=== PATIENT | female | born 1960 | race Caucasian/White ===

== ENCOUNTER 2021-08-19 19:35 | Emergency (ER) | payer SELFPAY ==
--- OUTSIDE RECORDS SUMMARY | 2021-08-19 19:38 | XMS REPORT | Continuity of Care Document ---
:1960 Author Organization [facility] t Address [address] [place] [address] Care Team Providers Name Role Phone Azalia Herrera MD Attending Clinician Azalia HERRERA Attending Clinician Unavailable Angelo Attending Clinician Unavailable Physician, Primary or Family Admitting Clinician Unavailabl e Payers Payer Name Policy Type Policy Number Effective Date Expiration Date S ying PHCS GENERIC [id number] 2015 00:00:00 Problems Condition Condition Condition Status Onset Resolution Last Treating Co mments Source Name Details Category Date Date Treatment Clinician Date Chest pain Chest pain Disease Active 2005-09 Overview : Univers 2-12 ICD10 ity of 00:00: Diagnosis [place] 00 Term Medical Clinical Documentation Clerk Branch Utility Seizure Seizure Disease Active 2005-09 Univers disorder disorder 2-12 ity of 00:00: [place] 00 Medical Branch Anxiety Anxiety Disease Active 2005-09 Overview: Univ ers disorder disorder 2-12 ICD10 ity of due to due to 00:00: Diagnosis [place] medical medical 00 Term Medical condition condition Clinical Documentation Clerk Br anch Utility Chronic Chronic Disease Active 2005-09 Univers depressive depressive 2-12 it y of personalit [place]it [place] disorder y disorder 00 Me dical Branch Chronic Chronic Disease Active 2005-09 Overview: Univ ers obstructiv obstructiv 2-12 ICD10 it y of e airway e airway 00:00: Diagnosis [place] as disease disease 00 Term Medical with with Clinical Documentation Clerk Branch asthma asthma Utility Allergies, Adverse Reactions, Alerts Allergy Allergy Status Severity Reaction(s) Onset Inactive Treating Comm ents Source Name Type Date Date Clinician anselmo DA Active SV 2013- [facility] 09[facility]28 [place] sodium 00:00: d [facility] micafung DA Active SV AMS [facility] in 09-28 [place] sodium 00:00: d 00 [facility] Primidon Propensi Active Rash 2005-09 Univer s e ty to 2-13 ity of adverse 00:00: [place] reaction Medical s Branch PRIMIDON DRUG Active Rash 2005-09 Univers E INGREDI 2-13 ity of 00:00: [place] 00 Medical [place] Social History Social Habit Start Date Stop Date Quantity Comments Source Exposure to Not sure [facility] SARS-CoV-2 (event) [facility] History of tobacco Cigarette Smoker University of use [facility] Sex Assigned At [facility] y of [facility] Cigarettes smoked 2020-08-03 2020-08-03 Univers ity of current (pack per 00:00:00 00:00:00 ) - Reported Branch Tobacco use and 2020-08-03 2020-08-03 Never used [facility] y of exposure 00:00:00 00:00:00 [facility] Alcohol intake 2020-08-03 2020-08-03 Current University of 00:00:00 00:00:00 non-drinker of [facility] alcohol [place] (finding) Smoking Status Start Date Stop Date Source Current every day smoker 2020-08-03 00:00:00 Uni versity [facility] Medications Ordered Filled Start Stop Current Ordering Indication Dosage Frequency Signature Comments Components Source Medication Medication Date Date Medication? Clinician (SIG) Name Name ondansetron 2019-09 Yes [id number] 4mg Take 1 Univers (ZOFRAN) 4 1-09 tablet by ity of mg tablet 00:00: mouth [place] 00 every 8 Medical (eight) Branch hours. acetaminoph 2019-09 Yes [id number] 1{tbl} Take 1 Un demetris en-codeine 1-09 tablet by ity of (TYLENOL-CO 00:00: mouth [place] DEINE #3) 00 every 4 Medical 300-30 mg (four) Branch tablet hours as needed for Pain (scale 7-10). Indication s: acute pain mirtazapine Yes 45mg Take 45 mg Univers (REMERON) 04 by mouth ity of 45 mg 20:59: at [place] tablet 18 bedtime. Medical Branch doxepin Yes 75mg Take 75 mg Univ ers (SINEQUAN) 1-04 by mouth ity o f 75 mg 20:59: at [place] capsule 18 bedtime. Medical Branch carBAMazepi Yes 400mg Take 1 Tab Univers ne 1-04 by mouth 2 ity of (TEGRETOL 00:00: (two) [place] XR) 400 mg 00 times Medical 12 hr daily. Branch tablet levETIRAcet Yes 500mg Take 1 Tab Univers am (KEPPRA) 1-04 by mouth 2 it y of 500 mg 00:00: (two) [place] tablet 00 times Medical daily. Branch carBAMazepi 2014-09 Yes 200mg Take 200 U nivers ne 1-17 mg by ity of (TEGRETOL) 00:00: mouth 2 [place] 200 mg 00 (two) Medical tablet times [place] daily. Vital Signs Vital Name Observation Time Observation Value Comments Source Systolic blood 2020-08-04 01:16:00 122 [facility]Hg[facility] Diastolic blood 2020-08-04 01:16:00 76 mm[Hg] [facility] Heart rate 2020-08-04 01:16:00 80 /min [facility] Body temperature 2020-08-04 01:16:00 36.44 Ruchi [facility] Respiratory rate 2020-08-04 01:16:00 20 /min [facility] Oxygen saturation in 2020-08-04 01:16:00 97 /min [facility] Arterial blood by [facility] Pulse oximetry Branch Body weight 2020-08-03 20:01:00 45.397 kg [facility] BMI 2020-08-03 20:01:00 18.31 kg/m2 [facility] Procedures Procedure Date / Time Performed Performing Clinician Sourc e URINALYSIS 2020-08-04 00:34:00 Kierra Powell [facility] US ABDOMEN LIMITED 2020-08-03 22:18:34 Kierra Powell [facility] XR ABDOMEN ACUTE 2020-08-03 21:19:00 Kierra Powell [facility] Branch LIPASE 2020-08-03 21:04:00 [facility] TROPONIN I 2020-08-03 21:04:00 [facility] HEPATIC FUNCTION PANEL 2020-08-03 21:04:00 [facility] ([id number]) [facility] (ALB,T.PRO,BILI T,BU/BC,ALT,AST,ALK PHOS) BASIC METABOLIC PANEL 2020-08-03 21:04:00 [facility] (NA, K, CL, CO2, Medical Branch GLUCOSE, BUN, CREATININE, CA) CBC WITH DIFF 2020-08-03 21:04:00 [facility] Encounters Start End Encounter Admission Attending Care Care Encounter Source Date/Time Date/Time Type Type Clinicians Facility Department ID 2020-08-03 2020-08-03 Emergency Yarima, TRAUMA [id number] Univers 14:01:00 19:26:00 Anila CENTER [id number] i ty of [id number] [facility] [id number] [address] 2020-08-03 2020-08-03 Emergency X YARIMA, [facility] ERT [id number] Univers 14:01:00 14:01:00 ANILA wolf [facility] 2019-10-28 2019-10-28 Emergency EM Stephens, [facility] [id number] [facility] 18:21:00 18:21:00 Hasmukh [id number] [facility] Results Test Description Test Time Test Comments Results Result Comments Source Urinalysis 2020-08-04 00:59:00 Test Item Value Reference Range Interpretation Comme nts APPEARANCE (test code = Clear Clear 6453370165) COLOR (test code = 6858963081) Straw Yellow A PH (test code = 2484062964) 4.8-8.0 SP GRAVITY (test code = 1.003-1.030 6064716119) GLU U QUAL (test code = Normal Normal 9283623992) BLOOD (test code = 6702673737) 1+ Negative A KETONES (test code = 1010204145) Negative Negative PROTEIN (test code = 2887-8) Negative Negative UROBILIN (test code = 8666088754) Normal Normal BILIRUBIN (test code = Negative Negative 1144880277) NITRITE (test code = 5707243877) Negative Negative LEUK VICTOR MANUEL (test code = Negative Negative 0628990522) RBC/HPF (test code = 2269437486) See_Comment [Automated message] The system which ge nerated this result transmit sherley reference range: 0 - 3 HP F. The reference range was not used to interpret th is result as normal/abnormal . WBC/HPF (test code = 3798250117) See_Comment [Automated message] The system which ge nerated this result transmit sherley reference range: 0 - 5 HP F. The reference range was not used to interpret th is result as normal/abnormal . BACTERIA (test code = 6991731352) Negative Negative SQ EPITH (test code = 9927697832) See_Comment [Automated message] The system which ge nerated this result transmit sherley reference range: <=2 HPF. The reference range was not u sed to interpret this result as normal/abnormal . Lab Interpretation (test code = Abnormal 29989-3) [facility] Abdomen [id number] 23:26:24 Cholelithiasis without sonographic evidence of acute cholecystitis orbiliary ductal dilatation. Preliminary Report Dictated by Resident: Germain Khalil I, Naif Lawrence MD., have reviewed this study andagree with the abovereport.EXAM: US ABDOMEN LIMITED HISTORY: 59 years-old Female with RUQ pain, r/o acute cholecystitis . TECHNIQUE: Limited abdominal ultrasound focused on the liver, right kidneyand spleen was performed. The main portal vein was evaluated with colorDoppler imaging. [employer] Repairer images were obtained for the record. COMPARISON: None FINDINGS: PANCREAS: The pancreatic head and bodydisplay normal echogenicity to the extentvisualized. AORTA:The proximal abdominal aorta is normal incaliber where visualized, andmeasures approximately 1.5 cm in diameter. LIVER:Length: The liver is at the upper limits of normal in size, and .0 cm in the craniocaudal dimension.Parenchyma: The liver parenchyma exhibits normal hepatic echogenicity andechotexture. No focal lesion is detected.Portal vein: Hepatopetal flow is present in the main portal vein.MPV diameter: The main portal vein measures 0.8 cm in the AP dimension. BILE DUCTS:No intra- or extrahepatic biliary dilatation is visualized.The common bile duct diameter measures 0.3 cm. GALLBLADDER:The gallbladder is physiologically di stended. Mobile, curvilinear,echogenic structures measuring up to 0.7 cm are seen within the gallbladderlumen with posterior acoustic shadowing.The gallbladder wall thickness is normal, and measures 0.2 cm.No pericholecystic fluid is visualized. Arreola's sign was unable to beaccurately assessed due to complaints of generalized abdominal pain. IVC:The IVC appears normal where visualized. [facility], Radiant Results Inft User - 08/03/2020 5:27 PM CSTEXAM: US ABDOMEN LIMITEDHISTORY: 59 years-old Female with RUQ pain, r/o acute cholecystitis .TECHNIQUE: Limited abdominal ultrasound focused on the liver, rig ht kidneyand spleen was performed. The main portal vein was evaluated with colorDoppler imaging. [employer] Repairer images were obtained for the record.COMPARISON: NoneFINDINGS: PANCREAS: The pancreatic head and body display normal echogenicity to the extentvisualized.AORTA:The proximal abdominal aorta is normal in caliber where visualized, andmeasures approximately 1.5 cm in diameter. LIVER:Length: Theliver is at the upper limits of normal in size, and rzerrzax20.0 cm in the craniocaudal dimension.Parenchyma: The liver parenchyma exhibits normal hepatic echogenicity andechotexture. No focal lesion is detected.Portal vein: Hepatopetal flow is present in the main portal vein.MPV diameter: The main portal vein measures 0.8 cm in the AP dimension.BILE DUCTS:No intra- or extrahepatic biliary dilatationis visualized.The common bile duct diameter measures 0.3 cm.GALLBLADDER:The gallbladder is physiologically distended. Mobile, curvilinear,echogenic structures measuring up to 0.7 cm are seen within thegallbladderlumen with posterior acoustic shadowing.The gallbladder wall thickness is normal, and measures 0.2 cm.No pericholecystic fluid is visualized. Arreola's sign was unable to beaccurately assessed due to complaints of generalized abdominal pain.IVC:The IVC appears normal where visualized. IMPRESSIONCholelithiasis without sonographic evidence of acute cholecystitis orbiliary ductal dilatation.Preliminary Report Dictated by Resident: Naif Smith MD., have reviewed this study andagree with the abovereport.[facility] 2020-08-03 22:02:17 Chronic emphysematous changes of the lungs with increased bilateralreticular opacities more prominent on the left likely traveling representative ofinterstitial lung disease. No acute intra-abdominal abnormality. The bowel gas pattern isnonobstructive. Age-indeterminate mid thoracic compression deformity with approximately 30%height loss. Preliminary Report Dictated by Resident: Jurgen Rowe MD., have reviewed this study and agree withthe above report.Exam: XR ABDOMEN ACUTE SERIES CLINICAL INDICATION: abdominal pain COMPARISON: None Technique: PA and lateral radiographs of the chest were obtained. Uprightand supine AP radiographs of the abdomen were obtained. FINDINGS: Thelungs are hyperinflated with flattening of the bilateral hemidiaphragmsand increased AP diameter of the thorax. Bilateral lower lobe predominantreticular opacities are noted more prominent in the left lung. Biapicalbullae are noted. No focal consolidation or pneumothorax is visualized.Mild blunting ofthe bilateral costophrenic angles likely representingpleural thickening. The cardiac silhouette appears decrease in size. The bowel gas pattern is nonobstructive. No subdiaphragmatic free air isvisuali zed on upright images. No radiopaque stones or abnormalcalcifications are identified. Age-indeterminate mid thoracic compression deformity with approximately 30%height loss. Otherwise, no acute osseousabnormality. [facility], Radiant Results Inft User - 08/03/2020 4:03 PM CSTExam: XR ABDOMEN ACUTE SERIESCLINICAL INDICATION: abdominal pain COMPARISON: NoneTechnique: PA and lateral radiographs of the chest were obtained. Uprightand supine AP radiographs of the abdomen were obtained.FINDINGS:The lungs arehyperinflated with flattening of the bilateral hemidiaphragmsand increased AP diameter of the thorax. Bilateral lower lobe predominantreticular opacities are noted more prominent in the left lung. Biapicalbullae are noted. No focal consolidation or pneumothorax is visualized.Mild blunting of the bilateral costophrenic angles likely representingpleural thickening.The cardiac silhouette appears decrease in size. The bowel gas pattern is nonobstructive. No subdiaphragmatic free air isvisualized on upright images. No radiopaque stones or abnormalcalcifications are identified.Age-indeterminate mid thoracic compression deformity with approximately 30%height loss. Otherwise, no acute osseous abnormality. IMPRESSIONChronic emphysematous changes of the lungs with increased bilateralreticular opacities more prominent on the left likely traveling representative ofinterstitial lung disease.No acute intra-abdominal abnormality. The bowel gas pattern isnonobstructive.Age-indeterminate mid thoracic compression deformity with approximately 30%height loss. Preliminary Report Dictated by Resident: Cory Greenfield, Jurgen Ford MD., have reviewed this study and agree withthe above report.[facility] 2020-08-03 21:35:00 Test Item Value Reference Range Interpretation Comments TROPONIN I (test 0.001 ng/mL See_Comment [Automated code = 2933628302) message] The system which generated this result transmitted reference range : <=0.034. The reference range was not used to interpret this result as normal/abnormal . OMAR (test code = Equal or Less than OMAR) 0.034 ng/ml---Normal ?Note: Cardiac troponin begins to rise 3-4 hours after the onset of ischemia. Repeat in 4-6 hours if the sample was drawn within 3-4 hours of the onset of the symptom and found normal. Between 0.035 and 0.120 ng/mL--- Borderline. Questionable myocardial injury or necrosis ? ?Note: Serial measurement may be necessary to confirm or exclude the diagnosis of myocardial injury or necrosis; Clinical correlation (symptoms, EKGs, imaging studies, and others) required; Repeat in 4-6 hours if clinically indicated. ? Equal or Higher than 0.121 ng/mL---Abnormal. Myocardial Injury or Necrosis Likely ? Biotin has been reported to cause a negative bias, interpret results relative to patient's use of biotin. ? Lab Interpretation Normal (test code = 16026-9) [facility] (NA, K, CL, CO2, GLUCOSE, BUN, CREATININE, CA)2020-08-03 21:25:00 Test Item Value Reference Range Interpretation Comments NA (test code = 138 mmol/L 135-145 9606516132) K (test code = 4.6 mmol/L 3.5-5 4280313217) CL (test code = 102 mmol/L 98-108 3680199373) CO2 TOTAL (test code = 29 mmol/L 23-31 5203777803) AGAP (test code = 2-16 3340472579) BUN (test code = 8 mg/dL 7-23 5736636172) GLUCOSE (test code = 84 mg/dL 70-110 0230808906) CREATININE (test code 0.56 mg/dL 0.5-1.04 = 7369026232) CALCIUM (test code = 9.6 mg/dL 8.6-10.6 4626667532) eGFR Calculation mL/min/1.73m2 (Non-) (test code = 2972698988) eGFR Calculation mL/min/1.73m2 () (test code = 5899545594) OMAR (test code = OMAR) Association of Glomerular Filtration Rate (GFR) and Staging of Kidney Disease* + -+ + ---+| GFR (mL/min/1.73 m2) ?| With Kidney Damage ?| ?Without Kidney Damage+ -------+ ------+ ---------+| ?>90 ?| ?Stage one ?| ? Normal ?+ --+ -+ ----+| ?60-89 ?| ?Stage two ?| ? Decreased GFR ? + -+ + ---+| ?30-59 ?| ?Stage three ?| ? Stage three ? + -+ + ---+| ?15-29 ?| ?Stage four ? | ? Stage four ?+ --+ -+ ----+| ?<15 (or dialysis) ? ?| ?Stage five ? | ? Stage five ?+ --+ -+ ----+ *Each stage assumes the associated GFR level has been in effect for at least three months. ?Stages 1 to 5, with or without kidney disease, indicate chronic kidney disease. Notes: Determination of stages one and two (with eGFR >59mL/min/1.73 m2) requires estimation of kidney damage for at least three months as defined by structural or functional abnormalities of the kidney, manifested by either:Pathological abnormalities or Markers of kidney damage (including abnormalities in the composition of the blood or urine or abnormalities in imaging tests). [facility] (ALB, T.PRO, BILI T, BU/BC, ALT, AST, ALK PHOS)2020-08-03 21:25:00 Test Item Value Reference Range Interpretation Comments TOTAL BILI (test code = 1062680811) 0.3 mg/dL 0.1-1.1 BILI UNCON (test code = 9732530608) 0.1 mg/dL 0.1-1.1 BILI CONJ (test code = 0117025806) 0.0 mg/dL 0-0.3 T PROTEIN (test code = 1571267717) 8.1 g/dL 6.3-8.2 ALBUMIN (test code = 2752569853) 4.1 g/dL 3.5-5 ALK PHOS (test code = 0543688680) 86 U/L 34-122 ALTv (test code = 1742-6) 10 U/L 5-35 AST(SGOT) (test code = 9184948900) 21 U/L 13-40 Lab Interpretation (test code = Normal 54209-2) [facility]ano[facility]ase [id number] 21:25:00 Test Item Value Reference Range Interpretation Comments LIPASE (test code = 8017372908) 83 U/L 0-220 Lab Interpretation (test code = Normal 51233-3) [facility] with [id number] 21:17:00 Test Item Value Reference Range Interpretation Comments WBC (test code = See_Comment [Automated 2631-2) message] The sy stem which generated this result transmitted reference range : 4.30 - 11.10 10*3/?L. The reference range was not used to interpret this result as normal/abnormal . RBC (test code = See_Comment [Automated 247-8) message] The sy stem which generated this result transmitted reference range : 3.93 - 5.25 10*6/?L. The reference range was not used to interpret this result as normal/abnormal . HGB (test code = 14.4 g/dL 11.6-15 718-7) HCT (test code = 43.9 % 35.7-45.2 4544-3) MCV (test code = 94.8 fL 80.6-95.5 787-2) MCH (test code = 31.1 pg 25.9-32.8 785-6) MCHC (test code = 32.8 g/dL 31.6-35.1 786-4) RDW-SD (test code = 46.5 fL 39-49.9 65835-1) RDW-CV (test code = 13.3 % 12-15.5 788-0) PLT (test code = See_Comment [Automated 777-3) message] The sy stem which generated this result transmitted reference range : 166 - 358 10*3/ ?L. The reference r giacomo was not used to interpret this result as normal/abnormal . MPV (test code = 9.4 fL 9.5-12.9 L 02483-4) NRBC/100 WBC (test See_Comment [Automat ed code = 3730214378) message] The system which generated this result transmitted reference range : 0.0 - 10.0 /100 WBCs. The refer ence range was not u sed to interpret th is result as normal/abnormal . NRBC x10^3 (test code <0.01 See_Comment [Auto mated = 9475108677) message] The s ystem which generated this result transmitted reference range : 10*3/?L. The reference range was not used to interpret this result as normal/abnormal . GRAN MAT (NEUT) % 68.2 % (test code = 770-8) IMM GRAN % (test code 0.40 % = 3061657186) LYMPH % (test code = 22.7 % 736-9) MONO % (test code = 5.3 % 5905-5) EOS % (test code = 2.5 % 713-8) BASO % (test code = 0.9 % 706-2) GRAN MAT x10^3(ANC) 5.29 10*3/uL 1.88-7.09 (test code = 8510606555) IMM GRAN x10^3 (test 0.03 10*3/uL 0-0.06 code = 9125125325) LYMPH x10^3 (test code 1.76 10*3/uL 1.32-3.29 = 731-0) MONO x10^3 (test code 0.41 10*3/uL 0.33-0.92 = 742-7) EOS x10^3 (test code = 0.19 10*3/uL 0.03-0.39 711-2) BASO x10^3 (test code 0.07 10*3/uL 0.01-0.07 = 704-7) Lab Interpretation Abnormal (test code = 27985-2) [facility]PRE[facility]ENSIVE METABOLIC [id number] 19:56:00 Test Item Value Reference Range Interpretation Comments SODIUM (test code = NA) 139 mmol/l 134.0-147.0 N POTASSIUM (test code = K) 3.3 mmol/L 3.6-5.2 L CHLORIDE (test code = CL) 99 mmol/l 98.0-107.0 N CARBON DIOXIDE (test code = CO2) 31.2 mmol/l 21.0-33.0 N ANION GAP (test code = GAP) 12.1 0-20 N GLUCOSE (test code = GLU) 78 mg/dl 70.0-110.0 N BLOOD UREA NITROGEN (test code = 8 mg/dl 7.0-18.0 N BUN) CREATININE (test code = CREAT) 0.78 mg/dL 0.60-1.30 N GFR NON BLACK (test code = 80 mL/min 80-90 N GFRNONBLACK) GFR BLACK (test code = GFRBLACK) 96 mL/min 97-109 L TOTAL PROTEIN (test code = PROT) 8.1 GM/DL 6.0-8.1 N ALBUMIN (test code = ALB) 3.4 gm/dL 3.2-4.7 N CALCIUM (test code = CA) 9.1 mg/dl 8.0-10.5 N BILIRUBIN TOTAL (test code = 0.2 mg/dl 0.0-1.0 N BILT) SGOT/AST (test code = AST) 15 Units/L 15.0-37.0 N SGPT/ALT (test code = ALT) 20 Units/L 12.0-78.0 N ALKALINE PHOSPHATASE TOTAL (test 103 Units/L 50.0-136.0 N code = ALKP) CARDIAC ENZYMES [id number] 19:56:00 Test Item Value Reference Range Interpretation Comments CREATINE KINASE (CK) 51 Units/L 26-192 N (test code = CK) TROPONIN-I (test code <0.02 NG/ML 0.00-0.06 N REFERE NCE RANGE = TROPI) TROPONIN I HEAL THY INDIVIDUALS: < 0.06 ng/mL R/O ISCHE TAVARES: 0.07 - 0.60 ng/ mL CUT-OFF RANGE F OR AMI: 0.60 - 1. 5 ng/mL COMPREHENSIVE METABOLIC [id number] 19:48:00 Test Item Value Reference Range Interpretation Comments SODIUM (test code = NA) 139 mmol/l 134.0-147.0 N POTASSIUM (test code = K) 3.3 mmol/L 3.6-5.2 L CHLORIDE (test code = CL) 99 mmol/l 98.0-107.0 N CARBON DIOXIDE (test code = CO2) 31.2 mmol/l 21.0-33.0 N ANION GAP (test code = GAP) 12.1 0-20 N GLUCOSE (test code = GLU) mg/dl 70.0-110.0 BLOOD UREA NITROGEN (test code = mg/dl 7.0-18.0 BUN) CREATININE (test code = CREAT) mg/dL 0.60-1.30 GFR NON BLACK (test code = mL/min 80-90 GFRNONBLACK) GFR BLACK (test code = GFRBLACK) mL/min 97-109 TOTAL PROTEIN (test code = PROT) gm/dL 6.4-8.2 ALBUMIN (test code = ALB) gm/dl 3.2-4.7 CALCIUM (test code = CA) mg/dl 8.0-10.5 BILIRUBIN TOTAL (test code = mg/dl 0.0-1.0 BILT) SGOT/AST (test code = AST) Units/L 15.0-37.0 SGPT/ALT (test code = ALT) Units/L 12.0-78.0 ALKALINE PHOSPHATASE TOTAL (test Units/L 50.0-136.0 code = ALKP) CARDIAC ENZYMES [id number] 19:48:00 Test Item Value Reference Range Interpretation Comments CREATINE KINASE (CK) (test code = Units/L 26-192 CK) TROPONIN-I (test code = TROPI) NG/ML 0.00-0.06 PROTHROMBIN [id number] 19:45:00 Test Item Value Reference Range Interpretation Comments PROTHROMBIN TIME 12.6 SECONDS 9.9-12.8 N PATIENT (test code = PTP) INTERNATIONAL NORMAL 1.1 0.89-1.14 N THE INR IS TO BE USED RATIO (test code = ONLY FOR MONITORING INR) ORAL ANTICOAGULANTTH ERAPY. THE FOLLOWING A RE SUGGESTED RANGE S FROM [facility]:CAN CATION INR VALUEPROPHYLAXI S OF VENOUS THROMBOS IS (ORTHOPEDIC LARRY KRISTIE) 2.0 - 3.0PROP HYLAXIS OF VENOUS THROM BOSIS (OTHER THAN HIG H-RISK SURGERY) 2.0 - 3.0TRE ATMENT OF DEEP VEIN THROMBOSIS OR PULMONARY EMBOL ISM 2.0 - 3.0PREV ENTION OF SYSTEMIC EMB OLISM TISSUE HEART VA LVES 2.0 - 3.0 AC ANGOON MYOCARDIAL INFA RCTION (TO PREVENT SYSTEMIC EMBOLI SM) 2.0 - 3.0 ACUTE MYOCARDIA L INFARCTION (TO PREVENT RECURRE NT INFARCT) 2.5 - 3.0 VALV ULAR HEART DISEASE 2.0 - 3.0 ATRIAL FIBRILATION 2.0 - 3.0BILEAFLET MECHANICAL VALV E IN AORTIC POSITION 2.0 - 3.0MECHAN ICAL PROSTHETIC VALV ES (HIGH RISK) 2.5 - 3.5PRESEN CE OF LUPUS ANTICOAGU LANT OR ANTIPHOSPHOLIP ID ANTIBODIES 2.5 - 3 .5 CBC W/AUTO [id number] 19:43:00 Test Item Value Reference Range Interpretation Comments WHITE BLOOD CELL (test code = 7.9 K/mm3 4.5-11.0 N WBC) RED BLOOD CELL (test code = 4.44 M/mm3 3.80-5.20 N RBC) HEMOGLOBIN (test code = HGB) 14.0 gm/dL 12.0-16.0 N HEMATOCRIT (test code = HCT) 42.5 % 36.0-48.0 N MEAN CELL VOLUME (test code = 95.7 UM3 82.0-99.0 N MCV) MEAN CELL HGB (test code = MCH) 31.5 UUG 25.5-32.5 N MEAN CELL HGB CONCETRATION 32.9 gm/dL 29.0-35.5 N (test code = MCHC) RED CELL DISTRIBUTION WIDTH 12.3 % 11.5-15.0 N (test code = RDW) RED CELL DISTRIBUTION WIDTH SD 43.2 fL 34.8-50.2 N (test code = RDW-SD) PLATELET COUNT (test code = 349 K/mm3 150-400 N PLT) MEAN PLATELET VOLUME (test code 9.7 fl 7.4-10.4 N = MPV) NEUTROPHIL % (test code = NT%) 63.6 % 49.0-76.0 N IMMATURE GRANULOCYTE % (test 0.1 % 0.0-0.4 N code = IG%) LYMPHOCYTE % (test code = LY%) 27.6 % 23.0-38.0 N MONOCYTE % (test code = MO%) 3.3 % 1.0-10.0 N EOSINOPHIL % (test code = EO%) 4.0 % 1.0-5.0 N BASOPHIL % (test code = BA%) 1.4 % 0.0-1.0 H NEUTROPHIL # (test code = NT#) 5.0 K/mm3 2.4-6.3 N IMMATURE GRANULOCYTE # (test 0.01 x10 3/uL 0.00-0.07 N code = IG#) LYMPHOCYTE # (test code = LY#) 2.2 K/mm3 1.2-4.0 N MONOCYTE # (test code = MO#) 0.3 K/mm3 0.0-0.6 N EOSINOPHIL # (test code = EO#) 0.3 K/MM3 0.0-0.7 N BASOPHIL # (test code = BA#) 0.1 K/mm3 0.0-0.2 N - XR SHOULDER 2 + V [id number] 19:08:00 FAX: Chino Lucio [phone] [place]: St: PRE Name: KEYSHAWN POTTER [facility] : 1960 Age/S: 59/F [address] [facility] Unit#: [id number] Loc: E.EXP [place], [place] Phys: Chino Lucio [address] Acct: [id number] Dis Date: Status: PRE ER PHONE #: [phone] Exam Date: 10/28/20191904 FAX #: [phone] Reason: LEFT SHOULDER AND BACK PAIN EXAMS: CPT CODE: [id number] XR SHOULDER 2 + V LT [id number] Exam: Left shoulder 3 views internal, external rotation and transscapular. Location: H 12 History: LEFT SHOULDER AND BACK PAIN Findings: No bone or joint abnormality is seen. The bony cortices are intact.The joint spaces are well preserved. The soft tissues are normal. Impression: Unremarkable exam. at 1908 Reported and signed by: José Miguel Matias M.D. CC: Chino KIMBALL Technologist: KACEY ANDERSON Trnscrd Date/Time/By:10/28/2019 (1907) : By: Milena PAGE 1 Signed Report FAX: Chino Lucio [phone] [place]: St: PRE Name: KEYSHAWN POTTER [facility] : 1960 Age/S: 59/F [address] [facility] Unit #: [id number] Loc: E.EXP [place], [place] Phys: Chino Lucio [address] Acct: [id number] Dis Date: Status: PRE ER PHONE #: [phone] Exam Date: 10/28/20191904 FAX #: [phone] Reason: LEFT SHOULDER AND BACK PAIN EXAMS: CPT CODE: [id number] XR SHOULDER 2 + V LT [id number] <Continued> Orig Print D/T: S: 10/28/2019 (1910) PAGE 2Signed Report- XR CHEST 1 [id number] 19:07:00 FAX: Chino Lucio [phone] [place]: St: PRE Name: KEYSHAWN POTTER [facility] : 1960 Age/S: 59/F [address] [facility] Unit#: [id number] [place] Phys: Chino Lucio [address] Acct: [id number] Dis Date: Status: PRE ER PHONE #: [phone] Exam Date: 10/28/20191904 FAX #: [phone] Reason: LEFT SHOULDER AND BACK PAIN EXAMS: CPT CODE: [id number] XR CHEST 1 V 75447 Exam: Chest portable erect Location: H 12 History: LEFT SHOULDER AND BACK PAIN Comparison: 04/26/2019. Findi ngs: The lungs are emphysematous but clear. No infiltrate or effusion is seen. The pulmonary vasculature is normal. The heart size is normal. Atherosclerosis involves the aorta. The mediastinal silhouette is unremarkable. The bony thorax is intact with degenerative changes noted. Impression: No acute disease. at 1907 Reported and signed by: José Miguel Matias M.D.CC: Chino KIMBALL Technologist: KACEY ANDERSON Trnscrd Date/Time/By: 10/28/2019 (1906) : By: Milena PAGE 1 Signed Report FAX: Chino Lucio [phone] [place]: St: PRE -- Name: KEYSHAWN POTTER [facility] : 1960 Age/S: 59/F [address] [facility] Unit #: [id number] Loc: CHAR[place], [place] Phys: Chino Lucio [address] Acct: [id number] Dis Date: Status: PRE ER PHONE #: [phone] Exam Date: 10/28/2019 190 FAX #: [phone] Reason: LEFT SHOULDER AND BACK PAIN EXAMS: CPT CODE: [id number] XR CHEST 1 V 84504 <Continued> Orig Print D/T: S: 10/28/2019 (1910) PAGE 2 Signed ReportCOMPREHENSIVE METABOLIC [id number] 14:06:00 Test Item Value Reference Range Interpretation Comments SODIUM (test code = NA) 136 mmol/l 134.0-147.0 N POTASSIUM (test code = K) 3.2 mmol/L 3.6-5.2 L CHLORIDE (test code = CL) 99 mmol/l 98.0-107.0 N CARBON DIOXIDE (test code = CO2) 27.4 mmol/l 21.0-33.0 N ANION GAP (test code = GAP) 12.8 0-20 N GLUCOSE (test code = GLU) 59 mg/dl 70.0-110.0 L BLOOD UREA NITROGEN (test code = 7 mg/dl 7.0-18.0 N BUN) CREATININE (test code = CREAT) 0.70 mg/dL 0.60-1.30 N GFR NON BLACK (test code = 90 mL/min 80-90 N GFRNONBLACK) GFR BLACK (test code = GFRBLACK) 109 mL/min 97-109 N TOTAL PROTEIN (test code = PROT) 8.4 GM/DL 6.0-8.1 H ALBUMIN (test code = ALB) 3.8 gm/dL 3.2-4.7 N CALCIUM (test code = CA) 8.6 mg/dl 8.0-10.5 N BILIRUBIN TOTAL (test code = 0.1 mg/dl 0.0-1.0 N BILT) SGOT/AST (test code = AST) 17 Units/L 15.0-37.0 N SGPT/ALT (test code = ALT) 15 Units/L 12.0-78.0 N ALKALINE PHOSPHATASE TOTAL (test 74 Units/L 50.0-136.0 N code = ALKP) [id number] 14:06:00 Test Item Value Reference Range Interpretation Comments LIPASE (test code = LIP) 143 Units/L 65.0-230.0 N [id number] 14:06:00 Test Item Value Reference Range Interpretation Comments TROPONIN-I (test <0.02 NG/ML 0.00-0.06 N REFERENCE R GIACOMO code = TROPI) TROPONIN I HEA LTHY INDIVIDUALS: < 0.06 ng/mL R/O ISCHE TAVARES: 0.07 - 0.60 ng/ mL CUT-OFF RANGE F OR AMI: 0.60 - 1.5 ng/m L - XR CHEST 2 [id number] 14:03:00 FAX: Juan Calderon MD [phone] [place]: St: PRE Name: KEYSHAWN POTTER [facility] : 1960 Age/S: 58/F [address] [facility] Unit#: [id number] Loc: [address] [place]: [place] [id number] Acct: [id number] Dis Date: Status: PRE ER PHONE #: [phone] Exam Date: 04/26/2019 1350 FAX #: [phone] Reason: chest pain EXAMS: CPT CODE: [id number] XR CHEST 2 V 54124 REASON FOR EXAM: Chest pain, difficulty breathing. COMPARISON: March 01, 2016. Chest, 2 views, frontal and lateral projection. The lungs are hyperinflated with interstitial fibrosis changes diffusely and progressive over 2016.. Heart size is normal. No effusion or pneumothorax can be seen. Osseous structures appear to be intact. . IMPRESSION: No acute cardiopulmonary disease. Interstitial fibrosis with COPD changes. Location: [facility] at 1403 Reported and signed by: Maxx Cuenca M.D. CC: Juan Calderon MD Technologist: ALEX ARVIZU Trnscrd Date/Time/By: 04/26/2019 (7028) : By: [facility] PAGE 1 Signed Report FAX: Juan Calderon MD [phone] [place]: St: PRE Name: KEYSHAWN POTTER [facility] : 1960 Age/S: 58/F [address] [facility] Unit #: [id number] Loc: [address] Phys: [place] [address] Acct: [id number] Dis Date: Status: PRE ER PHONE #: [phone] Exam Date: 04/26/2019 1350 FAX #: [phone] R omega: chest pain EXAMS: CPT CODE: [id number] XR CHEST 2 V [id number] <Continued> Orig Print D/T: S: 04/26/2019 (2539) PAGE 2 Signed ReportPROTHROMBIN [id number] 14:00:00 Test Item Value Reference Range Interpretation Comments PROTHROMBIN TIME 12.6 SECONDS 9.9-12.8 N PATIENT (test code = PTP) INTERNATIONAL NORMAL 1.1 0.89-1.14 N THE INR IS TO BE USED RATIO (test code = ONLY FOR MONITORING INR) ORAL ANTICOAGULANTTH ERAPY. THE FOLLOWING A RE SUGGESTED RANGE S FROM [facility]RA [facility] LEGE OF CHEST PHYSICIANS:CAN CATION INR VALUEPROPHYLAXI S OF VENOUS THROMBOS IS (ORTHOPEDIC LARRY KRISTIE) 2.0 - 3.0PROP HYLAXIS OF VENOUS THROM BOSIS (OTHER THAN HIG H-RISK SURGERY) 2.0 - 3.0TRE ATMENT OF DEEP VEIN THROMBOSIS OR PULMONARY EMBOL ISM 2.0 - 3.0PREV ENTION OF SYSTEMIC EMB OLISM TISSUE HEART VA LVES 2.0 - 3.0 AC ANGOON MYOCARDIAL INFA RCTION (TO PREVENT SYSTEMIC EMBOLI SM) 2.0 - 3.0 ACUTE MYOCARDIA L INFARCTION (TO PREVENT RECURRE NT INFARCT) 2.5 - 3.0 VALV ULAR HEART DISEASE 2.0 - 3.0 ATRIAL FIBRILATION 2.0 - 3.0BILEAFLET MECHANICAL VALV E IN AORTIC POSITION 2.0 - 3.0MECHAN ICAL PROSTHETIC VALV ES (HIGH RISK) 2.5 - 3.5PRESEN CE OF LUPUS ANTICOAGU LANT OR ANTIPHOSPHOLIP ID ANTIBODIES 2.5 - 3 .5 COMPREHENSIVE METABOLIC [id number] 13:56:00 Test Item Value Reference Range Interpretation Comments SODIUM (test code = NA) 136 mmol/l 134.0-147.0 N POTASSIUM (test code = K) 3.2 mmol/L 3.6-5.2 L CHLORIDE (test code = CL) 99 mmol/l 98.0-107.0 N CARBON DIOXIDE (test code = CO2) 27.4 mmol/l 21.0-33.0 N ANION GAP (test code = GAP) 12.8 0-20 N GLUCOSE (test code = GLU) mg/dl 70.0-110.0 BLOOD UREA NITROGEN (test code = mg/dl 7.0-18.0 BUN) CREATININE (test code = CREAT) mg/dL 0.60-1.30 GFR NON BLACK (test code = mL/min 80-90 GFRNONBLACK) GFR BLACK (test code = GFRBLACK) mL/min 97-109 TOTAL PROTEIN (test code = PROT) gm/dL 6.4-8.2 ALBUMIN (test code = ALB) gm/dl 3.2-4.7 CALCIUM (test code = CA) mg/dl 8.0-10.5 BILIRUBIN TOTAL (test code = mg/dl 0.0-1.0 BILT) SGOT/AST (test code = AST) Units/L 15.0-37.0 SGPT/ALT (test code = ALT) Units/L 12.0-78.0 ALKALINE PHOSPHATASE TOTAL (test Units/L 50.0-136.0 code = ALKP) [id number] 13:56:00 Test Item Value Reference Range Interpretation Comments LIPASE (test code = LIP) Units/L 65.0-230.0 [id number] 13:56:00 Test Item Value Reference Range Interpretation Comments TROPONIN-I (test code = TROPI) NG/ML 0.00-0.06 CBC W/AUTO [id number] 13:54:00 Test Item Value Reference Range Interpretation Comments WHITE BLOOD CELL (test code = 8.1 K/mm3 4.5-11.0 N WBC) RED BLOOD CELL (test code = 4.57 M/mm3 3.80-5.20 N RBC) HEMOGLOBIN (test code = HGB) 14.5 gm/dL 12.0-16.0 N HEMATOCRIT (test code = HCT) 44.2 % 36.0-48.0 N MEAN CELL VOLUME (test code = 96.7 UM3 82.0-99.0 N MCV) MEAN CELL HGB (test code = MCH) 31.7 UUG 25.5-32.5 N MEAN CELL HGB CONCETRATION 32.8 gm/dL 29.0-35.5 N (test code = MCHC) RED CELL DISTRIBUTION WIDTH 12.5 % 11.5-15.0 N (test code = RDW) RED CELL DISTRIBUTION WIDTH SD 45.0 fL 34.8-50.2 N (test code = RDW-SD) PLATELET COUNT (test code = 315 K/mm3 150-400 N PLT) MEAN PLATELET VOLUME (test code 10.1 fl 7.4-10.4 N = MPV) NEUTROPHIL % (test code = NT%) 58.6 % 49.0-76.0 N IMMATURE GRANULOCYTE % (test 0.2 % 0.0-0.4 N code = IG%) LYMPHOCYTE % (test code = LY%) 32.8 % 23.0-38.0 N MONOCYTE % (test code = MO%) 4.3 % 1.0-10.0 N EOSINOPHIL % (test code = EO%) 2.7 % 1.0-5.0 N BASOPHIL % (test code = BA%) 1.4 % 0.0-1.0 H NEUTROPHIL # (test code = NT#) 4.8 K/mm3 2.4-6.3 N IMMATURE GRANULOCYTE # (test 0.02 x10 3/uL 0.00-0.07 N code = IG#) LYMPHOCYTE # (test code = LY#) 2.7 K/mm3 1.2-4.0 N MONOCYTE # (test code = MO#) 0.4 K/mm3 0.0-0.6 N EOSINOPHIL # (test code = EO#) 0.2 K/MM3 0.0-0.7 N BASOPHIL # (test code = BA#) 0.1 K/mm3 0.0-0.2 N"
[2021-08-19] MEDS ORDERED: ONDANSETRON 4 MG/2 ML VIAL ONE (19:49)
[2021-08-19] MEDS ORDERED: MORPHINE 4 MG/ML SYR ONE (19:49)
[2021-08-19 19:52] LABS: Urine Blood Negative (Negative); Urine Glucose Negative (Negative); Urine Protein Negative (Negative); Urine pH 5.5 (5.0-7.0)
--- NOTE | 2021-08-19 20:56 | RAD REPORT ---
EXAM DESCRIPTION: Lex Single View08/19/2021 7:52 pm CLINICAL HISTORY: Chest pain COMPARISON: none FINDINGS: Lungs are moderately to markedly hyperaerated. The lungs appear clear of acute infiltrate. The heart is normal size IMPRESSION: COPD without visualization acute abnormality
--- NOTE | 2021-08-19 20:56 | RAD REPORT ---
EXAM DESCRIPTION: CT - Thorax Wo Con - 08/19/2021 8:30 pm CLINICAL HISTORY: Chest pain COMPARISON: none TECHNIQUE: Computed axial tomography of the chest was obtained. Contrast was not requested. All CT scans are performed using dose optimization technique as appropriate and may include automated exposure control or mA/KV adjustment according to patient size. FINDINGS: The evaluation of mediastinum, duyen and vessels is limited secondary to lack of IV contras t administration. Moderate to marked paraseptal and centrilobular emphysema. Mild honeycombing within the left lower lo be. No mediastinal or hilar lymphadenopathy is seen. A pleural effusion is not present. IMPRESSION: COPD without visualization acute abnormality
--- NOTE | 2021-08-19 21:23 | EDPHYS ---
Physician Documentation [facility] Name: Leonarda Zabala Age: 60 yrs Sex: Female : 1960 Arrival Date: 08/19/2021 Time: 19:37 Bed 17 Private MD: ED Physician Amrik Barnett HPI: 08/19 21:20 This 60 yrs old Unknown Female presents to ER via EMS with complaints of back pain. kb 21:20 The patient presents with pain that is acute. The symptoms are located in the left kb scapular area and left subscapular area. Onset: The symptoms/episode began/occurred last night. The pain does not radiate. Associated signs and symptoms: The patient has no apparent associated signs or symptoms. The problem was sustained coughed and felt a pop. Modifying factors: The patient symptoms are alleviated by nothing, the patient symptoms are aggravated by any movement, coughing, deep breath. Severity of symptoms: At their worst the symptoms were moderate, in the emergency department the symptoms are unchanged. The patient has experienced a previous episode. The patient has not recently seen a physician. Pt states she coughed last night and felt a pop in her back. States it feels similar to when she had a pneumothorax on the same side. . Historical: - Allergies: 19:42 Myeclin; cc4 - PMHx: 19:42 COPD; Emphysema; Left pneumothorax; cc4 - Immunization history:: Adult Immunizations up to date. - Family history:: not pertinent. - Social history:: Smoking status: Patient reports the use of cigarette tobacco products, smokes two packs cigarettes per day. ROS: 21:05 Constitutional: Negative for fever, chills, and weight loss. kb 21:05 Respiratory: Positive for pleurisy, of the left scapular area. 21:05 Back: Positive for pain at rest, pain with movement, of the left scapular area and left subscapular area. 21:05 All other systems are negative. Exam: 21:19 Constitutional: This is a well developed, well nourished patient who is awake, alert, kb and in no acute distress. Head/Face: Normocephalic, atraumatic. ENT: Moist Mucous membranes Cardiovascular: Regular rate and rhythm with a normal S1 and S2. No gallops, murmurs, or rubs. No pulse deficits. Respiratory: Respirations even and unlabored. No increased work of breathing, no retractions or nasal flaring. Skin: Warm, dry with normal turgor. Normal color. MS/ Extremity: Pulses equal, no cyanosis. Neurovascular intact. Full, normal range of motion. Neuro: Awake and alert, GCS 15, oriented to person, place, time, and situation. Moves all extremities. Normal gait. Psych: Awake, alert, with orientation to person, place and time. Behavior, mood, and affect are within normal limits. 21:19 Back: pain, that is moderate, of the left scapular area and left subscapular area, ROM is painful. Vital Signs: 19:26 BP 111 / 66; Pulse 90; Resp 21 S; Temp 97.9(O); Pulse Ox 99% on R/A; Weight 43.09 kg; cc4 Height 5 ft. 2 in. (157.48 cm); 20:00 BP 121 / 68; Pulse 93; Resp 20 S; Pulse Ox 97% on R/A; cc4 21:53 BP 98 / 59; Pulse 78; Resp 21 S; Temp 98.2(O); Pulse Ox 97% on R/A; cc4 19:26 Body Mass Index 17.38 (43.09 kg, 157.48 cm) cc4 MDM: 19:38 Patient medically screened. kb 21:04 Data reviewed: vital signs, nurses notes. Data interpreted: Pulse oximetry: on room air kb is 99 %. Interpretation: normal. Counseling: I had a detailed discussion with the patient and/or guardian regarding: the historical points, exam findings, and any diagnostic results supporting the discharge/admit diagnosis, radiology results, the need for outpatient follow up, a family practitioner, to return to the emergency department if symptoms worsen or persist or if there are any questions or concerns that arise at home. 08/19 19:52 Order name: Urine Dipstick-Ancillary; Complete Time: 19:54 EDMS 08/19 19:39 Order name: Chest Single View XRAY; Complete Time: 21:01 kb 08/19 19:39 Order name: CT Chest Wo Con; Complete Time: 20:56 kb 08/19 19:39 Order name: IV Start; Complete Time: 20:15 kb Administered Medications: 20:00 Drug: morphine 4 mg Route: IVP; Site: right antecubital; cc4 20:30 Follow up: Response: No adverse reaction; Pain is decreased cc4 20:00 Drug: Zofran (Ondansetron) 4 mg Route: IVP; Site: right antecubital; cc4 20:30 Follow up: Response: No adverse reaction cc4 Disposition: 08/20 02:24 Co-signature as Attending Physician, Amrik Barnett MD. [email or web address] Disposition Summary: 08/19/21 21:22 Discharge Ordered Location: Home kb Condition: Stable kb Diagnosis - Left upper back pain kb Followup: kb - With: Private Physician - When: 2 - 3 days - Reason: Recheck today's complaints, Continuance of care, Re-evaluation by your physician Followup: kb - With: Emergency Department - When: As needed - Reason: Worsening of condition Discharge Instructions: - Discharge Summary Sheet kb - Costochondritis, Qgza-sk-Adca kb - Pleurisy, Fleg-ik-Onub kb Forms: - Medication Reconciliation Form kb - Thank You Letter kb - Antibiotic Education kb - Prescription Opioid Use kb Prescriptions: - Cyclobenzaprine 10 mg Oral Tablet - take 1 tablet by ORAL route every 8 hours As needed; 21 tablet; Refills: 0, kb Product Selection Permitted - Diclofenac Sodium 75 mg Oral tablet,delayed release (DR/EC) - take 1 tablet by ORAL route 2 times per day As needed; 30 tablet; Refills: 0, kb Product Selection Permitted Signatures: Dispatcher [employer] Christel Souza, TERESE ANDRADE-Amrik Anthony MD MD 7 Stephanie Sultana, RN RN cc4
--- NOTE | 2021-08-19 21:23 | ER ---
Nurse's Notes [facility] Name: Leonarda Zabala Age: 60 yrs Sex: Female : 1960 Arrival Date: 08/19/2021 Time: 19:37 Bed 17 Private MD: Diagnosis: Left upper back pain Presentation: 08/19 19:26 Chief complaint: Patient states: c/o mid-thoracic \T\ left rib area pain 10/10 on pain cc4 scale since coughing last night \T\ feeling a sharp pain dring cough; voices no SOB; reports h/o pneumothorax on left 3 years ago; reports h/o emphysema \T\ COPD; O2 sat 99% RA; SR wit no ectopy;. 19:26 Method Of Arrival: EMS: [facility] cc4 19:26 Acuity: JARRETT 4 cc4 19:26 Risk Assessment: Do you want to hurt yourself or someone else? Patient reports no cc4 desire to harm self or others. 19:26 Onset of symptoms was August 18, 2021 at 22:00. cc4 19:26 Coronavirus screen: Vaccine status: Patient reports being unvaccinated. Client denies cc4 travel out of the [place] in the last 14 days. At this time, the client does not indicate any symptoms associated with coronavirus-19. Ebola Screen: Patient negative for fever greater than or equal to 101.5 degrees Fahrenheit, and additional compatible Ebola Virus Disease symptoms No symptoms or risks identified at this time. Initial Sepsis Screen: Does the patient have a suspected source of infection? No. Patient's initial sepsis screen is negative. Initial Sepsis Screen: Does the patient meet any 2 criteria? No. Patient's initial sepsis screen is negative. Triage Assessment: 19:26 General: Appears uncomfortable, Behavior is calm, cooperative, Ambulating slowly; c/o cc4 mid thoracic \T\ left rib area pain since sharp pain during cough last night; no SOB noted.. 19:26 Pain: Complains of pain in back \T\ left lateral/posterior rib area Pain does not cc4 radiate. Pain currently is 10 out of 10 on a pain scale. Quality of pain is described as aching, sharp, Pain began 1 day ago. Is continuous, Alleviated by nothing. Aggravated by repositioning. Historical: - Allergies: 19:42 Myeclin; cc4 - PMHx: 19:42 COPD; Emphysema; Left pneumothorax; cc4 - Immunization history:: Adult Immunizations up to date. - Family history:: not pertinent. - Social history:: Smoking status: Patient reports the use of cigarette tobacco products, smokes two packs cigarettes per day. Screenin:26 Abuse screen: Denies threats or abuse. Nutritional screening: No deficits noted. cc4 Tuberculosis screening: No symptoms or risk factors identified. Fall Risk None identified. Assessment: 19:26 Reassessment: See triage assessment; VSS. cc4 20:00 Reassessment: No changes from previously documented assessment. # 20 g angiocath cc4 inserted right AC x 1attempt with no difficulty, thuan. well; Morphine 4 mg \T\ Zofran 4 mg given slow IVP. 20:30 Reassessment: Patient appears in no apparent distress at this time. Reports decreasing cc4 back/rib pain to 3/10 on pain scale. Vital Signs: 19:26 BP 111 / 66; Pulse 90; Resp 21 S; Temp 97.9(O); Pulse Ox 99% on R/A; Weight 43.09 kg; cc4 Height 5 ft. 2 in. (157.48 cm); 20:00 BP 121 / 68; Pulse 93; Resp 20 S; Pulse Ox 97% on R/A; cc4 21:53 BP 98 / 59; Pulse 78; Resp 21 S; Temp 98.2(O); Pulse Ox 97% on R/A; cc4 19:26 Body Mass Index 17.38 (43.09 kg, 157.48 cm) cc4 ED Course: 19:26 hall monitor on. Pulse ox on. NIBP on. cc4 19:26 Placed in gown. Bed in low position. Call light in reach. Side rails up X2. cc4 19:35 Arm band placed on. cc4 19:37 Patient arrived in ED. cc4 19:37 Stephanie Sultana, PAUL is Primary Nurse. cc4 19:38 [facility] Sun [facility]C [facility] kb 19:38 Amrik Barnett MD is Attending Physician. kb 19:47 Triage completed. cc4 19:51 Chest Single View XRAY In Process Unspecified. EDMS 20:15 CT Chest Wo Con Sent. cc4 20:30 CT Chest Wo Con In Process Unspecified. EDMS 21:53 No provider procedures requiring assistance completed. cc4 21:53 IV discontinued, intact, bleeding controlled, No redness/swelling at site. Pressure cc4 dressing applied. Administered Medications: 20:00 Drug: morphine 4 mg Route: IVP; Site: right antecubital; cc4 20:30 Follow up: Response: No adverse reaction; Pain is decreased cc4 20:00 Drug: Zofran (Ondansetron) 4 mg Route: IVP; Site: right antecubital; cc4 20:30 Follow up: Response: No adverse reaction cc4 Outcome: 21:22 Discharge ordered by . kb 21:53 Discharged to home ambulatory. cc4 21:53 Condition: improved 21:53 Discharge instructions given to patient, Instructed on discharge instructions, follow up and referral plans. medication usage, Demonstrated understanding of instructions, follow-up care, medications. Signatures: Dispatcher [employer] EDTN Christel Sun, RAYMOND-C HOUSE SERVANT-Stephanie Eubanks RN RN cc4 Corrections: (The following items were deleted from the chart) 08/20 02:38 08/19 22:02 Patient left the ED. cc4 cc4 08/20 02:38 08/19 22:26 Patient left the ED. cc4 cc4
== END 2021-08-19 22:26 | disposition home or self-care (01) ==
LOC: ER 19:35
DX: M54.9 Dorsalgia, unspecified (principal); J44.9 Chronic obstructive pulmonary disease, unspecified; F17.210 Nicotine dependence, cigarettes, uncomplicated; Z88.8 Allergy status to other drugs, medicaments and biological substances
CPT/HCPCS: 71045; 71250; 81003; 96374; 96375; 99284; J2405

== ENCOUNTER 2021-08-23 17:27 | Emergency (ER) | payer SELFPAY ==
--- OUTSIDE RECORDS SUMMARY | 2021-08-23 17:30 | XMS REPORT | Continuity of Care Document ---
:[address] [facility] t Address [address] [place] [address] Care Team Providers Name Role Phone Azalia Herrera MD Attending Clinician Azalia HERRERA Attending Clinician Unavailable Angelo Attending Clinician Unavailable Physician, Primary or Family Admitting Clinician Unavailabl e Payers Payer Name Policy Type Policy Number Effective Date Expiration Date S ourletitia PHCS GENERIC [id number] 2015 00:00:00 Problems Condition Condition Condition Status Onset Resolution Last Treating Co mments Source Name Details Category Date Date Treatment Clinician Date Chest pain Chest pain Disease Active 2005-09 Overview : Univers 2-12 ICD10 ity of 00:00: Diagnosis [place] 00 Term Medical [employer] Branch Utility Seizure Seizure Disease Active 2005-09 Univers disorder disorder 2-12 ity of 00:00: [place] 00 Medical Branch Anxiety Anxiety Disease Active 2005-09 Overview: Univ ers disorder disorder 2-12 ICD10 ity of due to due to 00:00: Diagnosis [place] medical medical 00 Term Medical condition condition [employer] Br anch Utility Chronic Chronic Disease Active 2005-09 Univers depressive depressive 2-12 it y of personal[place] disorder 00 Me dical Branch Chronic Chronic Disease Active 2005-09 Overview: Univ ers obstructiv obstructiv 2-12 ICD10 it y of e airway e airway 00:00: Diagnosis [place] as disease disease 00 Term Medical with with [employer] Branch asthma asthma Utility Allergies, Adverse Reactions, Alerts Allergy Allergy Status Severity Reaction(s) Onset Inactive Treating Comm ents Source Name Type Date Date Clinician anselmo DA Active SV 2013- [facility] 09[facility]28 [place] sodium 00:00: d [facility] micafung DA Active SV AMS [facility] in 09-28 [place] sodium 00:00: d 00 [facility] Primidon Propensi Active Rash 2005-09 Univer s e ty to 11-07 ity of adverse 00:00: [place] reaction 00 Medical s Branch PRIMIDON DRUG Active Rash 2005-09 Univers E INGREDI 11-07 ity of 00:00: [place] 00 [facility] Social History Social Habit Start Date Stop Date Quantity Comments Source Exposure to Not sure [facility] SARS-CoV-2 (event) [facility] History of tobacco Cigarette Smoker University of use [facility] Sex Assigned At [facility] y of [facility] Cigarettes smoked 2020-08-03 2020-08-03 Univers ity of current (pack per 00:00:00 00:00:00 ) - Reported Branch Tobacco use and 2020-08-03 2020-08-03 [facility]00 00:00:00 [facility] Alcohol intake 2020-08-03 2020-08-03 Current University 00:00:00 00:00:00 non-drinker of [facility] alcohol [place] (finding) Smoking Status Start Date Stop Date Source Current every day smoker 2020-08-03 00:00:00 Uni versity of [facility] Medications Ordered Filled Start Stop Current Ordering Indication Dosage Frequency Signature Comments Components Source Medication Medication Date Date Medication? Clinician (SIG) Name Name ondansetron 2019-09 Yes [id number] 4mg Take 1 Univers (ZOFRAN) 4 1-09 [...] Yes 45mg Take 45 mg Univers (REMERON) 1-04 by mouth ity of 45 mg 20:59: at [place] tablet 18 bedtime. Medical Branch doxepin Yes 75mg Take 75 mg Univ ers (SINEQUAN) 1-04 by mouth ity o f 75 mg 20:59: at [place] capsule 18 bedtime. Medical Branch carBAMazepi Yes [...] 200 mg 00 (two) Medical tablet times [place] daily. Vital Signs Vital Name Observation Time Observation Value Comments Source Systolic blood 2020-08-04 01:16:00 122 mm[facility]Hg[facility] pressure [facility] Diastolic blood 2020-08-04 01:16:00 76 mm[Hg] [facility] rate 2020-08-04 01:16:00 80 /min [facility] Body temperature 2020-08-04 01:16:00 36.44 [facility] Respiratory rate 2020-08-04 01:16:00 20 /min [facility] Oxygen saturation in 2020-08-04 01:16:00 97 /min [facility] Arterial blood by [facility] Pulse oximetry Branch Body weight 2020-08-03 20:01:00 45.397 kg [facility] BMI 2020-08-03 20:01:00 18.31 kg/m2 [facility] Procedures Procedure Date / Time Performed Performing Clinician Sourc e URINALYSIS 2020-08-04 00:34:00 Kierra Powell [facility] US ABDOMEN LIMITED 2020-08-03 22:18:34 Kierra Powell [facility] XR ABDOMEN ACUTE 2020-08-03 21:19:00 Kierra Powell [facility] LIPASE 2020-08-03 21:04:00 [facility] 2020-08-03 21:04:00 [facility] HEPATIC FUNCTION PANEL 2020-08-03 21:04:00 [id number] (ALB,T.PRO,BILI T,BU/BC,ALT,AST,ALK PHOS) BASIC METABOLIC PANEL 2020-08-03 21:04:00 [facility] Kierra [facility] (NA, K, CL, CO2, Medical Branch GLUCOSE, BUN, CREATININE, CA) CBC WITH DIFF 2020-08-03 21:04:00 [facility] Encounters Start End Encounter Admission Attending Care Care Encounter Source Date/Time Date/Time Type Type Clinicians Facility Department ID 2020-08-03 2020-08-03 Emergency Yarima, TRAUMA [id number] Univers 14:01:00 19:26:00 Anila [facility] [id number] i ty of [id number] [facility] [id number] [place] [address] Branch 2020-08-03 2020-08-03 Emergency X YARIMA, [facility] ERT [id number] Univers 14:01:00 14:01:00 ANILA wolf [facility] 2019-10-28 2019-10-28 Emergency EM Stephens, [facility] MEXP [id number] [facility] 18:21:00 18:21:00 Hasmukh [id number] [facility] Results Test Description Test Time Test Comments Results Result Comments Source Urinalysis 2020-08-04 00:59:00 Test Item Value Reference Range Interpretation Comme nts APPEARANCE (test code = Clear Clear 1488132396) COLOR (test code = 8666639558) Straw Yellow A PH (test code = 7835008658) 4.8-8.0 SP GRAVITY (test code = 1.003-1.030 5113909387) GLU U QUAL (test code = Normal Normal 0119036139) BLOOD (test code = 4312985098) 1+ Negative A KETONES (test code = 9181997737) Negative Negative PROTEIN (test code = 2887-8) Negative Negative UROBILIN (test code = 4535890839) Normal Normal BILIRUBIN (test code = Negative Negative 8747625089) NITRITE (test code = 0006559612) Negative Negative LEUK VICTOR MANUEL (test code = Negative Negative 3305378404) RBC/HPF (test code = 9317745619) See_Comment [Automated message] The system which ge nerated this result transmit sherley reference range: 0 - 3 HP F. The reference range was not used to interpret th is result as normal/abnormal . WBC/HPF (test code = 5727390602) See_Comment [Automated message] The system which ge nerated this result transmit sherley reference range: 0 - 5 HP F. The reference range was not used to interpret th is result as normal/abnormal . BACTERIA (test code = 5187129527) Negative Negative SQ EPITH (test code = 0772835215) See_Comment [Automated message] The system which ge nerated this result transmit sherley reference range: <=2 HPF. The reference range was not u sed to interpret this result as normal/abnormal . Lab Interpretation (test code = Abnormal 69563-2) [facility] Abdomen [id number] 23:26:24 Cholelithiasis without sonographic evidence of acute [...] portal vein was evaluated with colorDoppler imaging. Candle Molder images were obtained for the record. COMPARISON: None FINDINGS: PANCREAS: The pancreatic head and bodydisplay normal echogenicity to the extentvisualized. AORTA:The proximal abdominal aorta is normal incaliber where visualized, andmeasures approximately 1.5 cm in diameter. LIVER:Length: The liver is at the upper limits of normal in size, and chwmegou68.0 cm in the craniocaudal dimension.Parenchyma: The liver [...] portal vein was evaluated with colorDoppler imaging. Candle Molder images were obtained for the record.COMPARISON: NoneFINDINGS: PANCREAS: The pancreatic head and body display normal echogenicity to the extentvisualized.AORTA:The proximal abdominal aorta is normal in caliber where visualized, andmeasures approximately 1.5 cm in diameter. LIVER:Length: Theliver is at the upper limits of normal in size, and wvxicqpo41.0 cm in the craniocaudal dimension.Parenchyma: The liver [...] have reviewed this study andagree with the abovereport.[facility] 2020-08-03 22:02:17 Chronic emphysematous changes of the lungs with increased bilateralreticular opacities more prominent on the left likely reimbursement representative ofinterstitial lung disease. No acute intra-abdominal abnormality. The bowel gas pattern isnonobstructive. Age-indeterminate mid thoracic compression deformity with approximately 30%height loss. Preliminary Report Dictated by Resident: Jurgen Rowe ?MD Liliana., have reviewed this study and agree withthe [...] opacities more prominent on the left likely reimbursement representative ofinterstitial lung disease.No acute intra-abdominal abnormality. The bowel gas pattern isnonobstructive.Age-indeterminate mid thoracic compression deformity with approximately 30%height loss. Preliminary Report Dictated by Resident: Cory Greenfield, Jurgen Ford MD., have reviewed this study and agree withthe above report.[facility] CenterT[facility] I 2020-08-03 21:35:00 Test Item Value Reference Range Interpretation Comments TROPONIN I (test 0.001 ng/mL See_Comment [Automated code = 0056917520) message] The system which generated this result [...] ? Lab Interpretation Normal (test code = 70267-8) [facility] CenterB[facility] Metabolic Panel (NA, K, CL, CO2, GLUCOSE, BUN, CREATININE, CA)2020-08-03 21:25:00 Test Item Value Reference Range Interpretation Comments NA (test code = 138 mmol/L 135-145 1420374755) K (test code = 4.6 mmol/L 3.5-5 6365760538) CL (test code = 102 mmol/L 98-108 3079323904) CO2 TOTAL (test code = 29 mmol/L 23-31 3907625624) AGAP (test code = 2-16 2475915450) BUN (test code = 8 mg/dL 7-23 0724905742) GLUCOSE (test code = 84 mg/dL 70-110 1179141386) CREATININE (test code 0.56 mg/dL 0.5-1.04 = 7862714249) CALCIUM (test code = 9.6 mg/dL 8.6-10.6 7527539364) eGFR Calculation mL/min/1.73m2 (Non-) (test code = 6759027238) eGFR Calculation mL/min/1.73m2 () (test code = 1316471380) OMAR (test code = OMAR) Association of [...] or urine or abnormalities in imaging tests). [facility] Center[facility] Function Panel (ALB, T.PRO, BILI T, BU/BC, ALT, AST, ALK PHOS)2020-08-03 21:25:00 Test Item Value Reference Range Interpretation Comments TOTAL BILI (test code = 2158948980) 0.3 mg/dL 0.1-1.1 BILI UNCON (test code = 8721791048) 0.1 mg/dL 0.1-1.1 BILI CONJ (test code = 0629442587) 0.0 mg/dL 0-0.3 T PROTEIN (test code = 4783897274) 8.1 g/dL 6.3-8.2 ALBUMIN (test code = 0866211276) 4.1 g/dL 3.5-5 ALK PHOS (test code = 8374202516) 86 U/L 34-122 ALTv (test code = 1742-6) 10 U/L 5-35 AST(SGOT) (test code = 5383378235) 21 U/L 13-40 Lab Interpretation (test code = Normal 54724-1) [facility] CenterLipase [id number] 21:25:00 Test Item Value Reference Range Interpretation Comments LIPASE (test code = 4112277208) 83 U/L 0-220 Lab Interpretation (test code = Normal 90722-9) [facility] CenterCB with [id number] 21:17:00 Test Item Value Reference Range Interpretation Comments WBC (test code = See_Comment [Automated 7713-2) message] The sy stem which generated this result transmitted reference range : 4.30 - 11.10 10*3/?L. The reference range was not used to interpret this result as normal/abnormal . RBC (test code = See_Comment [Automated 594-8) message] The sy stem which generated this [...] RDW-SD (test code = 46.5 fL 39-49.9 45382-7) RDW-CV (test code = 13.3 % 12-15.5 788-0) PLT (test code = See_Comment [Automated 777-3) message] The sy stem which generated this result transmitted reference range : 166 - 358 10*3/ ?L. The reference r giacomo was not used to interpret this result as normal/abnormal . MPV (test code = 9.4 fL 9.5-12.9 L 36047-2) NRBC/100 WBC (test See_Comment [Automat ed code = 8149391791) message] The system which generated this result transmitted reference range : 0.0 - 10.0 /100 WBCs. The refer ence range was not u sed to interpret th is result as normal/abnormal . NRBC x10^3 (test code <0.01 See_Comment [Auto mated = 8074964380) message] The s ystem which generated this result transmitted reference range : 10*3/?L. The reference range was not used to interpret this result as normal/abnormal . GRAN MAT (NEUT) % 68.2 % (test code = 770-8) IMM GRAN % (test code 0.40 % = 2835881281) LYMPH % (test code = 22.7 % 736-9) MONO % (test code = 5.3 % 5905-5) EOS % (test code = 2.5 % 713-8) BASO % (test code = 0.9 % 706-2) GRAN MAT x10^3(ANC) 5.29 10*3/uL 1.88-7.09 (test code = 7254656166) IMM GRAN x10^3 (test 0.03 10*3/uL 0-0.06 code = 1808318313) LYMPH x10^3 (test code 1.76 10*3/uL 1.32-3.29 = 731-0) MONO x10^3 (test code 0.41 10*3/uL 0.33-0.92 = 742-7) EOS x10^3 (test code = 0.19 10*3/uL 0.03-0.39 711-2) BASO x10^3 (test code 0.07 10*3/uL 0.01-0.07 = 704-7) Lab Interpretation Abnormal (test code = 10765-9) [facility] CenterCOMPREHENSIVE METABOLIC [id number] 19:56:00 Test Item Value Reference Range Interpretation [...] 50.0-136.0 N code = ALKP) CARDIAC ENZYMES [id number] 19:56:00 Test Item Value Reference Range Interpretation Comments CREATINE KINASE (CK) 51 Units/L 26-192 N (test code = CK) TROPONIN-I (test code <0.02 NG/ML 0.00-0.06 N REFERE NCE RANGE = TROPI) TROPONIN I HEAL THY INDIVIDUALS: < 0.06 ng/mL R/O ISCHE TAVARES: 0.07 - 0.60 ng/ mL CUT-OFF RANGE F OR AMI: 0.60 - 1. 5 ng/mL COMPREHENSIVE METABOLIC [id number] 19:48:00 Test Item Value Reference Range Interpretation [...] Units/L 50.0-136.0 code = ALKP) CARDIAC ENZYMES [id number] 19:48:00 Test Item Value Reference Range Interpretation Comments CREATINE KINASE (CK) (test code = Units/L 26-192 CK) TROPONIN-I (test code = TROPI) NG/ML 0.00-0.06 PROTHROMBIN [id number] 19:45:00 Test Item Value Reference Range Interpretation Comments PROTHROMBIN TIME 12.6 SECONDS 9.9-12.8 N PATIENT (test code = PTP) INTERNATIONAL NORMAL 1.1 0.89-1.14 N THE INR IS TO BE USED RATIO (test code = ONLY FOR MONITORING INR) ORAL ANTICOAGULANTTH ERAPY. THE FOLLOWING A RE SUGGESTED RANGE S FROM [facility] ANDRES LEGE OF CHEST PHYSICIANS:CAN CATION INR VALUEPROPHYLAXI S OF VENOUS THROMBOS IS (ORTHOPEDIC LARRY KRISTIE) 2.0 - 3.0PROP HYLAXIS OF VENOUS THROM BOSIS (OTHER THAN HIG H-RISK SURGERY) 2.0 - 3.0TRE ATMENT OF DEEP VEIN THROMBOSIS OR PULMONARY EMBOL ISM 2.0 - 3.0PREV ENTION OF SYSTEMIC EMB OLISM TISSUE HEART VA LVES 2.0 - 3.0 AC [place] MYOCARDIAL INFA RCTION (TO PREVENT SYSTEMIC EMBOLI [...] ANTIBODIES 2.5 - 3 .5 CBC W/AUTO [id number] 19:43:00 Test Item Value Reference Range Interpretation [...] N - XR SHOULDER 2 + V [id number] 19:08:00 FAX: Chino Lucio [phone] [place]: St: PRE Name: [facility]SHAWN POT[facility] : 1960 Age/S: 59/F [address] [facility] [id number] Loc: E.EXP [place], [place] Phys: Chino Lucio [address] Acct: [id number] Dis Date: Status: PRE ER PHONE #: [phone] Exam Date: 10/28/20191904 FAX #: [phone] Reason: LEFT SHOULDER AND BACK PAIN EXAMS: CPT CODE: [id number] XR SHOULDER 2 + [place] LT [address] Exam: Left shoulder 3 views internal, external rotation and transscapular. Location: H 12 History: LEFT SHOULDER AND BACK PAIN Findings: No bone or joint abnormality is seen. The bony cortices are intact.The joint spaces are well preserved. The soft tissues are normal. Impression: Unremarkable exam. at 1908 Reported and signed by: José Miguel Matias M.D. CC: Chino KIMBALL Technologist: KACEY ANDERSON Trnrodrigord Date/Time/By:10/28/2019 (1907) : By: Milena PAGE 1 Signed Report FAX: Chino Lucio [phone] [place]: St: PRE Name: KEYSHAWN POTTER [facility] : 1960 Age/S: 59/F [address] [facility] Unit #: [id number] Loc: E.EXP [place], [place] Phys: Chino Lucio [address] Acct: [id number] Dis Date: Status: PRE ER PHONE #: [phone] Exam Date: 10/28/20191904 FAX #: [phone] Reason: LEFT SHOULDER AND BACK PAIN EXAMS: CPT CODE: [id number] XR SHOULDER 2 + [place] [address] <Continued> Orig Print D/T: S: 10/28/2019 (1910) PAGE 2Signed Report- XR CHEST 1 [id number] 19:07:00 FAX: Chino Lucio [phone] [place]: St: PRE Name: KEYSHAWN POTTER [facility] : 1960 Age/S: 59/F [address] [facility] Unit[facility] [id number] Loc: [place], [place] Phys: Chino Lucio [address] Acct: [id number] Dis Date: Status: PRE ER PHONE #: [phone] Exam Date: 10/28/20191904 FAX #: [phone] Reason: LEFT SHOULDER AND BACK PAIN EXAMS: CPT CODE: [id number] XR CHEST 1 V 85514 Exam: Chest portable erect Location: H 12 [...] ANDERSON Trnscrd Date/Time/By: 10/28/2019 (1906) : By: MilenaFC PAGE 1 Signed Report FAX: Chino Lucio [phone] [place]: St: PRE -- Name: KEYSHAWN POTTER [facility] : 1960 Age/S: 59/F [address] [facility] Unit #: [id number] Loc: CHARLI [place], [place] Phys: Chino Lucio [address] Acct: [id number] Dis Date: Status: PRE ER PHONE #: [phone] Exam Date: 10/28/2019 190 FAX #: [phone] Reason: LEFT SHOULDER AND BACK PAIN EXAMS: CPT CODE: [id number] XR CHEST 1 V 98889 <Continued> Orig Print D/T: S: 10/28/2019 (1910) PAGE 2 Signed ReportCOMPREHENSIVE METABOLIC [id number] 14:06:00 Test Item Value Reference Range Interpretation [...] 74 Units/L 50.0-136.0 N code = ALKP) [id number] 14:06:00 Test Item Value Reference Range Interpretation Comments LIPASE (test code = LIP) 143 Units/L 65.0-230.0 N [id number] 14:06:00 Test Item Value Reference Range Interpretation Comments TROPONIN-I (test <0.02 NG/ML 0.00-0.06 N REFERENCE R GIACOMO code = TROPI) TROPONIN I HEA LTHY INDIVIDUALS: < 0.06 ng/mL R/O ISCHE TAVARES: 0.07 - 0.60 ng/ mL CUT-OFF RANGE F OR AMI: 0.60 - 1.5 ng/m L - XR CHEST 2 [id number] 14:03:00 FAX: Juan Calderon MD [phone] [place]: St: PRE Name: KEYSHAWN POTTER [facility] : 1960 Age/S: 58/F [address] [facility] Unit#: [id number] Loc: E.ERS2 [place], [place]: [place] [address] Acct: [id number] Dis Date: Status: PRE ER PHONE #: [phone] Exam Date: 04/26/2019 1350 FAX #: [phone] Reason: chest pain EXAMS: CPT CODE: [id number] XR CHEST 2 V 06573 REASON FOR EXAM: Chest pain, difficulty breathing. COMPARISON: March 01, 2016. Chest, 2 views, frontal and lateral projection. The lungs are hyperinflated with interstitial fibrosis changes diffusely and progressive over 2016.. Heart size is normal. No effusion or pneumothorax can be seen. Osseous structures appear to be intact. . IMPRESSION: No acute cardiopulmonary disease. Interstitial fibrosis with COPD changes. Location: U19 at 1403 Reported and signed by: Maxx Cuenca M.D. CC: Juan Calderon MD Technologist: ALEX ARVIZU Trnscrd Date/Time/By: 04/26/2019 (0683) : By: MilenaQUEEN OF [facility] PAGE 1 Signed Report FAX: Juan Calderon MD [phone] Ferdinand: St: PRE Name: KEYSHAWN POTTER [facility] : 1960 Age/S: 58/F [address] [facility] Unit #: [id number] Loc: [address] Phys: [place] [address] Acct: [id number] Dis Date: Status: PRE ER PHONE #: [phone] Exam Date: 04/26/2019 1350 FAX #: [phone] R omega: chest pain EXAMS: CPT CODE: [id number] XR CHEST 2 V 43060 <Continued> Orig Print D/T: S: 04/26/2019 (4140) PAGE 2 Signed ReportPROTHROMBIN [id number] 14:00:00 Test Item Value Reference Range Interpretation Comments PROTHROMBIN TIME 12.6 SECONDS 9.9-12.8 N PATIENT (test code = PTP) INTERNATIONAL NORMAL 1.1 0.89-1.14 N THE INR IS TO BE USED RATIO (test code = ONLY FOR MONITORING INR) ORAL ANTICOAGULANTTH ERAPY. THE FOLLOWING A RE SUGGESTED RANGE S FROM [facility] LEGE OF CHEST PHYSICIANS:CAN CATION INR VALUEPROPHYLAXI S OF VENOUS THROMBOS IS (ORTHOPEDIC LARRY KRISTIE) 2.0 - 3.0PROP HYLAXIS OF VENOUS THROM BOSIS (OTHER THAN HIG H-RISK SURGERY) 2.0 - 3.0TRE ATMENT OF DEEP VEIN THROMBOSIS OR PULMONARY EMBOL ISM 2.0 - 3.0PREV ENTION OF SYSTEMIC EMB OLISM TISSUE HEART VA LVES 2.0 - 3.0 AC [place] MYOCARDIAL INFA RCTION (TO PREVENT SYSTEMIC EMBOLI [...] ANTIBODIES 2.5 - 3 .5 COMPREHENSIVE METABOLIC [id number] 13:56:00 Test Item Value Reference Range Interpretation [...] TOTAL (test Units/L 50.0-136.0 code = ALKP) [id number] 13:56:00 Test Item Value Reference Range Interpretation Comments LIPASE (test code = LIP) Units/L 65.0-230.0 [id number] 13:56:00 Test Item Value Reference Range Interpretation Comments TROPONIN-I (test code = TROPI) NG/ML 0.00-0.06 CBC W/AUTO [id number] 13:54:00 Test Item Value Reference Range Interpretation [...]
[2021-08-23 20:18] LABS: Urine Blood Trace-lysed (Negative); Urine Glucose Negative (Negative); Urine Protein Negative (Negative); Urine pH 5.5 (5.0-7.0)
[2021-08-23 20:26] LABS: Absolute Lymphocytes (CBC) 1.5 K/uL (0.7-4.9); Basophils % 1.4 % (0-1.3); Hematocrit 41.2 % (36.0-45.0); Lymphocytes % 19.6 % (15.3-44.8); MPV 8.4 fL (7.6-11.3); RBC Red Blood Cell Count 4.38 M/uL (3.86-4.86)
[2021-08-23 20:37] LABS: Urine Bacteria <20 /HPF (<20); Urine Mucus 1+ /HPF (NONE SEEN); Urine RBC <5 /HPF (NONE SEEN)
--- NOTE | 2021-08-23 23:14 | EDPHYS ---
Physician Documentation [facility] Name: Leonarda Zabala Age: 60 yrs Sex: Female : 1960 Arrival Date: 08/23/2021 Time: 17:28 Bed 11 Private MD: ED Physician Giovani Ugalde HPI: 08/23 19:52 This 60 yrs old Female presents to ER via Ambulatory with complaints of Back rn Pain, Abdominal Swelling. 19:52 The patient presents with pain that is acute. rn 19:52 The symptoms are located in the low back, left mid back and right mid back. Onset: The rn symptoms/episode began/occurred 1 week(s) ago. 19:53 The pain does not radiate. Associated signs and symptoms: Pertinent positives: rn abdominal pain, Pertinent negatives: fever, hematuria, incontinence, nausea, numbness, tingling, urinary retention, vomiting, weakness. Modifying factors: The patient symptoms are alleviated by nothing, the patient symptoms are aggravated by any movement. Severity of symptoms: At their worst the symptoms were moderate, in the emergency department the symptoms are unchanged. The patient has not experienced similar symptoms in the past. The patient has been recently seen at the [facility] Emergency Department. Patient reports back pain for 1 week, no injury, reports bilateral mid and lower back pain. No urinary symptoms. No fever. No vomiting or diarrhea. Reports worse with movement and lifting things. No weakness of lower extremities, no bowel or bladder issues. Reports seen here a few days ago and had a CT chest that was negative, given anti-inflammatories and muscle relaxers and pain has not gone away so came back. Also reports left-sided abdominal swelling and pain for months and was not addressed last visit so would like it addressed today.. Historical: - Allergies: 17:50 Myeclin; ss - PMHx: 17:50 COPD; Emphysema; Left pneumothorax; ss - Immunization history:: Client reports receiving the 2nd dose of the Covid vaccine. - Social history:: Smoking status: Patient reports the use of cigarette tobacco products, smokes two packs cigarettes per day. - Family history:: not pertinent. - Hospitalizations: : No recent hospitalization is reported. ROS: 19:53 Constitutional: Negative for fever, chills, and weight loss, Eyes: Negative for injury, rn pain, redness, and discharge, Neck: Negative for injury, pain, and swelling, Cardiovascular: Negative for chest pain, palpitations, and edema, Respiratory: Negative for shortness of breath, cough, wheezing, and pleuritic chest pain, Abdomen/GI: Negative for nausea, vomiting, diarrhea, and constipation, Back: Negative for injury : Negative for injury, bleeding, discharge, and swelling, MS/Extremity: Negative for injury and deformity, Skin: Negative for injury, rash, and discoloration, Neuro: Negative for headache, weakness, numbness, tingling, and seizure. Exam: 19:53 Constitutional: This is a well developed, well nourished patient who is awake, alert, rn and in no acute distress. Ambulatory to room without assistance or any difficulty. Head/Face: Normocephalic, atraumatic. Eyes: Periorbital areas with no swelling, redness, or edema. Cardiovascular: Regular rate and rhythm. No pulse deficits. Respiratory: Speaking full sentences, unlabored. No increased work of breathing, no retractions or nasal flaring. Abdomen/GI: Soft, non-tender, anterior ribs and costal margin, no evidence of abdominal hernias or discoloration. Back: No spinal tenderness. No costovertebral tenderness. Skin: Warm, dry MS/ Extremity: Pulses equal, no cyanosis. Neuro: Awake and alert, GCS 15, oriented to person, place, time, and situation. Cranial nerves II-XII grossly intact. Motor strength 5/5 in all extremities. Sensory grossly intact. Cerebellar exam normal. Normal gait. Vital Signs: 17:47 BP 119 / 70; Pulse 95; Resp 16; Temp 98.0(TE); Pulse Ox 97% on R/A; Weight 43.09 kg; ss Height 5 ft. 2 in. (157.48 cm); Pain 0/10; 19:40 BP 100 / 60; Pulse 91; Resp 20 S; Temp 97.8(O); Pulse Ox 98% on R/A; cc4 23:30 BP 102 / 69; Pulse 90; Resp 20 S; Temp 97.8(O); Pulse Ox 98% on R/A; cc4 17:47 Body Mass Index 17.38 (43.09 kg, 157.48 cm) MDM: 19:18 Patient medically screened. rn 23:11 Differential diagnosis: arthritis, Hydronephrosis Neoplasm Osteoarthritis rn Pyelonephritis sprain, Ureterolithiasis. Data reviewed: vital signs, nurses notes, lab test result(s), radiologic studies, CT scan, and as a result, I will discharge patient. Counseling: I had a detailed discussion with the patient and/or guardian regarding: the historical points, exam findings, and any diagnostic results supporting the discharge/admit diagnosis, lab results, radiology results, the need for outpatient follow up, to return to the emergency department if symptoms worsen or persist or if there are any questions or concerns that arise at home. Special discussion: I discussed with the patient/guardian in detail that at this point there is no indication for admission to the hospital. It is understood, however, that if the symptoms persist or worsen the patient needs to return immediately for re-evaluation. ED course: NO acute findings on CT abdomen/pelvis. Just recently had CT chest that was negative. Symptoms and exam more consistent with muscular/fascial pain, already of muscle relaxers and anti-inflammatories, will dc home with continued symptomatic treatment and conservative care. . 08/23 19:29 Order name: Basic Metabolic Panel rn 08/23 19:29 Order name: CBC with Diff; Complete Time: 21:36 08/23 19:29 Order name: Hepatic Function 08/23 19:29 Order name: Lipase 08/23 19:53 Order name: Urine Microscopic Only rn 08/23 19:53 Order name: Urine Microscopic Only; Complete Time: 21:36 EDKY 08/23 19:29 Order name: IV Saline Lock; Complete Time: 20:10 08/23 19:29 Order name: Labs collected and sent; Complete Time: 20:10 08/23 19:29 Order name: CT Abd/Pelvis - IV Contrast Only rn 08/23 19:53 Order name: Urine Dipstick-Ancillary (obtain specimen); Complete Time: 20:22 rn 08/23 20:18 Order name: Urine Dipstick-Ancillary; Complete Time: 20:20 EDMS 08/23 20:39 Order name: Urine Culture EDMS Administered Medications: No medications were administered Disposition Summary: 08/23/21 23:14 Discharge Ordered Location: Home rn Problem: an ongoing problem rn Symptoms: have improved rn Condition: Stable rn Diagnosis - Low back pain rn - Muscle spasm of back rn Followup: rn - With: Private Physician - When: As needed - Reason: Recheck today's complaints, Re-evaluation by your physician Discharge Instructions: - Discharge Summary Sheet rn - Acute Back Pain, Adult rn - Muscle Cramps and Spasms rn - Musculoskeletal Pain rn - Heat Therapy rn - Back Exercises rn Forms: - Medication Reconciliation Form rn - Thank You Letter rn - Antibiotic rn bariatric - Prescription Opioid Use rn Signatures: Dispatcher [employer] Giovani Hernandez MD MD rn Smirch, Shelby, RN RN ss
--- NOTE | 2021-08-23 23:14 | ER ---
Nurse's Notes [facility] Name: Leonarda Zabala Age: 60 yrs Sex: Female : 1960 Arrival Date: 08/23/2021 Time: 17:28 Bed 11 Private MD: Diagnosis: Low back pain;Muscle spasm of back Presentation: 08/23 17:47 Chief complaint: Patient states: Pt was seen on 08/19 for back pain and abd swelling. ss Pt states it hasn't gone away yet. "I go to pick something up and it hurts my back.". Coronavirus screen: Client denies travel out of the [place] in the last 14 days. Ebola Screen: Patient denies exposure to infectious person. Patient denies travel to an Ebola-affected area in the 21 days before illness onset. Initial Sepsis Screen: Does the patient meet any 2 criteria? No. Patient's initial sepsis screen is negative. Does the patient have a suspected source of infection? No. Patient's initial sepsis screen is negative. Risk Assessment: Do you want to hurt yourself or someone else? Patient reports no desire to harm self or others. Onset of symptoms was August 19, 2021. 17:47 Method Of Arrival: Ambulatory ss 17:47 Acuity: JARRETT 4 ss Triage Assessment: 19:40 General: Appears in no apparent distress. Behavior is calm, cooperative. Pain: cc4 Complains of pain in right mid back and left mid back Pain radiates to left posterior rib area Pain currently is 8 out of 10 on a pain scale. Quality of pain is described as sharp, Pain began 5 dsys ago with "pop" during cough. Is intermittent, Alleviated by rest, Aggravated by increased activity, repositioning. EENT: No signs and/or symptoms were reported regarding the EENT system. Neuro: No deficits noted. Level of Consciousness is awake, alert, obeys commands. Cardiovascular: No deficits noted. Heart tones S1 S2. Respiratory: No deficits noted. Airway is patent Respiratory effort is even, unlabored, Respiratory pattern is regular, symmetrical. GI: No signs and/or symptoms were reported involving the gastrointestinal system. : No signs and/or symptoms were reported regarding the genitourinary system. Derm: No deficits noted. Skin is intact. Musculoskeletal: Capillary refill < 3 seconds, Range of motion: intact in all extremities, Tenderness present in right mid back and left mid back \\T\\ posterior left rib area. Injury Description: "Pop" in thoracic back 5 days ago with cough. Historical: - Allergies: 17:50 Myeclin; ss - PMHx: 17:50 COPD; Emphysema; Left pneumothorax; ss - Immunization history:: Client reports receiving the 2nd dose of the Covid vaccine. - Social history:: Smoking status: Patient reports the use of cigarette tobacco products, smokes two packs cigarettes per day. - Family history:: not pertinent. - Hospitalizations: : No recent hospitalization is reported. Screenin:40 Abuse screen: Denies threats or abuse. Nutritional screening: No deficits noted. cc4 Tuberculosis screening: No symptoms or risk factors identified. Fall Risk None identified. Assessment: 19:40 Neuro: Level of Consciousness is awake, alert, obeys commands, Oriented to person, cc4 place, time, situation. 19:40 Reassessment: See triage assessment. cc4 19:40 Reassessment: # 20 g angiocath inserted right AC x 1 attempt \\T\\ converted to saline lock cc4 with blood drawn \\T\\ sent to lab, thuan. well. 23:30 Reassessment: Patient appears in no apparent distress at this time. Dr Ugalde in to see cc4 \\T\\ instructed to add Aleve to medications every 12 hours for pain with v/u. Vital Signs: 17:47 BP 119 / 70; Pulse 95; Resp 16; Temp 98.0(TE); Pulse Ox 97% on R/A; Weight 43.09 kg; Height 5 ft. 2 in. (157.48 cm); Pain 0/10; 19:40 BP 100 / 60; Pulse 91; Resp 20 S; Temp 97.8(O); Pulse Ox 98% on R/A; cc4 23:30 BP 102 / 69; Pulse 90; Resp 20 S; Temp 97.8(O); Pulse Ox 98% on R/A; cc4 17:47 Body Mass Index 17.38 (43.09 kg, 157.48 cm) ED Course: 17:28 Patient arrived in ED. ds1 17:50 Triage completed. ss 17:50 Arm band placed on right wrist. 19:18 Giovani Ugalde MD is Attending Physician. rn 19:40 Rd, Stephanie, RN is Primary Nurse. cc4 19:40 Patient has correct armband on for positive identification. Bed in low position. Call cc4 light in reach. Side rails up X 1. Pulse ox on. NIBP on. # 20 g angiocath inserted right AC x 1 attempt \\T\\ cinverted to saline lock; blood drawn \\T\\ sent to lab, thuan. well. 20:10 Basic Metabolic Panel Sent. cc4 20:10 CBC with Diff Sent. cc4 20:10 Hepatic Function Sent. cc4 20:10 Lipase Sent. cc4 20:10 CT Abd/Pelvis - IV Contrast Only Sent. cc4 20:22 Urine Microscopic Only Sent. cc4 20:22 Urine Microscopic Only Sent. cc4 22:14 CT Abd/Pelvis - IV Contrast Only In Process Unspecified. EDMS 23:30 No provider procedures requiring assistance completed. cc4 23:30 IV discontinued, intact, bleeding controlled, No redness/swelling at site. Pressure cc4 dressing applied. 08/24 00:06 Urine Culture Sent. cc4 Administered Medications: No medications were administered Outcome: 08/23 23:14 Discharge ordered by . rn 23:30 Discharged to home ambulatory. cc4 23:30 Condition: stable 23:30 Discharge instructions given to patient, Instructed on discharge instructions, follow up and referral plans. Demonstrated understanding of instructions, follow-up care, medications. 23:38 Patient left the ED. cc4 Signatures: Dispatcher [employer] [facility] JermaineJosselyn ds1 Giovani Ugalde MD MD rn Smirch, Shelby, RN RN ss Cooper, Christie, RN RN cc4
[2021-08-23 23:44] LABS: Albumin 2.7 g/dL (3.4-5.0); Bilirubin Direct 0.2 mg/dL (0-0.2); Bilirubin Total 0.5 mg/dL (0.2-1.0); Potassium 3.6 mmol/L (3.5-5.1); Protein, Total 7.1 g/dL (6.4-8.2)
[2021-08-23 23:46] VITALS: BP 119/70; TEMP 98; O2SAT 97
--- NOTE | 2021-08-24 11:52 | RAD REPORT ---
EXAM DESCRIPTION: CT Angiography Chest, Abdomen and Pelvis With Intravenous Contrast CLINICAL HISTORY: The patient is 50 years old and is Female; CHEST PAIN TECHNIQUE: Axial computed tomographic angiography images of the chest, abdomen and pelvis with intra venous contrast. Sagittal and coronal reformatted images were created and reviewed. This CT exam was performed using one or more of the following dose reduction techniques: automated exposure cont rol, adjustment of the mA and/or kV according to patient size, and/or use of iterative reconstruction technique. MIP reconstructed images were created and reviewed. COMPARISON: No relevant prior studies available. FINDINGS: VASCULATURE: Aorta: No aortic aneurysm or dissection. Abdominal aortic atherosclerotic plaque. Pulmonary arteries: No PE identified. Great vessels of aortic arch: Severe focal lumen narrowing in the proximal left common carotid a rtery, just distal to the origin. Otherwise the visualized left common carotid artery is unremarkable . No dissection. Celiac trunk and mesenteric arteries: No acute findings. No occlusion or significant stenosis. Renal arteries: Moderate narrowing at the origin of the right renal artery. No significant narro wing in the left renal artery. 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 CHEST: Lungs: Mild centrilobular emphysema in the upper lobes. No pulmonary consolidation or groundglass opacities to suggest pneumonia. Pleural space: No pleural effusion or pneumothorax. Heart: No cardiomegaly. Coronary artery calcifications. No significant pericardial effusion. ABDOMEN: Liver: Fatty liver. Gallbladder and bile ducts: Unremarkable. No calcified stones. No ductal dilation. Pancreas: Unremarkable. No ductal dilation. No mass. Spleen: Unremarkable. No splenomegaly. Adrenals: Unremarkable. No mass. Kidneys and ureters: Unremarkable. No hydronephrosis. No solid mass. Stomach and bowel: Colonic diverticulosis. No gastric wall thickening visualized. No obstruction. PELVIS: Appendix: No findings to suggest acute appendicitis. Bladder: Unremarkable. No mass. Reproductive: Unremarkable as visualized. CHEST, ABDOMEN and PELVIS: Intraperitoneal space: Unremarkable. No significant fluid collection. No free air. Bones/joints: No acute fracture. Degenerative changes in the lower lumbar spine. Moderate central canal stenosis L3-4 and L4- 5. No dislocation. Soft tissues: Unremarkable. Lymph nodes: Unremarkable. No pathologically enlarged lymph nodes. IMPRESSION: 1. No aortic aneurysm or dissection. 2. Severe focal lumen narrowing in the proximal left common carotid artery, just distal to the orig in. Otherwise the visualized left common carotid artery is unremarkable. 3. 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 4. Colonic diverticulosis. 5. No PE identified. Electronically signed by: Rebeka Bird MD 08/24/2021 5:14 AM MEDICAL OFFICE SPECIALIST Due to temporary technical issues with the PACS/Fluency reporting system, reports are being signed by the in house radiologist without review as a courtesy to ensure prompt reporting. The interpreting r adiologist is fully responsible for the content of the report.
== END 2021-08-23 23:38 | disposition home or self-care (01) ==
LOC: ER 17:27
DX: M54.50 Low back pain, unspecified (principal); M62.830 Muscle spasm of back; F17.210 Nicotine dependence, cigarettes, uncomplicated
CPT/HCPCS: 36415; 74177; 80048; 80076; 81003; 81015; 82565; 83690; 85025; 87086; 87088; 99284; Q9967

== ENCOUNTER 2022-05-08 08:52 | Emergency (ER) | payer OTHER, SELFPAY ==
--- OUTSIDE RECORDS SUMMARY | 2022-05-08 08:58 | XMS REPORT | Continuity of Care Document ---
:1960 Author Organization [facility] t Address [address] [place] [address] [address]. [address] [place] [address] Care Team Providers Name Role Phone PCP, PATIENT DOES NOT HAVE A Primary Care Physician Unavaila ble Doctor Unassigned, Nectar Attending Clinician Unavailable Ofelia Andrews LVN Attending Clinician AUSTIN REEDER Attending Clinician Unavailable Delmis Millan Attending Clinician Austin Reeder MD Attending Clinician Mark Coleman DO Attending Clinician [phone] Raheel Lucas MD Attending Clinician Khushbu Aguilera Attending Clinician ANGELO SCHULZ Attending Clinician Unavailable Angelo Turner Attending Clinician KHUSHBU MCGHEE Attending Clinician Unavailable Anila Herrera MD Attending Clinician ANILA HERRERA Attending Clinician Unavailable Hasmukh Stephens Attending Clinician Unavailable AUSTIN REEDER Admitting Clinician Unavailable Austin Reeder MD Admitting Clinician ANGELO SCHULZ Admitting Clinician Unavailable KHUSHBU MCGHEE Admitting Clinician Unavailable Physician, No Primary or Family Admitting Clinician Unavaila ble Payers Payer Name Policy Type Policy Number Effective Date Expiration Date [place] he [employer] GENERIC [id number] 2015 00:00:00 Problems Condition Condition Condition Status Onset Resolution Last Treating Co mments Source Name Details Category Date Date Treatment Clinician Date Pneumonia Pneumonia Disease Active Uni vers due to due to 10-02 ity of COVID COVID 00:00: [place] virus virus 00 Medical Branch Acute Acute Disease Active Univers respirator respirator 10-02 it y of y failure y failure 00:[place] with with 00 Medical hypoxia hypoxia Branch Degenerati Degenerati Disease Active Overview : Univers ve joint ve joint 10-02 Formattin ity of disease disease 00:00: g of this [place] 00 note is Medical different Branch from the original. 09/03/21: THORACIC SPINE?Exa ggerated thoracic kyphosis. Moderate anterior wedging deformity of T7and mild anterior wedging deformity of T9 vertebral bodies noted, ageindete rminant. There is also age indetermi nant mild superior endplated epression of T12. The vertebral bodies are otherwise normal in height andalignm ent. Correlati on with point of shanekanes s is recommend ed.?There is diffuse demineral ization of the thoracic spine suggestiv e ofosteope yunior.?The paraspina l soft tissues are unremarka ble.?LUMB AR SPINE?The re are 5 nonrib-be aring lumbar type segments. Grade 1 anterolis thesis ofL5 over S1. The vertebral bodies are otherwise normal in height andalignm ent.?Disc spaces are preserved .?Intact cortical margins of the visualize d sacrum and pelvic bones.Deg enerative changes of the bilateral sacroilia c joints.?T he paraspina l soft tissues are unremarka ble. COVID-19 COVID-19 Disease Active Overview: Un [place] virus virus - Formattin ity of infection infection 00:00: g of this [place] 00 note is Medical different Branch from the original. SARS-CoV- 2 Rapid ID NOW (no units) Date Value 2 Not Detected 2 Positive (A) 1 Not Detected Chest pain Chest pain Disease Active 2005-09 Overview : Univers 2-12 Formattin ity of 00:00: g of this [place] 00 note Medical might be Branch different from the original. ICD10 Diagnosis Term Supervisor Chlorine Liquefaction Utility Seizure Seizure Disease Active 2005-09 Univers disorder disorder 2-12 ity of 00:00: [place] 00 Medical Branch Anxiety Anxiety Disease Active 2005-09 Overview: Univ ers disorder disorder -12 Formattin ity of due to due to 00:00: g of this [place] medical medical 00 note Medical condition condition might be Br anch different from the original. ICD10 Diagnosis Term Supervisor Chlorine Liquefaction Utility Chronic Chronic Disease Active 2005-09 Univers depressive depressive -12 it y of personalit personalit 00:00[place] disorder y disorder 00 Me dical Branch Chronic Chronic Disease Active 2005-09 Overview: Univ ers obstructiv obstructiv 2-12 Formattin ity of e airway e airway 00:00: g of this [place] disease disease 00 note Medical with with might be Branch asthma asthma different from the original. ICD10 Diagnosis Term Supervisor Chlorine Liquefaction Utility Chronic Chronic Disease Active 2005-09 Univers obstructiv obstructiv -12 it y of e e 00:00: [place] pulmonary pulmonary 00 Medi ed disease, disease, Branch unspecifie unspecifie d COPD d COPD type type Allergies, Adverse Reactions, Alerts Allergy Allergy Status Severity Reaction(s) Onset Inactive Treating Comm ents Source Name Type Date Date Clinician micafung DA Active [facility] 09[facility]28 [place] [facility] micafung DA Active [facility] in 09-28 [place] sodium 00:[facility]: d [facility] Primidon Propensi Active Rash 2005-09 Univer s e ty to 2- ity of adverse 00:00: [place] reaction 00 Medical s Branch PRIMIDON DRUG Active Rash 2005-09 Univers E INGREDI 11-07 ity of 00:00: [place] 00 Medical Branch Social History Social Habit Start Date Stop Date Quantity Comments Source Exposure to Not sure University of SARS-CoV-2 (event) [facility] History of tobacco Cigarette Smoker University of use [facility] Tobacco Comment 2021-09-29 2021-09-29 smokes a few Univers ity of 00:00:00 00:00:[address] [facility] dical [place] Alcohol intake 2021-09-29 2021-09-29 0 /d University of 00:00:00 00:00:00 [facility] Cigarettes smoked 2015-09-28 2015-09-28 Univers ity of current (pack per 00:00:00 00:00:00 [facility] ) - Reported Branch Tobacco use and 2015-09-28 2015-09-28 Never used Universit y of exposure 00:00:00 00:00:00 [facility] Sex Ass[birth year] At [birth year] Universit y of 00:00:00 00:00:00 [facility] Smoking Status Start Date Stop Date Source Current every day smoker 2015-09-28 00:00:00 Uni versity of [facility] Medications Ordered Filled Start Stop Current Ordering Indication Dosage Frequency Signature Comments Components Source Medication Medication Date Date Medication? Clinician (SIG) Name Name mirtazapine Yes 45mg Take 45 mg Univers (REMERON) 1-15 by mouth ity of 45 mg 18:12: at [place] tablet 48 bedtime. Medical Branch doxepin Yes 75mg Take 75 mg Univ ers (SINEQUAN) 1-15 by mouth ity o f 75 mg 18:12: at [place] capsule 48 bedtime. Medical Branch mirtazapine Yes 45mg Take 45 mg Univers (REMERON) 1-15 by mouth ity of 45 mg 18:12: at [place] tablet 48 bedtime. Medical Branch doxepin Yes 75mg Take 75 mg Univ ers (SINEQUAN) 1-15 by mouth ity o f 75 mg 18:12: at [place] capsule 48 bedtime. Medical Branch mirtazapine Yes 45mg Take 45 mg Univers (REMERON) 1-15 by mouth ity of 45 mg 18:12: at [place] tablet 48 bedtime. Medical Branch doxepin Yes 75mg Take 75 mg Univ ers (SINEQUAN) 1-15 by mouth ity o f 75 mg 18:12: at [place] capsule 48 bedtime. Medical Branch Dias's 2021- No 15mL 15 mL, Univers magic 15 -15 Oral, ity of mouthwash 01:59: 02:44 ONCE, 1 [place] (([facility] 00 :00 dose, On Medical COMPOUND)) Fri Branch suspension 10/08/21 at 15 mL 2000, JUWAN pantoprazol 2021- No [id number] 40mg Take 1 Univers e 40 mg EC 10-0815 tablet by ity of tablet 00:00: 04:59 mouth [place] 00 :00 daily for Medical 90 days. Branch pantoprazol 2021- No [id number] 40mg Take 1 Univers e 40 mg EC 10-08-15 tablet by ity of tablet 00:00: 04:59 mouth [place] 00 :00 daily for Medical 90 days. Branch pantoprazol 2021- No [id number] 40mg Take 1 Univers e 40 mg EC 10-0815 tablet by ity of tablet 00:00: 04:59 mouth [place] 00 :00 daily for Medical 90 days. Branch albuterol Yes [id number] 2{puff} Inhale 2 Univers 90 1-13 Puffs ity of mcg/actuati 00:00: every 6 [place] on inhaler 00 (six) Medical hours as Branch needed for Wheezing or Shortness of Breath. ipratropium Yes [id number] 2{puff} Inhale 2 Univers 17 1-13 Puffs ity of mcg/actuati 00:00: every 6 [place] on inhaler 00 (six) Medical hours as Branch needed for Shortness of Breath or Wheezing. fluticasone Yes [id number] 2{spray Use 2 Univers propionate 1-13 } Sprays in ity of 50 00:00: each [place] mcg/actuati 00 nostril 2 Med ical on nasal (two) Branch spray times daily. albuterol Yes [id number] 2{puff} Inhale 2 Univers 90 1-13 Puffs ity of mcg/actuati 00:00: every 6 [place] on inhaler 00 (six) Medical hours as Branch needed for Wheezing or Shortness of Breath. ipratropium Yes [id number] 2{puff} Inhale 2 Univers 17 1-13 Puffs ity of mcg/actuati 00:00: every 6 [place] on inhaler 00 (six) Medical hours as Branch needed for Shortness of Breath or Wheezing. fluticasone Yes [id number] 2{spray Use 2 Univers propionate 1-13 } Sprays in ity of 50 00:00: each [place] mcg/actuati 00 nostril 2 Med ical on nasal (two) Branch spray times daily. albuterol Yes [id number] 2{puff} Inhale 2 Univers 90 1-13 Puffs ity of mcg/actuati 00:00: every 6 [place] on inhaler 00 (six) Medical hours as Branch needed for Wheezing or Shortness of Breath. ipratropium Yes [id number] 2{puff} Inhale 2 Univers 17 1-13 Puffs ity of mcg/actuati 00:00: every 6 [place] on inhaler 00 (six) Medical hours as Branch needed for Shortness of Breath or Wheezing. fluticasone Yes [id number] 2{spray Use 2 Univers propionate 1-13 } Sprays in ity of 50 00:00: each [place] mcg/actuati 00 nostril 2 Med ical on nasal (two) Branch spray times daily. guaiFENesin 2021- No [id number] 400mg Take 1 Univers 400 mg 10-07 tablet by ity of tablet 00:00: 05:59 mouth [place] 00 :00 every 4 Medical (four) Branch hours as needed for Cough (congestio n in chest) for up to 30 days. guaiFENesin 2021- No [id number] 400mg Take 1 Univers 400 mg 10-07- tablet by ity of tablet 00:00: 05:59 mouth [place] 00 :00 every 4 Medical (four) Branch hours as needed for Cough (congestio n in chest) for up to 30 days. guaiFENesin 2021- No [id number] 400mg Take 1 Univers 400 mg 10-07 tablet by ity of tablet 00:00: 05:59 mouth [place] 00 :00 every 4 Medical (four) Branch hours as needed for Cough (congestio n in chest) for up to 30 days. benzonatate 2021-0 2021- No [id number] 100mg Take 1 Univers 100 mg 10-07 capsule by ity of capsule 00:00: 05:59 mouth [place] 00 :00 every 8 Medical (eight) Branch hours as needed for Cough for up to 20 days. benzonatate 2021-2021- No [id number] 100mg Take 1 Univers 100 mg 10-07 capsule by ity of capsule 00:00: 05:59 mouth [place] 00 :00 every 8 Medical (eight) Branch hours as needed for Cough for up to 20 days. benzonatate 2021- No [id number] 100mg Take 1 Univers 100 mg 10-07 capsule by ity of capsule 00:00: 05:59 mouth [place] 00 :00 every 8 Medical (eight) Branch hours as needed for Cough for up to 20 days. pantoprazol Yes 40mg 40 mg, Univ ers e 10-05 Oral, ity of (PROTONIX) 23:00: DAILY, [place] EC tablet 00 First dose Medi ed 40 mg on Mon Branch 10/05/21 at 1700, Until Discontinu ed, Routine magnesium No 400mg 400 mg, Uni vers oxide 10-05 Oral, ity of (MAG-OX 14:00: 15:39 ONCE, 1 [place] 400) tablet 00 :00 dose, On Medi ed 400 mg Branch 10/05/21 at 0800, Routine alum-mag Yes 30mL 30 mL, Univers hydroxide-s 10-05 Oral, ity of imeth 06:39: Q6HPRN, [place] (MAALOX 17 Starting Medical PLUS / on Mon Branch MAG-AL 10/05/21 at PLUS) 0039, 200-200-20 Until mg/5 mL Discontinu suspension ed, 30 mL Routine, Indigestio n magnesium 2021- No 400mg 400 mg, Uni vers oxide 10-03 Oral, ity of (MAG-OX 13:45: 14:26 ONCE, 1 [place] 400) tablet 00 :00 dose, On Medi ed 400 mg 10/03/21 Branch at 0745, Routine codeine-gua 2021-0 Yes 5mL 5 mL, Unive rs ifenesin 1-08 Oral, Q6H, ity o f (ROBITUSSIN 18:00: First dose [place] AC) 10-100 00 on [facility] Medical mg/5 mL 10/02/21 at Branch oral 1200, solution 5 Until mL Discontinu ed, Routine guaiFENesin 2021-0 2021- No 100mg 100 mg, U nivers 100 mg/5 mL 10-02 01-08 Oral, Q4H, i ty of solution 18:00: 17:26 First [place] 100 mg 00 :17 on [facility] Medical 10/02/21 at Branch 1200, Until Discontinu ed, Routine benzonatate 2021-0 Yes 100mg 100 mg, Un demetris (TESSALON 1-08 Oral, Q8H, ity of PERLES) 15:45: First dose [place] capsule 100 00 on [facility] Medica l mg 10/02/21 at Branch 0945, Until Discontinu ed, Routine cyclobenzap 2021-0 Yes 5mg 5 mg, Unive rs rine 1-08 Oral, ity of (FLEXERIL) 15:30: TIDPRN, [place] tablet 5 mg 33 Starting Medi ed on Sat Branch 10/02/21 at 0930, Until Discontinu ed, Routine, Muscle Spasms acetaminoph 2021-0 Yes 1{tbl} 1 tablet, Univers en-codeine 08 Oral, ity of (TYLENOL 10:02: Q6HPRN, [place] #3) 300-30 55 Starting Medic al mg tablet 1 on [facility] Branch tablet 10/02/21 at 0402, Until Discontinu ed, Routine, Pain (scale 4-6), Pain (scale 7-10) azithromyci 2021-0 2021- No 500mg 500 mg, U nivers n 10-01-09 Oral, Q24H ity of (ZITHROMAX) 20:30: 19:34 ABX, 3 [place] tablet 500 36 :00 doses, Medical mg First dose Branch (after last modificati on) on 10/01/21 at 1445, Last dose on 10/03/21 at 1445, JUWAN
Re ason for Anti-Infec tive: Empiric Therapy for Suspected Infection< br>Empiric Therapy Site: Respirator y
Durat ion of therapy: 72 hours doxepin 0 Yes 75mg 75 mg, Univers (SINEQUAN) 1-07 Oral, QHS, ity of capsule 75 03:00: First dose [place] mg 00 on [facility] Medical 09/30/21 at Branch 2100, Until Discontinu ed, Routine fluticasone 0 Yes 2{spray 2 [place], [facility] [place] [facility] propionate 10-01 } Nasal, ity of 50 02:00: BID, First [place] mcg/actuati 00 dose on Medic al on nasal [facility] 09/30/21 Branc h spray 2 at 2000, [place] Until Discontinu ed, Routine ondansetron 0 Yes 4mg 4 mg, Unive rs (ZOFRAN) 09-30 Oral, ity of tablet 4 mg 16:14: Q8HPRN, [place] 58 Starting Medical on [facility] 09/30/21 at 1014, Until Discontinu ed, Routine, Nausea and Vomiting (N/V) enoxaparin 0 Yes 40mg 40 mg, Unive rs (LOVENOX) 09-30 Subcutaneo ity of injection 15:00: [place], DAILY, [place] 40 mg 00 First dose Medical on [facility] Branch 09/30/21 at 0900, Until Discontinu ed, Routine predniSONE 0 2021- No 40mg 40 mg, Univ ers (DELTASONE) 09-30 01-10 Oral, ity of tablet 40 15:00: 14:16 DAILY, 5 [place] mg 00 :00 doses, Medical First dose Branch on [facility] 09/30/21 at 0900, Last dose on 10/04/21 at 0900, Routine albuterol-i 0 Yes 2{puff} 2 Puff, [facility] [place] [facility] pratropium 09-30 Inhalation ity of (COMBIVENT 06:00: , Q6H, [place] RESPIMAT) 00 First dose Medi ed 20-100 on [facility] mcg/actuati 09/30/21 at on inhaler 0000, 2 Puff Until Discontinu ed, Routine
Is this order for a patient with suspected or confirmed COVID-19 infection? Yes codeine-gua 2021- No 10mL 10 mL, Uni vers ifenesin 09-30 Oral, ity of (ROBITUSSIN 04:28: 14:23 Q6HPRN, Henrik santana AC) 10-100 19 :12 Starting Medic al mg/5 mL on Wed Branch oral 09/29/21 at solution 10 2228, mL Until 10/02/21 at 0823, Routine, Cough acetaminoph 2021- No 1{tbl} 1 tablet, Univers en-codeine 09-30 Oral, ity of (TYLENOL 04:26: 04:25 Q6HPRN, [place] #3) 300-30 53 :53 Starting Medic al mg tablet 1 on Mon Branch tablet 09/29/21 at 2226, Until 10/01/21 at 2225, Routine, Pain (scale 4-6) acetaminoph Yes 650mg 650 mg, Un demetris en 09-30 Oral, ity of (TYLENOL) 04:26: Q6HPRN, [place] tablet 650 50 Starting Medic al mg on Wed Branch 09/29/21 at 2226, Until Discontinu ed, Routine, Pain (scale 1-3) ketorolac 2021- No 15mg 15 mg, Unive rs (TORADOL) 09-30 Slow IV ity of injection 00:45: 00:11 [place], [place] 15 mg 00 :00 ONCE, 1 Medical dose, On Branch 09/29/21 at 1845, Routine
natural resources faculty member approving Restricted medication : Delmis BANUELOS acetaminoph 2021- No 650mg 650 mg, U nivers en 09-30 Oral, ity of (TYLENOL) 00:45: 00:11 ONCE, 1 [place] tablet 650 00 :00 dose, On Medic al mg 09/29/21 Branch at 1845, JUWAN methylpredn 2021- No 125mg 125 mg, U nivers isolone sod 09-29 Slow IV ity of succ 22:30: 21:36 [place], [place] (SOLU-MEDRO 00 :00 ONCE, 1 Medic al L) dose, On Branch injection 09/29/21 125 mg at 1630, STAT ipratropium 3mL 3 mL, Univ ers -albuteroL 09-29 Inhalation it y of (DUONEB) 22:30: 21:27 , ONCE, 1 [place] 0.5 mg-3 00 :00 dose, On Medical mg(2.5 mg Mon09/29/21 Bran ch base)/3 mL at 1630, nebulizer Routine solution 3 mL magnesium 2g 2 g, IV Univ ers sulfate in 09-29 Piggyback, it y of water 2 22:30: 22:10 ONCE, 1 [place] gram/50 mL 00 :00 dose, On Medic al (4 %) Mon09/29/21 Branch infusion 2 at 1630, g Routine HYDROcodone 2020-09 No 1{tbl} 1 tablet, Univers -acetaminop 11-11 Oral, ity of hen (NORCO 08:15: 07:20 ONCE, 1 [place] 5) 5-325 mg 00 :00 dose, On Medi ed tablet 1 Mon Branch tablet 09/10/21 at 0215, JUWAN iodixanol 2020-09 No [id number] 80mL 80 mL, Univers (VISIPAQUE 11-11 Intravenou it y of 320-150 mL) 07:45: 07:31 s, ONCE, 1 [place] injection 00 :00 dose, On Medica l 80 mL Mon Branch 09/10/21 at 0145, Routine lidocaine 2020-09- No 1{patch 1 Patch, Univers (LIDODERM) 11-05 } Topical, ity of 5 % (700 04:49: 16:59 Administer [place] mg/patch) 00 :00 over 12 Medical patch 1 Hours, Branch Patch ONCE, 1 dose, On Mon09/03/21 at 2300, Routine HYDROcodone 2020-09- No 1{tbl} 1 tablet, Univers -acetaminop 11-05 Oral, ity of hen (NORCO 03:00: 01:53 ONCE, 1 [place] 5) 5-325 mg 00 :00 dose, On Medi ed tablet 1 Mon Branch tablet 09/03/21 at 2100, JUWAN acetaminoph 2020-09 Yes [id number] 1{tbl} Take 1 Un demetris en-codeine 2-10 tablet by ity of 300-30 mg 00:00: mouth [place] tablet 00 every 4 Medical (four) Branch hours as needed for Pain (scale 7-10). Indication s: acute pain lidocaine 2020-09 Yes [id number] Apply Univers % (700 2-10 04 patch to ity of mg/patch) 00:00: the area [place] patch 00 you are Medical having Branch pain and remove after 12 hours. Use 1 patch per 24 hours. May cut patches to size. acetaminoph 2020-09 Yes [id number] 1{tbl} Take 1 Un [place] en-codeine 2-10 tablet by ity of 300-30 mg 00:00: mouth [place] tablet 00 every 4 Medical (four) Branch hours as needed for Pain (scale 7-10). Indication s: acute pain lidocaine 2020-09 Yes [id number] Apply Univers % (700 2-10 04 patch to ity of mg/patch) 00:00: the [place] patch 00 you are Medical having Branch pain and remove after 12 hours. Use 1 patch per 24 hours. May cut patches to size. acetaminoph 2020-09 Yes [id number] 1{tbl} Take 1 Un [place] en-codeine 2-10 tablet by ity of 300-30 mg 00:00: mouth [place] tablet 00 every 4 Medical (four) Branch hours as needed for Pain (scale 7-10). Indication s: acute pain lidocaine 2020-09 Yes [id number] Apply Univers % (700 2-10 04 patch to ity of mg/patch) 00:00: the [place] patch 00 you are Medical having Branch pain and remove after 12 hours. Use 1 patch per 24 hours. May cut patches to size. acetaminoph 2020-09 Yes [id number] 1{tbl} Take 1 Un demet[place] en-codeine 2-10 tablet by ity of 300-30 mg 00:00: mouth [place] tablet 00 every 4 Medical (four) Branch hours as needed for Pain (scale 7-10). Indication s: acute pain lidocaine 2020-09 Yes [id number] Apply Univers % (700 2-10 04 patch to ity of mg/patch) 00:00: the [place] patch 00 you are Medical having Branch pain and remove after 12 hours. Use 1 patch per 24 hours. May cut patches to size. acetaminoph 2020-09 Yes [id number] 1{tbl} Take 1 Un demetris en-codeine 2-10 tablet by ity of 300-30 mg 00:00: mouth [place] tablet 00 every 4 Medical (four) Branch hours as needed for Pain (scale 7-10). Indication s: acute pain lidocaine 5 2020-09 Yes [id number] Apply Univers % (700 2-10 04 patch to ity of mg/patch) 00:00: the [place] patch 00 you are Medical having Branch pain and remove after 12 hours. Use 1 patch per 24 hours. May cut patches to size. acetaminoph 2020-09 Yes [id number] 1{tbl} Take 1 Un demetris en-codeine 2-10 tablet by ity of 300-30 mg 00:00: mouth [place] tablet 00 every 4 Medical (four) Branch hours as needed for Pain (scale 7-10). Indication s: acute pain lidocaine 2020-09 Yes [id number] Apply Univers % (700 2-10 04 patch to ity of mg/patch) 00:00: the [place] patch 00 you are Medical having Branch pain and remove after 12 hours. Use 1 patch per 24 hours. May cut patches to size. ondansetron 2019-09 Yes [id number] 4mg Take 1 Univers (ZOFRAN) 4 1-09 tablet by ity of mg tablet 00:00: mouth [place] 00 every 8 Medical (eight) Branch hours. ondansetron 2019-09 Yes [id number] 4mg Take 1 Univers (ZOFRAN) 4 1-09 tablet by ity of mg tablet 00:00: mouth [place] 00 every 8 Medical (eight) Branch hours. ondansetron 2019-09 Yes [id number] 4mg Take 1 Univers (ZOFRAN) 4 1-09 [...] Pain (scale 7-10). Indication s: acute pain ondansetron 2019-09 Yes [id number] 4mg Take 1 Univers (ZOFRAN) 4 -09 tablet by ity of mg tablet 00:00: mouth [place] 00 every 8 Medical (eight) Branch hours. ondansetron 2019-09- No [id number] 4mg Take 1 Univers (ZOFRAN) 4 10-03-05 tablet by ity of mg tablet 00:00: 00:00 mouth [place] 00 :00 every 8 Medical (eight) Branch hours. acetaminoph 2019-09- No [id number] 1{tbl} Take 1 U nivers en-codeine 10-03 12-10 tablet by ity of (TYLENOL-CO 00:00: 00:00 mouth [place] #3) 00 :00 every 4 Medical 300-30 mg (four) Branch tablet hours as needed for Pain (scale 7-10). Indication s: acute pain mirtazapine Yes 45mg Take 45 mg Univers (REMERON) 1-04 by mouth ity of 45 mg 20:59: at [place] tablet 18 bedtime. Medical Branch doxepin Yes 75mg Take 75 mg Univ ers (SINEQUAN) 1-04 by mouth ity o f 75 mg 20:59: at [place] capsule 18 bedtime. Medical Branch mirtazapine 0 Yes 45mg Take 45 mg Univers (REMERON) 1-04 by mouth ity of 45 mg 14:59: at [place] tablet 18 bedtime. Medical Branch doxepin 0 Yes 75mg Take 75 mg Univ ers (SINEQUAN) 1-04 by mouth ity o f 75 mg 14:59: at [place] capsule 18 bedtime. Medical Branch mirtazapine 0 Yes 45mg Take 45 mg Univers (REMERON) 1-04 by mouth ity of 45 mg 14:59: at [place] tablet 18 bedtime. Medical Branch doxepin 0 Yes 75mg Take 75 mg Univ ers (SINEQUAN) 1-04 by mouth ity o f 75 mg 14:59: at [place] capsule 18 bedtime. Medical Branch mirtazapine 0 Yes 45mg Take 45 mg Univers (REMERON) 1-04 by mouth ity of 45 mg 14:59: at [place] tablet 18 bedtime. Medical Branch doxepin 2016-0 Yes 75mg Take 75 mg Univ ers (SINEQUAN) 1-04 by mouth ity o f 75 mg 14:59: at [place] capsule 18 bedtime. Medical Branch carBAMazepi 2016-0 Yes 400mg Take 1 Tab Univers ne 1-04 by mouth 2 ity of (TEGRETOL 00:00: (two) [place] XR) 400 mg 00 times Medical 12 hr daily. Branch tablet levETIRAcet 2016-0 Yes 500mg Take 1 Tab Univers am (KEPPRA) 1-04 by mouth 2 it y of 500 mg 00:00: (two) [place] tablet 00 times Medical daily. Branch carBAMazepi 2015-0 Yes 400mg Take 1 Tab Univers ne 1-04 by mouth 2 ity of (TEGRETOL 00:00: (two) [place] XR) 400 mg 00 times Medical 12 hr daily. Branch tablet levETIRAcet 2015-0 Yes 500mg Take 1 Tab Univers am (KEPPRA) 1-04 by mouth 2 it y of 500 mg 00:00: (two) [place] tablet 00 times Medical daily. Branch carBAMazepi 2015-0 Yes 400mg Take 1 Tab Univers ne 1-04 by mouth 2 ity of (TEGRETOL 00:00: (two) [place] XR) 400 mg 00 times Medical 12 hr daily. Branch tablet levETIRAcet 2015-0 Yes 500mg Take 1 Tab Univers am (KEPPRA) 1-04 by mouth 2 it y of 500 mg 00:00: (two) [place] tablet 00 times Medical daily. Branch carBAMazepi 2015-0 Yes 400mg Take 1 Tab Univers ne 1-04 by mouth 2 ity of (TEGRETOL 00:00: (two) [place] XR) 400 mg 00 times Medical 12 hr daily. Branch tablet levETIRAcet 2015-0 Yes 500mg Take 1 Tab Univers am (KEPPRA) 1-04 by mouth 2 it y of 500 mg 00:00: (two) [place] tablet 00 times Medical daily. Branch carBAMazepi 2015-0 2021- No 400mg Take 1 Tab Univers ne 1-04 01-15 by mouth 2 ity of (TEGRETOL 00:00: 00:00 (two) [place] XR) 400 mg 00 :00 times Medical 12 hr daily. Branch tablet levETIRAcet 2021- No 500mg Take 1 Tab Univers am (KEPPRA) 09-28 by mouth 2 i ty of 500 mg 00:00: 00:00 (two) [place] tablet 00 :00 times Medical daily. Branch carBAMazepi 2014-09 Yes 200mg Take 200 U nivers ne 1-17 mg by ity of (TEGRETOL) 00:00: mouth 2 [place] 200 mg 00 (two) Medical tablet times Branch daily. carBAMazepi 2014-09 Yes 200mg Take 200 U nivers ne 1-17 mg by ity of (TEGRETOL) 00:00: mouth 2 [place] 200 mg 00 (two) Medical tablet times Branch daily. carBAMazepi 2014-09 Yes 200mg Take 200 U nivers ne 1-17 mg by ity of (TEGRETOL) 00:00: mouth 2 [place] 200 mg 00 (two) Medical tablet times Branch daily. carBAMazepi 2014-09 Yes 200mg Take 200 U nivers ne 1-17 mg by ity of (TEGRETOL) 00:00: mouth 2 [place] 200 mg 00 (two) Medical tablet times Branch daily. carBAMazepi 2014-09- No 200mg Take 200 Univers ne 1-17 01-15 mg by ity of (TEGRETOL) 00:00: 00:00 mouth 2 [place] 200 mg 00 :00 (two) Medical tablet times Branch daily. Vital Signs Vital Name Observation Time Observation Value Comments Source Systolic blood 2021-10-09 21:22:00 107 [facility] Diastolic blood 2021-10-09 21:22:00 68 mm[Hg] [facility] Heart rate 2021-10-09 21:22:00 92 /min [facility] Body temperature 2021-10-09 21:22:00 36.72 Ruchi [facility] rate 2021-10-09 21:22:00 18 /min [facility] Oxygen saturation in 2021-10-09 21:22:00 100 /min [facility] Arterial blood by [facility] Pulse oximetry Branch Body height 2021-09-30 05:31:00 157.5 cm [facility] Body weight 2021-09-30 05:31:00 43 kg [facility] [place] [facility] BMI 2021-09-30 05:31:00 17.33 kg/m2 [facility] [place] [facility] Systolic blood 2021-09-21 04:48:00 130 mm[Hg] Univer sity of pressure [place] [facility] Diastolic blood 2021-09-21 04:48:00 78 mm[Hg] Unive rsity of [facility] [place] [facility] Heart rate 2021-09-21 04:48:00 92 /min [facility] [place] [facility] Body temperature 2021-09-21 04:48:00 36.44 Ruchi [facility] [place] [facility] Respiratory rate 2021-09-21 04:48:00 14 /min [facility] [place] [facility] Body weight 2021-09-21 04:48:00 43.092 kg [facility] [place] [facility] BMI 2021-09-21 04:48:00 17.38 kg/m2 [facility] [place] [facility] Oxygen saturation in 2021-09-21 04:48:00 96 /min University of Arterial blood by [facility] Pulse oximetry Branch Heart rate 2021-09-10 09:15:00 93 /min [facility] [place] [facility] Respiratory rate 2021-09-10 09:15:00 19 /min [facility] [place] [facility] Oxygen saturation in 2021-09-10 09:15:00 95 /min University of Arterial blood by [facility] Pulse oximetry Branch Systolic blood 2021-09-10 08:10:00 111 mm[Hg] Univer sity of [facility] [place] [facility] Diastolic blood 2021-09-10 08:10:00 51 mm[Hg] Unive rsity of [facility] [place] [facility] Body temperature 2021-09-10 06:19:00 36.39 Ruchi [facility] [place] [facility] Body height 2021-09-10 06:19:00 157.5 cm [facility] [place] [facility] Body weight 2021-09-10 06:19:00 43.092 kg [facility] [place] [facility] BMI 2021-09-10 06:19:00 17.38 kg/m2 [facility] [place] [facility] Systolic blood 2021-09-04 04:57:43 127 mm[Hg] Univer sity of [facility] [place] [facility] Diastolic blood 2021-09-04 04:57:43 68 mm[Hg] Unive rsity of [facility] [place] [facility] Heart rate 2021-09-04 04:57:43 75 /min [facility] [place] [facility] Respiratory rate 2021-09-04 04:57:43 17 /min [facility] [place] [facility] Oxygen saturation in 2021-09-04 04:57:43 97 /min University of Arterial blood by [facility] Pulse oximetry Branch Body temperature 2021-09-03 23:44:00 36.72 Ruchi [facility] [place] [facility] Body height 2021-09-03 23:44:00 157.5 cm [facility] [place] [facility] [place] Body weight 2021-09-03 23:44:00 43.092 kg Universi ty of [facility] BMI 2021-09-03 23:44:00 17.38 kg/m2 Universi ty of [facility] Systolic blood 2020-08-04 01:16:00 122 mm[Hg] Univer sity of pressure [facility] Diastolic blood 2020-08-04 01:16:00 76 mm[Hg] Unive rsity of pressure [facility] Heart rate 2020-08-04 01:16:00 80 /min Universi ty of [facility] Body temperature 2020-08-04 01:16:00 36.44 Ruchi Univ ersity of [facility] Respiratory rate 2020-08-04 01:16:00 20 /min Univ ersity of [facility] Oxygen saturation in 2020-08-04 01:16:00 97 /min University of Arterial blood by [facility] Pulse oximetry Branch Body weight 2020-08-03 20:01:00 45.397 kg [facility] [place] [facility] [place] BMI 2020-08-03 20:01:00 18.31 kg/m2 Universi ty [facility] Procedures Procedure Date / Time Performing Clinician Source Performed DNR 2021-10-26 06:01:00 Doctor Unassigned, [facility] COVID-19 (ID NOW RAPID 2021-10-06 00:27:00 Ruth Cano [facility] TESTING) Medical Branch LAB ONLY COVID 2021-10-06 00:27:00 Ruth Cano [place] INTERPRETATION Medical Branch MAGNESIUM 2021-10-05 10:22:00 [facility] 2021-10-05 10:22:00 [facility] ([facility], K, CL, CO2, GLUCOSE, Medica l Branch BUN, CREATININE, CA) XR CHEST 1 VW 2021-10-04 17:25:00 Ana Cristina [facility] MAGNESIUM 2021-10-04 10:42:00 Ana Cristina [facility] BASIC METABOLIC PANEL 2021-10-04 10:42:00 Ana Cristina [facility] (NA, K, CL, CO2, GLUCOSE, Medica l Branch BUN, CREATININE, CA) CBC WITH DIFF 2021-10-04 10:42:00 Ana Cristina [facility] MAGNESIUM 2021-10-03 09:43:00 Ana Cristina [facility] BASIC METABOLIC PANEL 2021-10-03 09:43:00 Ana Cristina [facility] (NA, K, CL, CO2, GLUCOSE, Medica l Branch BUN, CREATININE, CA) MAGNESIUM 2021-10-02 10:03:00 Ana Cristina [facility] BASIC METABOLIC PANEL 2021-10-02 10:03:00 [facility] ([facility], K, CL, CO2, GLUCOSE, Medica l Branch BUN, CREATININE, CA) CBC WITH DIFF 2021-10-02 10:03:00 Ana Cristina [facility] SPUTUM CULTURE 2021-09-30 10:59:00 Su [facility] LACTATE DEHYDROGENASE 2021-09-30 10:55:00 Su [facility] C-REACTIVE PROTEIN 2021-09-30 10:55:00 Chris [facility] BASIC METABOLIC PANEL 2021-09-30 10:54:00 Su [facility] (NA, K, CL, CO2, GLUCOSE, Medica l Branch BUN, CREATININE, CA) CBC WITH DIFF 2021-09-30 10:54:00 Su [facility] PNEUMOCOCCAL ANTIGEN 2021-09-30 05:39:00 Chris Blue [facility] ASSIGNMENT OF BENEFITS 2021-09-29 21:39:32 [facility] XR CHEST 1 VW 2021-09-29 21:15:29 Delmis Banuelos [facility] COVID-19 (ID NOW RAPID 2021-09-29 21:11:00 Delmis Banuelos [facility] TESTING) Medical Branch LAB ONLY COVID 2021-09-29 21:11:00 Delmis Banuelos [facility] INTERPRETATION [facility] Branch LIPASE 2021-09-29 21:07:00 Delmis Banuelos [facility] FERRITIN SERUM 2021-09-29 21:07:00 Chris Blue [facility] TROPONIN I 2021-09-29 21:07:00 Delmis Banuelos [facility] COMP. METABOLIC PANEL 2021-09-29 21:07:00 Delmis Banuelos [facility] ([id number]) [facility] CBC WITH DIFF 2021-09-29 21:07:00 Delmis Banuelos [facility] PROTHROMBIN TIME / INR 2021-09-29 21:07:00 Delmis Banuelos [facility] ACTIVATED PARTIAL 2021-09-29 21:07:00 Delmis Banuelos [facility] THRLAS [facility] HB ECG ROUTINE & RHYTHM 2021-09-29 20:41:22 Delmis Banuelos [facility] CONSENT/REFUSAL FOR 2021-09-29 20:20:30 Doctor Unasslew, [facility] DIAGNOSIS AND TREATMENT [facility] XR CHEST 1 VW 2021-09-10 06:41:20 Angelo Schulz [facility] TROPONIN I 2021-09-10 06:31:00 Angelo Schulz [facility] COMP. METABOLIC PANEL 2021-09-10 06:31:00 Angelo Schulz [facility] ([id number]) [facility] N-TERMINAL PRO-BNP 2021-09-10 06:31:00 Angelo Schulz [facility] CBC WITH DIFF 2021-09-10 06:30:00 Angelo Schulz [place] [facility] D-DIMER 2021-09-10 06:30:[address] [place] [facility] COVID-19 (ID NOW RAPID 2021-09-10 06:30:00 Angelo Schulz [facility] TESTING) Medical Branch XR LUMBAR SPINE 2 VW 2021-09-04 03:14:07 Khushbu Mcghee [facility] XR SPINE THORACIC 2 VW 2021-09-04 03:14:07 Khushbu Mcghee [facility] NOTICE OF PRIVACY 2021-09-03 23:23:15 Doctor Bandar, [facility] PRACTICES [facility] CONSENT/REFUSAL FOR 2021-09-03 23:22:33 Doctor Bandar, [facility] DIAGNOSIS AND TREATMENT [facility] URINALYSIS 2020-08-04 00:34:00 Kierra Powell [facility] US ABDOMEN LIMITED 2020-08-03 22:18:34 Kierra Powell [facility] XR ABDOMEN ACUTE SERIES 2020-08-03 21:19:00 Kierra Powell [facility] LIPASE 2020-08-03 21:04:00 Andre [facility] TROPONIN I 2020-08-03 21:04:00 [facility] HE[facility] FUNCTION PANEL 2020-08-03 21:04:00 Kierra Powell [facility] ([id number]) (ALB,T.PRO,BILI [facility] T,BU/BC,ALT,AST,ALK PHOS) BASIC METABOLIC PANEL 2020-08-03 21:04:00 Kierra Powell [facility] (NA, K, CL, CO2, GLUCOSE, Medica l Branch BUN, CREATININE, CA) CBC WITH DIFF 2020-08-03 21:04:00 [facility] Start End Encounter Admission Attending Care Care Encounter Source Date/Time Date/Time Type Type Clinicians Facility Department ID 2021-10-26 2021-10-26 Orders Doctor CATHLEEN [id number] Univers 00:00:00 00:00:00 Only Unassigned, ROLLY [id number] ity of [place] 4.2.7.2.686 [place] [id number] [facility] 009 Branch 2021-10-12 2021-10-12 Transition LEAH Andrews [id number] Univers 00:00:00 00:00:00 of Care Ofelia GONGORA 350.1.13.10 ity of [place] [id number] [facility] 403 Branch 2021-09-29 2021-10-09 Inpatient [facility] [id number] Univers 14:42:00 17:29:00 [place] ity [facility] 2021-09-29 2021-10-09 [facility] Delmis Banuelos [id number] Univers 14:42:00 17:29:00 Encounter Austin Reeder 350.1. 13.10 ity of [facility] 4.2.7 .2.686 [place] Raheel Lucas [id number] Medical 094 Branch 2021-09-20 2021-09-21 Emergency [facility] [id number] Univers 22:52:00 00:06:00 Khushbu ISLAS 350.1.13.10 i ty of [place] 4.2.7.2.686 [facility] [id number] [facility] 084 Branch 2021-09-10 2021-09-10 Emergency X [facility] ERT [id number] Univers 00:14:00 03:39:00 ANGELO ity [facility] 2021-09-10 2021-09-10 Emergency [facility] [id number] Univers 00:14:00 03:39:00 Angelo ISLAS 350.1.13.10 i ty of [place] 4.2.7.2.686 [facility] [id number] [place] [address] 2021-09-03 2021-09-03 Emergency X [facility] ERT [id number] Univers 17:45:00 23:04:00 [facility] 2021-09-03 2021-09-03 Emergency [facility] [id number] Univers 17:45:00 23:04:00 Khushbu CHRISTIANETON 350.1.13.10 i ty of [place] 4.2.7.2.686 [facility] [id number] [place] [address] Branch 2020-08-03 2020-08-03 Emergency Yarima, TRAUMA [id number] Univers 14:01:00 19:26:00 [facility] 350.1.13.10 i ty of 4.2.7.2.686 [facility] [id number] [facility] 014 Branch 2020-08-03 2020-08-03 Emergency [facility] [id number] Univers 14:01:00 14:01:00 [facility] 2019-10-28 2019-10-28 Emergency EM Stephens, HCAMN MEXP [id number] [facility] 18:21:00 18:21:[address] Results Test Description Test Time Test Comments Results Result Comments Source BASIC METABOLIC PANEL (NA, K, CL, CO2, GLUCOSE, BUN, 2021-09 11:25:14 CREATININE, CA) Test Item Value Reference Range Interpretation Comme nts NA (test code = 3120579619) 136 mmol/L 135-145 K (test code = 6904303615) 3.6 mmol/L 3.5-5.0 CL (test code = 4227933168) 97 mmol/L 98-108 L CO2 TOTAL (test code = 2647106550) 33 mmol/L 23-31 H AGAP (test code = 4219771276) 2-16 BUN (test code = 0020985500) 13 mg/dL 7-23 GLUCOSE (test code = 0862074883) 95 mg/dL 70-110 CREATININE (test code = 0.52 mg/dL 0.50-1.04 7888195357) CALCIUM (test code = 7709327307) 9.2 mg/dL 8.6-10.6 eGFR (test code = 1312658003) mL/min/1.73m2 OMAR (test code = OMAR) Association of Glomerular Filtration Rate (GFR) and Staging of Kidney Disease* + +-------- + ------+| GFR (mL/min/1.73 m2) ?| With Kidney Damage ?| ?Without Kidney Damage+ +-- + +| ?>90 ?| ?Stage one ?| ? Normal ?+ +------- + -------+| ?60-89 ?| ?Stage two ?| ? Decreased GFR ? + +-------- + ------+| ?30-59 ?| ?Stage three ?| ? Stage three ? + +-------- + ------+| ?15-29 ?| ?Stage four ? | ? Stage four ?+ +------- + -------+| ?<15 (or dialysis) ? ?| ?Stage five ? | ? Stage five ?+ +------- + -------+ *Each stage assumes the associated GFR level [...] or urine or abnormalities in imaging tests). Lab Interpretation (test code = Abnormal 03971-4) [facility] 11[facility]25:14 Test Item Value Reference Range Interpretation Comments MAGNESIUM (test code = 3599529970) 1.8 mg/dL 1.7-2.4 Lab Interpretation (test code = Normal 04343-0) [facility] (NA, K, CL, CO2, GLUCOSE, BUN, CREATININE, CA)2021-10-04 11:24:13 Test Item Value Reference Range Interpretation Comments NA (test code = 137 mmol/L 135-145 8230402158) K (test code = 3.7 mmol/L 3.5-5.0 3559504631) CL (test code = 100 mmol/L 98-108 6073044448) CO2 TOTAL (test code = 33 mmol/L 23-31 H 7748530568) AGAP (test code = 2-16 1859557529) BUN (test code = 14 mg/dL 7-23 1280392535) GLUCOSE (test code = 88 mg/dL 70-110 4421855851) CREATININE (test code = 0.52 mg/dL 0.50-1.04 0788333765) CALCIUM (test code = 8.7 mg/dL 8.6-10.6 8653772044) eGFR (test code = mL/min/1.73m2 9515910271) OMAR (test code = OMAR) Association of Glomerular Filtration Rate (GFR) and Staging of Kidney Disease* + --+ --+ ------+| GFR (mL/min/1.73 m2) ?| With Kidney Damage ?| ?Without Kidney Damage+ --------+ --------+ +| ?>90 ?| ?Stage one ?| ? Normal ?+ ---+ ---+ -------+| ?60-89 ?| ?Stage two ?| ? Decreased GFR ? + --+ --+ ------+| ?30-59 ?| ?Stage three ?| ? Stage three ? + --+ --+ ------+| ?15-29 ?| ?Stage four ? | ? Stage four ?+ ---+ ---+ -------+| ?<15 (or dialysis) ? ?| ?Stage five ? | ? Stage five ?+ ---+ ---+ -------+ *Each stage assumes the associated GFR level [...] or urine or abnormalities in imaging tests). Lab Interpretation Abnormal (test code = 05840-6) [facility] 11:[facility]13 Test Item Value Reference Range Interpretation Comments MAGNESIUM (test code = 2271509132) 1.9 mg/dL 1.7-2.4 Lab Interpretation (test code = Normal 90021-9) [facility] WITH [id number] 11:02:11 Test Item Value Reference Range Interpretation Comments WBC (test code = See_Comment [Automated 6690-2) message] The sy stem which generated this result transmitted reference range : 4.30 - 11.10 10*3/?L. The reference range was not used to interpret this result as normal/abnormal . RBC (test code = See_Comment [Automated 789-8) message] The sy stem which generated this result transmitted reference range : 3.93 - 5.25 10*6/?L. The reference range was not used to interpret this result as normal/abnormal . HGB (test code = 13.8 g/dL 11.6-15.0 718-7) HCT (test code = 41.9 % 35.7-45.2 4544-3) MCV (test code = 94.4 fL 80.6-95.5 787-2) MCH (test code = 31.1 pg 25.9-32.8 785-6) MCHC (test code = 32.9 g/dL 31.6-35.1 786-4) RDW-SD (test code = 41.9 fL 39.0-49.9 15338-9) RDW-CV (test code = 12.0 % 12.0-15.5 788-0) PLT (test code = See_Comment [Automated 777-3) message] The sy stem which generated this result transmitted reference range : 166 - 358 10*3/ ?L. The reference r shakira was not used to interpret this result as normal/abnormal . MPV (test code = 10.3 fL 9.5-12.9 39923-6) NRBC/100 WBC (test See_Comment [Automat ed code = 6105412421) message] The system which generated this result transmitted reference range : 0.0 - 10.0 /100 WBCs. The refer ence range was not u sed to interpret th is result as normal/abnormal . NRBC x10^3 (test code <0.01 See_Comment [Auto mated = 2645427258) message] The s ystem which generated this result transmitted reference range : 10*3/?L. The reference range was not used to interpret this result as normal/abnormal . GRAN MAT (NEUT) % 50.5 % (test code = 770-8) IMM GRAN % (test code 0.10 % = 7520284055) LYMPH % (test code = 38.2 % 736-9) MONO % (test code = 6.4 % 5905-5) EOS % (test code = 3.5 % 713-8) BASO % (test code = 1.3 % 706-2) GRAN MAT x10^3(ANC) 4.01 10*3/uL 1.88-7.09 (test code = 8407957611) IMM GRAN x10^3 (test <0.03 0.00-0.06 code = 3609082150) LYMPH x10^3 (test code 3.03 10*3/uL 1.32-3.29 = 731-0) MONO x10^3 (test code 0.51 10*3/uL 0.33-0.92 = 742-7) EOS x10^3 (test code = 0.28 10*3/uL 0.03-0.39 711-2) BASO x10^3 (test code 0.10 10*3/uL 0.01-0.07 H = 704-7) Lab Interpretation Abnormal (test code = 81089-3) [facility] METABOLIC PANEL (NA, K, CL, CO2, GLUCOSE, BUN, CREATININE, CA)2021-10-03 10:23:35 Test Item Value Reference Range Interpretation Comments NA (test code = 136 mmol/L 135-145 7051026638) K (test code = 3.6 mmol/L 3.5-5.0 7568570523) CL (test code = 101 mmol/L 98-108 2204269561) CO2 TOTAL (test code = 31 mmol/L 23-31 5377816946) AGAP (test code = 2-16 0396879065) BUN (test code = 12 mg/dL 7-23 4184516809) GLUCOSE (test code = 84 mg/dL 70-110 1560641809) CREATININE (test code = 0.47 mg/dL 0.50-1.04 L 7602619121) CALCIUM (test code = 8.3 mg/dL 8.6-10.6 L 6369250190) eGFR (test code = mL/min/1.73m2 2073790472) OMAR (test code = OMAR) Association of Glomerular Filtration Rate (GFR) and Staging of Kidney Disease* + --+ --+ ------+| GFR (mL/min/1.73 m2) ?| With Kidney Damage ?| ?Without Kidney Damage+ --------+ --------+ +| ?>90 ?| ?Stage one ?| ? Normal ?+ ---+ ---+ -------+| ?60-89 ?| ?Stage two ?| ? Decreased GFR ? + --+ --+ ------+| ?30-59 ?| ?Stage three ?| ? Stage three ? + --+ --+ ------+| ?15-29 ?| ?Stage four ? | ? Stage four ?+ ---+ ---+ -------+| ?<15 (or dialysis) ? ?| ?Stage five ? | ? Stage five ?+ ---+ ---+ -------+ *Each stage assumes the associated GFR level [...] or urine or abnormalities in imaging tests). Lab Interpretation Abnormal (test code = 25902-4) [facility] 10:23:35 Test Item Value Reference Range Interpretation Comments MAGNESIUM (test code = 5101846086) 1.7 mg/dL 1.7-2.4 Lab Interpretation (test code = Normal 89499-6) [facility] Regional[facility] [id number] 18:57:08 Test Item Value Reference Range Interpretation Comments SPUTUM CULTURE 3+ Respiratory rut: (test code = 622-1) Commensal upper respiratory microorganisms only. Gram stain (test Few Epithelial cells code = 664-3) present OMAR (test code = Bacterial pathogens OMAR) associated with lower respiratory infections were not identified, which include Pseudomonas aeruginosa and Staphylococcus aureus (MRSA or MSSA). [facility] METABOLIC PANEL (NA, K, CL, CO2, GLUCOSE, BUN, CREATININE, CA)2021-10-02 10:42:30 Test Item Value Reference Range Interpretation Comments NA (test code = 136 mmol/L 135-145 1572591427) K (test code = 3.6 mmol/L 3.5-5.0 7299525006) CL (test code = 98 mmol/L 98-108 5979921637) CO2 TOTAL (test code = 32 mmol/L 23-31 H 5392973528) AGAP (test code = 2-16 3141244655) BUN (test code = 14 mg/dL 7-23 3633226871) GLUCOSE (test code = 82 mg/dL 70-110 6379163698) CREATININE (test code = 0.56 mg/dL 0.50-1.04 4172919041) CALCIUM (test code = 8.7 mg/dL 8.6-10.6 7269988533) eGFR (test code = mL/min/1.73m2 3536384988) OMAR (test code = OMAR) Association of Glomerular Filtration Rate (GFR) and Staging of Kidney Disease* + --+ --+ ------+| GFR (mL/min/1.73 m2) ?| With Kidney Damage ?| ?Without Kidney Damage+ --------+ --------+ +| ?>90 ?| ?Stage one ?| ? Normal ?+ ---+ ---+ -------+| ?60-89 ?| ?Stage two ?| ? Decreased GFR ? + --+ --+ ------+| ?30-59 ?| ?Stage three ?| ? Stage three ? + --+ --+ ------+| ?15-29 ?| ?Stage four ? | ? Stage four ?+ ---+ ---+ -------+| ?<15 (or dialysis) ? ?| ?Stage five ? | ? Stage five ?+ ---+ ---+ -------+ *Each stage assumes the associated GFR level [...] or urine or abnormalities in imaging tests). Lab Interpretation Abnormal (test code = 82256-6) [facility] 10:42:30 Test Item Value Reference Range Interpretation Comments MAGNESIUM (test code = 6750816209) 1.8 mg/dL 1.7-2.4 Lab Interpretation (test code = Normal 47963-0) [facility] WITH [id number] 10:25:30 Test Item Value Reference Range Interpretation Comments WBC (test code = See_Comment [Automated 4990-2) message] The sy stem which generated this result transmitted reference range : 4.30 - 11.10 10*3/?L. The reference range was not used to interpret this result as normal/abnormal . RBC (test code = See_Comment [Automated 599-8) message] The sy stem which generated this result transmitted reference range : 3.93 - 5.25 10*6/?L. The reference range was not used to interpret this result as normal/abnormal . HGB (test code = 13.7 g/dL 11.6-15.0 718-7) HCT (test code = 41.1 % 35.7-45.2 4544-3) MCV (test code = 94.3 fL 80.6-95.5 787-2) MCH (test code = 31.4 pg 25.9-32.8 785-6) MCHC (test code = 33.3 g/dL 31.6-35.1 786-4) RDW-SD (test code = 41.2 fL 39.0-49.9 41438-0) RDW-CV (test code = 11.9 % 12.0-15.5 L 788-0) PLT (test code = See_Comment [Automated 777-3) message] The sy stem which generated this result transmitted reference range : 166 - 358 10*3/ ?L. The reference r shakira was not used to interpret this result as normal/abnormal . MPV (test code = 10.5 fL 9.5-12.9 47168-4) NRBC/100 WBC (test See_Comment [Automat ed code = 9918341655) message] The system which generated this result transmitted reference range : 0.0 - 10.0 /100 WBCs. The refer ence range was not u sed to interpret th is result as normal/abnormal . NRBC x10^3 (test code <0.01 See_Comment [Auto mated = 8991309577) message] The s ystem which generated this result transmitted reference range : 10*3/?L. The reference range was not used to interpret this result as normal/abnormal . GRAN MAT (NEUT) % 62.7 % (test code = 770-8) IMM GRAN % (test code 0.20 % = 2939784744) LYMPH % (test code = 27.7 % 736-9) MONO % (test code = 6.3 % 5905-5) EOS % (test code = 2.3 % 713-8) BASO % (test code = 0.8 % 706-2) GRAN MAT x10^3(ANC) 6.33 10*3/uL 1.88-7.09 (test code = 7554124459) IMM GRAN x10^3 (test <0.03 0.00-0.06 code = 2825032912) LYMPH x10^3 (test code 2.79 10*3/uL 1.32-3.29 = 731-0) MONO x10^3 (test code 0.63 10*3/uL 0.33-0.92 = 742-7) EOS x10^3 (test code = 0.23 10*3/uL 0.03-0.39 711-2) BASO x10^3 (test code 0.08 10*3/uL 0.01-0.07 H = 704-7) Lab Interpretation Abnormal (test code = 11433-5) [facility] [id number] 16:44:26 Test Item Value Reference Range Interpretation Comments CRP (test code = 4040962985) 0.7 mg/dL <0.8 Lab Interpretation (test code = Normal 71622-3) [facility] Metabolic Panel (NA, K, CL, CO2, GLUCOSE, BUN, CREATININE, CA)2021-09-30 11:48:38 Test Item Value Reference Range Interpretation Comments NA (test code = 140 mmol/L 135-145 8146323405) K (test code = 4.8 mmol/L 3.5-5.0 9235860723) CL (test code = 103 mmol/L 98-108 1557984613) CO2 TOTAL (test code = 27 mmol/L 23-31 3800072931) AGAP (test code = 2-16 7948985018) BUN (test code = 13 mg/dL 7-23 8151165501) GLUCOSE (test code = 134 mg/dL 70-110 H [id number]) CREATININE (test code = 0.57 mg/dL 0.50-1.04 8835756909) CALCIUM (test code = 9.1 mg/dL 8.6-10.6 0607677360) eGFR (test code = mL/min/1.73m2 3604864660) OMAR (test code = OMAR) Association of Glomerular Filtration Rate (GFR) and Staging of Kidney Disease* + --+ --+ ------+| GFR (mL/min/1.73 m2) ?| With Kidney Damage ?| ?Without Kidney Damage+ --------+ --------+ +| ?>90 ?| ?Stage one ?| ? Normal ?+ ---+ ---+ -------+| ?60-89 ?| ?Stage two ?| ? Decreased GFR ? + --+ --+ ------+| ?30-59 ?| ?Stage three ?| ? Stage three ? + --+ --+ ------+| ?15-29 ?| ?Stage four ? | ? Stage four ?+ ---+ ---+ -------+| ?<15 (or dialysis) ? ?| ?Stage five ? | ? Stage five ?+ ---+ ---+ -------+ *Each stage assumes the associated GFR level [...] or urine or abnormalities in imaging tests). Lab Interpretation Abnormal (test code = 39546-3) [facility]CT[facility] [id number] 11:47:37 Test Item Value Reference Range Interpretation Comments LDH (test code = 3016807687) 394 U/L 300-600 Lab Interpretation (test code = Normal 45531-6) [facility] with [id number] 11:25:16 Test Item Value Reference Range Interpretation Comments WBC (test code = See_Comment [Automated 6690-2) message] The sy stem which generated this result transmitted reference range : 4.30 - 11.10 10*3/?L. The reference range was not used to interpret this result as normal/abnormal . RBC (test code = See_Comment [Automated 789-8) message] The sy stem which generated this result transmitted reference range : 3.93 - 5.25 10*6/?L. The reference range was not used to interpret this result as normal/abnormal . HGB (test code = 14.2 g/dL 11.6-15.0 718-7) HCT (test code = 43.8 % 35.7-45.2 4544-3) MCV (test code = 96.1 fL 80.6-95.5 H 787-2) MCH (test code = 31.1 pg 25.9-32.8 785-6) MCHC (test code = 32.4 g/dL 31.6-35.1 786-4) RDW-SD (test code = 43.6 fL 39.0-49.9 60111-8) RDW-CV (test code = 12.2 % 12.0-15.5 788-0) PLT (test code = See_Comment [Automated 777-3) message] The sy stem which generated this result transmitted reference range : 166 - 358 10*3/ ?L. The reference r shakira was not used to interpret this result as normal/abnormal . MPV (test code = 10.4 fL 9.5-12.9 43430-6) NRBC/100 WBC (test See_Comment [Automat ed code = 2489574682) message] The system which generated this result transmitted reference range : 0.0 - 10.0 /100 WBCs. The refer ence range was not u sed to interpret th is result as normal/abnormal . NRBC x10^3 (test code <0.01 See_Comment [Auto mated = 8820254395) message] The s ystem which generated this result transmitted reference range : 10*3/?L. The reference range was not used to interpret this result as normal/abnormal . GRAN MAT (NEUT) % 75.9 % (test code = 770-8) IMM GRAN % (test code 0.30 % = 3158814714) LYMPH % (test code = 18.0 % 736-9) MONO % (test code = 5.0 % 5905-5) EOS % (test code = 0.1 % 713-8) BASO % (test code = 0.7 % 706-2) GRAN MAT x10^3(ANC) 5.27 10*3/uL 1.88-7.09 (test code = 5257332816) IMM GRAN x10^3 (test <0.03 0.00-0.06 code = 1519818288) LYMPH x10^3 (test code 1.25 10*3/uL 1.32-3.29 L = 731-0) MONO x10^3 (test code 0.35 10*3/uL 0.33-0.92 = 742-7) EOS x10^3 (test code = <0.03 0.03-0.39 L 711-2) BASO x10^3 (test code 0.05 10*3/uL 0.01-0.07 = 704-7) Lab Interpretation Abnormal (test code = 83867-4) [facility] RegionalFERRITIN [id number] 06:04:27 Test Item Value Reference Range Interpretation Comments FERRITIN (test code = 65.0 ng/mL 11.0-264.0 0249630364) OMAR (test code = OMAR) Biotin has been reported to cause a negative bias, interpret results relative to patient's use of biotin. Lab Interpretation (test Normal code = 93032-6) [facility] RegionalTROPONIN [id number] 21:47:24 Test Item Value Reference Interpretation Comments Range TROPONIN I (test 0.003 ng/mL See_Comment [Automated code = 4060738049) message] The system which generated this result transmitted reference range : <=0.034. The reference range was not used to interpret this result as normal/abnormal . OMAR (test code = Reference (Normal) OMAR) Range (defined by the 99th percentile reference limit): <= 0.034 ng/mL Note: Cardiac troponin begins to rise 3-4 hours after the onset of ischemia. Repeat in 4-6 hours if the sample was drawn within 3-4 hours of the onset of the symptom and found normal. Diagnosis of myocardial injury is made with acute changes in cTn concentrations with at least one serial sample above the 99th percentile upper reference limit (URL), taken together with the patient's clinical presentation. Biotin has been reported to cause a negative bias, interpret results relative to patient's use of biotin. Lab Interpretation Normal (test code = 96604-7) [facility]. METABOLIC PANEL ([id number])2021-09-29 21:35:44 Test Item Value Reference Range Interpretation Comments NA (test code = 137 mmol/L 135-145 1428791402) K (test code = 4.1 mmol/L 3.5-5.0 0749695348) CL (test code = 100 mmol/L 98-108 0266785859) CO2 TOTAL (test code = 28 mmol/L 23-31 8817270054) AGAP (test code = 2-16 9815752847) BUN (test code = 8 mg/dL 7-23 7833059373) GLUCOSE (test code = 128 mg/dL 70-110 H 5438559506) CREATININE (test code = 0.54 mg/dL 0.50-1.04 7044344801) TOTAL BILI (test code = 0.5 mg/dL 0.1-1.5 6638948894) CALCIUM (test code = 9.5 mg/dL 8.6-10.6 8902217078) T PROTEIN (test code = 8.1 g/dL 6.3-8.2 5497187306) ALBUMIN (test code = 4.4 g/dL 3.5-5.0 1321363735) ALK PHOS (test code = 104 U/L 34-122 3945686359) ALTv (test code = 18 U/L 5-35 1742-6) AST(SGOT) (test code = 26 U/L 13-40 0552334931) eGFR (test code = mL/min/1.73m2 6972367222) OMAR (test code = OMAR) Association of Glomerular Filtration Rate (GFR) and Staging of Kidney Disease* + --+ --+ ------+| GFR (mL/min/1.73 m2) ?| With Kidney Damage ?| ?Without Kidney Damage+ --------+ --------+ +| ?>90 ?| ?Stage one ?| ? Normal ?+ ---+ ---+ -------+| ?60-89 ?| ?Stage two ?| ? Decreased GFR ? + --+ --+ ------+| ?30-59 ?| ?Stage three ?| ? Stage three ? + --+ --+ ------+| ?15-29 ?| ?Stage four ? | ? Stage four ?+ ---+ ---+ -------+| ?<15 (or dialysis) ? ?| ?Stage five ? | ? Stage five ?+ ---+ ---+ -------+ *Each stage assumes the associated GFR level [...] or urine or abnormalities in imaging tests). Lab Interpretation Abnormal (test code = 34643-6) [facility] RegionalLIPASE, [id number] 21:35:19 Test Item Value Reference Range Interpretation Comments LIPASE (test code = 3271620644) 72 U/L 0-220 Lab Interpretation (test code = Normal 54678-6) [facility] RegionalaPTT2022-01-05 21:27:38 Test Item Value Reference Range Interpretation Comments APTT Patient (test See_Comment [Automat ed code = 3173-2) message] The system which generated this result transmitted reference range : 23 - 38 Seconds . The reference range was not used to interpr et this result as normal/abnormal . OMAR (test code = OMAR) The [facility] patient population mean normal value for aPTT is 30 seconds. Lab Interpretation Normal (test code = 79989-7) [facility] RegionalPROTHROMBIN TIME / [id number] 21:25:21 Test Item Value Reference Range Interpretation Comments PROTIME PATIENT (test See_Comment [Auto mated message] code = 5964-2) The system wh ich generated this result transmitted ref erence range: 12.0 - 1 4.7 Seconds. The re ference range was not u sed to interpret this result as normal/abnor mal. INR (test code = 6301-6) Nor mal INR <1.1; Warfarin Therap eutic range 2.0 to 3. 0 or 2.5 to 3.5, dep ending upon the indica tions. Lab Interpretation (test Normal code = 00275-0) [facility] RegionalCBC WITH [id number] 21:21:00 Test Item Value Reference Range Interpretation Comments WBC (test code = See_Comment [Automated 6690-2) message] The sy stem which generated this result transmitted reference range : 4.30 - 11.10 10*3/?L. The reference range was not used to interpret this result as normal/abnormal . RBC (test code = See_Comment [Automated 829-8) message] The sy stem which generated this result transmitted reference range : 3.93 - 5.25 10*6/?L. The reference range was not used to interpret this result as normal/abnormal . HGB (test code = 14.6 g/dL 11.6-15.0 718-7) HCT (test code = 44.9 % 35.7-45.2 4544-3) MCV (test code = 95.3 fL 80.6-95.5 787-2) MCH (test code = 31.0 pg 25.9-32.8 785-6) MCHC (test code = 32.5 g/dL 31.6-35.1 786-4) RDW-SD (test code = 43.1 fL 39.0-49.9 04171-8) RDW-CV (test code = 12.2 % 12.0-15.5 788-0) PLT (test code = See_Comment [Automated 777-3) message] The sy stem which generated this result transmitted reference range : 166 - 358 10*3/ ?L. The reference r shakira was not used to interpret this result as normal/abnormal . MPV (test code = 10.3 fL 9.5-12.9 91577-4) NRBC/100 WBC (test See_Comment [Automat ed code = 0477464861) message] The system which generated this result transmitted reference range : 0.0 - 10.0 /100 WBCs. The refer ence range was not u sed to interpret th is result as normal/abnormal . NRBC x10^3 (test code <0.01 See_Comment [Auto mated = 8792205216) message] The s ystem which generated this result transmitted reference range : 10*3/?L. The reference range was not used to interpret this result as normal/abnormal . GRAN MAT (NEUT) % 71.1 % (test code = 770-8) IMM GRAN % (test code 0.30 % = 2072057542) LYMPH % (test code = 14.8 % 736-9) MONO % (test code = 5.9 % 5905-5) EOS % (test code = 6.8 % 713-8) BASO % (test code = 1.1 % 706-2) GRAN MAT x10^3(ANC) 6.82 10*3/uL 1.88-7.09 (test code = 0616889350) IMM GRAN x10^3 (test 0.03 10*3/uL 0.00-0.06 code = 3117568220) LYMPH x10^3 (test code 1.42 10*3/uL 1.32-3.29 = 731-0) MONO x10^3 (test code 0.57 10*3/uL 0.33-0.92 = 742-7) EOS x10^3 (test code = 0.65 10*3/uL 0.03-0.39 H 711-2) BASO x10^3 (test code 0.11 10*3/uL 0.01-0.07 H = 704-7) Lab Interpretation Abnormal (test code = 04462-5) [facility] [id number] 07:10:55 Test Item Value Reference Interpretation Comments Range TROPONIN I (test 0.000 ng/mL See_Comment [Automated code = 9379108551) message] The system which generated this result transmitted reference range : <=0.034. The reference range was not used to interpret this result as normal/abnormal . OMAR (test code = Reference (Normal) OMAR) Range (defined by the 99th percentile reference limit): <= 0.034 ng/mL Note: Cardiac troponin begins to rise 3-4 hours after the onset of ischemia. Repeat in 4-6 hours if the sample was drawn within 3-4 hours of the onset of the symptom and found normal. Diagnosis of myocardial injury is made with acute changes in cTn concentrations with at least one serial sample above the 99th percentile upper reference limit (URL), taken together with the patient's clinical presentation. Biotin has been reported to cause a negative bias, interpret results relative to patient's use of biotin. Lab Interpretation Normal (test code = 10566-3) [facility] RegionalN-TERMINAL LVE-[id number] 07:10:55 Test Item Value Reference Range Interpretation Comments NT-proBNP (test code 150 pg/mL See_Comment H [Autom ated = 2676029015) message] The system which generated this result transmitted reference range : <=125. The reference range was not used to interpret this result as normal/abnormal . OMAR (test code = OMAR) Biotin has been reported to cause a negative bias, interpret results relative to patient's use of biotin. Lab Interpretation Abnormal (test code = 47493-5) [facility]. METABOLIC PANEL (77448)2021-09-10 07:07:38 Test Item Value Reference Range Interpretation Comments NA (test code = 135 mmol/L 135-145 1310030299) K (test code = 3.8 mmol/L 3.5-5.0 5652168920) CL (test code = 98 mmol/L 98-108 1095487837) CO2 TOTAL (test code = 27 mmol/L 23-31 1966985227) AGAP (test code = 2-16 7344399129) BUN (test code = 9 mg/dL 7-23 5962959300) GLUCOSE (test code = 115 mg/dL 70-110 H 0273577482) CREATININE (test code = 0.52 mg/dL 0.50-1.04 3303344602) TOTAL BILI (test code = 0.4 mg/dL 0.1-1.3 3508803546) CALCIUM (test code = 10.5 mg/dL 8.6-10.6 8427705911) T PROTEIN (test code = 8.1 g/dL 6.3-8.2 4614027035) ALBUMIN (test code = 4.4 g/dL 3.5-5.0 2555212440) ALK PHOS (test code = 80 U/L 34-122 2914049967) ALTv (test code = 13 U/L 5-35 2-6) AST(SGOT) (test code = 22 U/L 13-40 2251400929) eGFR (test code = mL/min/1.73m2 6622006521) OMAR (test code = OMAR) Association of Glomerular Filtration Rate (GFR) and Staging of Kidney Disease* + --+ --+ ------+| GFR (mL/min/1.73 m2) ?| With Kidney Damage ?| ?Without Kidney Damage+ --------+ --------+ +| ?>90 ?| ?Stage one ?| ? Normal ?+ ---+ ---+ -------+| ?60-89 ?| ?Stage two ?| ? Decreased GFR ? + --+ --+ ------+| ?30-59 ?| ?Stage three ?| ? Stage three ? + --+ --+ ------+| ?15-29 ?| ?Stage four ? | ? Stage four ?+ ---+ ---+ -------+| ?<15 (or dialysis) ? ?| ?Stage five ? | ? Stage five ?+ ---+ ---+ -------+ *Each stage assumes the associated GFR level [...] or urine or abnormalities in imaging tests). Lab Interpretation Abnormal (test code = 01099-8) [facility] RegionalD-[id number] 06:50:30 Test Item Value Reference Interpretation Comments Range D-DIMER (test code = See_Comment H [Autom ated 8965128688) message] The system which generated this result transmitted reference range : <0.41 ?g/mL (FEU). The reference range was not used to interpret this result as normal/abnormal . OMAR (test code = This test may be OMAR) used in conjunction with a clinical pretest probability (PTP) assessment model to exclude venous thromboembolism (VTE) in patients suspected of deep venous thrombosis (DVT) and pulmonary embolism (PE) A D-Dimer value less than 0.50 ?g/ml (FEU) has a negative predicative value of 96 to 100% (95% CI)and 97 to 100% (95% CI) as an aid in the diagnosis of deep vein thrombosis (DVT) and pulmonary embolism when there is low or moderate pretest probability of PE or DVT. D-Dimer values are expressed in initial fibrinogen equivalent units (FEU)" The assay results should be used with other information, including the clinical context, in forming a diagnosis. Lab Interpretation Abnormal (test code = 70307-0) [facility] WITH [id number] 06:40:28 Test Item Value Reference Range Interpretation Comments WBC (test code = See_Comment [Automated 0490-2) message] The sy stem which generated this result transmitted reference range : 4.30 - 11.10 10*3/?L. The reference range was not used to interpret this result as normal/abnormal . RBC (test code = See_Comment [Automated 117-8) message] The sy stem which generated this result transmitted reference range : 3.93 - 5.25 10*6/?L. The reference range was not used to interpret this result as normal/abnormal . HGB (test code = 14.6 g/dL 11.6-15.0 718-7) HCT (test code = 43.4 % 35.7-45.2 4544-3) MCV (test code = 94.1 fL 80.6-95.5 787-2) MCH (test code = 31.7 pg 25.9-32.8 785-6) MCHC (test code = 33.6 g/dL 31.6-35.1 786-4) RDW-SD (test code = 42.8 fL 39.0-49.9 46224-3) RDW-CV (test code = 12.3 % 12.0-15.5 788-0) PLT (test code = See_Comment [Automated 777-3) message] The sy stem which generated this result transmitted reference range : 166 - 358 10*3/ ?L. The reference r shakira was not used to interpret this result as normal/abnormal . MPV (test code = 10.0 fL 9.5-12.9 60734-3) NRBC/100 WBC (test See_Comment [Automat ed code = 3720879319) message] The system which generated this result transmitted reference range : 0.0 - 10.0 /100 WBCs. The refer ence range was not u sed to interpret th is result as normal/abnormal . NRBC x10^3 (test code <0.01 See_Comment [Auto mated = 7115380616) message] The s ystem which generated this result transmitted reference range : 10*3/?L. The reference range was not used to interpret this result as normal/abnormal . GRAN MAT (NEUT) % 68.6 % (test code = 770-8) IMM GRAN % (test code 0.30 % = 9987594021) LYMPH % (test code = 21.9 % 736-9) MONO % (test code = 5.7 % 5905-5) EOS % (test code = 2.3 % 713-8) BASO % (test code = 1.2 % 706-2) GRAN MAT x10^3(ANC) 6.50 10*3/uL 1.88-7.09 (test code = 7142714646) IMM GRAN x10^3 (test 0.03 10*3/uL 0.00-0.06 code = 8271834617) LYMPH x10^3 (test code 2.08 10*3/uL 1.32-3.29 = 731-0) MONO x10^3 (test code 0.54 10*3/uL 0.33-0.92 = 742-7) EOS x10^3 (test code = 0.22 10*3/uL 0.03-0.39 711-2) BASO x10^3 (test code 0.11 10*3/uL 0.01-0.07 H = 704-7) Lab Interpretation Abnormal (test code = 12625-7) [facility] RegionalUrinalysis2020-11-10 00:59:00 Test Item Value Reference Range Interpretation Comments APPEARANCE (test code = Clear Clear 1839628931) COLOR (test code = Straw Yellow A 6161794155) PH (test code = 4.8-8.0 2763997580) SP GRAVITY (test code = 1.003-1.030 3501720349) GLU U QUAL (test code = Normal Normal 2642214750) BLOOD (test code = 1+ Negative A 4465473240) KETONES (test code = Negative Negative 2506176502) PROTEIN (test code = Negative Negative 2887-8) UROBILIN (test code = Normal Normal 5195242142) BILIRUBIN (test code = Negative Negative 1949610443) NITRITE (test code = Negative Negative 0097786571) LEUK VICTOR MANUEL (test code = Negative Negative 7328984845) RBC/HPF (test code = See_Comment [Autom ated message] 7093798045) The system [employer] generated this result transmitted ref erence range: 0 - 3 HP F. The reference range was not used to int erpret this result as normal/abnormal . WBC/HPF (test code = See_Comment [Autom ated message] 7855925745) The system [employer] generated this result transmitted ref erence range: 0 - 5 HP F. The reference range was not used to int erpret this result as normal/abnormal . BACTERIA (test code = Negative Negative 9281548812) SQ EPITH (test code = See_Comment [Auto mated message] 6437928475) The system [employer] generated this result transmitted ref erence range: <=2 HPF. The reference range was not used to int erpret this result as normal/abnormal . Lab Interpretation (test Abnormal code = 49265-6) [facility] RegionalUS Abdomen [id number] 23:26:24 Cholelithiasis without sonographic evidence of acute cholecystitis orbiliary ductal dilatation. Preliminary Report Dictated by Resident: Naif Maher MD., have reviewed this study andagree with the abovereport.EXAM: US ABDOMEN LIMITED HISTORY: 59 years-old Female with RUQ pain, r/o acute cholecystitis . TECHNIQUE: Limited abdominal ultrasound focused on the liver, right kidneyand spleen was performed. The main portal vein was evaluated with colorDoppler imaging. [employer] Crusher Operator images were obtained for the record. COMPARISON: None FINDINGS: PANCREAS: The pancreatic head and body display normal echogenicity to the extentvisualized. AORTA:The proximal abdominal aorta is normal in caliber where visualized, andmeasures approximately 1.5 cm in diameter. LIVER:Length: The liver is at the upper limits of normal in size, and jatfqhfy30.0 cm in the craniocaudal dimension.Parenchyma: Theliver parenchyma exhibits normal hepatic echogenicity andechotexture. No focal lesion is detected.Portal vein: Hepatopetal flow is present in the main portal vein.MPV diameter: The main portal vein measures 0.8 cm in the AP dimension. BILE DUCTS:No intra- or extrahepatic biliary dilatation is visualized.The common bile duct diameter measures 0.3 cm. GALLBLADDER:The gallbladder is physiologically distended. Mobile, curvilinear,echogenic structures measuring up to 0.7 cm are seen within the gallbladderlumen with posterior acoustic shadowing.The gallbladder wall thickness is normal, and measures 0.2 cm.No pericholecystic fluid is visualized. Arreola's sign was unable to beaccurately assessed due to complaints of generalized abdominal pain. IVC:The IVC appears normal where visualized. [facility], Radiant Results Inft User - 08/03/2020 5:27 PM CSTEXAM: US ABDOMEN LIMITEDHISTORY: 59 years-old Female with RUQpain, r/o acute cholecystitis .TECHNIQUE: Limited abdominal ultrasound focused on the liver, right kidneyand spleen was performed. The main portal vein was evaluated with colorDoppler imaging. [employer] Crusher Operator images were obtained for the record.COMPARISON: NoneFINDINGS: PANCREAS: The pancreatic head and body display normal echogenicity to the extentvisualized.AORTA:The proximal abdominal aorta is normal in caliber where visualized, andmeasures approximately 1.5 cm in diameter. LIVER:Length: The liveris at the upper limits of normal in size, and atofdakc19.0 cm in the craniocaudal dimension.Parenchyma: The liver parenchyma exhibits normal hepatic echogenicity andechotexture. No focal lesion is detec sherley.Portal vein: Hepatopetal flow is present in the main portal vein.MPV diameter: The main portal vein measures 0.8 cm in the AP dimension.BILE DUCTS:No intra- or extrahepatic biliary dilatation is [...] Naif Smith MD., have reviewed this study and agree with the abovereport.[facility] RegionalAcute Abdomen Series 2020-08-03 22:02:17 Chronic emphysematous changes of the lungs with increased bilateralreticular opacities more prominent on the left likely solar sales representative ofinterstitial lung disease. No acute intra-abdominal [...] radiographs of the abdomen were obtained. FINDINGS: The lungs are hyperinflated with flattening of the bilateral hemidiaphragmsand increased AP diameter of the thorax. Bilateral lower lobe predominantreticular opacities are noted more prominent in the left lung. Biapicalbullae are noted. No focal consolidation or pneumothorax is visualized.Mild blunting of the bilateral costophrenic angles likely representingpleural thickening. The cardiac silhouette appears decrease in size. The bowel gas pattern is nonobstructive. No subdiaphragmatic free air isvisualized on upright images. No radiopaque stones or abnormalcalcifications are identified. Age-indeterminatemid thoracic compression deformity with approximately 30%height loss. Otherwise, no acute osseous abnormality. [facility], Radiant Results Inft User - 08/03/2020 4:03 PM CSTExam: XR ABDOMEN ACUTE SERIESCLINICAL INDICATION: abdominal pain COMPARISON: NoneTechnique: PA and lateral radiographs of the chest were obtained. Uprightand supine AP radiographs of the abdomen were obtained.FINDINGS:The lungs are hyperinflated with flattening of the bilateral [...] 30%height loss. Otherwise, no acute osseous abnormality. IMPRE SSIONChronic emphysematous changes of the lungs with increased bilateralreticular opacities more prominent on the left likely solar sales representative ofinterstitial lung disease.No acute intra-abdominal abnormality. The bowel gas pattern isnonobstructive.Age-indeterminate mid thoracic compression deformity with approximately 30%height loss. Preliminary Report Dictated by Resident: Cory Greenfield, Juregn Ford MD., have reviewed this study and agree withthe above report.[facility] RegionalTropoisabellan I 2020-08-03 21:35:00 Test Item Value Reference Range Interpretation Comments TROPONIN I (test 0.001 ng/mL See_Comment [Automated code = 7112868442) message] The system which generated this result [...] ? Lab Interpretation Normal (test code = 34523-2) [facility] (NA, K, CL, CO2, GLUCOSE, BUN, CREATININE, CA)2020-08-03 21:25:00 Test Item Value Reference Range Interpretation Comments NA (test code = 138 mmol/L 135-145 9871940181) K (test code = 4.6 mmol/L 3.5-5 9534493521) CL (test code = 102 mmol/L 98-108 4423014696) CO2 TOTAL (test code = 29 mmol/L 23-31 9057794975) AGAP (test code = 2-16 1285639446) BUN (test code = 8 mg/dL 7-23 8867003435) GLUCOSE (test code = 84 mg/dL 70-110 2948919025) CREATININE (test code 0.56 mg/dL 0.5-1.04 = 3662912710) CALCIUM (test code = 9.6 mg/dL 8.6-10.6 2544057471) eGFR Calculation mL/min/1.73m2 (Non-) (test code = 6677913887) eGFR Calculation mL/min/1.73m2 () (test code = 6965817190) OMAR (test code = OMAR) Association of [...] or urine or abnormalities in imaging tests). [facility] (ALB, T.PRO, BILI T, BU/BC, ALT, AST, ALK PHOS)2020-08-03 21:25:00 Test Item Value Reference Range Interpretation Comments TOTAL BILI (test code = 7199547844) 0.3 mg/dL 0.1-1.1 BILI UNCON (test code = 9226921704) 0.1 mg/dL 0.1-1.1 BILI CONJ (test code = 8054892143) 0.0 mg/dL 0-0.3 T PROTEIN (test code = 3041423892) 8.1 g/dL 6.3-8.2 ALBUMIN (test code = 6043814418) 4.1 g/dL 3.5-5 ALK PHOS (test code = 4692389218) 86 U/L 34-122 ALTv (test code = 1742-6) 10 U/L 5-35 AST(SGOT) (test code = 0182951243) 21 U/L 13-40 Lab Interpretation (test code = Normal 13038-4) [facility] RegionalLip[facility] [id number] 21:25:00 Test Item Value Reference Range Interpretation Comments LIPASE (test code = 9252284178) 83 U/L 0-220 Lab Interpretation (test code = Normal 70910-5) [facility] with [id number] 21:17:00 Test Item Value Reference Range Interpretation Comments WBC (test code = See_Comment [Automated 6690-2) message] The sy stem which generated this result transmitted reference range : 4.30 - 11.10 10*3/?L. The reference range was not used to interpret this result as normal/abnormal . RBC (test code = See_Comment [Automated 789-8) message] The sy stem which generated this [...] RDW-SD (test code = 46.5 fL 39-49.9 85368-2) RDW-CV (test code = 13.3 % 12-15.5 788-0) PLT (test code = See_Comment [Automated 777-3) message] The sy stem which generated this result transmitted reference range : 166 - 358 10*3/ ?L. The reference r shakira was not used to interpret this result as normal/abnormal . MPV (test code = 9.4 fL 9.5-12.9 L 31848-3) NRBC/100 WBC (test See_Comment [Automat ed code = 5190950458) message] The system which generated this result transmitted reference range : 0.0 - 10.0 /100 WBCs. The refer ence range was not u sed to interpret th is result as normal/abnormal . NRBC x10^3 (test code <0.01 See_Comment [Auto mated = 5508455932) message] The s ystem which generated this result transmitted reference range : 10*3/?L. The reference range was not used to interpret this result as normal/abnormal . GRAN MAT (NEUT) % 68.2 % (test code = 770-8) IMM GRAN % (test code 0.40 % = 6935826029) LYMPH % (test code = 22.7 % 736-9) MONO % (test code = 5.3 % 5905-5) EOS % (test code = 2.5 % 713-8) BASO % (test code = 0.9 % 706-2) GRAN MAT x10^3(ANC) 5.29 10*3/uL 1.88-7.09 (test code = 6924673553) IMM GRAN x10^3 (test 0.03 10*3/uL 0-0.06 code = 6718366345) LYMPH x10^3 (test code 1.76 10*3/uL 1.32-3.29 = 731-0) MONO x10^3 (test code 0.41 10*3/uL 0.33-0.92 = 742-7) EOS x10^3 (test code = 0.19 10*3/uL 0.03-0.39 711-2) BASO x10^3 (test code 0.07 10*3/uL 0.01-0.07 = 704-7) Lab Interpretation Abnormal (test code = 77645-2) [facility]PRE[facility] METABOLIC [id number] 19:56:00 Test Item Value Reference Range Interpretation [...] 50.0-136.0 N code = ALKP) CARDIAC ENZYMES [id number] 19:56:00 Test Item Value Reference Range Interpretation Comments CREATINE KINASE (CK) 51 Units/L 26-192 N (test code = CK) TROPONIN-I (test code <0.02 NG/ML 0.00-0.06 N REFERE NCE RANGE = TROPI) TROPONIN I HEAL THY INDIVIDUALS: <0 .06 ng/mL R/O ISCHE TAVARES: 0.07 - 0.60 ng/ mL CUT-OFF RANGE F OR AMI: 0.60 - 1.5 ng/mL COMPREHENSIVE METABOLIC [id number] 19:48:00 Test Item Value Reference Range Interpretation [...] Units/L 50.0-136.0 code = ALKP) CARDIAC ENZYMES [id number] 19:48:00 Test Item Value Reference Range Interpretation Comments CREATINE KINASE (CK) (test code = Units/L 26-192 CK) TROPONIN-I (test code = TROPI) NG/ML 0.00-0.06 PROTHROMBIN [id number] 19:45:00 Test Item Value Reference Range Interpretation Comments PROTHROMBIN TIME 12.6 SECONDS 9.9-12.8 N PATIENT (test code = PTP) INTERNATIONAL NORMAL 1.1 0.89-1.14 N THE INR IS TO BE USED RATIO (test code = ONLY FOR MONITORING INR) ORAL ANTICOAGULANTTH ERAPY. THE FOLLOWING A RE SUGGESTED RANGE S FROM [facility] LEGE OF CHEST PHYSICIANS:CAN CATION INR VALUEPROPHY LAXIS OF VENOUS THROM BOSIS (ORTHOPEDIC LARRY KRISTIE) 2.0 - 3.0PROPHY LAXIS OF VENOUS THROM BOSIS (OTHER THAN HIG H-RISK SURGERY) 2.0 - 3.0TREATMENT OF DEEP VEIN THROMBOSIS OR PULMONARY EMBOL ISM 2.0 - 3.0PREVENTION OF SYSTEMIC EMBOLI SM TISSUE HEART VA LVES 2.0 - 3.0 ACUTE MYOCARDIAL INFA RCTION (TO PREVENT SYS TEMIC EMBOLISM) 2.0 - 3.0 ACUTE MYOCARDIA L INFARCTION (TO PREVENT RECURRENT INFAR CT) 2.5 - 3.0 VALVULAR HEART DISEASE 2.0 - 3 .0 ATRIAL FIBRILAT ION 2.0 - 3.0BILEAFLET MECHANICAL VALV E IN AORTIC POSITION 2.0 - 3.0MECHANICAL PROSTHETIC VALV ES (HIGH RISK) 2.5 - 3.5PRESENCE OF LUPUS ANTICOAGULANT O R ANTIPHOSPHOLIPI D ANTIBODIES 2.5 - 3.5 CBC W/AUTO [id number] 19:43:00 Test Item Value Reference Range Interpretation [...] N - XR SHOULDER 2 + V [id number] 19:08:00 FAX: Cathleen Lucio [phone] [place]: St: PRE Name: KEYSHAWN POTTER [facility] : 1960 Age/S: 59/F [address] [facility] [employer] Unit #: [id number] Loc: E.EXP [place], [place] Phys: Cathleen Lucio [address] Acct: [id number] Dis Date: Status: PRE ER PHONE #: [phone] Exam Date: 10/28/20191904 FAX #: [phone] Reason: LEFT SHOULDER AND BACK PAIN EXAMS: CPT CODE: [id number] XR SHOULDER 2 + V LT [address] Exam: Left shoulder 3 views internal, external rotation and transscapular. Location: H 12 History: LEFT SHOULDER AND BACK PAIN Findings: No bone or joint abnormality is seen. The bony cortices are intact. The joint spaces are well preserved. The soft tissues are normal. Impression: Unremarkable exam. at 1908 Reported and signed by: José Miguel Matias M.D. CC: Catlheen KIMBALL Technologist: KACEY ANDERSON Trnscrd Date/Time/By: 10/28/2019 (1907) : By: Milena PAGE 1 Signed Report FAX: Cathleen Lucio [phone] [place]: St: PRE --Name: KEYSHAWN POTTER [facility] [place] [facility] : 1960 Age/S: 59/F [address] [employer] [employer] Unit #: [id number] Loc: E.EXP [place], [place] Phys: Cathleen Lucio [address] Acct: [id number] Dis Date: Status: PRE ER PHONE #: [phone] Exam Date: 10/28/20191904 FAX #: [phone] Reason: LEFT SHOULD ER AND BACK PAIN EXAMS: CPT CODE: [id number] XR SHOULDER 2 + [place] [address]777 <Continued> Orig Print D/T: S: 10/28/2019 (1910) PAGE 2 Signed Report- XR CHEST 1 [id number] 19:07:00 FAX: Cathleen Lucio [phone] [place]: St: PRE Name: KEYSHAWN POTTER [facility] [place] [facility] : 1960 Age/S: 59/F [address] [employer] Unit #: [id number] Loc: E.ERS [place], [place] Phys: Cathleen Lucio [address] Acct: [id number] Dis Date: Status: PRE ER PHONE #: [phone] Exam Date: 10/28/20191904 FAX#: [phone] Reason: LEFT SHOULDER AND BACK PAIN EXAMS: CPT CODE: [id number] XR CHEST 1 V 25505 Exam: Chest portable erect Location: H 12 History: LEFT SHOULDER AND BACK PAIN Comparison: 04/26/2019. Findings: The lungs are emphysematous but clear. No infiltrate or effusion is seen. The pulmonary va sculature is normal. The heart size is normal. Atherosclerosis involves the aorta. The mediastinal silhouette is unremarkable. The bony thorax is intact with degenerative changes noted. Impression: No acute disease. at 1907 Reported and signed by: José Miguel Matias M.D. CC: Cathleen KIMBALL Technologist: KACEY Rivasnslinus Date/Time/By: 10/28/2019 (1906) : By: Darvin PAGE 1 Signed Report FAX: Cathleen Lucio [phone] [place]: St: PRE -------- Name: KEYSHAWN POTTER [facility] [place] [facility] : 1960 Age/S: 59/F [address] [facility] [address] #: [id number] [place] Phys: Cathleen Lucio [address] Acct: [id number] DisDate: Status: PRE ER PHONE #: [phone] Exam Date: 10/28/20191904 FAX #: [phone] Reason: LEFT SHOULDER AND BACK PAIN EXAMS: CPT CODE: [id number] XR CHEST 1 V 25071 <Continued> Orig PrintD/T: S: 10/28/2019 (1910) PAGE 2 Signed Report COMPREHENSIVE METABOLIC [id number] 14:06:00 Test Item Value Reference Range Interpretation [...] 74 Units/L 50.0-136.0 N code = ALKP) [id number] 14:06:00 Test Item Value Reference Range Interpretation Comments LIPASE (test code = LIP) 143 Units/L 65.0-230.0 N [id number] 14:06:00 Test Item Value Reference Range Interpretation Comments TROPONIN-I (test <0.02 NG/ML 0.00-0.06 N REFERENCE R SHAKIRA code = TROPI) TROPONIN I HEA LTHY INDIVIDUALS: <0 .06 ng/mL R/O ISCHE TAVARES: 0.07 - 0.60 ng/ mL CUT-OFF RANGE F OR AMI: 0.60 - 1.5 ng/m L - XR CHEST 2 [id number] 14:03:00 FAX: Juan Calderon MD [phone] [place]: PATRICIA St: PRE Name: KEYSHAWN POTTER [facility] [place] [facility] : 1960 Age/S: 58/F [address] Unit #: [id number] Loc: E.ERS2 [place], [place]: [place] [address] Acct: [id number] Dis Date: Status: PRE ER PHONE #: [phone] Exam Date: 04/26/2019 1350 FAX #: Reason: chest pain EXAMS: CPT CODE: [id number] XR CHEST 2 V 75030 REASON FOR EXAM: Chest pain, difficulty breathing. COMPARISON: March 01, 2016. Chest, 2 views, frontal and lateral projection. The lungs are hyperinflated with interstitial fibrosis changes diffusely and progressive over 2016.. Heart size is normal. No effusion or pneumothorax can be seen. Osseous structures appear to be intact.. IMPRESSION: No acute cardiopulmonary disease. Interstitial fibrosis with COPD changes. Location: [facility] at 1403 Reported and signed by: Maxx Cuenca M.D. CC: Juan Calderon MD Technologist: ALEX ARVIZU Trnmord Date/Time/By: 04/26/2019 (1403) : By: [facility] PAGE 1 Signed Report FAX: Juan Calderon MD [phone] [place]: St: PRE -- Name: KEYSHAWN POTTER [facility] [place] [facility] : 1960 Age/S: 58/F [address] [employer] Unit #: [id number] Loc: E.ERS2 [place], [place]: [place] [address] Acct: [id number] Dis Date: Status: PRE ER PHONE #: [phone] Exam Date: 04/26/2019 1350 FAX #: [phone] Reason: chest pain EXAMS: CPT CODE: [id number] XR CHEST 2 V 96165 <Continued> Orig Print D/T: S: 04/26/2019 (2159) PAGE 2 Signed ReportPROTHROMBIN [id number] 14:00:00 Test Item Value Reference Range Interpretation Comments PROTHROMBIN TIME 12.6 SECONDS 9.9-12.8 N PATIENT (test code = PTP) INTERNATIONAL NORMAL 1.1 0.89-1.14 N THE INR IS TO BE USED RATIO (test code = ONLY FOR MONITORING INR) ORAL ANTICOAGULANTTH ERAPY. THE FOLLOWING A RE SUGGESTED RANGE S FROM [facility] LEGE OF CHEST PHYSICIANS:CAN CATION INR VALUEPROPHY LAXIS OF VENOUS THROM BOSIS (ORTHOPEDIC LARRY KRISTIE) 2.0 - 3.0PROPHY LAXIS OF VENOUS THROM BOSIS (OTHER THAN HIG H-RISK SURGERY) 2.0 - 3.0TREATMENT OF DEEP VEIN THROMBOSIS OR PULMONARY EMBOL ISM 2.0 - 3.0PREVENTION OF SYSTEMIC EMBOLI SM TISSUE HEART VA LVES 2.0 - 3.0 ACUTE MYOCARDIAL INFA RCTION (TO PREVENT SYS TEMIC EMBOLISM) 2.0 - 3.0 ACUTE MYOCARDIA L INFARCTION (TO PREVENT RECURRENT INFAR CT) 2.5 - 3.0 VALVULAR HEART DISEASE 2.0 - 3 .0 ATRIAL FIBRILAT ION 2.0 - 3.0BILEAFLET MECHANICAL VALV E IN AORTIC POSITION 2.0 - 3.0MECHANICAL PROSTHETIC VALV ES (HIGH RISK) 2.5 - 3.5PRESENCE OF LUPUS ANTICOAGULANT O R ANTIPHOSPHOLIPI D ANTIBODIES 2.5 - 3.5 COMPREHENSIVE METABOLIC [id number] 13:56:00 Test Item Value Reference Range Interpretation [...] TOTAL (test Units/L 50.0-136.0 code = ALKP) [id number] 13:56:00 Test Item Value Reference Range Interpretation Comments LIPASE (test code = LIP) Units/L 65.0-230.0 [id number] 13:56:00 Test Item Value Reference Range Interpretation Comments TROPONIN-I (test code = TROPI) NG/ML 0.00-0.06 CBC W/AUTO [id number] 13:54:00 Test Item Value Reference Range Interpretation [...]
[2022-05-08 09:42] LABS: Absolute Lymphocytes (CBC) 1.4 K/uL (0.7-4.9); Hematocrit 32.4 % (36.0-45.0); Lymphocytes % 18.4 % (15.3-44.8); MCV 91.8 fL (80-100); MPV 8.8 fL (7.6-11.3); RBC Red Blood Cell Count 3.53 M/uL (3.86-4.86)
[2022-05-08 10:01] LABS: Albumin 2.7 g/dL (3.4-5.0); Bilirubin Total 0.3 mg/dL (0.2-1.0); Potassium 3.2 mmol/L (3.5-5.1); Protein, Total 6.6 g/dL (6.4-8.2)
--- NOTE | 2022-05-08 10:38 | RAD REPORT ---
EXAM DESCRIPTION: CTAbdomen Pelvis W Contrast - 05/08/2022 10:28 am CLINICAL HISTORY: Abdominal pain. right sided abdominal pain COMPARISON: Abdomen Pelvis W Contrast dated 08/23/2021 TECHNIQUE: Biphasic CT imaging of the abdomen and pelvis was performed with 100 ml non-ionic IV cont rast. All CT scans are performed using dose optimization technique as appropriate and may include automated exposure control or mA/KV adjustment according to patient size. FINDINGS: Prominent diffuse COPD is present. Mild linear atelectasis is present both lung bases. The liver contains a 4 mm cyst in the peripheral right lobe. No intrahepatic biliary dilatation or so lid liver mass. Cholelithiasis. The spleen, pancreas, adrenal glands kidneys are within normal limits . No bowel obstruction, free air, free fluid or abscess. Prominent stool is present throughout the colo n. The appendix is not identified as a discrete structure, however, no secondary findings of appendic itis are identified. Prominent aortoiliac atherosclerosis. No evidence of significant lymphadenopath y. Moderate lumbar degenerative changes. IMPRESSION: Prominent stool retention throughout the colon. Cholelithiasis. Significant emphysema.
--- NOTE | 2022-05-08 11:36 | RAD REPORT ---
EXAM DESCRIPTION: US - Abdomen Exam Limited - 05/08/2022 11:21 am CLINICAL HISTORY: right sided abdominal pain Right upper quadrant pain COMPARISON: No comparisons FINDINGS: The gallbladder demonstrates small gallstone. No pericholecystic fluid or gallbladder wall thickening. The common bile duct is normal measuring 6 mm. The liver demonstrates no findings of intrahepatic biliary dilatation. IMPRESSION: Cholelithiasis.
[2022-05-08] MEDS ORDERED: FENTANYL CITR 100 MCG/2 ML ONE (11:40)
[2022-05-08 11:42] LABS: Urine Blood Trace-intact (Negative); Urine Glucose Negative (Negative); Urine Protein Negative (Negative)
--- NOTE | 2022-05-08 12:35 | EDPHYS ---
Physician Documentation [facility] Name: Leonarda Zabala Age: 61 yrs Sex: Female : 1960 Arrival Date: 05/08/2022 Time: 08:54 Bed 13 Private MD: OPAL Physician Jorge Clay HPI: 05/08 09:16 This 61 yrs old Female presents to ER via EMS with complaints of Abdominal Pain. [facility] 09:16 The patient presents with abdominal pain. Onset: The symptoms/episode began/occurred jmm gradually, 1 week(s) ago. The symptoms do not radiate. Associated signs and symptoms: Pertinent negatives: nausea and vomiting, diarrhea. The symptoms are described as achy. Modifying factors: The symptoms are alleviated by nothing, the symptoms are aggravated by nothing. The patient has not experienced similar symptoms in the past. Historical: - Allergies: 08:57 Myeclin; ss - PMHx: 08:57 COPD; Emphysema; Left pneumothorax; ss - Immunization history:: Adult Immunizations up to date, Client reports receiving the 2nd dose of the Covid vaccine. - Social history:: Smoking status: Patient reports the use of cigarette tobacco products, smokes two packs cigarettes per day. ROS: 09:16 Constitutional: Negative for fever, chills, and weight loss, Cardiovascular: Negative [facility] for chest pain, palpitations, and edema, Respiratory: Negative for shortness of breath, cough, wheezing, and pleuritic chest pain. 09:16 Abdomen/GI: Positive for abdominal pain. 09:16 All other systems are negative. Exam: 09:16 Head/Face: atraumatic. Eyes: EOMI, no conjunctival erythema appreciated ENT: Moist jmm Mucus Membranes Neck: Trachea midline, Supple Chest/axilla: Normal chest wall appearance and motion. Cardiovascular: Regular rate and rhythm. No edema appreciated Respiratory: Normal respirations, no respiratory distress appreciated 09:16 Skin: General appearance color normal MS/ Extremity: Moves all extremities, no obvious deformities appreciated, no edema noted to the lower extremities Neuro: Awake and alert Psych: Behavior is normal, Mood is normal, Patient is cooperative and pleasant 09:16 Constitutional: The patient appears alert, awake, cachectic 09:16 Abdomen/GI: Palpation: soft, mild abdominal tenderness, in the right upper quadrant and right lower quadrant. Vital Signs: 08:58 BP 100 / 72; Pulse 103; Resp 22; Temp 98.1(O); Pulse Ox 100% on 5 lpm NC; Pain 9/10; ss 11:36 BP 110 / 79; Pulse 105; Resp 18; Pulse Ox 100% on R/A; tm3 12:02 BP 100 / 68; Pulse 88; Pulse Ox 100% on R/A; hb MDM: 09:00 Patient medically screened. candace 12:33 Data reviewed: vital signs, nurses notes. Counseling: I had a detailed discussion with justin the patient and/or guardian regarding: the historical points, exam findings, and any diagnostic results supporting the discharge/admit diagnosis, lab results, radiology results, the need for outpatient follow up, to return to the emergency department if symptoms worsen or persist or if there are any questions or concerns that arise at home. ED course: Patient is alert and non toxic in appearance in the ED. Patient advised to follow up with GI for further evaluation. patient understood and agrees with the plan of care. . 05/08 09:07 Order name: CBC with Diff; Complete Time: 09:48 [facility] 05/08 09:07 Order name: CMP; Complete Time: 10:05 [facility] 05/08 09:07 Order name: Lipase; Complete Time: 10:05 [facility] 05/08 09:07 Order name: CT Abd/Pelvis - IV Contrast Only; Complete Time: 10:51 [facility] 05/08 09:19 Order name: US Abdomen Limited; Complete Time: 11:38 [facility] 05/08 11:43 Order name: Urine Dipstick-Ancillary; Complete Time: 11:44 [facility] 05/08 09:07 Order name: IV Saline Lock; Complete Time: 09:34 [facility] 05/08 09:07 Order name: Labs collected and sent; Complete Time: 09:34 [facility] 05/08 09:07 Order name: Urine Dipstick-Ancillary (obtain specimen); Complete Time: 11:43 [facility] Administered Medications: 11:43 Drug: fentaNYL (PF) 50 mcg Route: IVP; Site: left antecubital; ss Disposition Summary: 05/08/22 12:34 Discharge Ordered Location: Home [facility] Condition: Stable [facility] Diagnosis - Other cholelithiasis without obstruction [facility] Followup: [facility] - With: George Hayden MD - When: 2 - 3 days - Reason: Recheck today's complaints, Continuance of care, Re-evaluation by your physician Discharge Instructions: - Discharge Summary Sheet justin - Cholelithiasis justin Forms: - Medication Reconciliation Form justin - Thank You Letter justin - Antibiotic Education justin - Prescription Opioid Use justin Prescriptions: - dicyclomine 20 mg Oral Tablet - take 1 tablet by ORAL route 3 times per day; 30 tablet; Refills: 0, Product justin Selection Permitted Signatures: Dispatcher [employer] EDJorge Talbert MD MD cha Mickail, Joel, PA PA jmm Smirch, Shelby, RN RN ss
--- NOTE | 2022-05-08 12:35 | ER ---
Nurse's Notes [facility] Name: Leonarda Zabala Age: 61 yrs Sex: Female : 1960 Arrival Date: 05/08/2022 Time: 08:54 Bed 13 Private MD: Diagnosis: Other cholelithiasis without obstruction Presentation: 05/08 08:54 Chief complaint: Patient states: RUQ pain that has been on going for a "few days". ss Coronavirus screen: Client denies travel out of the [place] in the last 14 days. Ebola Screen: Patient denies exposure to infectious person. Patient denies travel to an Ebola-affected area in the 21 days before illness onset. Initial Sepsis Screen: Does the patient meet any 2 criteria? No. Patient's initial sepsis screen is negative. Does the patient have a suspected source of infection? No. Patient's initial sepsis screen is negative. Risk Assessment: Do you want to hurt yourself or someone else? Patient reports no desire to harm self or others. Onset of symptoms was April 2022. 08:54 Method Of Arrival: EMS: [facility] 08:54 Acuity: JARRETT 3 ss Historical: - Allergies: 08:57 Myeclin; ss - PMHx: 08:57 COPD; Emphysema; Left pneumothorax; ss - Immunization history:: Adult Immunizations up to date, Client reports receiving the 2nd dose of the Covid vaccine. - Social history:: Smoking status: Patient reports the use of cigarette tobacco products, smokes two packs cigarettes per day. Screenin:38 Abuse screen: Denies threats or abuse. Denies injuries from another. Nutritional ss screening: No deficits noted. Tuberculosis screening: Never had TB. 12:03 Fall Risk None identified. hb Assessment: 08:54 General: Appears in no apparent distress. Behavior is calm, cooperative. General: ss Denies fever. Neuro: Level of Consciousness is awake, alert. Respiratory: Airway is patent Respiratory effort is even. Derm: Skin is pink, warm \\T\\ dry. 11:38 Reassessment: PT is indecisive of whether or not she would like to receive pain ss medication at this time. Pt states, "I am more comfortable, but I still hurt. Let me call my caregiver." Spoke with Roma, niece and caregiver who is talking to patient over the phone at this time. 12:02 Reassessment: Patient appears in no apparent distress at this time. Patient and/or hb family updated on plan of care and expected duration. Pain level reassessed. Patient is alert, oriented x 3, equal unlabored respirations, skin warm/dry/pink. Vital Signs: 08:58 BP 100 / 72; Pulse 103; Resp 22; Temp 98.1(O); Pulse Ox 100% on 5 lpm NC; Pain 9/10; ss 11:36 BP 110 / 79; Pulse 105; Resp 18; Pulse Ox 100% on R/A; tm3 12:02 BP 100 / 68; Pulse 88; Pulse Ox 100% on R/A; hb ED Course: 08:54 Patient arrived in ED. ss 08:55 Tapan Frank PA is PHCP. m 08:55 Jorge Caly MD is Attending Physician. [facility] 08:57 Triage completed. ss 08:57 Arm band placed on right wrist. ss 09:23 Missed attempt(s): 22 gauge in right antecubital area. Bleeding controlled, band aid dh3 applied, catheter tip intact. 09:25 Initial lab(s) drawn, by nc, sent to lab. Inserted saline lock: 22 gauge in left dh3 antecubital area, using aseptic technique. Blood collected. 10:30 CT Abd/Pelvis - IV Contrast Only In Process Unspecified. EDMS 11:23 US Abdomen Limited In Process Unspecified. EDMS 11:29 Sophia Thomson, RN is Primary Nurse. ss 11:38 Patient has correct armband on for positive identification. Bed in low position. Call ss light in reach. 11:43 Urine collected: clean catch specimen, cloudy. tm3 12:34 George Hayden MD is Referral Physician. [facility] 13:43 No provider procedures requiring assistance completed. IV discontinued, intact, ss bleeding controlled, No redness/swelling at site. Pressure dressing applied. Administered Medications: 11:43 Drug: fentaNYL (PF) 50 mcg Route: IVP; Site: left antecubital; ss Medication: 11:38 VIS not applicable for this client. ss Outcome: 12:34 Discharge ordered by MD. [facility] 13:42 Discharged to home via ambulance. ss 13:42 Condition: good 13:42 Discharge instructions given to patient, Instructed on discharge instructions, follow up and referral plans. medication usage, Demonstrated understanding of instructions, follow-up care, medications. 13:43 Patient left the ED. ss Signatures: Dispatcher [employer] EDMS Americo Bates tm3 Tapan Frank PA PA jmm Smirch, Shelby, RN RN ss Baxter, Heather, RN RN Riri Gann [facility]
[2022-05-08 14:24] VITALS: TEMP 98.1; O2SAT 100
[2022-05-08 14:28] VITALS: BP 100/68
== END 2022-05-08 13:43 | disposition home or self-care (01) ==
LOC: ER 08:52
DX: K80.80 Other cholelithiasis without obstruction (principal); J44.9 Chronic obstructive pulmonary disease, unspecified; F17.210 Nicotine dependence, cigarettes, uncomplicated; Z88.8 Allergy status to other drugs, medicaments and biological substances
CPT/HCPCS: 85025; 36415; 81003; 83690; 80053; 74177; 76705; Q9967; J3010; 96374; 99284

== ENCOUNTER 2022-06-04 17:33 | Emergency (ER) | payer OTHER ==
--- OUTSIDE RECORDS SUMMARY | 2022-06-04 17:39 | XMS REPORT | Continuity of Care Document ---
:1960 Author Organization [facility] t Address Pending sale to [facility] [place] [address] Care Team Providers Name Role Phone PCP, PATIENT DOES NOT HAVE A Primary Care Physician Unavaila ble Doctor Unassigned, [place] Attending Clinician Unavailable Ofelia Andrews LVN Attending Clinician EZRA REEDER Attending Clinician Unavailable Delmis Millan Attending Clinician Ezra Reeder MD Attending Clinician Mark Coleman DO Attending Clinician Raheel Lucas MD Attending Clinician Khushbu Aguilera Attending Clinician ANGELO SCHULZ Attending Clinician Unavailable Angelo Turner Attending Clinician KHUSHBU MCGHEE Attending Clinician Unavailable Anila Herrera MD Attending Clinician ANILA HERRERA Attending Clinician Unavailable Hasmukh Stephens Attending Clinician Unavailable EZRA REEDER Admitting Clinician Unavailable Ezra Reeder MD Admitting Clinician ANGELO SCHULZ Admitting Clinician Unavailable KHUSHBU MCGHEE Admitting Clinician Unavailable Physician, No Primary or Family Admitting Clinician Unavaila ble Payers Payer Name Policy Type Policy Number Effective Date Expiration Date [place] he PHCS GENERIC [id number] 2015 00:00:00 Problems Condition Condition Condition Status [...] of disease disease 00:00: g of this [place] 00 note is Medical different Branch from [...] different from the original. ICD10 Diagnosis Term Membership Counselor Utility Seizure Seizure Disease Active 2005-09 Univers disorder disorder 2-12 ity of 00:00: [place] 00 Medical Branch Anxiety Anxiety Disease Active 2005-09 Overview: Univ ers disorder disorder -12 Formattin ity of due to due to 00:00: g of this [place] medical medical 00 note Medical condition condition might be Br anch different from the original. ICD10 Diagnosis Term Membership Counselor Utility Chronic Chronic Disease Active 2005-09 Univers [...] different from the original. ICD10 Diagnosis Term Membership Counselor Utility Chronic Chronic Disease Active 2005-09 Univers [...] to Not sure University of SARS-CoV-2 (event) [facility] History of tobacco Cigarette Smoker University of use [facility] Tobacco Comment 2021-09-29 2021-09-29 smokes a few Univers ity of 00:00:00 00:00:00 cigs per day now [facility] dical [place] Alcohol intake 2021-09-29 2021-09-29 0 /d University of 00:00:00 00:00:00 [facility] Cigarettes smoked 2015-09-28 2015-09-28 Univers ity of current (pack per 00:00:00 00:00:00 [facility] ) - Reported Branch Tobacco use and 2015-09-28 2015-09-28 Never used Universit y of exposure 00:00:00 00:00:00 [facility] Sex [birth year] At [birth year] Universit y of 00:00:00 00:00:00 [facility] Smoking Status Start Date Stop Date Source Current every day smoker 2015-09-28 00:00:00 Uni versity of [facility] Medications Ordered Filled Start Stop Current Ordering [...] mouthwash 01:59: 02:44 ONCE, 1 [place] (([facility] 00 :00 dose, On Medical COMPOUND)) Fri Branch suspension 10/08/21 at 15 mL 2000, JUWAN pantoprazol 2021- No [id number] 40mg Take 1 Univers e 40 mg EC 10-0815 tablet by ity of tablet 00:00: 04:59 mouth [place] 00 :00 daily for Medical 90 days. Branch pantoprazol 2021- No [id number] 40mg Take 1 Univers e 40 mg EC 10-08-15 tablet by ity of tablet 00:00: 04:59 mouth [place] 00 :00 daily for Medical 90 days. Branch pantoprazol 2021- No [id number] 40mg Take 1 Univers e 40 mg EC 10-0815 tablet by ity of tablet 00:00: 04:59 mouth [place] 00 :00 daily for Medical 90 days. Branch albuterol Yes [id number] 2{puff} Inhale 2 Univers 90 1-13 Puffs ity of mcg/actuati 00:00: every 6 [place] as on inhaler 00 (six) Medical hours as Branch needed for Wheezing or Shortness of Breath. ipratropium Yes [id number] 2{puff} Inhale 2 Univers 17 1-13 Puffs ity of mcg/actuati 00:00: every 6 [place] as on inhaler 00 (six) Medical hours as Branch needed for Shortness of Breath or Wheezing. fluticasone Yes [id number] 2{spray Use 2 Univers propionate 1-13 } Sprays in ity of 50 00:00: each [place] mcg/actuati 00 nostril 2 Med ical on nasal (two) Branch spray times daily. albuterol Yes [id number] 2{puff} Inhale 2 Univers 90 1-13 Puffs ity of mcg/actuati 00:00: every 6 [place] on inhaler 00 (six) Medical hours as Branch needed for Wheezing or Shortness of Breath. ipratropium Yes [id number] 2{puff} Inhale 2 Univers 17 1-13 Puffs ity of mcg/actuati 00:00: every 6 [place] on inhaler 00 (six) Medical hours as Branch needed for Shortness of Breath or Wheezing. fluticasone Yes [id number] 2{spray Use 2 Univers propionate 1-13 } Sprays in ity of 50 00:00: each [place] mcg/actuati 00 nostril 2 Med ical on nasal (two) Branch spray times daily. albuterol Yes [id number] 2{puff} Inhale 2 Univers 90 1-13 Puffs ity of mcg/actuati 00:00: every 6 [place] on inhaler 00 (six) Medical hours as Branch needed for Wheezing or Shortness of Breath. ipratropium Yes [id number] 2{puff} Inhale 2 Univers 17 1-13 Puffs ity of mcg/actuati 00:00: every 6 [place] on inhaler 00 (six) Medical hours as Branch needed for Shortness of Breath or Wheezing. fluticasone Yes [id number] 2{spray Use 2 Univers propionate 1-13 } Sprays in ity of 50 00:00: each [place] mcg/actuati 00 nostril 2 Med ical on nasal (two) Branch spray times daily. guaiFENesin 2021- No [id number] 400mg Take 1 Univers 400 mg 10-07 tablet by ity of tablet 00:00: 05:59 mouth [place] 00 :00 every 4 Medical (four) Branch hours as needed for Cough (congestio n in chest) for up to 30 days. guaiFENesin 2021- No [id number] 400mg Take 1 Univers 400 mg 10-07- tablet by ity of tablet 00:00: 05:59 mouth [place] 00 :00 every 4 Medical (four) Branch hours as needed for Cough (congestio n in chest) for up to 30 days. guaiFENesin 2021- No [id number] 400mg Take 1 Univers 400 mg 10-07 tablet by ity of tablet 00:00: 05:59 mouth [place] 00 :00 every 4 Medical (four) Branch hours as needed for Cough (congestio n in chest) for up to 30 days. benzonatate 2021-0 2021- No [id number] 100mg Take 1 Univers 100 mg 10-07 capsule by ity of capsule 00:00: 05:59 mouth [place] 00 :00 every 8 Medical (eight) Branch hours as needed for Cough for up to 20 days. benzonatate 2021-2021- No [id number] 100mg Take 1 Univers 100 mg 10-07 capsule by ity of capsule 00:00: 05:59 mouth [place] 00 :00 every 8 Medical (eight) Branch hours as needed for Cough for up to 20 days. benzonatate 2021- No [id number] 100mg Take 1 Univers 100 mg 10-07 [...] 10-05 Oral, ity of imeth 06:39: Q6HPRN, [place] (MAALOX 17 Starting Medical PLUS / on [...] First dose [place] AC) 10-[address] [facility] Medical mg/5 mL 10/02/21 at Branch oral 1200, solution 5 Until mL Discontinu ed, Routine guaiFENesin 2021-0 2021- No 100mg 100 mg, U nivers 100 mg/5 mL 10-02 01-08 Oral, Q4H, i ty of solution 18:00: 17:26 First dose [place] 100 mg 00 :[address] [facility] Medical 10/02/21 at Branch 1200, Until Discontinu ed, Routine benzonatate 2021-0 Yes 100mg 100 mg, Un demetris (TESSALON 1-08 Oral, Q8H, ity of PER[place]) 15:45: First [place] capsule [address] [facility] Medica l mg 10/02/21 at [...] 08 Oral, ity of (TYLENOL 10:02: Q6HPRN, [place] #3) 300-30 55 Starting Medic al mg tablet [address] [facility] Branch tablet 10/02/21 at 0402, [...] First dose [place] mg 00 on [facility] Medical 09/30/21 at Branch 2100, Until Discontinu ed, Routine fluticasone 0 Yes 2{spray 2 [place], [facility] propionate 10-01 } Nasal, ity of 50 02:00: BID, First [place] mcg/actuati 00 dose on Medic al on nasal [facility] 09/30/21 Branc h spray 2 at 2000, [place] Until Discontinu ed, Routine ondansetron 0 Yes 4mg 4 mg, Unive rs (ZOFRAN) 09-30 Oral, ity of tablet 4 mg 16:14: Q8HPRN, [place] as 58 Starting Medical on [facility] 09/30/21 at 1014, Until Discontinu ed, Routine, Nausea and Vomiting (N/V) enoxaparin 0 Yes 40mg 40 mg, Unive rs (LOVENOX) 09-30 Subcutaneo ity of injection 15:00: [place], DAILY, [place] 40 mg 00 First dose Medical on [facility] Branch 09/30/21 at 0900, Until Discontinu ed, Routine predniSONE 0 2021- No 40mg 40 mg, Univ ers (DELTASONE) 09-30 01-10 Oral, ity of tablet 40 15:00: 14:16 DAILY, 5 [place] mg 00 :00 doses, Medical First dose Branch on [facility] 09/30/21 at 0900, Last dose on 10/04/21 at 0900, Routine albuterol-i 0 Yes 2{puff} 2 Puff, [facility] pratropium 09-30 Inhalation ity of (COMBIVENT 06:00: , Q6H, [place] RESPIMAT) 00 First dose Medi ed 20-100 on [facility] mcg/actuati 09/30/21 at on inhaler 0000, 2 [...] Oral, ity of (TYLENOL 04:26: 04:25 Q6HPRN, [place] #3) 300-30 53 :53 Starting Medic al mg tablet 1 on Mon Branch tablet 09/29/21 at 2226, Until 10/01/21 at 2225, Routine, Pain (scale 4-6) acetaminoph Yes 650mg 650 mg, Un demetris en 09-30 Oral, ity of (TYLENOL) 04:26: Q6HPRN, [place] tablet 650 50 Starting Medic al mg on Wed Branch 09/29/21 at 2226, Until Discontinu ed, Routine, Pain (scale 1-3) ketorolac 2021- No 15mg 15 mg, Unive rs (TORADOL) 09-30 Slow IV ity of injection 00:45: 00:11 [place], [place] 15 mg 00 :00 ONCE, 1 Medical dose, On Branch 09/29/21 at 1845, Routine
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 medication : Delmis BANUELOS acetaminoph 2021- No 650mg 650 mg, U nivers en 09-30 Oral, ity of (TYLENOL) 00:45: 00:11 ONCE, 1 [place] tablet 650 00 :00 dose, On Medic al mg 09/29/21 Branch at 1845, JUWAN methylpredn 2021- No 125mg 125 mg, U nivers isolone sod 09-29 Slow IV ity of succ 22:30: 21:36 Push, [place] (SOLU-MEDRO 00 :00 ONCE, 1 Medic al [...] 09/10/21 at 0215, JUWAN iodixanol 2020-09 No [id number] 80mL 80 mL, Univers (VISIPAQUE 11-11 Intravenou [...] Indication s: acute pain lidocaine 2020-09 Yes [id number] Apply Univers % (700 2-10 04 patch [...] Indication s: acute pain lidocaine 2020-09 Yes [id number] Apply Univers % (700 2-10 04 patch [...] Indication s: acute pain lidocaine 2020-09 Yes [id number] Apply Univers % (700 2-10 04 patch [...] Indication s: acute pain lidocaine 2020-09 Yes [id number] Apply Univers % (700 2-10 04 patch [...] s: acute pain lidocaine 5 2020-09 Yes [id number] Apply Univers % (700 2-10 04 patch [...] Indication s: acute pain lidocaine 2020-09 Yes [id number] Apply Univers % (700 2-10 04 patch to ity of mg/patch) 00:00: the area [place] patch 00 you are Medical having Branch pain and remove after 12 hours. Use 1 patch per 24 hours. May cut patches to size. ondansetron 2019-09 Yes [id number] 4mg Take 1 Univers (ZOFRAN) 4 1-09 tablet by ity of mg tablet 00:00: mouth [place] 00 every 8 Medical (eight) Branch hours. ondansetron 2019-09 Yes [id number] 4mg Take 1 Univers (ZOFRAN) 4 1-09 tablet by ity of mg tablet 00:00: mouth [place] 00 every 8 Medical (eight) Branch hours. ondansetron 2019-09 Yes [id number] 4mg Take 1 Univers (ZOFRAN) 4 1-09 [...] Indication s: acute pain ondansetron 2019-09 Yes [id number] 4mg Take 1 Univers (ZOFRAN) 4 -09 tablet by ity of mg tablet 00:00: mouth [place] 00 every 8 Medical (eight) Branch hours. ondansetron 2019-09- No [id number] 4mg Take 1 Univers (ZOFRAN) 4 10-03-05 [...] Source Systolic blood 2021-10-09 21:22:00 107 mm[facility]Hg[facility] Diastolic blood 2021-10-09 21:22:00 68 mm[Hg] [facility] Heart rate 2021-10-09 21:22:00 92 /min [facility] Body temperature 2021-10-09 21:22:00 36.72 Ruchi [facility] rate 2021-10-09 21:22:00 18 /min [facility] Oxygen saturation in 2021-10-09 21:22:00 100 /min [facility] Arterial blood by [facility] Pulse oximetry Branch Body height 2021-09-30 05:31:00 157.5 cm [facility] Body weight 2021-09-30 05:31:00 43 kg Universi ty of [place] [facility] BMI 2021-09-30 05:31:00 17.33 kg/m2 Universi ty of [place] [facility] Systolic blood 2021-09-21 04:48:00 130 mm[Hg] Univer sity of pressure [place] [facility] Diastolic blood 2021-09-21 04:48:00 78 mm[Hg] Unive rsity of pressure [place] [facility] Heart rate 2021-09-21 04:48:00 92 /min Universi ty of [place] [facility] Body temperature 2021-09-21 04:48:00 36.44 Ruchi Univ ersity of [place] [facility] Respiratory rate 2021-09-21 04:48:00 14 /min Univ ersity of [place] [facility] Body weight 2021-09-21 04:48:00 43.092 kg Universi ty of [place] [facility] BMI 2021-09-21 04:48:00 17.38 kg/m2 Universi ty of [place] [facility] Oxygen saturation in 2021-09-21 04:48:00 96 /min University of Arterial blood by [facility] Pulse oximetry Branch Heart rate 2021-09-10 09:15:00 93 /min Universi ty of [place] [facility] Respiratory rate 2021-09-10 09:15:00 19 /min Univ ersity of [place] [facility] Oxygen saturation in 2021-09-10 09:15:00 95 /min University of Arterial blood by [facility] Pulse oximetry Branch Systolic blood 2021-09-10 08:10:00 111 mm[Hg] Univer sity of pressure [place] [facility] Diastolic blood 2021-09-10 08:10:00 51 mm[Hg] Unive rsity of pressure [place] [facility] Body temperature 2021-09-10 06:19:00 36.39 Ruchi Univ ersity of [place] [facility] Body height 2021-09-10 06:19:00 157.5 cm Universi ty [facility] [place] [facility] Body weight 2021-09-10 06:19:00 43.092 kg Universi ty of [place] [facility] BMI 2021-09-10 06:19:00 17.38 kg/m2 Universi ty of [place] [facility] Systolic blood 2021-09-04 04:57:43 127 mm[Hg] Univer sity of pressure [place] [facility] Diastolic blood 2021-09-04 04:57:43 68 mm[Hg] Unive rsity of pressure [place] [facility] Heart rate 2021-09-04 04:57:43 75 /min Universi ty of [place] [facility] Respiratory rate 2021-09-04 04:57:43 17 /min Univ ersity of [place] [facility] Oxygen saturation in 2021-09-04 04:57:43 97 /min University of Arterial blood by [facility] Pulse oximetry Branch Body temperature 2021-09-03 23:44:00 36.72 Ruchi Univ ersity of [place] [facility] Body height 2021-09-03 23:44:00 157.5 cm Universi ty of [place] Medical [place] Body weight 2021-09-03 23:44:00 43.092 kg Universi ty of [facility] BMI 2021-09-03 23:44:00 17.38 kg/m2 Universi ty of [facility] Systolic blood 2020-08-04 01:16:00 122 mm[Hg] Univer sity of pressure [facility] Diastolic blood 2020-08-04 01:16:00 76 mm[Hg] Unive rsity of pressure [facility] Heart rate 2020-08-04 01:16:00 80 /min Universi ty of [facility] Body temperature 2020-08-04 01:16:00 36.44 Ruchi Univ ersity of [facility] Branch Respiratory rate 2020-08-04 01:16:00 20 /min Univ ersity of [facility] Oxygen saturation in 2020-08-04 01:16:00 97 /min University of Arterial blood by [facility] Pulse oximetry Branch Body weight 2020-08-03 20:01:00 45.397 kg Universi ty of [place] Medical [place] BMI 2020-08-03 20:01:00 18.31 kg/m2 Universi ty [facility] Procedures Procedure Date / Time Performing Clinician Source Performed DNR 2021-10-26 06:01:00 Doctor Unassigned, [facility] [place] Medical Branch COVID-19 (ID NOW RAPID 2021-10-06 00:27:00 Ruth Cano [facility] TESTING) Medical Branch LAB ONLY COVID 2021-10-06 00:27:00 Ruth Cano o f [place] INTERPRETATION Medical Branch MAGNESIUM 2021-10-05 10:22:00 [facility]OL[facility] 2021-10-05 10:22:00 [facility] ([facility], K, CL, CO2, GLUCOSE, Medica l Branch BUN, CREATININE, CA) XR CHEST 1 VW 2021-10-04 17:25:00 Ana Cristina [facility] MAGNESIUM 2021-10-04 10:42:00 Ana Cristina [facility] BASIC METABOLIC PANEL 2021-10-04 10:42:00 Ana Cristina [facility] (NA, K, CL, CO2, GLUCOSE, Medica l Branch BUN, CREATININE, CA) CBC WITH DIFF 2021-10-04 10:42:00 Ana Cristina [facility] MAGNESIUM 2021-10-03 09:43:00 Ana Cristina [facility] BASIC METABOLIC PANEL 2021-10-03 09:43:00 Ana Cristina [facility] (NA, K, CL, CO2, GLUCOSE, Medica l Branch BUN, CREATININE, CA) MAGNESIUM 2021-10-02 10:03:00 Ana Cristina [facility] BASIC METABOLIC PANEL 2021-10-02 10:03:00 [facility] (NA, K, CL, CO2, GLUCOSE, Medica l Branch BUN, CREATININE, CA) CBC WITH DIFF 2021-10-02 10:03:00 Ana Cristina [facility] SPUTUM CULTURE 2021-09-30 10:59:00 Su [facility] LACTATE DEHYDROGENASE 2021-09-30 10:55:[address] [facility] C-REACTIVE PROTEIN 2021-09-30 10:55:00 Chris Blue [facility] BASIC METABOLIC PANEL 2021-09-30 10:54:[address] [facility] (NA, K, CL, CO2, GLUCOSE, Medica l Branch BUN, CREATININE, CA) CBC WITH DIFF 2021-09-30 10:54:00 Su [facility] PNEUMOCOCCAL ANTIGEN 2021-09-30 05:39:00 Chris Blue [facility] ASSIGNMENT OF BENEFITS 2021-09-29 21:39:32 Doctor Unassigned, [facility] [place] Medical Branch XR CHEST 1 VW 2021-09-29 21:15:29 Delmis Banuelos [facility] COVID-19 (ID NOW RAPID 2021-09-29 21:11:00 Delmis Banuelos [facility] TESTING) Medical Branch LAB ONLY COVID 2021-09-29 21:11:00 Delmis Banuelos [facility] INTERPRETATION [facility] Branch LIPASE 2021-09-29 21:07:00 Delmis Banuelos [facility] FERRITIN SERUM 2021-09-29 21:07:00 Chris Blue [facility] TROPONIN I 2021-09-29 21:07:00 Delmis Banuelos [facility] COMP. METABOLIC PANEL 2021-09-29 21:07:00 Delmis Banuelos [facility] ([id number]) [facility] CBC WITH DIFF 2021-09-29 21:07:00 Delmis Banuelos [facility] PROTHROMBIN TIME / INR 2021-09-29 21:07:00 Delmis Banuelos [facility] ACTIVATED PARTIAL 2021-09-29 21:07:00 Delmis Banuelos [facility] THRLAS [facility] HB ECG ROUTINE & RHYTHM 2021-09-29 20:41:22 Delmis Banuelos [facility] CONSENT/REFUSAL FOR 2021-09-29 20:20:30 Doctor Unasslew, [facility] DIAGNOSIS AND TREATMENT [place] Medical Branch XR CHEST 1 VW 2021-09-10 06:41:20 Angelo Schulz [facility] TROPONIN I 2021-09-10 06:31:00 Angelo Schulz [facility] COMP. METABOLIC PANEL 2021-09-10 06:31:00 Angelo Schulz [facility] ([id number]) [facility] N-TERMINAL PRO-BNP 2021-09-10 06:31:00 Angelo Schulz [facility] CBC WITH DIFF 2021-09-10 06:30:00 Angelo Schulz [place] [facility] D-DIMER 2021-09-10 06:30:00 Angelo Schulz [place] [facility] COVID-19 (ID NOW RAPID 2021-09-10 06:30:00 Angelo Schulz [facility] TESTING) Medical Branch XR LUMBAR SPINE 2 VW 2021-09-04 03:14:07 Khushbu Mcghee [facility] XR SPINE THORACIC 2 VW 2021-09-04 03:14:07 Khushbu Mcghee [facility] NOTICE OF PRIVACY 2021-09-03 23:23:15 Doctor Bandar, [facility] PRACTICES [place] [facility] CONSENT/REFUSAL FOR 2021-09-03 23:22:33 Doctor Bandar, [facility] DIAGNOSIS AND TREATMENT [place] [facility] URINALYSIS 2020-08-04 00:34:00 Kierra Powell [facility] US ABDOMEN LIMITED 2020-08-03 22:18:34 Kierra Powell [facility] XR ABDOMEN ACUTE SERIES 2020-08-03 21:19:00 Kierra Powell [facility] LIPASE 2020-08-03 21:04:00 Andre [facility] TROPONIN I 2020-08-03 21:04[facility]00 [facility] PANEL 2020-08-03 21:04:00 Kierra Powell [facility] ([id number]) (ALB,T.PRO,BILI [facility] T,BU/BC,ALT,AST,ALK PHOS) BASIC METABOLIC PANEL 2020-08-03 21:04:00 Kierra Powell [facility] (NA, K, CL, CO2, GLUCOSE, Medica l Branch BUN, CREATININE, CA) CBC WITH DIFF 2020-08-03 21:04:00 [facility] Start End Encounter Admission Attending Care Care Encounter Source Date/Time Date/Time Type Type Clinicians Facility Department ID 2021-10-26 2021-10-26 Orders Doctor CATHLEEN [id number] Univers 00:00:00 00:00:00 Only Unassigned, ROLLY [id number] ity of [place] [facility] [id number] [place] [id number] [facility] 009 Branch 2021-10-12 2021-10-12 Transition LEAH Andrews [id number] Univers 00:00:00 00:00:00 of Care Ofelia GONGORA [id number] ity of [place] [id number] [place] [id number] [facility] 403 Branch 2021-09-29 2021-10-09 Inpatient X [facility]LENY [facility] [id number] Univers 14:42:00 17:29:00 EZRA ity [facility] 2021-09-29 2021-10-09 [facility] Delmis Banuelos [id number] Univers 14:42:00 17:29:00 Encounter Ezra Reeder 350.1. 13.[address] [facility] 4.2.7 .2.686 [place] Raheel Lucas [id number] Medical 094 Branch 2021-09-20 2021-09-21 Emergency [facility] [id number] Univers 22:52:00 00:06:00 Khushbu ISLAS [id number] i ty of [place] [id number] [facility] [id number] [facility] 084 Branch 2021-09-10 2021-09-[address] [facility] ERT [id number] Univers 00:14:00 03:39:00 ANGELO ity [facility] 2021-09-10 2021-09-10 Emergency [facility] [id number] Univers 00:14:00 03:39:00 Angelo ISLAS [id number] i ty of [place] 4.2.7.2.686 [facility] [id number] [place] [id number] [place] 2021-09-03 2021-09-[address] [facility] ERT [id number] Univers 17:45:00 23:04:00 [facility]USHBUUT [facility] 2021-09-03 2021-09-03 Emergency [facility] [id number] Univers 17:45:00 23:04:00 Khushbu CHRISTIANETON [id number] i ty of [place] [id number] [facility] [id number] [place] [address] Branch 2020-08-03 2020-08-03 Emergency [place]arima, TRAUMA [id number] Univers 14:01:00 19:26:00 [facility] [id number] i ty of [id number] [facility] [id number] [facility] 014 Branch 2020-08-03 2020-08-03 Emergency X [facility] ERT [id number] Univers 14:01:00 14:01:00 [facility] 2019-10-28 2019-10-28 Emergency EM [place], HCAMN MEXP [id number] [facility] 18:21:00 18:21:[address] Results Test Description Test Time Test Comments Results Result Comments Source BASIC METABOLIC PANEL (NA, K, CL, CO2, GLUCOSE, BUN, 2021-09 11:25:14 CREATININE, CA) Test Item Value Reference Range Interpretation Comme nts NA (test code = 4220276472) 136 mmol/L 135-145 K (test code = 7389847089) 3.6 mmol/L 3.5-5.0 CL (test code = 2141928569) 97 mmol/L 98-108 L CO2 TOTAL (test code = 6152949334) 33 mmol/L 23-31 H AGAP (test code = 6518185979) 2-16 BUN (test code = 8833513480) 13 mg/dL 7-23 GLUCOSE (test code = 0392273841) 95 mg/dL 70-110 CREATININE (test code = 0.52 mg/dL 0.50-1.04 [id number]) CALCIUM (test code = 0761640428) 9.2 mg/dL 8.6-10.6 eGFR (test code = 9448838182) mL/min/1.73m2 OMAR (test code = OMAR) Association [...] tests). Lab Interpretation (test code = Abnormal 47383-9) [facility]14 Test Item Value Reference Range Interpretation Comments MAGNESIUM (test code = 6706096870) 1.8 mg/dL 1.7-2.4 Lab Interpretation (test code = Normal 06108-5) [facility] (NA, K, CL, CO2, GLUCOSE, BUN, CREATININE, CA)2021-10-04 11:24:13 Test Item Value Reference Range Interpretation Comments NA (test code = 137 mmol/L 135-145 3522047180) K (test code = 3.7 mmol/L 3.5-5.0 6486391795) CL (test code = 100 mmol/L 98-108 7790201703) CO2 TOTAL (test code = 33 mmol/L 23-31 H 8079899480) AGAP (test code = 2-16 0553013233) BUN (test code = 14 mg/dL 7-23 8255938574) GLUCOSE (test code = 88 mg/dL 70-110 2840935750) CREATININE (test code = 0.52 mg/dL 0.50-1.04 9389346946) CALCIUM (test code = 8.7 mg/dL 8.6-10.6 6009191985) eGFR (test code = mL/min/1.73m2 3726067043) OMAR (test code = OMAR) Association of [...] tests). Lab Interpretation Abnormal (test code = 01446-2) [facility] Test Item Value Reference Range Interpretation Comments MAGNESIUM (test code = 5029190382) 1.9 mg/dL 1.7-2.4 Lab Interpretation (test code = Normal 85029-2) [facility] WITH [id number] 11:02:11 Test Item Value Reference Range Interpretation [...] RDW-SD (test code = 41.9 fL 39.0-49.9 81964-9) RDW-CV (test code = 12.0 % 12.0-15.5 788-0) PLT (test code = See_Comment [Automated 777-3) message] The sy stem which generated this result transmitted reference range : 166 - 358 10*3/ ?L. The reference r giacomo was not used to interpret this result as normal/abnormal . MPV (test code = 10.3 fL 9.5-12.9 91606-1) NRBC/100 WBC (test See_Comment [Automat ed code = 3529711562) message] The system which generated this result transmitted reference range : 0.0 - 10.0 /100 WBCs. The refer ence range was not u sed to interpret th is result as normal/abnormal . NRBC x10^3 (test code <0.01 See_Comment [Auto mated = 1556742284) message] The s ystem which generated this result transmitted reference range : 10*3/?L. The reference range was not used to interpret this result as normal/abnormal . GRAN MAT (NEUT) % 50.5 % (test code = 770-8) IMM GRAN % (test code 0.10 % = 4591461091) LYMPH % (test code = 38.2 % 736-9) MONO % (test code = 6.4 % 5905-5) EOS % (test code = 3.5 % 713-8) BASO % (test code = 1.3 % 706-2) GRAN MAT x10^3(ANC) 4.01 10*3/uL 1.88-7.09 (test code = 3407603383) IMM GRAN x10^3 (test <0.03 0.00-0.06 code = 9186339694) LYMPH x10^3 (test code 3.03 10*3/uL 1.32-3.29 = 731-0) MONO x10^3 (test code 0.51 10*3/uL 0.33-0.92 = 742-7) EOS x10^3 (test code = 0.28 10*3/uL 0.03-0.39 711-2) BASO x10^3 (test code 0.10 10*3/uL 0.01-0.07 H = 704-7) Lab Interpretation Abnormal (test code = 42126-4) [facility] METABOLIC PANEL (NA, K, CL, CO2, GLUCOSE, BUN, CREATININE, CA)2021-10-03 10:23:35 Test Item Value Reference Range Interpretation Comments NA (test code = 136 mmol/L 135-145 0752569420) K (test code = 3.6 mmol/L 3.5-5.0 7038600907) CL (test code = 101 mmol/L 98-108 5328299132) CO2 TOTAL (test code = 31 mmol/L 23-31 3520567465) AGAP (test code = 2-16 1288297128) BUN (test code = 12 mg/dL 7-23 9580145086) GLUCOSE (test code = 84 mg/dL 70-110 2086702884) CREATININE (test code = 0.47 mg/dL 0.50-1.04 L 3875831139) CALCIUM (test code = 8.3 mg/dL 8.6-10.6 L 8544048510) eGFR (test code = mL/min/1.73m2 4820415279) OMAR (test code = OMAR) Association of [...] tests). Lab Interpretation Abnormal (test code = 32650-5) [facility] 10:23:35 Test Item Value Reference Range Interpretation Comments MAGNESIUM (test code = 4545207400) 1.7 mg/dL 1.7-2.4 Lab Interpretation (test code = Normal 75471-9) [facility] HospitalSputum [id number] 18:57:08 Test Item Value Reference Range Interpretation Comments SPUTUM CULTURE 3+ Respiratory rut: (test code = 622-1) Commensal upper respiratory microorganisms only. Gram stain (test Few Epithelial cells code = 664-3) present OMAR (test code = Bacterial pathogens OMAR) associated with lower respiratory infections were not identified, which include Pseudomonas aeruginosa and Staphylococcus aureus (MRSA or MSSA). [facility] METABOLIC PANEL (NA, K, CL, CO2, GLUCOSE, BUN, CREATININE, CA)2021-10-02 10:42:30 Test Item Value Reference Range Interpretation Comments NA (test code = 136 mmol/L 135-145 8299151970) K (test code = 3.6 mmol/L 3.5-5.0 3783325596) CL (test code = 98 mmol/L 98-108 1704051645) CO2 TOTAL (test code = 32 mmol/L 23-31 H 3021489558) AGAP (test code = 2-16 8481069898) BUN (test code = 14 mg/dL 7-23 8383262423) GLUCOSE (test code = 82 mg/dL 70-110 6311112742) CREATININE (test code = 0.56 mg/dL 0.50-1.04 9221437013) CALCIUM (test code = 8.7 mg/dL 8.6-10.6 2948821127) eGFR (test code = mL/min/1.73m2 3057007006) OMAR (test code = OMAR) Association of [...] tests). Lab Interpretation Abnormal (test code = 38778-9) [facility] 10:42:30 Test Item Value Reference Range Interpretation Comments MAGNESIUM (test code = 3220622420) 1.8 mg/dL 1.7-2.4 Lab Interpretation (test code = Normal 61868-2) [facility] WITH [id number] 10:25:30 Test Item Value Reference Range Interpretation Comments WBC (test code = See_Comment [Automated 7490-2) message] The sy stem which generated this result transmitted reference range : 4.30 - 11.10 10*3/?L. The reference range was not used to interpret this result as normal/abnormal . RBC (test code = See_Comment [Automated 009-8) message] The sy stem which generated this [...] RDW-SD (test code = 41.2 fL 39.0-49.9 09009-1) RDW-CV (test code = 11.9 % 12.0-15.5 L 788-0) PLT (test code = See_Comment [Automated 777-3) message] The sy stem which generated this result transmitted reference range : 166 - 358 10*3/ ?L. The reference r giacomo was not used to interpret this result as normal/abnormal . MPV (test code = 10.5 fL 9.5-12.9 77625-1) NRBC/100 WBC (test See_Comment [Automat ed code = 0124386926) message] The system which generated this result transmitted reference range : 0.0 - 10.0 /100 WBCs. The refer ence range was not u sed to interpret th is result as normal/abnormal . NRBC x10^3 (test code <0.01 See_Comment [Auto mated = 8065869223) message] The s ystem which generated this result transmitted reference range : 10*3/?L. The reference range was not used to interpret this result as normal/abnormal . GRAN MAT (NEUT) % 62.7 % (test code = 770-8) IMM GRAN % (test code 0.20 % = 8561099387) LYMPH % (test code = 27.7 % 736-9) MONO % (test code = 6.3 % 5905-5) EOS % (test code = 2.3 % 713-8) BASO % (test code = 0.8 % 706-2) GRAN MAT x10^3(ANC) 6.33 10*3/uL 1.88-7.09 (test code = 3741514588) IMM GRAN x10^3 (test <0.03 0.00-0.06 code = 5593568062) LYMPH x10^3 (test code 2.79 10*3/uL 1.32-3.29 = 731-0) MONO x10^3 (test code 0.63 10*3/uL 0.33-0.92 = 742-7) EOS x10^3 (test code = 0.23 10*3/uL 0.03-0.39 711-2) BASO x10^3 (test code 0.08 10*3/uL 0.01-0.07 H = 704-7) Lab Interpretation Abnormal (test code = 12706-6) [facility]C-REACTIVE [id number] 16:44:26 Test Item Value Reference Range Interpretation Comments CRP (test code = 9448450054) 0.7 mg/dL <0.8 Lab Interpretation (test code = Normal 95794-0) [facility] Metabolic Panel (NA, K, CL, CO2, GLUCOSE, BUN, CREATININE, CA)2021-09-30 11:48:38 Test Item Value Reference Range Interpretation Comments NA (test code = 140 mmol/L 135-145 0952689979) K (test code = 4.8 mmol/L 3.5-5.0 1283460627) CL (test code = 103 mmol/L 98-108 0135311967) CO2 TOTAL (test code = 27 mmol/L 23-31 7344023385) AGAP (test code = 2-16 5119666653) BUN (test code = 13 mg/dL 7-23 8102690882) GLUCOSE (test code = 134 mg/dL 70-110 H 7449268017) CREATININE (test code = 0.57 mg/dL 0.50-1.04 1178389800) CALCIUM (test code = 9.1 mg/dL 8.6-10.6 4519784488) eGFR (test code = mL/min/1.73m2 0873990384) OMAR (test code = OMAR) Association of [...] tests). Lab Interpretation Abnormal (test code = 40845-7) [facility] HospitalLACTATE [id number] 11:47:37 Test Item Value Reference Range Interpretation Comments LDH (test code = 5153910770) 394 U/L 300-600 Lab Interpretation (test code = Normal 94077-3) [facility] with Bntoxmyuysfx8518-06-28 11:25:16 Test Item Value Reference Range Interpretation [...] RDW-SD (test code = 43.6 fL 39.0-49.9 87079-2) RDW-CV (test code = 12.2 % 12.0-15.5 788-0) PLT (test code = See_Comment [Automated 777-3) message] The sy stem which generated this result transmitted reference range : 166 - 358 10*3/ ?L. The reference r giacomo was not used to interpret this result as normal/abnormal . MPV (test code = 10.4 fL 9.5-12.9 99039-4) NRBC/100 WBC (test See_Comment [Automat ed code = 6570461669) message] The system which generated this result transmitted reference range : 0.0 - 10.0 /100 WBCs. The refer ence range was not u sed to interpret th is result as normal/abnormal . NRBC x10^3 (test code <0.01 See_Comment [Auto mated = 2663839840) message] The s ystem which generated this result transmitted reference range : 10*3/?L. The reference range was not used to interpret this result as normal/abnormal . GRAN MAT (NEUT) % 75.9 % (test code = 770-8) IMM GRAN % (test code 0.30 % = 4346356740) LYMPH % (test code = 18.0 % 736-9) MONO % (test code = 5.0 % 5905-5) EOS % (test code = 0.1 % 713-8) BASO % (test code = 0.7 % 706-2) GRAN MAT x10^3(ANC) 5.27 10*3/uL 1.88-7.09 (test code = 8547723303) IMM GRAN x10^3 (test <0.03 0.00-0.06 code = 9834383421) LYMPH x10^3 (test code 1.25 10*3/uL 1.32-3.29 L = 731-0) MONO x10^3 (test code 0.35 10*3/uL 0.33-0.92 = 742-7) EOS x10^3 (test code = <0.03 0.03-0.39 L 711-2) BASO x10^3 (test code 0.05 10*3/uL 0.01-0.07 = 704-7) Lab Interpretation Abnormal (test code = 23778-3) [facility] HospitalFERRITIN [id number] 06:04:27 Test Item Value Reference Range Interpretation Comments FERRITIN (test code = 65.0 ng/mL 11.0-264.0 9345325508) OMAR (test code = OMAR) Biotin has been reported to cause a negative bias, interpret results relative to patient's use of biotin. Lab Interpretation (test Normal code = 47200-6) [facility] HospitalTROPONIN [id number] 21:47:24 Test Item Value Reference Interpretation Comments Range TROPONIN I (test 0.003 ng/mL See_Comment [Automated code = 5578584426) message] The system which generated this result [...] biotin. Lab Interpretation Normal (test code = 15486-6) [facility]. METABOLIC PANEL (01877)2021-09-29 21:35:44 Test Item Value Reference Range Interpretation Comments NA (test code = 137 mmol/L 135-145 6158706646) K (test code = 4.1 mmol/L 3.5-5.0 9226053280) CL (test code = 100 mmol/L 98-108 7150244408) CO2 TOTAL (test code = 28 mmol/L 23-31 9333221610) AGAP (test code = 2-16 3808638790) BUN (test code = 8 mg/dL 7-23 9768632496) GLUCOSE (test code = 128 mg/dL 70-110 H 1534022207) CREATININE (test code = 0.54 mg/dL 0.50-1.04 0374935270) TOTAL BILI (test code = 0.5 mg/dL 0.1-1.7 3735922036) CALCIUM (test code = 9.5 mg/dL 8.6-10.6 7099668148) T PROTEIN (test code = 8.1 g/dL 6.3-8.2 1971342976) ALBUMIN (test code = 4.4 g/dL 3.5-5.0 1258594930) ALK PHOS (test code = 104 U/L 34-122 5053562053) ALTv (test code = 18 U/L 5-35 1742-6) AST(SGOT) (test code = 26 U/L 13-40 2551075721) eGFR (test code = mL/min/1.73m2 0984364865) OMAR (test code = OMAR) Association of [...] tests). Lab Interpretation Abnormal (test code = 54211-2) [facility]LIP[facility], [id number] 21:35:19 Test Item Value Reference Range Interpretation Comments LIPASE (test code = 1854527458) 72 U/L 0-220 Lab Interpretation (test code = Normal 33353-0) [facility] HospitalaPTT2022-01-05 21:27:38 Test Item Value Reference Range Interpretation Comments APTT Patient (test See_Comment [Automat ed code = 3173-2) message] The system which generated this result transmitted reference range : 23 - 38 Seconds . The reference range was not used to interpr et this result as normal/abnormal . OMAR (test code = OMAR) The [facility] patient population mean normal value for aPTT is 30 seconds. Lab Interpretation Normal (test code = 03224-8) [facility] HospitalPROTHROMBIN TIME / [id number] 21:25:21 Test Item Value Reference Range Interpretation [...] tions. Lab Interpretation (test Normal code = 28813-8) [facility] HospitalCBC WITH [id number] 21:21:00 Test Item Value Reference Range Interpretation Comments WBC (test code = See_Comment [Automated 6690-2) message] The sy stem which generated this result transmitted reference range : 4.30 - 11.10 10*3/?L. The reference range was not used to interpret this result as normal/abnormal . RBC (test code = See_Comment [Automated 499-8) message] The sy stem which generated this [...] RDW-SD (test code = 43.1 fL 39.0-49.9 08956-6) RDW-CV (test code = 12.2 % 12.0-15.5 788-0) PLT (test code = See_Comment [Automated 777-3) message] The sy stem which generated this result transmitted reference range : 166 - 358 10*3/ ?L. The reference r giacomo was not used to interpret this result as normal/abnormal . MPV (test code = 10.3 fL 9.5-12.9 13646-3) NRBC/100 WBC (test See_Comment [Automat ed code = 0953075987) message] The system which generated this result transmitted reference range : 0.0 - 10.0 /100 WBCs. The refer ence range was not u sed to interpret th is result as normal/abnormal . NRBC x10^3 (test code <0.01 See_Comment [Auto mated = 3982708663) message] The s ystem which generated this result transmitted reference range : 10*3/?L. The reference range was not used to interpret this result as normal/abnormal . GRAN MAT (NEUT) % 71.1 % (test code = 770-8) IMM GRAN % (test code 0.30 % = 0731344519) LYMPH % (test code = 14.8 % 736-9) MONO % (test code = 5.9 % 5905-5) EOS % (test code = 6.8 % 713-8) BASO % (test code = 1.1 % 706-2) GRAN MAT x10^3(ANC) 6.82 10*3/uL 1.88-7.09 (test code = 1329689949) IMM GRAN x10^3 (test 0.03 10*3/uL 0.00-0.06 code = 1830554724) LYMPH x10^3 (test code 1.42 10*3/uL 1.32-3.29 = 731-0) MONO x10^3 (test code 0.57 10*3/uL 0.33-0.92 = 742-7) EOS x10^3 (test code = 0.65 10*3/uL 0.03-0.39 H 711-2) BASO x10^3 (test code 0.11 10*3/uL 0.01-0.07 H = 704-7) Lab Interpretation Abnormal (test code = 38965-5) [facility] [id number] 07:10:55 Test Item Value Reference Interpretation Comments Range TROPONIN I (test 0.000 ng/mL See_Comment [Automated code = 1145551347) message] The system which generated this result [...] biotin. Lab Interpretation Normal (test code = 60074-9) [facility] HospitalN-TERMINAL [id number] 07:10:55 Test Item Value Reference Range Interpretation Comments NT-proBNP (test code 150 pg/mL See_Comment H [Autom ated = 1871460455) message] The system which generated this result transmitted reference range : <=125. The reference range was not used to interpret this result as normal/abnormal . OMAR (test code = OMAR) Biotin has been reported to cause a negative bias, interpret results relative to patient's use of biotin. Lab Interpretation Abnormal (test code = 94846-6) [facility]. METABOLIC PANEL (34017)2021-09-10 07:07:38 Test Item Value Reference Range Interpretation Comments NA (test code = 135 mmol/L 135-145 4394105949) K (test code = 3.8 mmol/L 3.5-5.0 8522825629) CL (test code = 98 mmol/L 98-108 5611225793) CO2 TOTAL (test code = 27 mmol/L 23-31 1792899129) AGAP (test code = 2-16 1845088017) BUN (test code = 9 mg/dL 7-23 4289875877) GLUCOSE (test code = 115 mg/dL 70-110 H 5466369516) CREATININE (test code = 0.52 mg/dL 0.50-1.04 6089091453) TOTAL BILI (test code = 0.4 mg/dL 0.1-1.1 4105457710) CALCIUM (test code = 10.5 mg/dL 8.6-10.6 6950913511) T PROTEIN (test code = 8.1 g/dL 6.3-8.2 4939604354) ALBUMIN (test code = 4.4 g/dL 3.5-5.0 2360906587) ALK PHOS (test code = 80 U/L 34-122 2905810750) ALTv (test code = 13 U/L 5-35 2-6) AST(SGOT) (test code = 22 U/L 13-40 0213188099) eGFR (test code = mL/min/1.73m2 6710662514) OMAR (test code = OMAR) Association of [...] tests). Lab Interpretation Abnormal (test code = 40459-0) [facility] HospitalD-AAGCS7864-70-03 06:50:30 Test Item Value Reference Interpretation Comments Range D-DIMER (test code = See_Comment H [Autom ated 3103814721) message] The system which generated this result [...] diagnosis. Lab Interpretation Abnormal (test code = 39267-4) [facility] WITH [id number] 06:40:28 Test Item Value Reference Range Interpretation Comments WBC (test code = See_Comment [Automated 2090-2) message] The sy stem which generated this result transmitted reference range : 4.30 - 11.10 10*3/?L. The reference range was not used to interpret this result as normal/abnormal . RBC (test code = See_Comment [Automated 055-8) message] The sy stem which generated this [...] RDW-SD (test code = 42.8 fL 39.0-49.9 09638-6) RDW-CV (test code = 12.3 % 12.0-15.5 788-0) PLT (test code = See_Comment [Automated 777-3) message] The sy stem which generated this result transmitted reference range : 166 - 358 10*3/ ?L. The reference r giacomo was not used to interpret this result as normal/abnormal . MPV (test code = 10.0 fL 9.5-12.9 25504-5) NRBC/100 WBC (test See_Comment [Automat ed code = 6453873057) message] The system which generated this result transmitted reference range : 0.0 - 10.0 /100 WBCs. The refer ence range was not u sed to interpret th is result as normal/abnormal . NRBC x10^3 (test code <0.01 See_Comment [Auto mated = 6410183534) message] The s ystem which generated this result transmitted reference range : 10*3/?L. The reference range was not used to interpret this result as normal/abnormal . GRAN MAT (NEUT) % 68.6 % (test code = 770-8) IMM GRAN % (test code 0.30 % = 8662687692) LYMPH % (test code = 21.9 % 736-9) MONO % (test code = 5.7 % 5905-5) EOS % (test code = 2.3 % 713-8) BASO % (test code = 1.2 % 706-2) GRAN MAT x10^3(ANC) 6.50 10*3/uL 1.88-7.09 (test code = 4843318382) IMM GRAN x10^3 (test 0.03 10*3/uL 0.00-0.06 code = 7569087529) LYMPH x10^3 (test code 2.08 10*3/uL 1.32-3.29 = 731-0) MONO x10^3 (test code 0.54 10*3/uL 0.33-0.92 = 742-7) EOS x10^3 (test code = 0.22 10*3/uL 0.03-0.39 711-2) BASO x10^3 (test code 0.11 10*3/uL 0.01-0.07 H = 704-7) Lab Interpretation Abnormal (test code = 51868-3) [facility] HospitalUrinalysis2020-11-10 00:59:00 Test Item Value Reference Range Interpretation Comments APPEARANCE (test code = Clear Clear 6615332051) COLOR (test code = Straw Yellow A 4806113168) PH (test code = 4.8-8.0 0768269787) SP GRAVITY (test code = 1.003-1.030 2331879124) GLU U QUAL (test code = Normal Normal 8088536107) BLOOD (test code = 1+ Negative A 1435595197) KETONES (test code = Negative Negative 5133803125) PROTEIN (test code = Negative Negative 2887-8) UROBILIN (test code = Normal Normal 3185584666) BILIRUBIN (test code = Negative Negative 5973738597) NITRITE (test code = Negative Negative 1991681445) LEUK VICTOR MANUEL (test code = Negative Negative 7332085856) RBC/HPF (test code = See_Comment [Autom ated message] 1085622306) The system [employer] generated this result transmitted ref erence range: 0 - 3 HP F. The reference range was not used to int erpret this result as normal/abnormal . WBC/HPF (test code = See_Comment [Autom ated message] 3447602597) The system [employer] generated this result transmitted ref erence range: 0 - 5 HP F. The reference range was not used to int erpret this result as normal/abnormal . BACTERIA (test code = Negative Negative 1016314192) SQ EPITH (test code = See_Comment [Auto mated message] 9012650276) The system [employer] generated this result transmitted ref erence range: <=2 HPF. The reference range was not used to int erpret this result as normal/abnormal . Lab Interpretation (test Abnormal code = 25040-2) [facility] HospitalUS Abdomen Sdbnlbk7573-27-44 23:26:24 Cholelithiasis without sonographic evidence of acute cholecystitis orbiliary ductal dilatation. Preliminary Report Dictated by Resident: Naif Maher MD., have reviewed this study andagree with the abovereport.EXAM: US ABDOMEN LIMITED HISTORY: 59 years-old Female with RUQ pain, r/o acute cholecystitis . TECHNIQUE: Limited abdominal ultrasound focused on the liver, right kidneyand spleen was performed. The main portal vein was evaluated with colorDoppler imaging. Automatic Log Cut Off Sawyer images were obtained for the record. COMPARISON: None FINDINGS: PANCREAS: The pancreatic head and body display normal echogenicity to the extentvisualized. AORTA:The proximal abdominal aorta is normal in caliber where visualized, andmeasures approximately 1.5 cm in diameter. LIVER:Length: The liver is at the upper limits of normal in size, and cvtkphid87.0 cm in the craniocaudal dimension.Parenchyma: Theliver parenchyma [...] pain. IVC:The IVC appears normal where visualized. Demb, Radiant Results Inft User - 08/03/2020 5:27 PM CSTEXAM: US ABDOMEN LIMITEDHISTORY: 59 years-old Female with RUQpain, r/o acute cholecystitis .TECHNIQUE: Limited abdominal ultrasound focused on the liver, right kidneyand spleen was performed. The main portal vein was evaluated with colorDoppler imaging. Automatic Log Cut Off Sawyer images were obtained for the record.COMPARISON: NoneFINDINGS: [...] reviewed this study and agree with the abovereport.[facility] HospitalAcute Abdomen Series 2020-08-03 22:02:17 Chronic emphysematous changes of the lungs with increased bilateralreticular opacities more prominent on the left likely operations representative ofinterstitial lung disease. No acute intra-abdominal [...] opacities more prominent on the left likely operations representative ofinterstitial lung disease.No acute intra-abdominal abnormality. The bowel gas pattern isnonobstructive.Age-indeterminate mid thoracic compression deformity with approximately 30%height loss. Preliminary Report Dictated by Resident: Cory Greenfield, Jurgen Ford MD., have reviewed this study and agree withthe above report.[facility] HospitalTropoisabellan I 2020-08-03 21:35:00 Test Item Value Reference Range Interpretation Comments TROPONIN I (test 0.001 ng/mL See_Comment [Automated code = 2184577942) message] The system which generated this result [...] ? Lab Interpretation Normal (test code = 43745-6) [facility] (NA, K, CL, CO2, GLUCOSE, BUN, CREATININE, CA)2020-08-03 21:25:00 Test Item Value Reference Range Interpretation Comments NA (test code = 138 mmol/L 135-145 5917731568) K (test code = 4.6 mmol/L 3.5-5 1330655753) CL (test code = 102 mmol/L 98-108 9100916429) CO2 TOTAL (test code = 29 mmol/L 23-31 4924200522) AGAP (test code = 2-16 8577598531) BUN (test code = 8 mg/dL 7-23 1565476951) GLUCOSE (test code = 84 mg/dL 70-110 2056373416) CREATININE (test code 0.56 mg/dL 0.5-1.04 = 7770156326) CALCIUM (test code = 9.6 mg/dL 8.6-10.6 8864882478) eGFR Calculation mL/min/1.73m2 (Non-) (test code = 2026310263) eGFR Calculation mL/min/1.73m2 () (test code = 9376281318) OMAR (test code = OMAR) Association of [...] or urine or abnormalities in imaging tests). [facility] HospitalHepatic Function Panel (ALB, T.PRO, BILI T, BU/BC, ALT, AST, ALK PHOS)2020-08-03 21:25:00 Test Item Value Reference Range Interpretation Comments TOTAL BILI (test code = 6518097554) 0.3 mg/dL 0.1-1.1 BILI UNCON (test code = 3772198035) 0.1 mg/dL 0.1-1.1 BILI CONJ (test code = 4576768043) 0.0 mg/dL 0-0.3 T PROTEIN (test code = 1719836538) 8.1 g/dL 6.3-8.2 ALBUMIN (test code = 9423478288) 4.1 g/dL 3.5-5 ALK PHOS (test code = 6690609537) 86 U/L 34-122 ALTv (test code = 1742-6) 10 U/L 5-35 AST(SGOT) (test code = 7429135641) 21 U/L 13-40 Lab Interpretation (test code = Normal 32545-9) [facility] HospitalLipase [id number] 21:25:00 Test Item Value Reference Range Interpretation Comments LIPASE (test code = 9184324235) 83 U/L 0-220 Lab Interpretation (test code = Normal 75674-2) [facility] with Yhodzfyvpuad2267-51-82 21:17:00 Test Item Value Reference Range Interpretation [...] RDW-SD (test code = 46.5 fL 39-49.9 70014-8) RDW-CV (test code = 13.3 % 12-15.5 788-0) PLT (test code = See_Comment [Automated 777-3) message] The sy stem which generated this result transmitted reference range : 166 - 358 10*3/ ?L. The reference r giacomo was not used to interpret this result as normal/abnormal . MPV (test code = 9.4 fL 9.5-12.9 L 98013-2) NRBC/100 WBC (test See_Comment [Automat ed code = [id number]) message] The system which generated this result transmitted reference range : 0.0 - 10.0 /100 WBCs. The refer ence range was not u sed to interpret th is result as normal/abnormal . NRBC x10^3 (test code <0.01 See_Comment [Auto mated = [id number]) message] The s ystem which generated this result transmitted reference range : 10*3/?L. The reference range was not used to interpret this result as normal/abnormal . GRAN MAT (NEUT) % 68.2 % (test code = 770-8) IMM GRAN % (test code 0.40 % = 7525346831) LYMPH % (test code = 22.7 % 736-9) MONO % (test code = 5.3 % 5905-5) EOS % (test code = 2.5 % 713-8) BASO % (test code = 0.9 % 706-2) GRAN MAT x10^3(ANC) 5.29 10*3/uL 1.88-7.09 (test code = 0177445479) IMM GRAN x10^3 (test 0.03 10*3/uL 0-0.06 code = 2523090248) LYMPH x10^3 (test code 1.76 10*3/uL 1.32-3.29 = 731-0) MONO x10^3 (test code 0.41 10*3/uL 0.33-0.92 = 742-7) EOS x10^3 (test code = 0.19 10*3/uL 0.03-0.39 711-2) BASO x10^3 (test code 0.07 10*3/uL 0.01-0.07 = 704-7) Lab Interpretation Abnormal (test code = 88323-3) [facility] [id number] 19:56:00 Test Item Value Reference Range Interpretation [...] 50.0-136.0 N code = ALKP) CARDIAC ENZYMES [id number] 19:56:00 Test Item Value Reference Range Interpretation Comments CREATINE KINASE (CK) 51 Units/L 26-192 N (test code = CK) TROPONIN-I (test code <0.02 NG/ML 0.00-0.06 N REFERE NCE RANGE = TROPI) TROPONIN I HEAL THY INDIVIDUALS: <0 .06 ng/mL R/O ISCHE TAVARES: 0.07 - 0.60 ng/ mL CUT-OFF RANGE F OR AMI: 0.60 - 1.5 ng/mL COMPREHENSIVE METABOLIC [id number] 19:48:00 Test Item Value Reference Range Interpretation [...] Units/L 50.0-136.0 code = ALKP) CARDIAC ENZYMES [id number] 19:48:00 Test Item Value Reference Range Interpretation Comments CREATINE KINASE (CK) (test code = Units/L 26-192 CK) TROPONIN-I (test code = TROPI) NG/ML 0.00-0.06 PROTHROMBIN [id number] 19:45:00 Test Item Value Reference Range Interpretation Comments PROTHROMBIN TIME 12.6 SECONDS 9.9-12.8 N PATIENT (test code = PTP) INTERNATIONAL NORMAL 1.1 0.89-1.14 N THE INR IS TO BE USED RATIO (test code = ONLY FOR MONITORING INR) ORAL ANTICOAGULANTTH ERAPY. THE FOLLOWING A RE SUGGESTED RANGE S FROM [facility] CHEST PHYSICIANS:CAN CATION INR VALUEPROPHY [...] D ANTIBODIES 2.5 - 3.5 CBC W/AUTO [id number] 19:43:00 Test Item Value Reference Range Interpretation [...] N - XR SHOULDER 2 + V [id number] 19:08:00 FAX: Cathleen Lucio [phone] [place]: St: PRE Name: KEYSHAWN POTTER [facility] : 1960 Age/S: 59/F [address] [facility] Unit #: [id number] Loc: E.EXP [place], [place] Phys: Cathleen Lucio [address] Acct: [id number] Dis Date: Status: PRE ER PHONE #: [phone] Exam Date: 10/28/20191904 FAX #: [phone] Reason: LEFT SHOULDER AND BACK PAIN EXAMS: CPT CODE: [id number] XR SHOULDER 2 + V LT [address] Exam: Left shoulder 3 views internal, external rotation and transscapular. Location: H 12 History: LEFT SHOULDER AND BACK PAIN Findings: No bone or joint abnormality is seen. The bony cortices are intact. The joint spaces are well preserved. The soft tissues are normal. Impression: Unremarkable exam. at 1908 Reported and signed by: José Miguel Matias M.D. CC: Cathleen KIMBALL Technologist: KACEY ANDERSON Trnscrd Date/Time/By: 10/28/2019 (1907) : By: Milena PAGE 1 Signed Report FAX: Cathleen Lucio [phone] [place]: St: PRE --Name: KEYSHAWN POTTER [facility] : 1960 Age/S: 59/F [address] [facility] Unit #: [id number] Loc: E.EXP [place], [place] Phys: Cathleen Lucio [address] Acct: [id number] Dis Date: Status: PRE ER PHONE #: [phone] Exam Date: 10/28/20191904 FAX #: [phone] Reason: LEFT SHOUL MAG AND BACK PAIN EXAMS: CPT CODE: [id number] XR SHOULDER 2 + [place] [address] (Continued) Orig Print D/T: S: 10/28/2019 (1910) PAGE 2 Signed Report- XR CHEST 1 [id number] 19:07:00 FAX: Cathleen Lucio [phone] [place]: St: PRE Name: KEYSHAWN POTTER [facility] : 1960 Age[facility]S: 59[facility] [address] [facility] [id number] Loc: E.ERS [place], [place] Phys: Cathleen Lucio [address] Acct: [id number] Dis Date: Status: PRE ER PHONE #: [phone] Exam Date: 10/28/20191904 FAX #: [phone] Reason: LEFT SHOULDER AND BACK PAIN EXAMS: CPT CODE: [id number] XR CHEST 1 V 91248 Exam: Chest portable erect Location: H 12 History: LEFT SHOULDER AND BACK PAIN Comparison: 04/26/2019. Findings: The lungs are emphysematous but clear. No infiltrate or effusion is seen. The pulmonary vasculature is normal. The heart size is normal. Atherosclerosis involves the aorta. The mediastinal si lhouette is unremarkable. The bony thorax is intact with degenerative changes noted. Impression: Noacute disease. at 190 Reported and signed by: José Miguel Matias M.D. CC: Cathleen KIMBALL Technologist: KACEY ANDERSON [facility] Date/Time/By: 10/28/2019 (1906) : By: Milena PAGE 1 Signed Report FAX: Cathleen [phone] [place]: St: PRE --------- Name: KEYSHAWN POTTER [facility] : 1960 Age/S: 59/F [address] [facility] Unit #: [id number] [place] Phys: Cathleen Lucio [address] Acct: [id number] Dis Date: Status: PRE ER PHONE #: [phone] Exam Date: 10/28/20191904 FAX #: [phone] Reason: LEFT SHOULDER AND BACK PAIN EXAMS: CPT CODE: [id number] XR CHEST 1 V 12498 (Continued) Orig Print D/T:S: 10/28/2019 (1910) PAGE 2 Signed Report COMPREHENSIVE METABOLIC [id number] 14:06:00 Test Item Value Reference Range Interpretation [...] 74 Units/L 50.0-136.0 N code = ALKP) [id number] 14:06:00 Test Item Value Reference Range Interpretation Comments LIPASE (test code = LIP) 143 Units/L 65.0-230.0 N [id number] 14:06:00 Test Item Value Reference Range Interpretation Comments TROPONIN-I (test <0.02 NG/ML 0.00-0.06 N REFERENCE R GIACOMO code = TROPI) TROPONIN I HEA LTHY INDIVIDUALS: <0 .06 ng/mL R/O ISCHE TAVARES: 0.07 - 0.60 ng/ mL CUT-OFF RANGE F OR AMI: 0.60 - 1.5 ng/m L - XR CHEST 2 [id number] 14:03:00 FAX: Juan Calderon MD [phone] [place]: [address] St: PRE Name: KEYSHAWN POTTER [facility] : 1960 Age/S: 58/F [address] Unit #: [id number] Loc: E.ERS2 [place], [place]: [place] [address] Acct: [id number] Dis Date: Status: PRE ER PHONE #: [phone] Exam Date: 04/26/2019 135 FAX #: Reason: chest pain EXAMS: CPT CODE: [id number] XR CHEST 2 V 45237 REASON FOR EXAM: Chest pain, difficulty breathing. COMPARISON: March 01, 2016. Chest, 2 views, frontal and lateral projection. The lungs are hyperinflated with interstitial fibrosis changes diffusely and progressive over 2016.. Heart size is normal. No effusion or pneumothorax can be seen. Osseous structures appear to be intact.. IMPRESSION: No acute cardiopulmonary disease. Interstitial fibrosis with COPD changes. Location: [place] at 1403 Reported and signed by: Maxx Cuenca M.D. CC: Juan Calderon MD Technologist: ALEX ARVIZU Trnscrd Date/Time/By: 04/26/2019 (1403) : By: [facility] PAGE 1 Signed Report FAX: Juan Calderon MD [phone] [place]: St: PRE -- Name: KEYSHAWN POTTER [facility] : 1960 Age/S: 58/F [address] [facility] Unit #: [id number] Loc:E.ERS2 [place], [place]: [place] [address] Acct: [id number] Dis Date: Status: PRE ER PHONE#: [phone] Exam Date: 04/26/2019 1350 FAX #: [phone] Reason: chest pain EXAMS: CPT CODE: [id number] XR CHEST 2 V 97999 (Continued) Orig Print D/T: S: 04/26/2019 (0206) PAGE 2 Signed ReportPROTHROMBIN [id number] 14:00:00 Test Item Value Reference Range Interpretation Comments PROTHROMBIN TIME 12.6 SECONDS 9.9-12.8 N PATIENT (test code = PTP) INTERNATIONAL NORMAL 1.1 0.89-1.14 N THE INR IS TO BE USED RATIO (test code = ONLY FOR MONITORING INR) ORAL ANTICOAGULANTTH ERAPY. THE FOLLOWING A RE SUGGESTED RANGE S [facility]:CAN CATION INR VALUEPROPHY LAXIS [...] - 3.0 VALVULAR HEART DISEASE 2.0 - 3.0 ATRIAL FIBRILAT ION 2.0 - 3.0BILEAFLET MECHANICAL VALV E IN AORTIC POSITION 2.0 - 3.0MECHANICAL PROSTHETIC VALV ES (HIGH RISK) 2. 5 - 3.5PRESENCE OF LUPUS ANTICOAGULANT O R ANTIPHOSPHOLIPI D ANTIBODIES 2.5 - 3.5 COMPREHENSIVE METABOLIC [id number] 13:56:00 Test Item Value Reference Range Interpretation [...] TOTAL (test Units/L 50.0-136.0 code = ALKP) [id number] 13:56:00 Test Item Value Reference Range Interpretation Comments LIPASE (test code = LIP) Units/L 65.0-230.0 [id number] 13:56:00 Test Item Value Reference Range Interpretation Comments TROPONIN-I (test code = TROPI) NG/ML 0.00-0.06 CBC W/AUTO [id number] 13:54:00 Test Item Value Reference Range Interpretation [...]
--- NOTE | 2022-06-04 19:14 | RAD REPORT ---
EXAM DESCRIPTION: RAD - Chest Single View - 06/04/2022 6:54 pm CLINICAL HISTORY: COUGH COMPARISON: Chest Single View dated 08/19/2021; Abdomen Pelvis W Contrast dated 05/08/2022 FINDINGS: Lines: None. Lungs: Advanced emphysema. Coarsening of the interstitium bilaterally is similar to prior. No consoli dative airspace disease. Pleural: No significant pleural effusions or pneumothorax. Cardiac: The heart size is within normal limits. Mediastinum: Within normal limits. Bones: No acute fractures. Other: None IMPRESSION: Chronic changes without superimposed acute process identified.
--- NOTE | 2022-06-04 19:35 | RAD REPORT ---
EXAM DESCRIPTION: CT - CTHCSPWOC - 06/04/2022 7:18 pm CLINICAL HISTORY: Trauma, head and neck injury. fall COMPARISON: No comparisons TECHNIQUE: Axial 5 mm thick images of the head were obtained. Axial 2 mm thick images of the cervical spine were obtained with sagittal and coronal reconstruction images generated and reviewed. All CT scans are performed using dose optimization technique as appropriate and may include automated exposure control or mA/KV adjustment according to patient size. FINDINGS: CT HEAD WITHOUT CONTRAST: No acute hemorrhage, hydrocephalus or extra-axial collection is identified.No areas of brain edema or midline shift. Mild chronic small vessel ischemic changes. Right mastoid effusion.The calvarium is intact. CT CERVICAL SPINE WITHOUT CONTRAST: No fracture or subluxation.No prevertebral soft tissues swelling is identified. Emphysema in the lung apices. IMPRESSION: No acute intracranial or cervical spine findings.
[2022-06-04 19:53] LABS: Absolute Lymphocytes (CBC) 0.9 K/uL (0.7-4.9); Hematocrit 31.9 % (36.0-45.0); MCV 92.3 fL (80-100); MPV 8.7 fL (7.6-11.3); RBC Red Blood Cell Count 3.45 M/uL (3.86-4.86)
[2022-06-04 19:54] LABS: Protime INR 1.12
[2022-06-04 20:15] LABS: SARS-CoV-2 Antigen Rapid Res Negative (Negative)
[2022-06-04 20:25] LABS: Albumin 2.6 g/dL (3.4-5.0); Bilirubin Direct 0.1 mg/dL (0-0.2); Bilirubin Total 0.3 mg/dL (0.2-1.0); Protein, Total 6.5 g/dL (6.4-8.2)
[2022-06-04 20:26] LABS: Magnesium 1.6
[2022-06-04] MEDS ORDERED: NA CHLORIDE 0.9% 1,000 ML ONE (20:40)
[2022-06-04] MEDS ORDERED: FAMOTIDINE 20 MG/2 ML VIAL IV ONE (20:40)
[2022-06-04] MEDS ORDERED: CEFTRIAXONE 1000 MG/VIAL ONE (20:40)
[2022-06-04 20:50] LABS: Urine Blood 1+ (Negative); Urine Glucose Negative (Negative); Urine Protein 1+ (Negative); Urine Specific Gravity 1.015 (1.005-1.030); Urine pH >=9.0 (5.0-7.0)
[2022-06-04 20:57] LABS: Troponin High Sensitivity 6.8 (<58.9)
--- NOTE | 2022-06-04 21:01 | EDPHYS ---
Physician Documentation [facility] [place] [facility] Name: Leonarda Zabala Age: 61 yrs Sex: Female : 1960 Arrival Date: 06/04/2022 Time: 17:36 Bed 2 Private MD: ED Physician Jorge Clay HPI: 06/04 18:59 This 61 yrs old Female presents to ER via EMS with complaints of fall trying candace to stand, hit head. 18:59 Details of fall: The patient fell from an upright position, while standing. Onset: The candace symptoms/episode began/occurred just prior to arrival. Associated injuries: The patient sustained injury to the head. Severity of symptoms: At their worst the symptoms were mild. The patient has experienced similar episodes in the past, a few times. on pain meds, copd , weak , too weak to stand, fell , soon to be on hospice per family. Historical: - Allergies: 18:12 Myeclin; jl7 - Home Meds: 18:12 Lorazepam Oral [Active]; Methadone Oral [Active]; Morphine Oral [Active]; pantoprazole jl7 oral [Active]; Prednisone Oral [Active]; - PMHx: 18:12 COPD; Emphysema; Left pneumothorax; jl7 - Immunization history:: Client reports receiving the 2nd dose of the Covid vaccine. - Social history:: Smoking status: Patient reports the use of cigarette tobacco products, smokes one-half pack cigarettes per day. - Family history:: not pertinent. ROS: 18:59 Constitutional: Negative for fever, chills, and weight loss, Eyes: Negative for injury, candace pain, redness, and discharge, ENT: Negative for injury, pain, and discharge, Neck: Negative for injury, pain, and swelling, Cardiovascular: Negative for chest pain, palpitations, and edema, Respiratory: Negative for shortness of breath, cough, wheezing, and pleuritic chest pain, Abdomen/GI: Negative for abdominal pain, nausea, vomiting, diarrhea, and constipation, Back: Negative for injury and pain, : Negative for injury, bleeding, discharge, and swelling, MS/Extremity: Negative for injury and deformity, Skin: Negative for injury, rash, and discoloration, Psych: Negative for depression, anxiety, suicide ideation, homicidal ideation, and hallucinations, Allergy/Immunology: Negative for hives, rash, and allergies, Endocrine: Negative for neck swelling, polydipsia, polyuria, polyphagia, and marked weight changes. 18:59 Neuro: Positive for weakness. Exam: 18:59 Constitutional: This is a well developed, well nourished patient who is awake, alert, candace and in no acute distress. Eyes: Pupils equal round and reactive to light, extra-ocular motions intact. Lids and lashes normal. Conjunctiva and sclera are non-icteric and not injected. Cornea within normal limits. Periorbital areas with no swelling, redness, or edema. ENT: Nares patent. No nasal discharge, no septal abnormalities noted. Tympanic membranes are normal and external auditory canals are clear. Oropharynx with no redness, swelling, or masses, exudates, or evidence of obstruction, uvula midline. Mucous membranes moist. Neck: Trachea midline, no thyromegaly or masses palpated, and no cervical lymphadenopathy. Supple, full range of motion without nuchal rigidity, or vertebral point tenderness. No Meningismus. Chest/axilla: Normal chest wall appearance and motion. Nontender with no deformity. No lesions are appreciated. Cardiovascular: Regular rate and rhythm with a normal S1 and S2. No gallops, murmurs, or rubs. Normal PMI, no JVD. No pulse deficits. Respiratory: Lungs have equal breath sounds bilaterally, clear to auscultation and percussion. No rales, rhonchi or wheezes noted. No increased work of breathing, no retractions or nasal flaring. Abdomen/GI: Soft, non-tender, with normal bowel sounds. No distension or tympany. No guarding or rebound. No evidence of tenderness throughout. Back: No spinal tenderness. No costovertebral tenderness. Full range of motion. Skin: Warm, dry with normal turgor. Normal color with no rashes, no lesions, and no evidence of cellulitis. MS/ Extremity: Pulses equal, no cyanosis. Neurovascular intact. Full, normal range of motion. Neuro: Awake and alert, GCS 15, oriented to person, place, time, and situation. Cranial nerves II-XII grossly intact. Motor strength 5/5 in all extremities. Sensory grossly intact. Cerebellar exam normal. Normal gait. Psych: Awake, alert, with orientation to person, place and time. Behavior, mood, and affect are within normal limits. 18:59 Head/face: Noted is contusion, that is superficial, of the left eye, swelling. Vital Signs: 17:36 BP 107 / 88; Pulse 98; Resp 15; Temp 97.9; Pulse Ox 100% ; Weight 30 kg; Pain 0/10; jl7 18:50 BP 97 / 74; Pulse 106; Resp 15; Pulse Ox 100% ; jl7 21:07 BP 106 / 81; Pulse 96; Resp 18 S; Pulse Ox 96% on 3 lpm NC; aa9 22:12 BP 123 / 84; Resp 19 S; Pulse Ox 96% on 3 lpm NC; aa9 22:45 BP 123 / 82; Pulse 89; Resp 18 S; Pulse Ox 96% on 3 lpm NC; aa9 MDM: 17:40 Patient medically screened. candace 19:02 Differential diagnosis: closed head injury, contusion, multiple trauma, sprain, strain. candace Data reviewed: vital signs, nurses notes, lab test result(s), EKG, radiologic studies, CT scan. Data interpreted: electronic device monitor: rate is 106 beats/min, rhythm is regular, Pulse oximetry: on room air is 100 %. Test interpretation: by ED physician or midlevel provider: ECG, plain radiologic studies. Counseling: I had a detailed discussion with the patient and/or guardian regarding: the historical points, exam findings, and any diagnostic results supporting the discharge/admit diagnosis, lab results, radiology results, the need for outpatient follow up, for definitive care, a family practitioner. 06/04 17:42 Order name: Basic Metabolic Panel; Complete Time: 20:59 [facility] 06/04 17:42 Order name: CBC with Diff; Complete Time: 20:13 [facility] 06/04 17:42 Order name: LFT's; Complete Time: 20:59 [facility] 06/04 17:42 Order name: Magnesium; Complete Time: 20:59 [facility] 06/04 17:42 Order name: NT PRO-BNP; Complete Time: 20:59 [facility] 06/04 17:42 Order name: PT-INR; Complete Time: 20:13 [facility] 06/04 17:42 Order name: Troponin HS; Complete Time: 20:59 [facility] 06/04 17:42 Order name: Lipase; Complete Time: 20:59 [facility] 06/04 17:42 Order name: SARS RAPID; Complete Time: 20:17 [facility] 06/04 20:51 Order name: Urine Dipstick-Ancillary; Complete Time: 20:59 [facility] 06/04 17:42 Order name: XRAY Chest (1 view); Complete Time: 19:21 [facility] 06/04 17:42 Order name: EKG; Complete Time: 17:43 [facility] 06/04 17:42 Order name: Cardiac monitoring; Complete Time: 19:58 [facility] 06/04 17:42 Order name: EKG - Nurse/Tech; Complete Time: 19:58 [facility] 06/04 17:42 Order name: IV Saline Lock; Complete Time: 19:58 [facility] 06/04 17:42 Order name: Labs collected and sent; Complete Time: 19:58 [facility] 06/04 17:42 Order name: O2 Per Protocol; Complete Time: 19:58 [facility] 06/04 17:42 Order name: O2 Sat Monitoring; Complete Time: 19:58 [facility] 06/04 17:42 Order name: Urine Dipstick-Ancillary (obtain specimen); Complete Time: 20:54 [facility] 06/04 18:35 Order name: CT Head C Spine; Complete Time: 19:39 [facility] EC:00 Rate is 93 beats/min. Rhythm is regular. QRS [place] is Normal. MT interval is normal. QRS snw interval is normal. QT interval is normal. No Q waves. Clinical impression: Normal ECG. Administered Medications: 20:35 Drug: NS 0.9% 1000 ml Route: IV; Rate: 1 bolus; Site: left antecubital; aa9 22:44 Follow up: Response: No adverse reaction; IV Status: Completed infusion; IV Intake: aa9 1000ml 20:35 Drug: Pepcid (famotidine) 20 mg Route: IVP; Site: left antecubital; aa9 20:40 Follow up: Response: No adverse reaction aa9 20:54 Drug: Rocephin (cefTRIAXone) 1 grams Route: IV; Rate: per protocol; Site: left aa9 antecubital; 21:06 Follow up: Response: No adverse reaction; IV Status: Completed infusion; IV Intake: 51mhel0 21:06 Drug: Potassium Effervescent Tablet 50 mEq Route: PO; aa9 21:06 Follow up: Response: No adverse reaction aa9 21:06 Drug: Magnesium 400 mg Route: PO; aa9 21:06 Follow up: Response: No adverse reaction aa9 Disposition Summary: 06/04/22 21:00 Discharge Ordered Location: Home snw Problem: new snw Symptoms: have improved snw Condition: Stable snw Diagnosis - Weakness snw - COPD/ Chronic obstructive pulmonary disease, unspecified snw - Fall on same level, unspecified snw - Unspecified injury of head, initial encounter - left brow hematoma snw - Acute mastoiditis snw Followup: candace - With: Private Physician - When: 2 - 3 days - Reason: Recheck today's complaints, Continuance of care, Re-evaluation by your physician Discharge Instructions: - Discharge Summary Sheet candace - Chronic Obstructive Pulmonary Disease candace - Head Injury, Adult candace - Fall Prevention in the Home, Adult candace - Weakness candace - Fatigue candace - Fall Prevention in the Home, Adult, Loiw-fp-Wrmu candace - Weakness, Mffu-wj-Iyze candace - Head Injury, Adult, Mrnp-jv-Gqxo candace - Mastoiditis, Pediatric snw - Potassium Content of Foods snw - Hypokalemia snw Forms: - Medication Reconciliation Form snw - Thank You Letter snw - Antibiotic Education snw - Prescription Opioid Use snw Prescriptions: - cefdinir 250 mg/5 mL Oral suspension for reconstitution - take 5 milliliter by ORAL route 2 times per day for 21 days; 220 milliliter; snw Refills: 0, Product Selection Permitted Signatures: Dispatcher [employer] EDMS Jorge Clay MD MD cha Waters, Shelly, TRAVEL RN OR-C TRAVEL RN OR-Csnw Pascual Schmidt RN RN ping7 Aga Rogers PA PA sb3 Brooke Amanda, RN RN aa9 Corrections: (The following items were deleted from the chart) 20:02 17:43 BLOOD CULTURE*+BA.LAB.BRZ ordered. EDMS EDMS 20:02 17:43 LACTATE+C.LAB.BRZ ordered. EDMS EDMS
--- NOTE | 2022-06-04 21:01 | ER ---
Nurse's Notes [facility] Name: Leonarda Zabala Age: 61 yrs Sex: Female : 1960 Arrival Date: 06/04/2022 Time: 17:36 Bed 2 Private MD: Diagnosis: Weakness;COPD/ Chronic obstructive pulmonary disease, unspecified;Fall on same level, unspecified;Unspecified injury of head, initial encounter-left brow hematoma;Acute mastoiditis Presentation: 06/04 17:36 Chief complaint: EMS states: Toned out for fall, pt attempted to get out of chair jl7 without assistance and fell forward and hit left side of face, did not loose consciousness, does not take blood thinners. Small hematoma noted to left eyebrow. 17:36 Method Of Arrival: EMS: [facility] 17:36 Coronavirus screen: At this time, the client does not indicate any symptoms associated jl7 with coronavirus-19. Ebola Screen: No symptoms or risks identified at this time. Initial Sepsis Screen: Does the patient meet any 2 criteria? No. Patient's initial sepsis screen is negative. Does the patient have a suspected source of infection? No. Patient's initial sepsis screen is negative. Risk Assessment: Do you want to hurt yourself or someone else? Patient reports no desire to harm self or others. Onset of symptoms was June 04, 2022 at 17:15. Care prior to arrival: None. 17:36 Acuity: JARRETT 3 jl7 Triage Assessment: 18:12 General: Appears in no apparent distress. uncomfortable, unkempt, cachectic, Behavior jl7 is calm, cooperative, appropriate for age. Pain: Complains of pain in headache, chronic. Historical: - Allergies: 18:12 Myeclin; jl7 - Home Meds: 18:12 Lorazepam Oral [Active]; Methadone Oral [Active]; Morphine Oral [Active]; pantoprazole jl7 oral [Active]; Prednisone Oral [Active]; - PMHx: 18:12 COPD; Emphysema; Left pneumothorax; jl7 - Immunization history:: Client reports receiving the 2nd dose of the Covid vaccine. - Social history:: Smoking status: Patient reports the use of cigarette tobacco products, smokes one-half pack cigarettes per day. - Family history:: not pertinent. Screenin:08 Abuse screen: Denies threats or abuse. Denies injuries from another. Nutritional aa9 screening: No deficits noted. Tuberculosis screening: No symptoms or risk factors identified. Fall Risk Fall in past 12 months (25 points). Assessment: 22:13 General: Appears slender, Behavior is cooperative, appropriate for age. Pain: Denies aa9 pain. Respiratory: Airway is patent Trachea midline Respiratory effort is even, unlabored, Respiratory pattern is regular, symmetrical. 22:45 Reassessment: Patient and/or family updated on plan of care and expected duration. Pain aa9 level reassessed. Patient is alert, oriented x 3, equal unlabored respirations, skin warm/dry/pink. Vital Signs: 17:36 BP 107 / 88; Pulse 98; Resp 15; Temp 97.9; Pulse Ox 100% ; Weight 30 kg; Pain 0/10; jl7 18:50 BP 97 / 74; Pulse 106; Resp 15; Pulse Ox 100% ; jl7 21:07 BP 106 / 81; Pulse 96; Resp 18 S; Pulse Ox 96% on 3 lpm NC; aa9 22:12 BP 123 / 84; Resp 19 S; Pulse Ox 96% on 3 lpm NC; aa9 22:45 BP 123 / 82; Pulse 89; Resp 18 S; Pulse Ox 96% on 3 lpm NC; aa9 ED Course: 17:36 Patient arrived in ED. ss 17:40 Jorge Clay MD is Attending Physician. candace 18:10 Inserted saline lock: 22 gauge in left antecubital area, using aseptic technique. jl7 18:12 Triage completed. jl7 18:12 Arm band placed on right wrist. jl7 18:56 XRAY Chest (1 view) In Process Unspecified. EDMS 19:14 Brady Mojica, PAUL is Primary Nurse. as6 19:19 CT Head C Spine In Process Unspecified. EDMS 19:21 Romelia Cervantes FNP-C is PHCP. snw 19:58 SARS RAPID Sent. aa9 21:09 Allergy band placed. Side rails up X2. Adult w/ patient. aa9 21:09 No provider procedures requiring assistance completed. aa9 21:39 [facility] ETA over an hour. mw2 22:45 IV discontinued, intact, bleeding controlled, No redness/swelling at site. Pressure aa9 dressing applied. Administered Medications: 20:35 Drug: NS 0.9% 1000 ml Route: IV; Rate: 1 bolus; Site: left antecubital; aa9 22:44 Follow up: Response: No adverse reaction; IV Status: Completed infusion; IV Intake: aa9 1000ml 20:35 Drug: Pepcid (famotidine) 20 mg Route: IVP; Site: left antecubital; aa9 20:40 Follow up: Response: No adverse reaction aa9 20:54 Drug: Rocephin (cefTRIAXone) 1 grams Route: IV; Rate: per protocol; Site: left aa9 antecubital; 21:06 Follow up: Response: No adverse reaction; IV Status: Completed infusion; IV Intake: [id number] 21:06 Drug: Potassium Effervescent Tablet 50 mEq Route: PO; aa9 21:06 Follow up: Response: No adverse reaction aa9 21:06 Drug: Magnesium 400 mg Route: PO; aa9 21:06 Follow up: Response: No adverse reaction aa9 Medication: 21:09 VIS not applicable for this client. aa9 Intake: 21:06 IV: 10ml; Total: 10ml. aa9 22:44 IV: 1000ml; Total: 1010ml. aa9 Outcome: 21:00 Discharge ordered by . prashant 06/05 00:21 Discharged to home via wheelchair. kd3 Condition: stable Discharge instructions given to patient, family, Instructed on discharge instructions, follow up and referral plans. Demonstrated understanding of instructions, follow-up care. 00:21 Patient left the ED. kd3 Signatures: Dispatcher [employer] EDRI Jorge Clay MD MD cha Waters, Shelly, FLORAL ASSISTANT-C FLORAL ASSISTANT-Csnw Sophia Thomson RN RN Pascual Hassan RN RN jl7 Kaiden Baptiste mw2 Brady Mojica RN RN as6 Idalia Curran RN RN kd3 Brooke Amanda RN RN aa9
[2022-06-04] MEDS ORDERED: MAGNESIUM OXIDE 400 MG TAB ONE (21:08)
[2022-06-04] MEDS ORDERED: POTASSIUM 25 MEQ EFFERV TAB ONE (21:09)
[2022-06-05] MEDS ORDERED: metroNIDAZOLE 500 MG TABLET ONE (00:35)
--- NOTE | 2022-06-06 05:40 | EKG ---
Test Date: 2022-06-04 Test Time: 19:54:56 [employer] Operator: MEASUREMENT RESULTS: Intervals: Rate: 93 WY: 126 QRSD: 72 QT: 344 QTc: 427 [place]: P: 71 WY: 126 QRS: 76 T: 73 INTERPRETIVE STATEMENTS: Normal sinus rhythm Normal ECG No previous ECG available for comparison Electronically Signed On 06-06-22 05:38:09 CDT by Pankaj Franco
== END 2022-06-05 00:21 | disposition home or self-care (01) ==
LOC: ER 17:33
DX: S00.83XA Contusion of other part of head, initial encounter (principal); R53.1 Weakness; H70.009 Acute mastoiditis without complications, unspecified ear; J44.9 Chronic obstructive pulmonary disease, unspecified; W18.30XA Fall on same level, unspecified, initial encounter; F17.210 Nicotine dependence, cigarettes, uncomplicated; Z91.018 Allergy to other foods; Z20.822 Contact with and (suspected) exposure to COVID-19
CPT/HCPCS: 96361; 93005; 85025; 80048; 36415; 83735; 85610; 80076; 81003; 84484; 83690; 83880; 70450; 72125; 71045; 96375; 96374; 99284; 87811; J7030

== ENCOUNTER 2022-09-29 15:38 | Emergency (ER) | payer OTHER ==
--- OUTSIDE RECORDS SUMMARY | 2022-09-29 15:43 | XMS REPORT | Continuity of Care Document ---
:1960 Author Organization [facility] t Address Formerly [facility], [facility] [place] [address] Care Team Providers Name Role Phone PCP, PATIENT DOES NOT HAVE A Primary Care Physician Unavaila omar Savage Attending Clinician Unavailable Doctor Unassigned, [place] Attending Clinician Unavailable Ofelia Andrews LVN Attending Clinician AUSTIN REEDER Attending Clinician Unavailable Delmis Millan Attending Clinician Austin Reeder MD Attending Clinician Mark Coleman DO Attending Clinician Raheel Lucas MD Attending Clinician Khushbu Aguilera Attending Clinician ANGELO SCHULZ Attending Clinician Unavailable Angelo Turner Attending Clinician KHUSHBU MCGHEE Attending Clinician Unavailable Anila Herrera MD Attending Clinician ANILA HERRERA Attending Clinician Unavailable Leobardo Ventura Attending Clinician Unavailable Hasmukh Stephens Attending Clinician Unavailable Kirti_Andres Admitting Clinician Unavailable AUSTIN REEDER Admitting Clinician Unavailable Austin Reeder MD Admitting Clinician ANGELO SCHULZ Admitting Clinician Unavailable KHUSHBU MCGHEE Admitting Clinician Unavailable Physician, No Primary or Family Admitting Clinician Unavaila ble Payers Payer Name Policy Type Policy Number Effective Date Expiration Date S ying PHCS GENERIC [id number] 2015 00:00:00 Problems Condition Condition Condition Status Onset Resolution Last Treating Co mments Source Name Details Category Date Date Treatment Clinician Date Pneumonia Pneumonia Disease Active Uni vers due to due to 10-02 ity of COVID-19 COVID-19 00:00: [place] virus virus 00 Medical Branch [...] different from the original. ICD10 Diagnosis Term [employer] Seizure Seizure Disease Active 2005-09 Univers disorder disorder 2-12 ity of 00:00: [place] 00 Medical Branch Anxiety Anxiety Disease Active 2005-09 Overview: Univ ers disorder disorder 11-06 Formattin ity of due to due to 00:00: g of this [place] medical medical 00 note Medical condition condition might be Br anch different from the original. ICD10 Diagnosis Term [employer] Chronic Chronic Disease Active 2005-09 Univers depressive depressive 11-06 it y of personalit personalit [place] disorder y disorder 00 Me dical Branch Chronic Chronic Disease Active 2005-09 Overview: Univ ers obstructiv obstructiv -12 Formattin ity of e airway e airway 00:00: g of this [place] as disease disease 00 note Medical with with might be Branch asthma asthma different from the original. ICD10 Diagnosis Term [employer] Chronic Chronic Disease Active 2005-09 Univers obstructiv obstructiv 12 it y of e e 00:00: [place] [...] Rash 2005-09 Univer s e ty to 2 ity of adverse 00:00: [place] reaction 00 Medical s Branch PRIMIDON DRUG Active Rash 2006-1 Univers E INGREDI 2-13 ity of 00:00: [place] 00 [facility] Social History Social Habit Start Date Stop Date Quantity Comments Source Exposure to Not sure University of SARS-CoV-2 (event) [facility] History of tobacco Cigarette Smoker University of use [facility] [place] Tobacco Comment 2021-09-29 2021-09-29 smokes a few Univers ity of 00:00:00 00:00:00 cigs per day now [facility] Alcohol intake 2021-09-29 2021-09-29 0 /d University of 00:00:00 00:00:[address] [facility] Cigarettes smoked 2015-09-28 2015-09-28 Univers ity of current (pack per 00:00:00 00:00:00 [facility] ) - Reported Branch Tobacco use and 2015-09-28 2015-09-28 Never used Universit y of exposure 00:00:00 00:00:[address] [facility] [place] Sex [birth year] At [birth year] Universit y of 00:00:00 00:00:[address] [facility] [place] Smoking Status Start Date Stop Date Source Current every day smoker 2015-09-28 00:00:[address] Uni [address] of [facility] Medications Ordered Filled Start Stop Current Ordering [...] ity o f 75 mg 18:12: at [place] capsule 48 bedtime. Medical Branch Dias's 2021- No 15mL 15 mL, Univers magic 1-15 -15 Oral, ity of mouthwash 01:59: 02:44 ONCE, 1 [place] (([facility] 00 :00 dose, On Medical COMPOUND)) Fri Branch suspension 10/08/21 at 15 mL 2000, JUWAN pantoprazol 2021- No [id number] 40mg Take 1 Univers e 40 mg EC 10-0815 tablet by ity of tablet 00:00: 04:59 mouth [place] 00 :00 daily for Medical 90 days. Branch pantoprazol 2021- No [id number] 40mg Take 1 Univers e 40 mg EC 10-08-15 tablet by ity of tablet 00:00: 04:59 mouth [place] 00 :00 daily for Medical 90 days. Branch pantoprazol 2021- No [id number] 40mg Take 1 Univers e 40 mg EC 10-08-15 tablet by ity of tablet 00:00: 04:59 mouth [place] 00 :00 daily for Medical 90 days. Branch albuterol Yes [id number] 2{puff} Inhale 2 Univers 90 1-13 Puffs ity of mcg/actuati 00:00: every 6 [place] on inhaler 00 (six) Medical hours as Branch needed for Wheezing or Shortness of Breath. ipratropium Yes [id number] 2{puff} Inhale 2 Univers 17 1-13 Puffs ity of mcg/actuati 00:00: every 6 [place] on inhaler 00 (six) Medical hours as Branch needed for Shortness of Breath or Wheezing. fluticasone Yes [id number] 2{spray Use 2 Univers propionate 1-13 } Sprays in ity of 50 00:00: each [place] mcg/actuati 00 nostril 2 Med ical on nasal (two) Branch spray times daily. albuterol Yes [id number] 2{puff} Inhale 2 Univers 90 1-13 Puffs ity of mcg/actuati 00:00: every 6 [place] on inhaler 00 (six) Medical hours as Branch needed for Wheezing or Shortness of Breath. ipratropium Yes [id number] 2{puff} Inhale 2 Univers 17 1-13 Puffs ity of mcg/actuati 00:00: every 6 [place] on inhaler 00 (six) Medical hours as Branch needed for Shortness of Breath or Wheezing. fluticasone Yes [id number] 2{spray Use 2 Univers propionate 1-13 } Sprays in ity of 50 00:00: each [place] mcg/actuati 00 nostril 2 Med ical on nasal (two) Branch spray times daily. albuterol Yes [id number] 2{puff} Inhale 2 Univers 90 1-13 Puffs ity of mcg/actuati 00:00: every 6 [place] on inhaler 00 (six) Medical hours as Branch needed for Wheezing or Shortness of Breath. ipratropium Yes [id number] 2{puff} Inhale 2 Univers 17 1-13 Puffs ity of mcg/actuati 00:00: every 6 [place] on inhaler 00 (six) Medical hours as Branch needed for Shortness of Breath or Wheezing. fluticasone Yes [id number] 2{spray Use 2 Univers propionate 1-13 } Sprays in ity of 50 00:00: each [place] mcg/actuati 00 nostril 2 Med ical on nasal (two) Branch spray times daily. guaiFENesin 2021- No [id number] 400mg Take 1 Univers 400 mg 10-07 tablet by ity of tablet 00:00: 05:59 mouth [place] 00 :00 every 4 Medical (four) Branch hours as needed for Cough (congestio n in chest) for up to 30 days. guaiFENesin 2021- No [id number] 400mg Take 1 Univers 400 mg 10-07 tablet by ity of tablet 00:00: 05:59 mouth [place] 00 :00 every 4 Medical (four) Branch hours as needed for Cough (congestio n in chest) for up to 30 days. guaiFENesin 2021- No [id number] 400mg Take 1 Univers 400 mg 10-07 tablet by ity of tablet 00:00: 05:59 mouth [place] 00 :00 every 4 Medical (four) Branch hours as needed for Cough (congestio n in chest) for up to 30 days. benzonatate 2021-0 2021- No [id number] 100mg Take 1 Univers 100 mg 10-07 capsule by ity of capsule 00:00: 05:59 mouth [place] 00 :00 every 8 Medical (eight) Branch hours as needed for Cough for up to 20 days. benzonatate 2021-0 2021- No [id number] 100mg Take 1 Univers 100 mg 10-07 capsule by ity of capsule 00:00: 05:59 mouth [place] 00 :00 every 8 Medical (eight) Branch hours as needed for Cough for up to 20 days. benzonatate 2021-0 2021- No [id number] 100mg Take 1 Univers 100 mg 10-07 capsule by ity of capsule 00:00: 05:59 mouth [place] 00 :00 every 8 Medical (eight) Branch hours as needed for Cough for up to 20 days. pantoprazol Yes 40mg 40 mg, Univ ers e 10-05 Oral, ity of (PROTONIX) 23:00: DAILY, [place] EC tablet 00 First dose Medi ed 40 mg on [facility] 10/05/21 at 1700, Until Discontinu ed, Routine magnesium 2021- No 400mg 400 mg, Uni vers oxide 10-05 Oral, ity of (MAG-OX 14:00: 15:39 ONCE, 1 [place] 400) tablet 00 :00 dose, On Medi ed 400 mg [facility] 10/05/21 at 0800, Routine alum-mag Yes 30mL 30 mL, Univers hydroxide-s 10-05 Oral, ity of imeth 06:39: Q6HPRN, [place] (MAALOX 17 Starting Medical PLUS / on [facility] MAG-AL 10/05/21 at PLUS) 0039, 200-200-20 Until mg/5 mL Discontinu suspension ed, 30 mL Routine, Indigestio n magnesium 2021- No 400mg 400 mg, Uni vers oxide 10-03 Oral, ity of (MAG-OX 13:45: 14:26 ONCE, 1 [place] 400) tablet 00 :00 dose, On Medi ed 400 mg 10/03/21 Branch at 0745, Routine codeine-gua 2021-0 Yes 5mL 5 mL, Unive rs ifenesin 1-08 Oral, Q6H, ity o f (ROBITUSSIN 18:00: First dose [place] AC) 10-100 00 on Sat Medical mg/5 mL 10/02/21 at Branch oral 1200, solution 5 Until mL Discontinu ed, Routine guaiFENesin 2021- No 100mg 100 mg, U nivers 100 mg/5 mL 10-02-08 Oral, Q4H, i ty of solution 18:00: 17:26 [place] 100 mg 00 :17 on Sat Medical 10/02/21 at Branch 1200, Until Discontinu ed, Routine benzonatate 2021-0 Yes 100mg 100 mg, Un demetris (TESSALON 1-08 Oral, Q8H, ity of PERLES) 15:45: First dose [place] capsule 100 00 on Sat Medica l mg 10/02/21 at Branch 0945, [...] Starting Medic al mg tablet 1 on Sat Branch tablet 10/02/21 at 0402, Until Discontinu ed, Routine, Pain (scale 4-6), Pain (scale 7-10) azithromyci 2021- No 500mg 500 mg, U nivers n 10-01-09 Oral, Q24H ity of (ZITHROMAX) 20:30: 19:34 ABX, 3 [place] tablet 500 36 :00 doses, Medical mg First dose Branch (after last modificati on) on Mon10/01/21 at 1445, Last dose on 10/03/21 at 1445, JUWAN
Re ason for Anti-Infec tive: Empiric Therapy for Suspected Infection< br>Empiric Therapy Site: Respirator y
Durat ion of therapy: 72 hours doxepin 0 Yes 75mg 75 mg, Univers (SINEQUAN) 107 Oral, QHS, ity of capsule 75 03:00: First dose [place] mg 00 on [facility] Medical 09/30/21 at Branch 2100, Until Discontinu ed, Routine fluticasone 0 Yes 2{spray 2 [place], [facility] [place] [facility] propionate 10-01 } Nasal, ity of 50 02:00: BID, First [place] mcg/actuati 00 dose on Medic al on nasal [facility] 09/30/21 Branc h spray 2 at 2000, [place] Until Discontinu ed, Routine ondansetron 0 Yes 4mg 4 mg, Unive rs (ZOFRAN) 09-30 Oral, ity of tablet 4 mg 16:14: Q8HPRN, [place] 58 Starting Medical on [facility] 09/30/21 at 1014, Until Discontinu ed, Routine, Nausea and Vomiting (N/V) enoxaparin Yes 40mg 40 mg, Unive rs (LOVENOX) 09-30 Subcutaneo ity of injection 15:00: [place], DAILY, [place] 40 mg 00 First dose Medical on [facility] 09/30/21 at 0900, Until Discontinu ed, Routine predniSONE 2021- No 40mg 40 mg, Univ ers (DELTASONE) 09-30 01-10 Oral, ity of tablet 40 15:00: 14:16 DAILY, 5 [place] mg 00 :00 doses, Medical First dose Branch on [facility] 09/30/21 at 0900, Last dose on Mon10/04/21 at 0900, Routine albuterol-i 0 Yes 2{puff} 2 Puff, [facility] [place] [facility] pratropium 09-30 Inhalation ity of (COMBIVENT 06:00: , Q6H, [place] RESPIMAT) 00 First dose Medi ed 20-100 on [facility] mcg/actuati 09/30/21 at on inhaler 0000, 2 Puff Until Discontinu ed, Routine
Is this order for a patient with suspected or confirmed COVID-19 infection? Yes codeine-gua 2021- No 10mL 10 mL, Uni vers ifenesin 09-30 Oral, ity of (ROBITUSSIN 04:28: 14:23 Q6HPRN, [place] AC) 10-100 19 :12 Starting Medic al mg/5 mL on Mon Branch oral 09/29/21 at solution 10 2228, [...] Yes 650mg 650 mg, Un demetris en 06 Oral, ity of (TYLENOL) 04:26: Q6HPRN, [place] tablet 650 50 Starting Medic al mg on Mon Branch 09/29/21 at 2226, Until Discontinu ed, Routine, Pain (scale 1-3) ketorolac 2021- No 15mg 15 mg, Unive rs (TORADOL) 09-30 Slow IV ity of injection 00:45: 00:11 Push, [place] 15 mg 00 :00 ONCE, 1 Medical dose, On Branch 09/29/21 at 1845, Routine
membership correspondent approving Restricted medication : Delmis BANUELOS acetaminoph 2021- No 650mg 650 mg, U nivers en 09-30 Oral, ity of (TYLENOL) 00:45: 00:11 ONCE, 1 [place] tablet 650 00 :00 dose, On Medic al mg Mon09/29/21 Branch at 1845, JUWAN methylpredn 2021- No 125mg 125 mg, U nivers isolone sod 09-29 Slow IV ity of succ 22:30: 21:36 Push, [place] (SOLU-MEDRO 00 :00 ONCE, 1 Medic al L) dose, On Branch injection 09/29/21 125 mg at 1630, STAT ipratropium No 3mL 3 mL, Univ ers -albuteroL 09-29 Inhalation it y of (DUONEB) 22:30: 21:27 , ONCE, 1 [place] 0.5 mg-3 00 :00 dose, On Medical mg(2.5 mg 09/29/21 Bran ch base)/3 mL at 1630, nebulizer Routine solution 3 mL magnesium 2021- No 2g 2 g, IV Univ ers sulfate in 09-29 Piggyback, it y of water 2 22:30: 22:10 ONCE, 1 [place] gram/50 mL 00 :00 dose, On Medic al (4 %) 09/29/21 Branch infusion 2 at 1630, g Routine HYDROcodone 2020-09- No 1{tbl} 1 tablet, Univers -acetaminop 11-11 Oral, ity of hen (NORCO 08:15: 07:20 ONCE, 1 [place] 5) 5-325 mg 00 :00 dose, On Medi ed tablet 1 Mon Branch tablet 09/10/21 at 0215, JUWAN iodixanol 2020-09- No [id number] 80mL 80 mL, Univers (VISIPAQUE 11-11 Intravenou it y of 320-150 mL) 07:45: 07:31 s, ONCE, 1 [place] injection 00 :00 dose, On Medica l 80 mL Fri Branch 09/10/21 at 0145, Routine lidocaine 2020-09- [...] :00 dose, On Medi ed tablet 1 Fri Branch tablet 09/03/21 at 2100, JUWAN acetaminoph 2020-09 Yes [id number] 1{tbl} Take 1 Un demetris en-codeine 2-10 tablet by ity of 300-30 mg 00:00: mouth [place] tablet 00 every 4 Medical (four) Branch hours as needed for Pain (scale 7-10). Indication s: acute pain lidocaine 2020-09 Yes [id number] Apply Univers % (700 2-10 04 patch [...] Indication s: acute pain lidocaine 2020-09 Yes [id number] Apply Univers % (700 2-10 04 patch [...] Indication s: acute pain lidocaine 2020-09 Yes [id number] Apply Univers % (700 2-10 04 patch [...] Indication s: acute pain lidocaine 2020-09 Yes [id number] Apply Univers % (700 2-10 04 patch [...] s: acute pain lidocaine 5 2020-09 Yes [id number] Apply Univers % (700 2-10 04 patch [...] Indication s: acute pain lidocaine 2020-09 Yes [id number] Apply Univers % (700 2-10 04 patch to ity of mg/patch) 00:00: the area [place] patch 00 you are Medical having Branch pain and remove after 12 hours. Use 1 patch per 24 hours. May cut patches to size. ondansetron 2019-09 Yes [id number] 4mg Take 1 Univers (ZOFRAN) 4 1-09 tablet by ity of mg tablet 00:00: mouth [place] 00 every 8 Medical (eight) Branch hours. ondansetron 2019-09 Yes [id number] 4mg Take 1 Univers (ZOFRAN) 4 1-09 tablet by ity of mg tablet 00:00: mouth [place] 00 every 8 Medical (eight) Branch hours. ondansetron 2020 Yes [id number] 4mg Take 1 Univers (ZOFRAN) 4 1-09 [...] Indication s: acute pain ondansetron 2019-09 Yes [id number] 4mg Take 1 Univers (ZOFRAN) 4 09 tablet by ity of mg tablet 00:00: mouth [place] 00 every 8 Medical (eight) Branch hours. ondansetron 2019-09- No [id number] 4mg Take 1 Univers (ZOFRAN) 4 10-03 01-05 tablet by ity of mg tablet 00:00: [...] [place] capsule 18 bedtime. Medical Branch mirtazapine Yes 45mg Take [...] [place] capsule 18 bedtime. Medical Branch mirtazapine 2016-0 Yes 45mg Take 45 mg Univers (REMERON) [...] tablet 00 times Medical daily. Branch carBAMazepi 2016-0 Yes 400mg Take 1 Tab Univers ne 1-04 by mouth 2 ity of (TEGRETOL 00:00: (two) [place] XR) 400 mg 00 times Medical 12 hr daily. Branch tablet levETIRAcet 2016-0 Yes 500mg Take 1 Tab Univers am (KEPPRA) 1-04 by mouth 2 it y of 500 mg 00:00: (two) [place] tablet 00 times Medical daily. Branch carBAMazepi 2016-0 2021- No 400mg Take 1 Tab Univers ne 1-04 -15 by mouth 2 ity of (TEGRETOL 00:00: [...] Source Systolic blood 2021-10-09 21:22:00 107 mm[facility]Hg[facility] Diastolic blood 2021-10-09 21:22:00 68 mm[Hg] [facility] Heart rate 2021-10-09 21:22:00 92 /min Universi ty [facility] Body temperature 2021-10-09 21:22:00 36.72 Ruchi [facility] 2021-10-09 21:22:00 18 /min [facility] Oxygen saturation in 2021-10-09 21:22:00 100 /[facility] Arterial blood by [facility] [place] [facility] Pulse oximetry Branch Body height 2021-09-30 05:31:00 157.5 cm [facility] ty [facility] [place] [facility] Body weight 2021-09-30 05:31:00 43 kg [facility]i ty [facility] [place] [facility] BMI 2021-09-30 05:31:00 17.33 kg/m2 [facility] ty [facility] [place] [facility] Systolic blood 2021-09-21 04:48:00 130 [...] 96 /min University of Arterial blood by [place] [facility] ed Pulse oximetry Branch Heart rate 2021-09-10 09:15:00 93 /min Universi ty [facility] [place] [facility] Respiratory rate 2021-09-10 09:15:00 19 /min Univ ersity of [place] [facility] Oxygen saturation in 2021-09-10 09:15:00 95 /min University of Arterial blood by [place] Medi ed Pulse oximetry Branch Systolic blood 2021-09-10 08:10:00 111 mm[Hg] Univer sity of pressure [place] [facility] Diastolic blood 2021-09-10 08:10:00 51 mm[Hg] Unive rsity of pressure [place] [facility] Body temperature 2021-09-10 06:19:00 36.39 Ruchi Univ ersity of [place] [facility] Body height 2021-09-10 06:19:00 157.5 cm Universi ty [facility] [place] [facility] Body weight 2021-09-10 06:19:00 43.092 [...] 97 /min University of Arterial blood by [facility] ed Pulse oximetry Branch Body temperature 2021-09-03 23:44:00 36.72 Ruchi Univ ersity of [place] [facility] Body height 2021-09-03 23:44:00 157.5 cm Universi ty [facility] [place] [facility] Body weight 2021-09-03 23:44:00 43.092 kg Universi ty [facility] [place] [facility] BMI 2021-09-03 23:44:00 17.38 kg/m2 Universi ty [facility] [place] [facility] Systolic blood 2020-08-04 01:16:00 122 mm[Hg] Univer sity of pressure [place] [facility] Diastolic blood 2020-08-04 01:16:00 76 mm[Hg] Unive rsity of pressure [place] [facility] Heart rate 2020-08-04 01:16:00 80 /min Universi ty of [place] [facility] [place] Body temperature 2020-08-04 01:16:00 36.44 Ruchi Univ ersity of [place] [facility] Respiratory rate 2020-08-04 01:16:00 20 /min Univ ersity of [place] [facility] Oxygen saturation in 2020-08-04 01:16:00 97 /min University of Arterial blood by [facility] [place] [facility] Pulse oximetry Branch Body weight 2020-08-03 20:01:00 45.397 kg Universi ty [facility] [place] [facility] BMI 2020-08-03 20:01:00 18.31 kg/m2 [facility] [place] [facility] Procedures Procedure Date / Time Performing Clinician Source Performed DNR 2021-10-26 06:01:00 Doctor Unassigned, [facility] [place] [facility] COVID-19 (ID NOW RAPID 2021-10-06 00:27:00 Ruth Cano [facility] TESTING) Medical Branch LAB ONLY COVID 2021-10-06 00:27:00 Ruth Cano [facility] MAGNESIUM 2021-10-05 10:22:00 De La Paz, [facility] BASIC METABOLIC PANEL 2021-10-05 10:22:00 Ana Cristina [facility] (NA, K, CL, CO2, GLUCOSE, Medica l Branch BUN, CREATININE, CA) XR CHEST 1 VW 2021-10-04 17:25:00 Ana Cristina [facility] MAGNESIUM 2021-10-04 10:42:00 Ana Cristina [facility] BASIC METABOLIC PANEL 2021-10-04 10:42:00 De La Paz [facility] (NA, K, CL, CO2, GLUCOSE, Medica l Branch BUN, CREATININE, CA) CBC WITH DIFF 2021-10-04 10:42:00 Ana Cristina [facility] MAGNESIUM 2021-10-03 09:43:00 De La Paz [facility] BASIC METABOLIC PANEL 2021-10-03 09:43:00 De La Paz [facility] (NA, K, CL, CO2, GLUCOSE, Medica l Branch BUN, CREATININE, CA) MAGNESIUM 2021-10-02 10:03:00 De La Paz [facility] BASIC METABOLIC PANEL 2021-10-02 10:03:00 Ana Cristina [facility] (NA, K, CL, CO2, GLUCOSE, Medica l Branch BUN, CREATININE, CA) CBC WITH DIFF 2021-10-02 10:03:00 Ana Cristina [facility] SPUTUM CULTURE 2021-09-30 10:59:00 Su [facility] LACTATE DEHYDROGENASE 2021-09-30 10:55:00 Su [facility] C-REACTIVE PROTEIN 2021-09-30 10:55:00 Chris Blue [facility] BASIC METABOLIC PANEL 2021-09-30 10:54:00 Su [facility] (NA, K, CL, CO2, GLUCOSE, Medica l Branch BUN, CREATININE, CA) CBC WITH DIFF 2021-09-30 10:54:00 Chris Blue [facility] PNEUMOCOCCAL ANTIGEN 2021-09-30 05:39:00 Chris Blue [facility] ASSIGNMENT OF BENEFITS 2021-09-29 21:39:32 Doctor Unassigned, [facility] [place] [facility] XR CHEST 1 VW 2021-09-29 21:15:29 Delmis Banuelos [facility] COVID-19 (ID NOW RAPID 2021-09-29 21:11:00 Delmis Banuelos [facility] TESTING) Medical Branch LAB ONLY COVID 2021-09-29 21:11:00 Delmis Banuelos [facility] INTERPRETATION [facility] Branch LIPASE 2021-09-29 21:07:00 Delmis Banuelos [facility] FERRITIN SERUM 2021-09-29 21:07:00 Chris Blue [facility] TROPONIN I 2021-09-29 21:07:00 Delmis Banuelos [facility] COMP. METABOLIC PANEL 2021-09-29 21:07:00 Delmis Banuelos [facility] ([id number]) [facility] CBC WITH DIFF 2021-09-29 21:07:00 Delmis Banuelos [facility] PROTHROMBIN TIME / INR 2021-09-29 21:07:00 Delmis Banuelos [facility] ACTIVATED PARTIAL 2021-09-29 21:07:00 Delmis [facility]uelos [facility] RHYTHM 2021-09-29 20:41:22 Delmis Banuelos [facility] CONSENT/REFUSAL FOR 2021-09-29 20:20:30 Doctor Unassigned, [facility] DIAGNOSIS AND TREATMENT [place] [facility] XR CHEST 1 VW 2021-09-10 06:41:20 Angelo Schulz [facility] TROPONIN I 2021-09-10 06:31:00 Angelo Schulz [facility] COMP. METABOLIC PANEL 2021-09-10 06:31:00 Angelo Schulz [facility] ([id number]) Medical Branch N-TERMINAL PRO-BNP 2021-09-10 06:31:00 Angelo Schulz [facility] CBC WITH DIFF 2021-09-10 06:30:00 Angelo Schulz [facility] D-DIMER 2021-09-10 06:30:00 Angelo Schulz [facility] COVID-19 (ID NOW RAPID 2021-09-10 06:30:00 Angelo Schulz [facility] TESTING) Medical Branch XR LUMBAR SPINE 2 VW 2021-09-04 03:14:07 Khushbu Mcghee [facility] XR SPINE THORACIC 2 VW 2021-09-04 03:14:07 Khushbu Mcghee [facility] NOTICE OF PRIVACY 2021-09-03 23:23:15 Doctor Unassigned, [facility] PRACTICES [place] [facility] [place] CONSENT/REFUSAL FOR 2021-09-03 23:22:33 Doctor Unasslew, [facility] DIAGNOSIS AND TREATMENT [facility] URINALYSIS 2020-08-04 00:34:00 Kierra Powell [facility] US ABDOMEN LIMITED 2020-08-03 22:18:34 Kierra Powell [facility] XR ABDOMEN ACUTE SERIES 2020-08-03 21:19:00 Kierra Powell [facility] LIPASE 2020-08-03 21:04:00 [facility] 2020-08-03 21:04:00 Kierra Powell [facility] HEPATIC FUNCTION PANEL 2020-08-03 21:04:00 Kierra Powell [facility] ([id number]) (ALB,T.PRO,BILI [facility] T,BU/BC,ALT,AST,ALK PHOS) BASIC METABOLIC PANEL 2020-08-03 21:04:00 Kierra Powell [facility] (NA, K, CL, CO2, GLUCOSE, Medica l Branch BUN, CREATININE, CA) CBC WITH DIFF 2020-08-03 21:04:00 [facility] Start End Encounter Admission Attending Care Care Encounter Source Date/Time Date/Time Type Type Clinicians Facility Department ID 2022-06-28 2022-06-28 Outpatient Arceneaux_C VFP VFP [id number] [facility] 00:00:00 00:00:00 [id number] Family Practic e 2021-10-26 2021-10-26 Orders Doctor CATHLEEN [id number] Univers 00:00:00 00:00:00 Only Unassigned, ROLLY [id number] ity of [place] AMERICAN [facility] 4.2.7.2.686 [place] [id number] [facility] 009 Branch 2021-10-12 2021-10-12 Transition AndrewsJOSE ELIAS murphyIsabel 1.2.840.114 [id number] Univers 00:00:00 00:00:00 of Care Ofeliaorlin GONGORA 350.1.13.10 ity of [place] [id number] [facility] 403 Branch 2021-09-29 2021-10-09 Inpatient X [facility] [id number] Univers 14:42:00 17:29:00 AUSTNI ity of [facility] [place] 2021-09-29 2021-10-09 [facility] Delmis Banuelos ANGELIQUE 1.2.840.1 [id number] Univers 14:42:00 17:29:00 Encounter ColtenarpanAustin hummel ROLLY 350.1. 13.10 [facility]y [facility] 4.2.7 .2.686 [place] Raheel Lucas [phone] Medical 094 Branch 2021-09-20 2021-09-21 Emergency [facility] [id number] Univers 22:52:00 00:06:00 Khushbu ISLAS 350.1.13.10 i ty of [place] [id number] [facility] 084 Branch 2021-09-10 2021-09-10 Emergency X [facility] ERT [id number] Univers 00:14:00 03:39:00 ANGELO ity of [facility] [place] [place] 2021-09-102021-09-10 Emergency [facility] 1.2.003.172 [id number] Univers 00:14:00 03:39:00 Angelo ISLAS 350.1.13.10 i ty of [facility] 4.2.7.2.686 [facility] [phone] [place] 396254 Branch 2021-09-03 2021-09-03 Emergency X [facility] ERT [id number] Univers 17:45:00 23:04:00 [facility] 2021-09-03 2021-09-03 Emergency [facility] [id number] [id number] Univers 17:45:00 23:04:00 Khushbu ISLAS 350.1.13.10 i ty of [place] 4.2.7.2.686 [facility] [id number] [facility] 084 Branch 2020-08-03 2020-08-03 Emergency Yarima, TRAUMA 1.2.125.481 [id number] Univers 14:01:00 19:26:00 [facility] 350.1.13.10 i ty of 4.2.7.2.686 [facility] [id number] [facility] 014 Branch 2020-08-03 2020-08-03 Emergency X [facility] [id number] Univers 14:01:00 14:01:00 [facility] 2019-11-07 2019-11-07 Outpatient MARCIA Vent[place] Chip [id number] [facility] 09:46:00 09:46:00 [facility] 2019-10-28 2019-10-28 Emergency EM Stephens, [facility] [id number] [facility] 18:21:00 18:21:00 [place] [address] [place] [address] Results Test Description Test Time Test Comments Results Result Comments Source BASIC METABOLIC PANEL (NA, K, CL, CO2, GLUCOSE, BUN, 2021-09 11:25:14 CREATININE, [place]) Test Item Value Reference Range Interpretation Comme nts NA (test code = 4847139989) 136 mmol/L 135-145 K (test code = 9906945101) 3.6 mmol/L 3.5-5.0 CL (test code = 2540582789) 97 mmol/L 98-108 L CO2 TOTAL (test code = 9386045901) 33 mmol/L 23-31 H AGAP (test code = 6804230654) 2-16 BUN (test code = 6484282322) 13 mg/dL 7-23 GLUCOSE (test code = 7489789837) 95 mg/dL 70-110 CREATININE (test code = 0.52 mg/dL 0.50-1.04 2284851071) CALCIUM (test code = 5794346848) 9.2 mg/dL 8.6-10.6 eGFR (test code = 9735285343) mL/min/1.73m2 OMAR (test code = OMAR) Association [...] tests). Lab Interpretation (test code = Abnormal 96541-1) [facility]14 Test Item Value Reference Range Interpretation Comments MAGNESIUM (test code = 1484934520) 1.8 mg/dL 1.7-2.4 Lab Interpretation (test code = Normal 22898-9) [facility] METABOLIC PANEL (NA, K, CL, CO2, GLUCOSE, BUN, CREATININE, CA)2021-10-04 11:24:13 Test Item Value Reference Range Interpretation Comments NA (test code = 137 mmol/L 135-145 5195023633) K (test code = 3.7 mmol/L 3.5-5.0 7242286718) CL (test code = 100 mmol/L 98-108 7738958906) CO2 TOTAL (test code = 33 mmol/L 23-31 H 2403306971) AGAP (test code = 2-16 6174459145) BUN (test code = 14 mg/dL 7-23 9942347015) GLUCOSE (test code = 88 mg/dL 70-110 2563804970) CREATININE (test code = 0.52 mg/dL 0.50-1.04 5622890450) CALCIUM (test code = 8.7 mg/dL 8.6-10.6 5358308936) eGFR (test code = mL/min/1.73m2 9109403388) OMAR (test code = OMAR) Association of [...] tests). Lab Interpretation Abnormal (test code = 90098-4) [facility] 11:24:13 Test Item Value Reference Range Interpretation Comments MAGNESIUM (test code = 0831580175) 1.9 mg/dL 1.7-2.4 Lab Interpretation (test code = Normal 60779-4) [facility] WITH [id number] 11:02:11 Test Item Value Reference Range Interpretation Comments WBC (test code = See_Comment [Automated 1090-2) message] The sy stem which generated this result transmitted reference range : 4.30 - 11.10 10*3/?L. The reference range was not used to interpret this result as normal/abnormal . RBC (test code = See_Comment [Automated 005-8) message] The sy stem which generated this [...] RDW-SD (test code = 41.9 fL 39.0-49.9 87089-0) RDW-CV (test code = 12.0 % 12.0-15.5 788-0) PLT (test code = See_Comment [Automated 687-3) message] The sy stem which generated this result transmitted reference range : 166 - 358 10*3/ ?L. The reference r shakira was not used to interpret this result as normal/abnormal . MPV (test code = 10.3 fL 9.5-12.9 63700-7) NRBC/100 WBC (test See_Comment [Automat ed code = 5795527650) message] The system which generated this result transmitted reference range : 0.0 - 10.0 /100 WBCs. The refer ence range was not u sed to interpret th is result as normal/abnormal . NRBC x10^3 (test code <0.01 See_Comment [Auto mated = 7783338954) message] The s ystem which generated this result transmitted reference range : 10*3/?L. The reference range was not used to interpret this result as normal/abnormal . GRAN MAT (NEUT) % 50.5 % (test code = 770-8) IMM GRAN % (test code 0.10 % = 4455440119) LYMPH % (test code = 38.2 % 736-9) MONO % (test code = 6.4 % 5905-5) EOS % (test code = 3.5 % 713-8) BASO % (test code = 1.3 % 706-2) GRAN MAT x10^3(ANC) 4.01 10*3/uL 1.88-7.09 (test code = 2376443087) IMM GRAN x10^3 (test <0.03 0.00-0.06 code = 0831348933) LYMPH x10^3 (test code 3.03 10*3/uL 1.32-3.29 = 731-0) MONO x10^3 (test code 0.51 10*3/uL 0.33-0.92 = 742-7) EOS x10^3 (test code = 0.28 10*3/uL 0.03-0.39 711-2) BASO x10^3 (test code 0.10 10*3/uL 0.01-0.07 H = 704-7) Lab Interpretation Abnormal (test code = 76832-8) [facility] METABOLIC PANEL (NA, K, CL, CO2, GLUCOSE, BUN, CREATININE, CA)2021-10-03 10:23:35 Test Item Value Reference Range Interpretation Comments NA (test code = 136 mmol/L 135-145 4845880148) K (test code = 3.6 mmol/L 3.5-5.0 4495524200) CL (test code = 101 mmol/L 98-108 4178258258) CO2 TOTAL (test code = 31 mmol/L 23-31 4331890459) AGAP (test code = 2-16 4516995310) BUN (test code = 12 mg/dL 7-23 9373256203) GLUCOSE (test code = 84 mg/dL 70-110 5477624679) CREATININE (test code = 0.47 mg/dL 0.50-1.04 L 1489865899) CALCIUM (test code = 8.3 mg/dL 8.6-10.6 L 7492879591) eGFR (test code = mL/min/1.73m2 3983490588) OMAR (test code = OMAR) Association of [...] tests). Lab Interpretation Abnormal (test code = 93947-7) [facility] 10:23:35 Test Item Value Reference Range Interpretation Comments MAGNESIUM (test code = 9224829685) 1.7 mg/dL 1.7-2.4 Lab Interpretation (test code = Normal 39661-2) [facility] [id number] 18:57:08 Test Item Value Reference Range Interpretation Comments SPUTUM CULTURE 3+ Respiratory rut: (test code = 622-1) Commensal upper respiratory microorganisms only. Gram stain (test Few Epithelial cells code = 664-3) present OMAR (test code = Bacterial pathogens OMAR) associated with lower respiratory infections were not identified, which include Pseudomonas aeruginosa and Staphylococcus aureus (MRSA or MSSA). [facility] (NA, K, CL, CO2, GLUCOSE, BUN, CREATININE, CA)2021-10-02 10:42:30 Test Item Value Reference Range Interpretation Comments NA (test code = 136 mmol/L 135-145 1012393599) K (test code = 3.6 mmol/L 3.5-5.0 4987599044) CL (test code = 98 mmol/L 98-108 4506150874) CO2 TOTAL (test code = 32 mmol/L 23-31 H 6317823212) AGAP (test code = 2-16 4331846548) BUN (test code = 14 mg/dL 7-23 8519605909) GLUCOSE (test code = 82 mg/dL 70-110 6641968270) CREATININE (test code = 0.56 mg/dL 0.50-1.04 4527437716) CALCIUM (test code = 8.7 mg/dL 8.6-10.6 2509581137) eGFR (test code = mL/min/1.73m2 8266114616) OMAR (test code = OMAR) Association of [...] tests). Lab Interpretation Abnormal (test code = 95602-1) [facility]2022-[facility]-08 10:42:30 Test Item Value Reference Range Interpretation Comments MAGNESIUM (test code = 0510779925) 1.8 mg/dL 1.7-2.4 Lab Interpretation (test code = Normal 24411-5) [facility] WITH [id number] 10:25:30 Test Item Value Reference Range Interpretation Comments WBC (test code = See_Comment [Automated 6031-2) message] The sy stem which generated this result transmitted reference range : 4.30 - 11.10 10*3/?L. The reference range was not used to interpret this result as normal/abnormal . RBC (test code = See_Comment [Automated 445-8) message] The sy stem which generated this [...] RDW-SD (test code = 41.2 fL 39.0-49.9 45635-3) RDW-CV (test code = 11.9 % 12.0-15.5 L 788-0) PLT (test code = See_Comment [Automated 777-3) message] The sy stem which generated this result transmitted reference range : 166 - 358 10*3/ ?L. The reference r shakira was not used to interpret this result as normal/abnormal . MPV (test code = 10.5 fL 9.5-12.9 05941-6) NRBC/100 WBC (test See_Comment [Automat ed code = 5822850792) message] The system which generated this result transmitted reference range : 0.0 - 10.0 /100 WBCs. The refer ence range was not u sed to interpret th is result as normal/abnormal . NRBC x10^3 (test code <0.01 See_Comment [Auto mated = 5701384697) message] The s ystem which generated this result transmitted reference range : 10*3/?L. The reference range was not used to interpret this result as normal/abnormal . GRAN MAT (NEUT) % 62.7 % (test code = 770-8) IMM GRAN % (test code 0.20 % = 9408523721) LYMPH % (test code = 27.7 % 736-9) MONO % (test code = 6.3 % 5905-5) EOS % (test code = 2.3 % 713-8) BASO % (test code = 0.8 % 706-2) GRAN MAT x10^3(ANC) 6.33 10*3/uL 1.88-7.09 (test code = 9385331144) IMM GRAN x10^3 (test <0.03 0.00-0.06 code = 8502170312) LYMPH x10^3 (test code 2.79 10*3/uL 1.32-3.29 = 731-0) MONO x10^3 (test code 0.63 10*3/uL 0.33-0.92 = 742-7) EOS x10^3 (test code = 0.23 10*3/uL 0.03-0.39 711-2) BASO x10^3 (test code 0.08 10*3/uL 0.01-0.07 H = 704-7) Lab Interpretation Abnormal (test code = 92593-9) [facility]-REACTIVE [id number] 16:44:26 Test Item Value Reference Range Interpretation Comments CRP (test code = 1711300247) 0.7 mg/dL <0.8 Lab Interpretation (test code = Normal 38101-2) [facility] Metabolic Panel (NA, K, CL, CO2, GLUCOSE, BUN, CREATININE, CA)2021-09-30 11:48:38 Test Item Value Reference Range Interpretation Comments NA (test code = 140 mmol/L 135-145 6541970515) K (test code = 4.8 mmol/L 3.5-5.0 1840407796) CL (test code = 103 mmol/L 98-108 8366611915) CO2 TOTAL (test code = 27 mmol/L 23-31 2589216242) AGAP (test code = 2-16 2856093936) BUN (test code = 13 mg/dL 7-23 1689898675) GLUCOSE (test code = 134 mg/dL 70-110 H 3752928255) CREATININE (test code = 0.57 mg/dL 0.50-1.04 4228430490) CALCIUM (test code = 9.1 mg/dL 8.6-10.6 0782549438) eGFR (test code = mL/min/1.73m2 1468277170) OMAR (test code = OMAR) Association of [...] tests). Lab Interpretation Abnormal (test code = 37027-1) [facility]anoLACT[facility] [id number] 11:47:37 Test Item Value Reference Range Interpretation Comments LDH (test code = 8859040419) 394 U/L 300-600 Lab Interpretation (test code = Normal 54932-6) [facility] with [id number] 11:25:16 Test Item Value Reference Range Interpretation Comments WBC (test code = See_Comment [Automated 1590-2) message] The sy stem which generated this result transmitted reference range : 4.30 - 11.10 10*3/?L. The reference range was not used to interpret this result as normal/abnormal . RBC (test code = See_Comment [Automated 961-8) message] The sy stem which generated this [...] RDW-SD (test code = 43.6 fL 39.0-49.9 02527-4) RDW-CV (test code = 12.2 % 12.0-15.5 788-0) PLT (test code = See_Comment [Automated 777-3) message] The sy stem which generated this result transmitted reference range : 166 - 358 10*3/ ?L. The reference r shakira was not used to interpret this result as normal/abnormal . MPV (test code = 10.4 fL 9.5-12.9 59677-0) NRBC/100 WBC (test See_Comment [Automat ed code = 7137354701) message] The system which generated this result transmitted reference range : 0.0 - 10.0 /100 WBCs. The refer ence range was not u sed to interpret th is result as normal/abnormal . NRBC x10^3 (test code <0.01 See_Comment [Auto mated = 7910087699) message] The s ystem which generated this result transmitted reference range : 10*3/?L. The reference range was not used to interpret this result as normal/abnormal . GRAN MAT (NEUT) % 75.9 % (test code = 770-8) IMM GRAN % (test code 0.30 % = 9365561589) LYMPH % (test code = 18.0 % 736-9) MONO % (test code = 5.0 % 5905-5) EOS % (test code = 0.1 % 713-8) BASO % (test code = 0.7 % 706-2) GRAN MAT x10^3(ANC) 5.27 10*3/uL 1.88-7.09 (test code = 8224834297) IMM GRAN x10^3 (test <0.03 0.00-0.06 code = 5055305361) LYMPH x10^3 (test code 1.25 10*3/uL 1.32-3.29 L = 731-0) MONO x10^3 (test code 0.35 10*3/uL 0.33-0.92 = 742-7) EOS x10^3 (test code = <0.03 0.03-0.39 L 711-2) BASO x10^3 (test code 0.05 10*3/uL 0.01-0.07 = 704-7) Lab Interpretation Abnormal (test code = 78881-1) [facility] [id number] 06:04:27 Test Item Value Reference Range Interpretation Comments FERRITIN (test code = 65.0 ng/mL 11.0-264.0 8322826207) OMAR (test code = OMAR) Biotin has been reported to cause a negative bias, interpret results relative to patient's use of biotin. Lab Interpretation (test Normal code = 71577-8) [facility]anoTROP[facility]IN [id number] 21:47:24 Test Item Value Reference Interpretation Comments Range TROPONIN I (test 0.003 ng/mL See_Comment [Automated code = 0144279585) message] The system which generated this result [...] biotin. Lab Interpretation Normal (test code = 83697-1) [facility] MET[facility]OL[facility] PAN[facility] (21791)2021-09-29 21:35:44 Test Item Value Reference Range Interpretation Comments NA (test code = 137 mmol/L 135-145 9671839095) K (test code = 4.1 mmol/L 3.5-5.0 0918679193) CL (test code = 100 mmol/L 98-108 1444316035) CO2 TOTAL (test code = 28 mmol/L 23-31 9406909106) AGAP (test code = 2-16 8748215981) BUN (test code = 8 mg/dL 7-23 0202390342) GLUCOSE (test code = 128 mg/dL 70-110 H 2178577887) CREATININE (test code = 0.54 mg/dL 0.50-1.04 7692267807) TOTAL BILI (test code = 0.5 mg/dL 0.1-1.7 7526497093) CALCIUM (test code = 9.5 mg/dL 8.6-10.6 8359479451) T PROTEIN (test code = 8.1 g/dL 6.3-8.2 3432872975) ALBUMIN (test code = 4.4 g/dL 3.5-5.0 5992685419) ALK PHOS (test code = 104 U/L 34-122 1327561151) ALTv (test code = 18 U/L 5-35 1742-6) AST(SGOT) (test code = 26 U/L 13-40 7193722019) eGFR (test code = mL/min/1.73m2 3529217078) OMAR (test code = OMAR) Association of [...] tests). Lab Interpretation Abnormal (test code = 76202-4) [facility]anoLIP[facility], [id number] 21:35:19 Test Item Value Reference Range Interpretation Comments LIPASE (test code = 2490835551) 72 U/L 0-220 Lab Interpretation (test code = Normal 68192-3) [facility]anoaPTT2022-01-05 21:27:38 Test Item Value Reference Range Interpretation Comments APTT Patient (test See_Comment [Automat ed code = 3173-2) message] The system which generated this result transmitted reference range : 23 - 38 Seconds . The reference range was not used to interpr et this result as normal/abnormal . OMAR (test code = OMAR) The [facility] patient population mean normal value for aPTT is 30 seconds. Lab Interpretation Normal (test code = 19348-0) [facility]anoPROTHROMBIN TIME / [id number] 21:25:21 Test Item Value Reference Range Interpretation [...] tions. Lab Interpretation (test Normal code = 19801-9) [facility]anoCB WITH [id number] 21:21:00 Test Item Value Reference Range Interpretation Comments WBC (test code = See_Comment [Automated 9190-2) message] The sy stem which generated this result transmitted reference range : 4.30 - 11.10 10*3/?L. The reference range was not used to interpret this result as normal/abnormal . RBC (test code = See_Comment [Automated 939-8) message] The sy stem which generated this [...] RDW-SD (test code = 43.1 fL 39.0-49.9 69926-3) RDW-CV (test code = 12.2 % 12.0-15.5 788-0) PLT (test code = See_Comment [Automated 777-3) message] The sy stem which generated this result transmitted reference range : 166 - 358 10*3/ ?L. The reference r shakira was not used to interpret this result as normal/abnormal . MPV (test code = 10.3 fL 9.5-12.9 57108-1) NRBC/100 WBC (test See_Comment [Automat ed code = 0792003512) message] The system which generated this result transmitted reference range : 0.0 - 10.0 /100 WBCs. The refer ence range was not u sed to interpret th is result as normal/abnormal . NRBC x10^3 (test code <0.01 See_Comment [Auto mated = 8614263675) message] The s ystem which generated this result transmitted reference range : 10*3/?L. The reference range was not used to interpret this result as normal/abnormal . GRAN MAT (NEUT) % 71.1 % (test code = 770-8) IMM GRAN % (test code 0.30 % = 2929991049) LYMPH % (test code = 14.8 % 736-9) MONO % (test code = 5.9 % 5905-5) EOS % (test code = 6.8 % 713-8) BASO % (test code = 1.1 % 706-2) GRAN MAT x10^3(ANC) 6.82 10*3/uL 1.88-7.09 (test code = 8753007968) IMM GRAN x10^3 (test 0.03 10*3/uL 0.00-0.06 code = 5594998651) LYMPH x10^3 (test code 1.42 10*3/uL 1.32-3.29 = 731-0) MONO x10^3 (test code 0.57 10*3/uL 0.33-0.92 = 742-7) EOS x10^3 (test code = 0.65 10*3/uL 0.03-0.39 H 711-2) BASO x10^3 (test code 0.11 10*3/uL 0.01-0.07 H = 704-7) Lab Interpretation Abnormal (test code = 51055-5) [facility]anoTR[facility] [id number] 07:10:55 Test Item Value Reference Interpretation Comments Range TROPONIN I (test 0.000 ng/mL See_Comment [Automated code = 8312143020) message] The system which generated this result [...] biotin. Lab Interpretation Normal (test code = 35094-9) [facility]anoN-TERMINAL [id number] 07:10:55 Test Item Value Reference Range Interpretation Comments NT-proBNP (test code 150 pg/mL See_Comment H [Autom ated = 2979827531) message] The system which generated this result transmitted reference range : <=125. The reference range was not used to interpret this result as normal/abnormal . OMAR (test code = OMAR) Biotin has been reported to cause a negative bias, interpret results relative to patient's use of biotin. Lab Interpretation Abnormal (test code = 30888-7) [facility]OL[facility] (39090)2021-09-10 07:07:38 Test Item Value Reference Range Interpretation Comments NA (test code = 135 mmol/L 135-145 0896455377) K (test code = 3.8 mmol/L 3.5-5.0 7940455624) CL (test code = 98 mmol/L 98-108 9548017669) CO2 TOTAL (test code = 27 mmol/L 23-31 5340677101) AGAP (test code = 2-16 0654545771) BUN (test code = 9 mg/dL 7-23 0334792488) GLUCOSE (test code = 115 mg/dL 70-110 H 3327253234) CREATININE (test code = 0.52 mg/dL 0.50-1.04 5746676891) TOTAL BILI (test code = 0.4 mg/dL 0.1-1.4 3533847605) CALCIUM (test code = 10.5 mg/dL 8.6-10.6 0803869203) T PROTEIN (test code = 8.1 g/dL 6.3-8.2 6782071992) ALBUMIN (test code = 4.4 g/dL 3.5-5.0 7217416924) ALK PHOS (test code = 80 U/L 34-122 8268040784) ALTv (test code = 13 U/L 5-35 1742-6) AST(SGOT) (test code = 22 U/L 13-40 3636502268) eGFR (test code = mL/min/1.73m2 0371378540) OMAR (test code = OMAR) Association of [...] tests). Lab Interpretation Abnormal (test code = 79322-0) [facility]anoD-[id number] 06:50:30 Test Item Value Reference Interpretation Comments Range D-DIMER (test code = See_Comment H [Autom ated 3802257774) message] The system which generated this result [...] diagnosis. Lab Interpretation Abnormal (test code = 01776-2) [facility] WITH [id number] 06:40:28 Test Item Value Reference Range Interpretation Comments WBC (test code = See_Comment [Automated 0490-2) message] The sy stem which generated this result transmitted reference range : 4.30 - 11.10 10*3/?L. The reference range was not used to interpret this result as normal/abnormal . RBC (test code = See_Comment [Automated 979-8) message] The sy stem which generated this [...] RDW-SD (test code = 42.8 fL 39.0-49.9 42437-5) RDW-CV (test code = 12.3 % 12.0-15.5 788-0) PLT (test code = See_Comment [Automated 777-3) message] The sy stem which generated this result transmitted reference range : 166 - 358 10*3/ ?L. The reference r shakira was not used to interpret this result as normal/abnormal . MPV (test code = 10.0 fL 9.5-12.9 40704-1) NRBC/100 WBC (test See_Comment [Automat ed code = 4464571356) message] The system which generated this result transmitted reference range : 0.0 - 10.0 /100 WBCs. The refer ence range was not u sed to interpret th is result as normal/abnormal . NRBC x10^3 (test code <0.01 See_Comment [Auto mated = 7889527168) message] The s ystem which generated this result transmitted reference range : 10*3/?L. The reference range was not used to interpret this result as normal/abnormal . GRAN MAT (NEUT) % 68.6 % (test code = 770-8) IMM GRAN % (test code 0.30 % = 9748980919) LYMPH % (test code = 21.9 % 736-9) MONO % (test code = 5.7 % 5905-5) EOS % (test code = 2.3 % 713-8) BASO % (test code = 1.2 % 706-2) GRAN MAT x10^3(ANC) 6.50 10*3/uL 1.88-7.09 (test code = 9192591057) IMM GRAN x10^3 (test 0.03 10*3/uL 0.00-0.06 code = 2301882777) LYMPH x10^3 (test code 2.08 10*3/uL 1.32-3.29 = 731-0) MONO x10^3 (test code 0.54 10*3/uL 0.33-0.92 = 742-7) EOS x10^3 (test code = 0.22 10*3/uL 0.03-0.39 711-2) BASO x10^3 (test code 0.11 10*3/uL 0.01-0.07 H = 704-7) Lab Interpretation Abnormal (test code = 61896-5) [facility]anoUrinalysis2020-11-10 00:59:00 Test Item Value Reference Range Interpretation Comments APPEARANCE (test code = Clear Clear 7237588841) COLOR (test code = Straw Yellow A 1857650226) PH (test code = 4.8-8.0 7182285543) SP GRAVITY (test code = 1.003-1.030 2749722777) GLU U QUAL (test code = Normal Normal 7327733020) BLOOD (test code = 1+ Negative A 5453755991) KETONES (test code = Negative Negative 1584728954) PROTEIN (test code = Negative Negative 2887-8) UROBILIN (test code = Normal Normal 7496781184) BILIRUBIN (test code = Negative Negative 6976412546) NITRITE (test code = Negative Negative 5878140959) LEUK VICTOR MANUEL (test code = Negative Negative 2154352957) RBC/HPF (test code = See_Comment [Autom ated message] [id number]) The system [employer] generated this result transmitted ref erence range: 0 - 3 HP F. The reference range was not used to int erpret this result as normal/abnormal . WBC/HPF (test code = See_Comment [Autom ated message] [id number]) The system [employer] generated this result transmitted ref erence range: 0 - 5 HP F. The reference range was not used to int erpret this result as normal/abnormal . BACTERIA (test code = Negative Negative [id number]) SQ EPITH (test code = See_Comment [Auto mated message] [id number]) The system [employer] generated this result transmitted ref erence range: <=2 HPF. The reference range was not used to int erpret this result as normal/abnormal . Lab Interpretation (test Abnormal code = 49306-7) [facility] [id number] 23:26:24 Cholelithiasis without sonographic evidence of acute cholecystitis orbiliary ductal dilatation. Preliminary Report Dictated by Resident: Naif Maher MD., have reviewed this study andagree with the abovereport.EXAM: US ABDOMEN LIMITED HISTORY: 59 years-old Female with RUQ pain, r/o acute cholecystitis . TECHNIQUE: Limited abdominal ultrasound focused on the liver, right kidneyand spleen was performed. The main portal vein was evaluated with colorDoppler imaging. Overhead Irrigator images were obtained for the record. COMPARISON: None FINDINGS: PANCREAS: The pancreatic head and body display normal echogenicity to the extentvisualized. AORTA:The proximal abdominal aorta is normal in caliber where visualized, andmeasures approximately 1.5 cm in diameter. LIVER:Length: The liver is at the upper limits of normal in size, and vkmosnvt70.0 cm in the craniocaudal dimension.Parenchyma: Theliver parenchyma [...] portal vein was evaluated with colorDoppler imaging. Overhead Irrigator images were obtained for the record.COMPARISON: NoneFINDINGS: PANCREAS: The pancreatic head and body display normal echogenicity to the extentvisualized.AORTA:The proximal abdominal aorta is normal in caliber where visualized, andmeasures approximately 1.5 cm in diameter. LIVER:Length: The liveris at the upper limits of normal in size, and mbccdykm35.0 cm in the craniocaudal dimension.Parenchyma: The liver [...] reviewed this study and agree with the abovereport.[facility] 2020-08-03 22:02:17 Chronic emphysematous changes of the lungs with increased bilateralreticular opacities more prominent on the left likely bank representative ofinterstitial lung disease. No acute intra-abdominal [...] opacities more prominent on the left likely bank representative ofinterstitial lung disease.No acute intra-abdominal abnormality. The bowel gas pattern isnonobstructive.Age-indeterminate mid thoracic compression deformity with approximately 30%height loss. Preliminary Report Dictated by Resident: Cory Greenfield, Jurgen Ford MD., have reviewed this study and agree withthe above report.[facility]ano[facility]rop[facility] I 2020-08-03 21:35:00 Test Item Value Reference Range Interpretation Comments TROPONIN I (test 0.001 ng/mL See_Comment [Automated code = 0720427813) message] The system which generated this result [...] ? Lab Interpretation Normal (test code = 01682-9) [facility] (NA, K, CL, CO2, GLUCOSE, BUN, CREATININE, CA)2020-08-03 21:25:00 Test Item Value Reference Range Interpretation Comments NA (test code = 138 mmol/L 135-145 1858021643) K (test code = 4.6 mmol/L 3.5-5 3944251501) CL (test code = 102 mmol/L 98-108 4471300327) CO2 TOTAL (test code = 29 mmol/L 23-31 5877587555) AGAP (test code = 2-16 8193408543) BUN (test code = 8 mg/dL 7-23 4557066971) GLUCOSE (test code = 84 mg/dL 70-110 4770882912) CREATININE (test code 0.56 mg/dL 0.5-1.04 = 3154396915) CALCIUM (test code = 9.6 mg/dL 8.6-10.6 1552789301) eGFR Calculation mL/min/1.73m2 (Non-) (test code = 9261604092) eGFR Calculation mL/min/1.73m2 () (test code = 3620102762) OMAR (test code = OMAR) Association of [...] or urine or abnormalities in imaging tests). [facility]ano[facility] Function [facility] (ALB, T.PRO, BILI T, BU/BC, ALT, AST, ALK PHOS)2020-08-03 21:25:00 Test Item Value Reference Range Interpretation Comments TOTAL BILI (test code = 6192153820) 0.3 mg/dL 0.1-1.1 BILI UNCON (test code = 6012716269) 0.1 mg/dL 0.1-1.1 BILI CONJ (test code = 6661712329) 0.0 mg/dL 0-0.3 T PROTEIN (test code = 9904388755) 8.1 g/dL 6.3-8.2 ALBUMIN (test code = 5977214076) 4.1 g/dL 3.5-5 ALK PHOS (test code = 0804860868) 86 U/L 34-122 ALTv (test code = 1742-6) 10 U/L 5-35 AST(SGOT) (test code = 8357974587) 21 U/L 13-40 Lab Interpretation (test code = Normal 03289-2) [facility]anoLipase [id number] 21:25:00 Test Item Value Reference Range Interpretation Comments LIPASE (test code = 2260203630) 83 U/L 0-220 Lab Interpretation (test code = Normal 87734-0) [facility]anoCBC with [id number] 21:17:00 Test Item Value Reference Range Interpretation Comments WBC (test code = See_Comment [Automated 8990-2) message] The sy stem which generated this result transmitted reference range : 4.30 - 11.10 10*3/?L. The reference range was not used to interpret this result as normal/abnormal . RBC (test code = See_Comment [Automated 759-8) message] The sy stem which generated this [...] RDW-SD (test code = 46.5 fL 39-49.9 38053-5) RDW-CV (test code = 13.3 % 12-15.5 788-0) PLT (test code = See_Comment [Automated 777-3) message] The sy stem which generated this result transmitted reference range : 166 - 358 10*3/ ?L. The reference r shakira was not used to interpret this result as normal/abnormal . MPV (test code = 9.4 fL 9.5-12.9 L 85094-5) NRBC/100 WBC (test See_Comment [Automat ed code = 3292307924) message] The system which generated this result transmitted reference range : 0.0 - 10.0 /100 WBCs. The refer ence range was not u sed to interpret th is result as normal/abnormal . NRBC x10^3 (test code <0.01 See_Comment [Auto mated = 4329504989) message] The s ystem which generated this result transmitted reference range : 10*3/?L. The reference range was not used to interpret this result as normal/abnormal . GRAN MAT (NEUT) % 68.2 % (test code = 770-8) IMM GRAN % (test code 0.40 % = 5857652554) LYMPH % (test code = 22.7 % 736-9) MONO % (test code = 5.3 % 5905-5) EOS % (test code = 2.5 % 713-8) BASO % (test code = 0.9 % 706-2) GRAN MAT x10^3(ANC) 5.29 10*3/uL 1.88-7.09 (test code = 0712844558) IMM GRAN x10^3 (test 0.03 10*3/uL 0-0.06 code = 1151048730) LYMPH x10^3 (test code 1.76 10*3/uL 1.32-3.29 = 731-0) MONO x10^3 (test code 0.41 10*3/uL 0.33-0.92 = 742-7) EOS x10^3 (test code = 0.19 10*3/uL 0.03-0.39 711-2) BASO x10^3 (test code 0.07 10*3/uL 0.01-0.07 = 704-7) Lab Interpretation Abnormal (test code = 93505-7) [facility]anoCOMPREHENSIVE METABOLIC [id number] 19:56:00 Test Item Value Reference Range Interpretation [...] 50.0-136.0 N code = ALKP) CARDIAC ENZYMES [id number] 19:56:00 Test Item Value Reference Range Interpretation Comments CREATINE KINASE (CK) 51 Units/L 26-192 N (test code = CK) TROPONIN-I (test code <0.02 NG/ML 0.00-0.06 N REFERE NCE RANGE = TROPI) TROPONIN I HEAL THY INDIVIDUALS: <0 .06 ng/mL R/O ISCHE TAVARES: 0.07 - 0.60 ng/ mL CUT-OFF RANGE F OR AMI: 0.60 - 1.5 ng/mL COMPREHENSIVE METABOLIC [id number] 19:48:00 Test Item Value Reference Range Interpretation [...] Units/L 50.0-136.0 code = ALKP) CARDIAC ENZYMES [id number] 19:48:00 Test Item Value Reference Range Interpretation Comments CREATINE KINASE (CK) (test code = Units/L 26-192 CK) TROPONIN-I (test code = TROPI) NG/ML 0.00-0.06 PROTHROMBIN [id number] 19:45:00 Test Item Value Reference Range Interpretation Comments PROTHROMBIN TIME 12.6 SECONDS 9.9-12.8 N PATIENT (test code = PTP) INTERNATIONAL NORMAL 1.1 0.89-1.14 N THE INR IS TO BE USED RATIO (test code = ONLY FOR MONITORING INR) ORAL ANTICOAGULANTTH ERAPY. THE FOLLOWING A RE SUGGESTED RANGE S FROM [facility] LEGE OF CHEST PHYSICIANS:CAN CATION INR VALUEPROPHY LAXIS OF VENOUS THROM BOSIS (ORTHOPEDIC LARRY KRISTIE) 2.0 - 3.0PROPHY LAXIS OF VENOUS THROM BOSIS (OTHER THAN HIG H-RISK SURGERY) 2.0 - 3.0TREATMENT OF DEEP VEIN THROMBOSIS OR PULMONARY EMBOL ISM 2.0 - 3.0PREVEN TION OF SYSTEMIC EMBOLI SM TISSUE HEART VA [...] D ANTIBODIES 2.5 - 3.5 CBC W/AUTO [id number] 19:43:00 Test Item Value Reference Range Interpretation [...] N - XR SHOULDER 2 + V [id number] 19:08:00 FAX: Cathleen Lucio [phone] [place]: St: PRE Name: KEYSHAWN POTTER [facility] : 1960 Age/S: 59/F [address] [facility] Unit #: [id number] Loc: E.[place], [place] Phys: Cathleen Lucio [address] Acct: [id number] Dis Date: Status: PRE ER PHONE #: [phone] Exam Date: 10/28/20191904 FAX #: [phone] Reason: LEFT SHOULDER AND BACK PAIN EXAMS: CPT CODE: [id number] XR SHOULDER 2 + V LT [address]482 Exam: Left shoulder 3 views internal, external rotation and transscapular. Location: H 12 History: LEFT SHOULDER AND BACK PAIN Findings: No bone or joint abnormality is seen. The bony cortices are intact. The joint spaces are well preserved. The soft tissues are normal. Impression: Unremarkable exam. at 1908 Reportedand signed by: José Miguel Matias M.D. CC: Cathleen KIMBALL Technologist: KACEY Aguilar Date/Time/By: 10/28/2019 (1907) : By: Darvin PAGE 1 Signed Report FAX: Cathleen Lucio [phone] [place]: St: PRE -- Name: TARIQKEYSHAWN [facility] : 1960 Age/S: 59/F [address] [employer] Unit#: [id number] Loc: E.[place], [place] Phys: Cathleen Lucio [address] Acct: [id number] Dis Date: Status: PRE ER PHONE #: [phone] Exam Date: 10/28/20191904 FAX #: [phone] Reason: LEFT SH OULDER AND BACK PAIN EXAMS: CPT CODE: [id number] XR SHOULDER 2 + V LT 57805 (Continued) Orig Print D/T: S: 10/28/2019 (1910) PAGE 2 Signed Report- XR CHEST 1 [id number] 19:07:00 FAX: Cathleen Lucio [phone] [place]: St: PRE Name: TARIQKEYSHAWN [facility] : 1960 Age/S: 59/F [address] [employer] Unit #: [id number] Loc: E.[place], [place] Phys: Cathleen Lucio [address] Acct: [id number] Dis Date: Status: PRE ER PHONE #: [phone] Exam Date: 10/28/20191904 FAX#: [phone] Reason: LEFT SHOULDER AND BACK PAIN EXAMS: CPT CODE: [id number] XR CHEST 1 V 97088 Exam: Chest portable erect Location: H 12 [...] PAGE 1 Signed Report FAX: Cathleen Lucio [phone] [place]: St: PRE ------- Name: KEYSHAWN POTTER [facility] : 1960 Age/S: 59/F [address] [facility] Unit #: [id number] Loc: E.[place], [place] Phys: Cathleen Lucio [address] Acct: [id number] DisDate: Status: PRE ER PHONE #: [phone] Exam Date: 10/28/20191904 FAX #: [phone] Reason: LEFT SHOULDER AND BACK PAIN EXAMS: CPT CODE: [id number] XR CHEST 1 V 92348 (Continued) Orig Print D/T: S: 10/28/2019 (1910) PAGE 2 Signed Report COMPREHENSIVE METABOLIC [id number] 14:06:00 Test Item Value Reference Range Interpretation [...] 74 Units/L 50.0-136.0 N code = ALKP) [id number] 14:06:00 Test Item Value Reference Range Interpretation Comments LIPASE (test code = LIP) 143 Units/L 65.0-230.0 N [id number] 14:06:00 Test Item Value Reference Range Interpretation Comments TROPONIN-I (test <0.02 NG/ML 0.00-0.06 N REFERENCE R SHAKIRA code = TROPI) TROPONIN I HEA LTHY INDIVIDUALS: <0 .06 ng/mL R/O ISCHE TAVARES: 0.07 - 0.60 ng/ mL CUT-OFF RANGE F OR AMI: 0.60 - 1.5 ng/m L - XR CHEST 2 [id number] 14:03:00 FAX: Juan Calderon MD [phone] [place]: EM St: PRE Name: KEYSHAWN POTTER [facility] : 1960 Age/S: 58/F [address] [facility] Unit #: [id number] Loc: [address] Phys: [place] [address] Acct: [id number] Dis Date: Status: PRE ER PHONE #: [phone] Exam Date: 04/26/2019 1350 FAX #: [phone] Reason: chest pain EXAMS: CPT CODE: [id number] XR CHEST 2 V 23052 REASON FOR EXAM: Chest pain, difficulty breathing. COMPARISON: March 01, 2016. Chest, 2 views, frontal and lateral projection. The lungs are hyperinflated with interstitial fibrosis changes diffusely and progressive over 2016.. Heart size is normal. No effusion or pneumothorax can be seen. Osseous structures appear to be intact.. IMPRESSION: No acute cardiopulmonary disease. Interstitial fibrosis with COPD changes. Location: [facility] at 1403 Reported and signed by: Maxx Cuenca M.D. CC: Juan Calderon MD Technologist: ALEX ARVIZU Trnscrd Date/Time/By: 04/26/2019 (8628) : By: Temo PAGE 1 Signed Report FAX: Juan Calderon MD [phone] [place]: EMSt: PRE -- Name: KEYSHAWN POTTER [facility] : 1960 Age/S: 58/F [address] [facility] Unit #: [id number] Loc: [place] [place], [place]: [place] [address] Acct: [id number] Dis Date: Status: PRE ER PHONE #: [phone] Exam Date: 04/26/2019 1350 FAX #: [phone] Reason: chest pain EXAMS: CPT CODE:[id number] XR CHEST 2 V 54376 (Continued) Orig Print D/T: S: 04/26/2019 (6051) PAGE 2 Signed ReportPROTHROMBIN [id number] 14:00:00 Test Item Value Reference Range Interpretation Comments PROTHROMBIN TIME 12.6 SECONDS 9.9-12.8 N PATIENT (test code = PTP) INTERNATIONAL NORMAL 1.1 0.89-1.14 N THE INR IS TO BE USED RATIO (test code = ONLY FOR MONITORING INR) ORAL ANTICOAGULANTTH ERAPY. THE FOLLOWING A RE SUGGESTED RANGE S FROM [facility] LEGE OF CHEST PHYSICIANS:CAN CATION INR VALUEPROPHY [...] 3 .0 ATRIAL FIBRILAT ION 2.0 - 3.0BILEAF LET MECHANICAL VALV E IN AORTIC POSITION 2.0 - 3.0MECHANICAL PROSTHETIC VALV ES (HIGH RISK) 2.5 - 3.5PRESENCE OF LUPUS ANTICOAGULANT O R ANTIPHOSPHOLIPI D ANTIBODIES 2.5 - 3.5 COMPREHENSIVE METABOLIC [id number] 13:56:00 Test Item Value Reference Range Interpretation [...] TOTAL (test Units/L 50.0-136.0 code = ALKP) [id number] 13:56:00 Test Item Value Reference Range Interpretation Comments LIPASE (test code = LIP) Units/L 65.0-230.0 [id number] 13:56:00 Test Item Value Reference Range Interpretation Comments TROPONIN-I (test code = TROPI) NG/ML 0.00-0.06 CBC W/AUTO [id number] 13:54:00 Test Item Value Reference Range Interpretation [...]
[2022-09-29] MEDS ORDERED: ASPIRIN 81 MG CHEWABLE TABLET ONE (16:16)
--- NOTE | 2022-09-29 17:08 | RAD REPORT ---
EXAM DESCRIPTION: RAD - Chest Single View - 09/29/2022 4:59 pm CLINICAL HISTORY: COPD Chest pain. COMPARISON: Chest Single View dated 06/04/2022; Chest Single View dated 08/19/2021 FINDINGS: Portable technique limits examination quality. The lungs are emphysematous but grossly clear. The heart is normal in size. No displaced fractures. IMPRESSION: Advanced COPD.
[2022-09-29 17:09] LABS: Absolute Lymphocytes (CBC) 0.9 K/uL (0.7-4.9); Hematocrit 30.9 % (36.0-45.0); Lymphocytes % 10.6 % (15.3-44.8); MCV 93.7 fL (80-100); MPV 8.8 fL (7.6-11.3)
[2022-09-29 19:37] LABS: Troponin High Sensitivity 6.5 pg/mL (<58.9)
[2022-09-29 19:45] LABS: Magnesium 1.9 mg/dL (1.6-2.4); Potassium 3.6 mmol/L (3.5-5.1)
--- NOTE | 2022-09-29 19:53 | ER ---
Nurse's Notes [facility] Name: Leonarda Zabala Age: 61 yrs Sex: Female : 1960 Arrival Date: 09/29/2022 Time: 15:42 Bed 18 Private MD: Diagnosis: COPD/ Chronic obstructive pulmonary disease with (acute) exacerbation Presentation: 09/29 15:55 Chief complaint: EMS states: family called 911 for fever and SOB started today. db Coronavirus screen: Vaccine status: Patient reports receiving the 2nd dose of the covid vaccine. Client denies travel out of the [place] in the last 14 days. At this time, the client does not indicate any symptoms associated with coronavirus-19. Ebola Screen: Patient negative for fever greater than or equal to 101.5 degrees Fahrenheit, and additional compatible Ebola Virus Disease symptoms Patient denies exposure to infectious person. Patient denies travel to an Ebola-affected area in the 21 days before illness onset. No symptoms or risks identified at this time. Initial Sepsis Screen: Does the patient meet any 2 criteria? Altered Mental Status. Yes Does the patient have a suspected source of infection? No. Patient's initial sepsis screen is negative. Risk Assessment: Do you want to hurt yourself or someone else? Patient reports no desire to harm self or others. Onset of symptoms was September 29, 2022. 15:55 Method Of Arrival: EMS: [facility] db 15:55 Acuity: JARRETT 2 db Triage Assessment: 16:10 General: Appears in no apparent distress. comfortable, Behavior is calm, cooperative. db Pain: Denies pain. Historical: - Allergies: 16:10 Myeclin; db - PMHx: 16:10 COPD; Emphysema; Left pneumothorax; db - Immunization history:: Adult Immunizations unknown, Client reports receiving the 2nd dose of the Covid vaccine. - Social history:: Smoking status: Patient/guardian denies using tobacco, Stopped _ months ago 1. - History obtained from: EMS. Screenin:30 [facility] ED Fall Risk Assessment (Adult) History of falling in the last 3 months, db including since admission No falls in past 3 months (0 pts) Confusion or Disorientation Yes (5 pts) Intoxicated or Sedated No (0 pts) Impaired Gait Yes (1 pt) Mobility Assist Device Used Yes (1 pt) Altered Elimination No (0 pt) Score/Fall Risk Level 3 or more points = High Risk Oriented to surroundings, Maintained a safe environment, Educated pt \T\ family on fall prevention, incl call for assistance when getting out of bed, Assessed \T\ reinforced patient's understanding of fall precautions. Abuse screen: Denies threats or abuse. Denies injuries from another. Nutritional screening: No deficits noted. Tuberculosis screening: No symptoms or risk factors identified. Assessment: 16:30 Reassessment: Patient appears in no apparent distress at this time. Patient and/or db family updated on plan of care and expected duration. Pain level reassessed. Patient is alert, oriented x 3, equal unlabored respirations, skin warm/dry/pink. patient is complaining of fever and SOB. Here patient states has CHF and this SOB is normal. Family is not with patient at this time. General: Appears in no apparent distress. comfortable. Pain: Complains of pain in chest Pain began suddenly. Neuro: No deficits noted. Level of Consciousness is awake, alert, obeys commands, Oriented to person, place, time, situation, Speech is normal. Cardiovascular: Reports chest pain, Capillary refill < 3 seconds. 17:21 Respiratory: Reports CHF Airway is patent Respiratory effort is even, unlabored, db Respiratory pattern is regular, symmetrical. 18:15 Reassessment: PURIWICK PLACED. db 18:38 Reassessment: Patient appears in no apparent distress at this time. No changes from db previously documented assessment. Patient and/or family updated on plan of care and expected duration. Pain level reassessed. Patient is alert, oriented x 3, equal unlabored respirations, skin warm/dry/pink. DENIES PAIN AT THIS TIME. PATIENT GIVEN WATER AND JUICE Patient states feeling better. 19:24 Reassessment: ASSUMED CARE OF PT. PT LYING IN BED. NO DISTRESS OR PAIN NOTED. WANTS HER jj7 SOCKS REMOVED. NON SLIP SOCKS PLACED ON PT. PT READJUSTED IN BED FOR COMFORT. VS STABLE. 19:55 Reassessment: MADDIE PT'S NIECE CALLED TO CHECK ON PT. STATES IF SHE GETS DISCHARGE jj7 THEY WOULD NEED HER TRANSPORTED HOME BY EMS. NIECE INFORMED IF CRITERIA ISN'T MET FAMILY WILL HAVE TO PICK PT UP. JOANA CHARGE NURSE INFORMED. Vital Signs: 15:55 BP 113 / 78; Pulse 88; Resp 18; Temp 98.8(O); Pulse Ox 98% on 4 lpm NC; Weight 40.82 db kg; Height 5 ft. 2 in. (157.48 cm); Pain 0/10; 16:30 BP 109 / 60; Pulse 83; Resp 18; Pulse Ox 100% on 4 lpm NC; db 17:30 BP 120 / 74; Pulse 82; Resp 18; Pulse Ox 100% on R/A; db 18:30 BP 122 / 69; Pulse 84; Resp 18; Pulse Ox 100% on R/A; db 19:24 BP 116 / 65; Pulse 91; Resp 18; Pulse Ox 99% 2 lpm ; jj7 15:55 Body Mass Index 16.46 (40.82 kg, 157.48 cm) db Vitals: 16:30 Cardiac Rhythm Assessment Regular Sinus rhythm. db ED Course: 15:42 Patient arrived in ED. snw 15:49 Jorge García PA is PHCP. cp 15:49 Kunal Lee DO is Attending Physician. cp 16:02 PHCP role handed off by Jorge García PA snw 16:02 Romelia Cervantes FNP-C is PHCP. snw 16:05 Heena Granger, RN is Primary Nurse. db 16:08 Triage completed. db 16:11 Arm band placed on right wrist. db 17:00 XRAY Chest (1 view) In Process Unspecified. EDMS 18:30 Lab(s) recollected, by ED staff. db 18:38 PHCP role handed off by Romelia Cervantes FNP-C cp 18:38 Jorge García PA is PHCP. cp 19:08 Maintain EMS IV. Dressing intact. Good blood return noted. Site clean \T\ dry. Gauge \T\ db site: 22 G LEFT AC. 19:24 Bed in low position. Call light in reach. Side rails up X2. jj7 20:53 No provider procedures requiring assistance completed. IV discontinued, intact, jj7 bleeding controlled, No redness/swelling at site. Pressure dressing applied. Administered Medications: 16:40 Drug: Aspirin Chewable Tablet 324 mg Route: PO; db Medication: 16:30 VIS not applicable for this client. db Outcome: 19:53 Discharge ordered by . cp 20:53 Discharged to home via wheelchair, with family. jj7 20:53 Condition: stable 20:53 Discharge instructions given to patient, family, Instructed on discharge instructions, follow up and referral plans. medication usage, Demonstrated understanding of instructions, follow-up care, medications. 21:14 Patient left the ED. oleg Signatures: Dispatcher [employer] EDMS Romelia Cervantes, RAYMOND-C ARC WELDER-Csnw Joana Prieto RN RN bb Jorge García PA PA cp Johnson, Juwairiyah, RN RN jj7 Heena Granger RN RN db
--- NOTE | 2022-09-29 19:53 | EDPHYS ---
Physician Documentation [facility] Name: Leonarda Zabala Age: 61 yrs Sex: Female : 1960 Arrival Date: 09/29/2022 Time: 15:42 Bed 18 Private MD: ED Physician Kunal Lee HPI: 09/29 16:57 This 61 yrs old Female presents to ER via EMS with complaints of COPD exacerbation, on snw O2 at home. 16:57 The patient or guardian reports difficulty breathing. Onset: The symptoms/episode snw began/occurred acutely. Modifying factors: The symptoms are alleviated by nothing. the symptoms are aggravated by nothing. Severity of symptoms: At their worst the symptoms were moderate in the emergency department the symptoms are unchanged. The patient has experienced similar episodes in the past, chronically. The patient has been recently seen by a physician:. Historical: - Allergies: 16:10 Myeclin; db - PMHx: 16:10 COPD; Emphysema; Left pneumothorax; db - Immunization history:: Adult Immunizations unknown, Client reports receiving the 2nd dose of the Covid vaccine. - Social history:: Smoking status: Patient/guardian denies using tobacco, Stopped _ months ago 1. - History obtained from: EMS. ROS: 16:56 Eyes: Negative for injury, pain, redness, and discharge, ENT: Negative for injury, snw pain, and discharge, Neck: Negative for injury, pain, and swelling, Cardiovascular: Negative for chest pain, palpitations, and edema. 16:56 Abdomen/GI: Negative for abdominal pain, nausea, vomiting, diarrhea, and constipation, Back: Negative for injury and pain, : Negative for injury, bleeding, discharge, and swelling, MS/Extremity: Negative for injury and deformity, Skin: Negative for injury, rash, and discoloration, Neuro: Negative for headache, weakness, numbness, tingling, and seizure, Psych: Negative for depression, anxiety, suicide ideation, homicidal ideation, and hallucinations. 16:56 Constitutional: Positive for body aches, malaise. 16:56 Respiratory: Positive for cough, orthopnea. Exam: 16:54 Head/Face: Normocephalic, atraumatic. Eyes: Pupils equal round and reactive to light, snw extra-ocular motions intact. Lids and lashes normal. Conjunctiva and sclera are non-icteric and not injected. Cornea within normal limits. Periorbital areas with no swelling, redness, or edema. ENT: Nares patent. No nasal discharge, no septal abnormalities noted. Tympanic membranes are normal and external auditory canals are clear. Oropharynx with no redness, swelling, or masses, exudates, or evidence of obstruction, uvula midline. Mucous membranes moist. Neck: Trachea midline, no thyromegaly or masses palpated, and no cervical lymphadenopathy. Supple, full range of motion without nuchal rigidity, or vertebral point tenderness. No Meningismus. Chest/axilla: Normal chest wall appearance and motion. Nontender with no deformity. No lesions are appreciated. 16:54 Abdomen/GI: Soft, non-tender, with normal bowel sounds. No distension or tympany. No guarding or rebound. No evidence of tenderness throughout. Back: No spinal tenderness. No costovertebral tenderness. Full range of motion. Skin: Warm, dry with normal turgor. Normal color with no rashes, no lesions, and no evidence of cellulitis. MS/ Extremity: Pulses equal, no cyanosis. Neurovascular intact. Full, normal range of motion. 16:54 Constitutional: The patient appears awake, frail, restless. 16:54 Cardiovascular: Rate: normal, Rhythm: regular. 16:54 Respiratory: mild respiratory distress is noted, Respirations: prolonged exhalation, that is moderate, shallow respirations, tachypnea, Breath sounds: are clear throughout. 16:54 Neuro: Orientation: to person, place, Mentation: no acute changes, per EMS. Vital Signs: 15:55 BP 113 / 78; Pulse 88; Resp 18; Temp 98.8(O); Pulse Ox 98% on 4 lpm NC; Weight 40.82 db kg; Height 5 ft. 2 in. (157.48 cm); Pain 0/10; 16:30 BP 109 / 60; Pulse 83; Resp 18; Pulse Ox 100% on 4 lpm NC; db 17:30 BP 120 / 74; Pulse 82; Resp 18; Pulse Ox 100% on R/A; db 18:30 BP 122 / 69; Pulse 84; Resp 18; Pulse Ox 100% on R/A; db 19:24 BP 116 / 65; Pulse 91; Resp 18; Pulse Ox 99% 2 lpm ; jj7 15:55 Body Mass Index 16.46 (40.82 kg, 157.48 cm) db MDM: 15:43 Patient medically screened. snw 16:57 Differential diagnosis: bronchitis, flu, URI, COPD exacerbation. Data reviewed: vital snw signs, nurses notes. Data interpreted: Pulse oximetry: on 2L(s) per nasal canula, is 100 %. Interpretation: normal. Counseling: I had a detailed discussion with the patient and/or guardian regarding: the historical points, exam findings, and any diagnostic results supporting the discharge/admit diagnosis, lab results, radiology results, the need for outpatient follow up. 09/29 16:05 Order name: Basic Metabolic Panel; Complete Time: 19:50 snw 09/29 19:51 Interpretation: Normal except: NA 133; CL 95; CO2 34; GLUC 155; CRE 0.38; CA 8.4. cp 09/29 16:05 Order name: CBC with Diff; Complete Time: 17:21 snw 09/29 16:05 Order name: Magnesium; Complete Time: 19:50 snw 09/29 16:05 Order name: Troponin HS; Complete Time: 19:50 snw 09/29 16:05 Order name: XRAY Chest (1 view); Complete Time: 17:09 snw 09/29 16:05 Order name: EKG; Complete Time: 16:05 snw 09/29 16:05 Order name: Cardiac monitoring; Complete Time: 16:58 snw 09/29 16:05 Order name: EKG - Nurse/Tech; Complete Time: 16:58 snw 09/29 16:05 Order name: IV Saline Lock; Complete Time: 16:58 snw 09/29 16:05 Order name: Labs collected and sent; Complete Time: 16:58 snw 09/29 16:05 Order name: O2 Per Protocol; Complete Time: 16:58 snw 09/29 16:05 Order name: O2 Sat Monitoring; Complete Time: 16:58 snw 09/29 17:24 Order name: Labs - recollect needed: recollect light green top; Complete Time: 19:08 bd EC:05 Rate is 78 beats/min. Rhythm is regular. QRS [place] is Normal. ND interval is normal. snw Clinical impression: Normal ECG. Administered Medications: 16:40 Drug: Aspirin Chewable Tablet 324 mg Route: PO; db Disposition: 17:00 Co-signature as Attending Physician, Kunal Lee DO I was immediately available on-site ms3 in the Emergency Department for consultation in the care of the patient. Disposition Summary: 09/29/22 19:53 Discharge Ordered Location: Home cp Condition: Serious cp Diagnosis - COPD/ Chronic obstructive pulmonary disease with (acute) exacerbation cp Followup: snw - With: Emergency Department - When: As needed - Reason: Worsening of condition Followup: snw - With: Private Physician - When: 2 - 3 days - Reason: Recheck today's complaints, Continuance of care, Re-evaluation by your physician Discharge Instructions: - Discharge Summary Sheet snw - Chronic Obstructive Pulmonary Disease Exacerbation snw Forms: - Medication Reconciliation Form cp - Thank You Letter cp - Antibiotic Education cp - Prescription Opioid Use cp Prescriptions: - Zithromax 500 mg Oral Tablet - take 1 tablet by ORAL route once daily for 5 days; 5 tablet; Refills: 0, snw Product Selection Permitted Signatures: Dispatcher [employer] EDAlda Madison Shelly, [employer]GER-[employer] Jorge García PA PA cp Kunal Lee DO DO ms3 Heena Granger, RN RN db
[2022-09-29 21:51] VITALS: TEMP 98.8
[2022-09-29 21:56] VITALS: BP 116/65; O2SAT 99
--- NOTE | 2022-10-01 17:43 | EKG ---
Test Date: 2022-09-29 Test Time: 17:01:36 Bleach Boiler Packer: FILIBERTO MEASUREMENT RESULTS: Intervals: Rate: 78 NE: 124 QRSD: 78 QT: 368 QTc: 419 Newton: P: 78 NE: 124 QRS: 75 T: 75 INTERPRETIVE STATEMENTS: Normal sinus rhythm Normal ECG Compared to ECG 06/04/2022 19:54:56 No significant changes Electronically Signed On 10-01-22 17:40:20 VASC TECH by Dale Baeza
== END 2022-09-29 21:14 | disposition home or self-care (01) ==
LOC: ER 15:38
DX: J44.1 Chronic obstructive pulmonary disease with (acute) exacerbation (principal)
CPT/HCPCS: 36415; 71045; 80048; 83735; 84484; 85025; 93005; 99284

== ENCOUNTER 2022-09-30 10:06 | Inpatient (IN) | payer OTHER, SELFPAY ==
--- OUTSIDE RECORDS SUMMARY | 2022-09-30 10:12 | XMS REPORT | Continuity of Care Document ---
:1960 Author Organization [facility] t Address [facility] [place] [address] Care Team Providers Name Role Phone PCP, PATIENT DOES NOT HAVE A Primary Care Physician Unavaildavid Savage Attending Clinician Unavailable Doctor Unassigned, [place] Attending Clinician Unavailable Ofelia Andrews LVN Attending Clinician AUSTIN REEDER Attending Clinician Unavailable Delmis Millan Attending Clinician Austin Reeder MD Attending Clinician Mark Coleman DO Attending Clinician [phone] Raheel Lucas MD Attending Clinician Khushbu Aguilera [...] Type Policy Number Effective Date Expiration Date Katherine he PHCS GENERIC [id number] 2015 00:00:00 Problems Condition Condition Condition Status [...] y failure [place] with with Medical hypoxia hypoxia Branch 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 09/03/21: THORACIC SPINE?Exa ggerated thoracic kyphosis. Moderate anterior wedging deformity of T7and mild anterior wedging deformity of T9 vertebral bodies noted, ageindete rminant. There is also age indetermi nant mild superior endplated epression of T12. The vertebral bodies are otherwise normal in height andalignm ent. Correlati on with point of tendernes s is recommend ed.?There is diffuse demineral [...] l soft tissues are unremarka ble. COVID-19 COVID19 Disease Active Overview: Un demetris virus virus -05 Formattin ity of infection infection 00:00: g [...] different from the original. 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 Chronic Chronic Disease Active 2005-09 Univers obstructiv obstructiv 2-12 it y of e e 00:00: [place] [...] 2-13 ity of adverse 00:00: [place] reaction 00 Medical s Branch PRIMIDON DRUG Active Rash 2005-09 Univers E INGREDI 2-13 ity of 00:00: [place] 00 Medical Branch Social History Social Habit Start Date Stop Date Quantity Comments Source Exposure to Not sure University of SARS-CoV-2 (event) [facility] History of tobacco Cigarette Smoker University of use [facility] Tobacco Comment 2021-09-29 2021-09-29 smokes a few Univers ity of 00:00:00 00:00:00 cigs per day now [facility] dical [place] Alcohol intake 2021-09-29 2021-09-29 0 /d University of 00:00:00 00:00:00 [facility] Cigarettes smoked 2015-09-28 2015-09-28 Univers ity of current (pack per 00:00:00 00:00:00 [facility] ) - Reported Branch Tobacco use and 2015-09-28 2015-09-28 Never used Universit y of exposure 00:00:00 00:00:00 [facility] Sex [birth year] At [birth year] Universit y of 00:00:00 00:00:00 [facility] Smoking Status Start Date Stop Date Source Current every day smoker 2015-09-28 00:00:00 Uni versity of [facility] Medications Ordered Filled Start Stop Current Ordering Indication Dosage Frequency Signature Comments Components Source Medication Medication Date Date Medication? Clinician (SIG) Name Name doxepin Yes 75mg Take 75 mg Univ [...] at [place] tablet 48 bedtime. Medical Branch Dias's 2021- No 15mL 15 mL, Univers magic 1-15 -15 Oral, ity of mouthwash 01:59: 02:44 ONCE, 1 [place] (([facility] 00 :00 dose, On Medical COMPOUND)) Fri Branch suspension 10/08/21 at 15 mL 2000, JUWAN pantoprazol 2021- No [id number] 40mg Take 1 Univers e 40 mg EC 14 -15 tablet by ity of tablet 00:00: 04:59 mouth [place] 00 :00 daily for Medical 90 days. Branch pantoprazol 2021- No [id number] 40mg Take 1 Univers e 40 mg EC 10-08-15 tablet by ity of tablet 00:00: 04:59 mouth [place] 00 :00 daily for Medical 90 days. Branch pantoprazol 2021- No [id number] 40mg Take 1 Univers e 40 mg EC 10-08-15 tablet by ity of tablet 00:00: 04:59 mouth [place] 00 :00 daily for Medical 90 days. Branch albuterol Yes [id number] 2{puff} Inhale 2 Univers 90 1-13 Puffs ity of mcg/actuati 00:00: every 6 [place] on inhaler 00 (six) Medical hours as Branch needed for Wheezing or Shortness of Breath. ipratropium Yes [id number] 2{puff} Inhale 2 Univers 17 1-13 Puffs ity of mcg/actuati 00:00: every 6 [place] on inhaler 00 (six) Medical hours as Branch needed for Shortness of Breath or Wheezing. fluticasone Yes [id number] 2{spray Use 2 Univers propionate 1-13 } Sprays in ity of 50 00:00: each [place] mcg/actuati 00 nostril 2 Med ical on nasal (two) Branch spray times daily. albuterol Yes [id number] 2{puff} Inhale 2 Univers 90 1-13 Puffs ity of mcg/actuati 00:00: every 6 [place] on inhaler 00 (six) Medical hours as Branch needed for Wheezing or Shortness of Breath. ipratropium Yes [id number] 2{puff} Inhale 2 Univers 17 1-13 Puffs ity of mcg/actuati 00:00: every 6 [place] on inhaler 00 (six) Medical hours as Branch needed for Shortness of Breath or Wheezing. fluticasone Yes [id number] 2{spray Use 2 Univers propionate 1-13 } Sprays in ity of 50 00:00: each [place] mcg/actuati 00 nostril 2 Med ical on nasal (two) Branch spray times daily. albuterol Yes [id number] 2{puff} Inhale 2 Univers 90 1-13 Puffs ity of mcg/actuati 00:00: every 6 [place] on inhaler 00 (six) Medical hours as Branch needed for Wheezing or Shortness of Breath. ipratropium Yes [id number] 2{puff} Inhale 2 Univers 17 1-13 Puffs ity of mcg/actuati 00:00: every 6 [place] on inhaler 00 (six) Medical hours as Branch needed for Shortness of Breath or Wheezing. fluticasone Yes [id number] 2{spray Use 2 Univers propionate 1-13 } Sprays in ity of 50 00:00: each [place] mcg/actuati 00 nostril 2 Med ical on nasal (two) Branch spray times daily. guaiFENesin 2021- No [id number] 400mg Take 1 Univers 400 mg 10-07 tablet by ity of tablet 00:00: 05:59 mouth [place] 00 :00 every 4 Medical (four) Branch hours as needed for Cough (congestio n in chest) for up to 30 days. guaiFENesin 2021- No [id number] 400mg Take 1 Univers 400 mg 10-07 tablet by ity of tablet 00:00: 05:59 mouth [place] 00 :00 every 4 Medical (four) Branch hours as needed for Cough (congestio n in chest) for up to 30 days. guaiFENesin 2021- No [id number] 400mg Take 1 Univers 400 mg 10-07 tablet by ity of tablet 00:00: 05:59 mouth [place] 00 :00 every 4 Medical (four) Branch hours as needed for Cough (congestio n in chest) for up to 30 days. benzonatate 2021-0 2021- No [id number] 100mg Take 1 Univers 100 mg 10-07 capsule by ity of capsule 00:00: 05:59 mouth [place] 00 :00 every 8 Medical (eight) Branch hours as needed for Cough for up to 20 days. benzonatate 2021-0 2021- No [id number] 100mg Take 1 Univers 100 mg 10-07 capsule by ity of capsule 00:00: 05:59 mouth [place] 00 :00 every 8 Medical (eight) Branch hours as needed for Cough for up to 20 days. benzonatate 2021-2021- No [id number] 100mg Take 1 Univers 100 mg 10-07 capsule by ity of capsule 00:00: 05:59 mouth [place] 00 :00 every 8 Medical (eight) Branch hours as needed for Cough for up to 20 days. pantoprazol Yes 40mg 40 mg, Univ ers e 10-05 Oral, ity of (PROTONIX) 23:00: DAILY, [place] EC tablet 00 First dose Medi ed 40 mg on 10/05/21 at 1700, Until Discontinu ed, Routine magnesium No 400mg 400 mg, Uni vers oxide 10-05 Oral, ity of (MAG-OX 14:00: 15:39 ONCE, 1 [place] 400) tablet 00 :00 dose, On Medi ed 400 mg [facility] 10/05/21 at 0800, Routine alum-mag Yes 30mL 30 mL, Univers hydroxide-s 10-05 Oral, ity of imeth 06:39: Q6HPRN, [place] (MAALOX 17 Starting Medical PLUS / on Mon Branch MAG-AL 10/05/21 at PLUS) 0039, 200-200-20 Until mg/5 mL Discontinu suspension ed, 30 mL Routine, Indigestio n magnesium 2021- No 400mg 400 mg, Uni vers oxide 10-03 Oral, ity of (MAG-OX 13:45: 14:26 ONCE, 1 [place] 400) tablet 00 :00 dose, On Medi ed 400 mg 10/03/21 Branch at 0745, Routine codeine-gua 202-0 Yes 5mL 5 mL, Unive rs ifenesin 1-08 Oral, Q6H, ity o f (ROBITUSSIN 18:00: First dose [place] AC) 10-100 00 on [facility] Medical mg/5 mL 10/02/21 at Branch oral 1200, solution 5 Until mL Discontinu ed, Routine guaiFENesin 2021-0 2021- No 100mg 100 mg, U nivers 100 mg/5 mL 10-02-08 Oral, Q4H, i ty of solution 18:00: 17:26 First dose [place] 100 mg 00 :17 on [facility] Medical 10/02/21 at Branch 1200, Until Discontinu ed, Routine benzonatate 2021-0 Yes 100mg 100 mg, Un demetris (TESSALON 1-08 Oral, Q8H, ity of PERLES) 15:45: First dose [place] capsule 100 00 on [facility] Medica l mg 10/02/21 at Branch [...] 08 Oral, ity of (TYLENOL 10:02: Q6HPRN, [place] #3) 300-30 55 Starting Medic al mg tablet 1 on [facility] Branch tablet 10/02/21 at 0402, Until Discontinu ed, Routine, Pain (scale 4-6), Pain (scale 7-10) azithromyci 2021-0 202- No 500mg 500 mg, U nivers n [...] First dose [place] mg 00 on [facility] Medical 09/30/21 at Branch 2100, Until Discontinu ed, Routine fluticasone 0 Yes 2{spray 2 [place], [facility] propionate 10-01 } Nasal, ity of 50 02:00: BID, First [place] mcg/actuati 00 dose on Medic al on nasal [facility] 09/30/21 Branc h spray 2 at 2000, [place] Until Discontinu ed, Routine ondansetron Yes 4mg 4 mg, Unive rs (ZOFRAN) 09-30 Oral, ity of tablet 4 mg 16:14: Q8HPRN, [place] 58 Starting Medical on [facility] 09/30/21 at 1014, Until Discontinu ed, Routine, Nausea and Vomiting (N/V) enoxaparin 0 Yes 40mg 40 mg, Unive rs (LOVENOX) 09-30 Subcutaneo ity of injection 15:00: [place], DAILY, [place] 40 mg 00 First dose Medical on [facility] 09/30/21 at 0900, Until Discontinu ed, Routine predniSONE 2021-0 202- No 40mg 40 mg, Univ ers (DELTASONE) 09-30 01-10 Oral, ity of tablet 40 15:00: 14:16 DAILY, 5 [place] mg 00 :00 doses, Medical First dose Branch on [facility] 09/30/21 at 0900, Last dose on 10/04/21 at 0900, Routine albuterol-i 0 Yes 2{puff} 2 Puff, [facility] pratropium 09-30 Inhalation ity of (COMBIVENT 06:00: , Q6H, [place] RESPIMAT) 00 First dose Medi ed 20-100 on [facility] mcg/actuati 09/30/21 at on inhaler 0000, 2 Puff Until Discontinu ed, Routine
Is this order for a patient with suspected or confirmed COVID-19 infection? Yes codeine-gua 2021- No 10mL 10 mL, Uni vers ifenesin 09-30 Oral, ity of (ROBITUSSIN 04:28: 14:23 Q6HPRN, [place] AC) 10-100 19 :12 Starting Medic al mg/5 mL on Wed Branch oral 09/29/21 at solution 10 2228, mL Until 10/02/21 at 0823, Routine, Cough acetaminoph 2021- No 1{tbl} 1 tablet, Univers en-codeine 09-30 Oral, ity of (TYLENOL 04:26: 04:25 Q6HPRN, [place] #3) 300-30 53 :53 Starting Medic al mg tablet 1 on Mon Branch tablet 09/29/21 at 2226, Until 10/01/21 at 2225, Routine, Pain (scale 4-6) acetaminoph Yes 650mg 650 mg, Un demetris en 09-30 Oral, ity of (TYLENOL) 04:26: Q6HPRN, [place] tablet 650 50 Starting Medic al mg on Wed Branch 09/29/21 at 2226, Until Discontinu ed, Routine, Pain (scale 1-3) ketorolac 2021- No 15mg 15 mg, Unive rs (TORADOL) 09-30 Slow IV ity of injection 00:45: 00:11 Push, [place] 15 mg 00 :00 ONCE, 1 Medical dose, On Branch 09/29/21 at 1845, Routine
tribunal member approving Restricted medication : Delmis BANUELOS acetaminoph 2021- No 650mg 650 mg, U nivers en 09-30 Oral, ity of (TYLENOL) 00:45: 00:11 ONCE, 1 [place] tablet 650 00 :00 dose, On Medic al mg 09/29/21 Branch at 1845, JUWAN methylpredn 2021- No 125mg 125 mg, U nivers isolone sod 09-29 Slow IV ity of succ 22:30: 21:36 Push, [place] (SOLU-MEDRO 00 :00 ONCE, 1 Medic al L) dose, On Branch injection 09/29/21 125 mg at 1630, STAT ipratropium No 3mL 3 mL, Univ ers -albuteroL 09-29 Inhalation it y of (DUONEB) 22:30: 21:27 , ONCE, 1 [place] 0.5 mg-3 00 :00 dose, On Medical mg(2.5 mg Mon09/29/21 Bran ch base)/3 mL at 1630, nebulizer Routine solution 3 mL magnesium No 2g 2 g, IV Univ ers [...] 09/10/21 at 0215, JUWAN iodixanol 2020-09- No [id number] 80mL 80 mL, Univers (VISIPAQUE 11-11 Intravenou [...] Medi ed tablet 1 Mon Branch tablet 12/10/21 at 2100, JUWAN acetaminoph 2020-09 Yes [id number] 1{tbl} Take 1 Un demetris en-codeine 2-10 tablet by ity of 300-30 mg 00:00: mouth [place] tablet 00 every 4 Medical (four) Branch hours as needed for Pain (scale 7-10). Indication s: acute pain lidocaine 2020-09 Yes [id number] Apply Univers % (700 2-10 04 patch [...] Indication s: acute pain lidocaine 2020-09 Yes [id number] Apply Univers % (700 2-10 04 patch [...] Indication s: acute pain lidocaine 2020-09 Yes [id number] Apply Univers % (700 2-10 04 patch [...] Indication s: acute pain lidocaine 2020-09 Yes [id number] Apply Univers % (700 2-10 04 patch [...] s: acute pain lidocaine 5 2020-09 Yes [id number] Apply Univers % (700 2-10 04 patch [...] Indication s: acute pain lidocaine 2020-09 Yes [id number] Apply Univers % (700 2-10 04 patch to ity of mg/patch) 00:00: the area [place] patch 00 you are Medical having Branch pain and remove after 12 hours. Use 1 patch per 24 hours. May cut patches to size. ondansetron 2019-09 Yes [id number] 4mg Take 1 Univers (ZOFRAN) 4 1-09 tablet by ity of mg tablet 00:00: mouth [place] 00 every 8 Medical (eight) Branch hours. ondansetron 2019-09 Yes [id number] 4mg Take 1 Univers (ZOFRAN) 4 1-09 tablet by ity of mg tablet 00:00: mouth [place] 00 every 8 Medical (eight) Branch hours. ondansetron 2019-09 Yes [id number] 4mg Take 1 Univers (ZOFRAN) 4 1-09 [...] Indication s: acute pain ondansetron 2019-09 Yes [id number] 4mg Take 1 Univers (ZOFRAN) 4 -09 tablet by ity of mg tablet 00:00: mouth [place] 00 every 8 Medical (eight) Branch hours. ondansetron 2019-09- No [id number] 4mg Take 1 Univers (ZOFRAN) 4 10-03 [...] Source Systolic blood 2021-10-09 21:22:00 107 mm[Hg] [facility] Diastolic blood 2021-10-09 21:22:00 68 mm[Hg] [facility] Heart rate 2021-10-09 21:22:00 92 /min [facility] Body temperature 2021-10-09 21:22:00 36.72 Ruchi [facility] Respiratory rate 2021-10-09 21:22:00 18 /min [facility] Oxygen saturation in 2021-10-09 21:22:00 100 /min [facility] Arterial blood by [facility] Pulse oximetry Branch Body height 2021-09-30 05:31:00 157.5 cm [facility] Body weight 2021-09-30 05:31:00 43 kg Universi ty of [place] [facility] BMI 2021-09-30 05:31:00 17.33 kg/m2 Universi ty of [place] [facility] Systolic blood 2021-09-21 04:48:00 130 mm[Hg] Univer sity of pressure [place] [facility] Diastolic blood 2021-09-21 04:48:00 78 mm[Hg] Unive rsity of pressure [place] [facility] Heart rate 2021-09-21 04:48:00 92 /min Universi ty of [place] [facility] Body temperature 2021-09-21 04:48:00 36.44 Ruchi Univ ersity of [place] [facility] Respiratory rate 2021-09-21 04:48:00 14 /min Univ ersity of [place] [facility] Body weight 2021-09-21 04:48:00 43.092 kg Universi ty of [place] [facility] BMI 2021-09-21 04:48:00 17.38 kg/m2 Universi ty of [place] [facility] Oxygen saturation in 2021-09-21 04:48:00 96 /min University of Arterial blood by [facility] ed Pulse oximetry Branch Heart rate 2021-09-10 09:15:00 93 /min Universi ty of [place] [facility] Respiratory rate 2021-09-10 09:15:00 19 /min Univ ersity of [place] [facility] Oxygen saturation in 2021-09-10 09:15:00 95 /min University of Arterial blood by [facility] Pulse oximetry Branch Systolic blood 2021-09-10 08:10:00 111 mm[Hg] Univer sity of pressure [place] [facility] Diastolic blood 2021-09-10 08:10:00 51 mm[Hg] Unive rsity of pressure [place] [facility] Body temperature 2021-09-10 06:19:00 36.39 Ruchi Univ ersity of [place] [facility] Body height 2021-09-10 06:19:00 157.5 cm Universi ty of [place] [facility] Body weight 2021-09-10 06:19:00 43.092 kg Universi ty of [place] [facility] BMI 2021-09-10 06:19:00 17.38 kg/m2 Universi ty of [place] [facility] Systolic blood 2021-09-04 04:57:43 127 mm[Hg] Univer sity of pressure [place] [facility] Diastolic blood 2021-09-04 04:57:43 68 mm[Hg] Unive rsity of pressure [facility] Heart rate 2021-09-04 04:57:43 75 /min Universi ty of [place] [facility] Respiratory rate 2021-09-04 04:57:43 17 /min Univ ersity of [facility] Branch Oxygen saturation in 2021-09-04 04:57:43 97 /min University of Arterial blood by [facility] Pulse oximetry Branch Body temperature 2021-09-03 23:44:00 36.72 Ruchi Univ ersity of [place] [facility] Body height 2021-09-03 23:44:00 157.5 cm Universi ty of [place] [facility] Body weight 2021-09-03 23:44:00 43.092 kg Universi ty of [facility] Branch BMI 2021-09-03 23:44:00 17.38 kg/m2 Universi ty of [facility] Systolic blood 2020-08-04 01:16:00 122 mm[Hg] Univer sity of pressure [facility] Branch Diastolic blood 2020-08-04 01:16:00 76 mm[Hg] Unive rsity of pressure [facility] Heart rate 2020-08-04 01:16:00 80 /min Universi ty of [facility] Body temperature 2020-08-04 01:16:00 36.44 Ruchi [facility] ersity of [facility] Branch Respiratory rate 2020-08-04 01:16:00 20 /min Univ ersity of [facility] Branch Oxygen saturation in 2020-08-04 01:16:00 97 /min University of Arterial blood by [facility] Pulse oximetry Branch Body weight 2020-08-03 20:01:00 45.397 kg Universi ty of [place] [facility] BMI 2020-08-03 20:01:00 18.31 kg/m2 Universi ty of [place] [facility] Procedures Procedure Date / Time Performing Clinician Source Performed DNR 2021-10-26 06:01:00 Doctor Unassigned, [facility] [place] [facility] COVID-19 (ID NOW RAPID 2021-10-06 00:27:00 Ruth Cano [facility] [place] TESTING) Medical Branch LAB ONLY COVID 2021-10-06 00:27:00 Ruth Cano o f [place] INTERPRETATION Medical Branch MAGNESIUM 2021-10-05 10:22:00 Ana Cristina [facility] BASIC METABOLIC PANEL 2021-10-05 10:22:00 [facility], K, CL, CO2, GLUCOSE, Medica l Branch BUN, CREATININE, CA) XR CHEST 1 VW 2021-10-04 17:25:00 Ana Cristina [facility] MAGNESIUM 2021-10-04 10:42:00 Ana Cristina [facility] BASIC METABOLIC PANEL 2021-10-04 10:42:00 Ana Cristina [facility] (NA, K, CL, CO2, GLUCOSE, Medica l Branch BUN, CREATININE, CA) CBC WITH DIFF 2021-10-04 10:42:00 Ana Cristina [facility] MAGNESIUM 2021-10-03 09:43:00 Ana Cristina [facility] BASIC METABOLIC PANEL 2021-10-03 09:43:00 Ana Cristina [facility] (NA, K, CL, CO2, GLUCOSE, Medica l Branch BUN, CREATININE, CA) MAGNESIUM 2021-10-02 10:03:00 Ana Cristina [facility] BASIC METABOLIC PANEL 2021-10-02 10:03:00 Ana Cristina [facility] (NA, K, CL, CO2, GLUCOSE, Medica l Branch BUN, CREATININE, CA) CBC WITH DIFF 2021-10-02 10:03:00 Ana Cristina [facility] SPUTUM CULTURE 2021-09-30 10:59:00 Su [facility] LACTATE DEHYDROGENASE 2021-09-30 10:55:00 Su [facility] C-REACTIVE PROTEIN 2021-09-30 10:55:00 Chris Blue [facility] BASIC METABOLIC PANEL 2021-09-30 10:54:00 Su [facility] (NA, K, CL, CO2, GLUCOSE, Medica l Branch BUN, CREATININE, CA) CBC WITH DIFF 2021-09-30 10:54:00 Su [facility] PNEUMOCOCCAL ANTIGEN 2021-09-30 05:39:00 Chris Blue [facility] ASSIGNMENT OF BENEFITS 2021-09-29 21:39:32 Doctor Unassigned, [facility] [place] [facility] XR CHEST 1 VW 2021-09-29 21:15:29 Delmis Banuelos [facility] COVID-19 (ID NOW RAPID 2021-09-29 21:11:00 Delmis Banuelos [facility] TESTING) Medical Branch LAB ONLY COVID 2021-09-29 21:11:00 Delmis Banuelos [facility] INTERPRETATION [facility] Branch LIPASE 2021-09-29 21:07:00 Delmsi Banuelos [facility] FERRITIN SERUM 2021-09-29 21:07:00 Chris Blue [facility] TROPONIN I 2021-09-29 21:07:00 Delmis Banuelos [facility] COMP. METABOLIC PANEL 2021-09-29 21:07:00 Delmis Banuelos [facility] ([id number]) [facility] CBC WITH DIFF 2021-09-29 21:07:00 Delmis Banuelos [facility] PROTHROMBIN TIME / INR 2021-09-29 21:07:00 Delmis Banuelos [facility] ACTIVATED PARTIAL 2021-09-29 21:07:00 Delmis Banuelos [facility] THRMPLAS [facility] HB ECG ROUTINE & RHYTHM 2021-09-29 20:41:22 Delmis Banuelos [facility] CONSENT/REFUSAL FOR 2021-09-29 20:20:30 [facility] [place] DIAGNOSIS AND TREATMENT [place] [facility] XR CHEST 1 VW 2021-09-10 06:41:20 Angelo Schulz [facility] TROPONIN I 2021-09-10 06:31:00 Angelo Schulz [facility] COMP. METABOLIC PANEL 2021-09-10 06:31:00 Angelo Schulz [facility] ([id number]) [facility] N-TERMINAL PRO-BNP 2021-09-10 06:31:00 Angelo Schulz [facility] CBC WITH DIFF 2021-09-10 06:30:00 Angelo Schulz [facility] D-DIMER 2021-09-10 06:30:00 Angelo Schulz [facility] COVID-19 (ID NOW RAPID 2021-09-10 06:30:00 Angelo Schulz [facility] TESTING) Medical Branch XR LUMBAR SPINE 2 VW 2021-09-04 03:14:07 Khushbu Mcghee [facility] XR SPINE THORACIC 2 VW 2021-09-04 03:14:07 Khushbu Mcghee [facility] NOTICE OF PRIVACY 2021-09-03 23:23:15 Doctor Unassigned, [facility] PRACTICES [place] [facility] CONSENT/REFUSAL FOR 2021-09-03 23:22:33 Doctor Unassigned, [facility] DIAGNOSIS AND TREATMENT [place] [facility] URINALYSIS 2020-08-04 00:34:00 Kierra Powell [facility] US ABDOMEN LIMITED 2020-08-03 22:18:34 Kierra Powell [facility] XR ABDOMEN ACUTE SERIES 2020-08-03 21:19:00 Kierra Powell [facility] LIPASE 2020-08-03 21:04[facility] 2020-08-03 21:04:00 [facility] 2020-08-03 21:04:00 Kierra Powell [facility] ([id number]) (ALB,T.PRO,BILI [facility] T,BU/BC,ALT,AST,ALK PHOS) BASIC METABOLIC PANEL 2020-08-03 21:04:00 Kierra Powell [facility] (NA, K, CL, CO2, GLUCOSE, Medica l Branch BUN, CREATININE, CA) CBC WITH DIFF 2020-08-03 21:04:00 Kierra Powell [facility] Encounters Start End Encounter Admission Attending Care Care Encounter Source Date/Time Date/Time Type Type Clinicians Facility Department ID 2022-06-28 2022-06-28 Outpatient Arceneaux_C VFP VFP [id number] [facility] 00:00:00 00:00:00 [id number] Family Practic e 2021-10-26 2021-10-26 Orders Doctor CATHLEEN [id number] Univers 00:00:00 00:00:00 Only Unassigned, ROLLY [id number] ity of [place] [facility] [id number] [place] [id number] [facility] 009 Branch 2021-10-12 2021-10-12 Transition LEAH Andrews [id number] Univers 00:00:00 00:00:00 of Care Ofelia GONGORA [id number] ity of [place] [id number] [place] [id number] [facility] 403 Branch 2021-09-29 2021-10-09 Inpatient X MAGGIE HURON [facility] [id number] Univers 14:42:00 17:29:00 [place] ity [facility] 2021-09-29 2021-10-09 [facility] Doc Delmis MERINO 1.2.840.1 [id number] Univers 14:42:00 17:29:00 Encounter Austin Reeder 350.1. 13.10 ity of [facility] 4.2.7 .2.686 [facility] Raheel [id number] Medical 094 Branch 2021-09-20 2021-09-[address] [facility] [id number] Univers 22:52:00 00:06:00 Khushbu S JANEL 350.1.13.10 i ty of [place] 4.2.7.2.686 [place] [facility] [id number] [facility] 084 Branch 2021-09-10 2021-09-10 Emergency X [facility] ERT [id number] Univers 00:14:00 03:39:00 ANGELO ity [facility] 2021-09-10 2021-09-10 Emergency [place] 1.2.184.411 [id number] Univers 00:14:00 03:39:00 Angelo ISLAS 350.1.13.10 i ty of FELIPE 4.2.7.2.686 [facility] [id number] [place] 7[address]114 Branch 2021-09-03 2021-09-03 Emergency X [facility] ERT [id number] Univers 17:45:00 23:04:00 [facility] 2021-09-03 2021-09-[address] [facility] [id number] Univers 17:45:00 23:04:00 Khushbu JANEL 350.1.13.10 i ty of [place] 4.2.7.2.686 [facility] [id number] [place] [address] Branch 2020-08-03 2020-08-03 Emergency Yarima, TRAUMA 1.2.158.621 [id number] Univers 14:01:00 19:26:00 [facility] 350.1.13.10 i ty of 4.2.7.2.6 [facility] [id number] [facility] 014 Branch 2020-08-03 2020-08-03 [facility] [id number] Univers 14:01:00 14:01:00 [facility] 2019-11-07 2019-11-07 Outpatient MARCIA Ventura W [id number] [facility] 09:46:00 09:46:00 [facility] 2019-10-28 2019-10-28 Emergency EM Stephens, [facility] [id number] [facility] 18:21:00 18:21:[address] Results Test Description Test Time Test Comments Results Result Comments Source BASIC METABOLIC PANEL (NA, K, CL, CO2, GLUCOSE, BUN, 2021-09 11:25:14 CREATININE, [place]) Test Item Value Reference Range Interpretation Comme nts NA (test code = 9477873446) 136 mmol/L 135-145 K (test code = 2257875685) 3.6 mmol/L 3.5-5.0 CL (test code = 1919465998) 97 mmol/L 98-108 L CO2 TOTAL (test code = 1263225043) 33 mmol/L 23-31 H AGAP (test code = 5923962112) 2-16 BUN (test code = 4614797396) 13 mg/dL 7-23 GLUCOSE (test code = 8726207380) 95 mg/dL 70-110 CREATININE (test code = 0.52 mg/dL 0.50-1.04 7946678571) CALCIUM (test code = 1788644681) 9.2 mg/dL 8.6-10.6 eGFR (test code = 0507061146) mL/min/1.73m2 OMAR (test code = OMAR) Association [...] tests). Lab Interpretation (test code = Abnormal 64621-4) [facility]14 Test Item Value Reference Range Interpretation Comments MAGNESIUM (test code = 7222711019) 1.8 mg/dL 1.7-2.4 Lab Interpretation (test code = Normal 09227-6) [facility] METABOLIC PANEL (NA, K, CL, CO2, GLUCOSE, BUN, CREATININE, CA)2021-10-04 11:24:13 Test Item Value Reference Range Interpretation Comments NA (test code = 137 mmol/L 135-145 8080282175) K (test code = 3.7 mmol/L 3.5-5.0 7579929532) CL (test code = 100 mmol/L 98-108 4948875615) CO2 TOTAL (test code = 33 mmol/L 23-31 H 3651132111) AGAP (test code = 2-16 0438752787) BUN (test code = 14 mg/dL 7-23 4091868676) GLUCOSE (test code = 88 mg/dL 70-110 1439719387) CREATININE (test code = 0.52 mg/dL 0.50-1.04 8105037388) CALCIUM (test code = 8.7 mg/dL 8.6-10.6 5786726063) eGFR (test code = mL/min/1.73m2 7567822360) OMAR (test code = OMAR) Association of [...] tests). Lab Interpretation Abnormal (test code = 22648-1) [facility] 11:24:13 Test Item Value Reference Range Interpretation Comments MAGNESIUM (test code = 0588760314) 1.9 mg/dL 1.7-2.4 Lab Interpretation (test code = Normal 11276-0) [facility] WITH [id number] 11:02:11 Test Item Value Reference Range Interpretation Comments WBC (test code = See_Comment [Automated 0390-2) message] The sy stem which generated this result transmitted reference range : 4.30 - 11.10 10*3/?L. The reference range was not used to interpret this result as normal/abnormal . RBC (test code = See_Comment [Automated 109-8) message] The sy stem which generated this [...] RDW-SD (test code = 41.9 fL 39.0-49.9 20557-8) RDW-CV (test code = 12.0 % 12.0-15.5 788-0) PLT (test code = See_Comment [Automated 777-3) message] The sy stem which generated this result transmitted reference range : 166 - 358 10*3/ ?L. The reference r shakira was not used to interpret this result as normal/abnormal . MPV (test code = 10.3 fL 9.5-12.9 79585-7) NRBC/100 WBC (test See_Comment [Automat ed code = 2697418648) message] The system which generated this result transmitted reference range : 0.0 - 10.0 /100 WBCs. The refer ence range was not u sed to interpret th is result as normal/abnormal . NRBC x10^3 (test code <0.01 See_Comment [Auto mated = 3480986936) message] The s ystem which generated this result transmitted reference range : 10*3/?L. The reference range was not used to interpret this result as normal/abnormal . GRAN MAT (NEUT) % 50.5 % (test code = 770-8) IMM GRAN % (test code 0.10 % = 4940896316) LYMPH % (test code = 38.2 % 736-9) MONO % (test code = 6.4 % 5905-5) EOS % (test code = 3.5 % 713-8) BASO % (test code = 1.3 % 706-2) GRAN MAT x10^3(ANC) 4.01 10*3/uL 1.88-7.09 (test code = 0244220253) IMM GRAN x10^3 (test <0.03 0.00-0.06 code = 1647210786) LYMPH x10^3 (test code 3.03 10*3/uL 1.32-3.29 = 731-0) MONO x10^3 (test code 0.51 10*3/uL 0.33-0.92 = 742-7) EOS x10^3 (test code = 0.28 10*3/uL 0.03-0.39 711-2) BASO x10^3 (test code 0.10 10*3/uL 0.01-0.07 H = 704-7) Lab Interpretation Abnormal (test code = 84421-5) [facility] METABOLIC PANEL (NA, K, CL, CO2, GLUCOSE, BUN, CREATININE, CA)2021-10-03 10:23:35 Test Item Value Reference Range Interpretation Comments NA (test code = 136 mmol/L 135-145 8558632321) K (test code = 3.6 mmol/L 3.5-5.0 6399571556) CL (test code = 101 mmol/L 98-108 4285192028) CO2 TOTAL (test code = 31 mmol/L 23-31 3562014286) AGAP (test code = 2-16 6950037509) BUN (test code = 12 mg/dL 7-23 9609098760) GLUCOSE (test code = 84 mg/dL 70-110 4439326458) CREATININE (test code = 0.47 mg/dL 0.50-1.04 L 4627514525) CALCIUM (test code = 8.3 mg/dL 8.6-10.6 L 2306709207) eGFR (test code = mL/min/1.73m2 9791644140) OMAR (test code = OMAR) Association of [...] tests). Lab Interpretation Abnormal (test code = 99541-7) [facility]35 Test Item Value Reference Range Interpretation Comments MAGNESIUM (test code = 5941105588) 1.7 mg/dL 1.7-2.4 Lab Interpretation (test code = Normal 64643-5) [facility] [id number] 18:57:08 Test Item Value Reference Range Interpretation Comments SPUTUM CULTURE 3+ Respiratory rut: (test code = 622-1) Commensal upper respiratory microorganisms only. Gram stain (test Few Epithelial cells code = 664-3) present OMAR (test code = Bacterial pathogens OMAR) associated with lower respiratory infections were not identified, which include Pseudomonas aeruginosa and Staphylococcus aureus (MRSA or MSSA). [facility] METABOLIC PANEL (NA, K, CL, CO2, GLUCOSE, BUN, CREATININE, CA)2021-10-02 10:42:30 Test Item Value Reference Range Interpretation Comments NA (test code = 136 mmol/L 135-145 4256569910) K (test code = 3.6 mmol/L 3.5-5.0 9440599289) CL (test code = 98 mmol/L 98-108 3453132612) CO2 TOTAL (test code = 32 mmol/L 23-31 H 1678612304) AGAP (test code = 2-16 2916248631) BUN (test code = 14 mg/dL 7-23 3902110893) GLUCOSE (test code = 82 mg/dL 70-110 0243813841) CREATININE (test code = 0.56 mg/dL 0.50-1.04 1287530286) CALCIUM (test code = 8.7 mg/dL 8.6-10.6 8730123848) eGFR (test code = mL/min/1.73m2 8797923177) OMAR (test code = OMAR) Association of [...] tests). Lab Interpretation Abnormal (test code = 71080-6) [facility] 10:42:30 Test Item Value Reference Range Interpretation Comments MAGNESIUM (test code = 0776930604) 1.8 mg/dL 1.7-2.4 Lab Interpretation (test code = Normal 40293-7) [facility] WITH [id number] 10:25:30 Test Item Value Reference Range Interpretation Comments WBC (test code = See_Comment [Automated 8430-2) message] The sy stem which generated this result transmitted reference range : 4.30 - 11.10 10*3/?L. The reference range was not used to interpret this result as normal/abnormal . RBC (test code = See_Comment [Automated 772-8) message] The sy stem which generated this [...] RDW-SD (test code = 41.2 fL 39.0-49.9 70854-4) RDW-CV (test code = 11.9 % 12.0-15.5 L 788-0) PLT (test code = See_Comment [Automated 777-3) message] The sy stem which generated this result transmitted reference range : 166 - 358 10*3/ ?L. The reference r shakira was not used to interpret this result as normal/abnormal . MPV (test code = 10.5 fL 9.5-12.9 30410-4) NRBC/100 WBC (test See_Comment [Automat ed code = 5040584908) message] The system which generated this result transmitted reference range : 0.0 - 10.0 /100 WBCs. The refer ence range was not u sed to interpret th is result as normal/abnormal . NRBC x10^3 (test code <0.01 See_Comment [Auto mated = 0009595680) message] The s ystem which generated this result transmitted reference range : 10*3/?L. The reference range was not used to interpret this result as normal/abnormal . GRAN MAT (NEUT) % 62.7 % (test code = 770-8) IMM GRAN % (test code 0.20 % = 6229903119) LYMPH % (test code = 27.7 % 736-9) MONO % (test code = 6.3 % 5905-5) EOS % (test code = 2.3 % 713-8) BASO % (test code = 0.8 % 706-2) GRAN MAT x10^3(ANC) 6.33 10*3/uL 1.88-7.09 (test code = 8118757257) IMM GRAN x10^3 (test <0.03 0.00-0.06 code = 0485434570) LYMPH x10^3 (test code 2.79 10*3/uL 1.32-3.29 = 731-0) MONO x10^3 (test code 0.63 10*3/uL 0.33-0.92 = 742-7) EOS x10^3 (test code = 0.23 10*3/uL 0.03-0.39 711-2) BASO x10^3 (test code 0.08 10*3/uL 0.01-0.07 H = 704-7) Lab Interpretation Abnormal (test code = 41327-6) [facility] acute hospital-REACTIVE [id number] 16:44:26 Test Item Value Reference Range Interpretation Comments CRP (test code = 8460081062) 0.7 mg/dL <0.8 Lab Interpretation (test code = Normal 43532-5) [facility] Metabolic Panel (NA, K, CL, CO2, GLUCOSE, BUN, CREATININE, CA)2021-09-30 11:48:38 Test Item Value Reference Range Interpretation Comments NA (test code = 140 mmol/L 135-145 9762314968) K (test code = 4.8 mmol/L 3.5-5.0 7024976012) CL (test code = 103 mmol/L 98-108 0298313020) CO2 TOTAL (test code = 27 mmol/L 23-31 4316721964) AGAP (test code = 2-16 3898861743) BUN (test code = 13 mg/dL 7-23 6398370056) GLUCOSE (test code = 134 mg/dL 70-110 H 8606577440) CREATININE (test code = 0.57 mg/dL 0.50-1.04 7505593969) CALCIUM (test code = 9.1 mg/dL 8.6-10.6 2011659728) eGFR (test code = mL/min/1.73m2 9070651273) OMAR (test code = OMAR) Association of [...] tests). Lab Interpretation Abnormal (test code = 12544-5) [facility] CenterLACTATE [id number] 11:47:37 Test Item Value Reference Range Interpretation Comments LDH (test code = 2074994826) 394 U/L 300-600 Lab Interpretation (test code = Normal 73623-8) [facility] with [id number] 11:25:16 Test Item Value Reference Range Interpretation Comments WBC (test code = See_Comment [Automated 1990-2) message] The sy stem which generated this result transmitted reference range : 4.30 - 11.10 10*3/?L. The reference range was not used to interpret this result as normal/abnormal . RBC (test code = See_Comment [Automated 703-8) message] The sy stem which generated this [...] RDW-SD (test code = 43.6 fL 39.0-49.9 74931-3) RDW-CV (test code = 12.2 % 12.0-15.5 788-0) PLT (test code = See_Comment [Automated 777-3) message] The sy stem which generated this result transmitted reference range : 166 - 358 10*3/ ?L. The reference r shakira was not used to interpret this result as normal/abnormal . MPV (test code = 10.4 fL 9.5-12.9 50029-1) NRBC/100 WBC (test See_Comment [Automat ed code = 4646696042) message] The system which generated this result transmitted reference range : 0.0 - 10.0 /100 WBCs. The refer ence range was not u sed to interpret th is result as normal/abnormal . NRBC x10^3 (test code <0.01 See_Comment [Auto mated = 1343181504) message] The s ystem which generated this result transmitted reference range : 10*3/?L. The reference range was not used to interpret this result as normal/abnormal . GRAN MAT (NEUT) % 75.9 % (test code = 770-8) IMM GRAN % (test code 0.30 % = 1111226678) LYMPH % (test code = 18.0 % 736-9) MONO % (test code = 5.0 % 5905-5) EOS % (test code = 0.1 % 713-8) BASO % (test code = 0.7 % 706-2) GRAN MAT x10^3(ANC) 5.27 10*3/uL 1.88-7.09 (test code = 2207165035) IMM GRAN x10^3 (test <0.03 0.00-0.06 code = 1003293629) LYMPH x10^3 (test code 1.25 10*3/uL 1.32-3.29 L = 731-0) MONO x10^3 (test code 0.35 10*3/uL 0.33-0.92 = 742-7) EOS x10^3 (test code = <0.03 0.03-0.39 L 711-2) BASO x10^3 (test code 0.05 10*3/uL 0.01-0.07 = 704-7) Lab Interpretation Abnormal (test code = 10410-3) [facility] CenterFERR[facility]IN [id number] 06:04:27 Test Item Value Reference Range Interpretation Comments FERRITIN (test code = 65.0 ng/mL 11.0-264.0 1713327156) OMAR (test code = OMAR) Biotin has been reported to cause a negative bias, interpret results relative to patient's use of biotin. Lab Interpretation (test Normal code = 09203-0) [facility] CenterTROPONIN [id number] 21:47:24 Test Item Value Reference Interpretation Comments Range TROPONIN I (test 0.003 ng/mL See_Comment [Automated code = 1971904148) message] The system which generated this result [...] biotin. Lab Interpretation Normal (test code = 45429-2) [facility]OL[facility] PANEL (80212)2021-09-29 21:35:44 Test Item Value Reference Range Interpretation Comments NA (test code = 137 mmol/L 135-145 2774865683) K (test code = 4.1 mmol/L 3.5-5.0 3725144867) CL (test code = 100 mmol/L 98-108 4120210138) CO2 TOTAL (test code = 28 mmol/L 23-31 4925871319) AGAP (test code = 2-16 2693890234) BUN (test code = 8 mg/dL 7-23 4170813950) GLUCOSE (test code = 128 mg/dL 70-110 H 0807100230) CREATININE (test code = 0.54 mg/dL 0.50-1.04 5901280054) TOTAL BILI (test code = 0.5 mg/dL 0.1-1.4 9798422027) CALCIUM (test code = 9.5 mg/dL 8.6-10.6 6498381104) T PROTEIN (test code = 8.1 g/dL 6.3-8.2 3731195048) ALBUMIN (test code = 4.4 g/dL 3.5-5.0 1275176229) ALK PHOS (test code = 104 U/L 34-122 5764411167) ALTv (test code = 18 U/L 5-35 1742-6) AST(SGOT) (test code = 26 U/L 13-40 0169039200) eGFR (test code = mL/min/1.73m2 9587528089) OMAR (test code = OMAR) Association of [...] tests). Lab Interpretation Abnormal (test code = 63959-3) [facility] CenterLIPASE, [id number] 21:35:19 Test Item Value Reference Range Interpretation Comments LIPASE (test code = 4556671530) 72 U/L 0-220 Lab Interpretation (test code = Normal 84779-8) [facility] CenteraPTT2022-01-05 21:27:38 Test Item Value Reference Range Interpretation Comments APTT Patient (test See_Comment [Automat ed code = 3173-2) message] The system which generated this result transmitted reference range : 23 - 38 Seconds . The reference range was not used to interpr et this result as normal/abnormal . OMAR (test code = OMAR) The [facility] patient population mean normal value for aPTT is 30 seconds. Lab Interpretation Normal (test code = 23734-3) [facility] CenterPROTHROMBIN TIME / [id number] 21:25:21 Test Item Value Reference Range Interpretation [...] tions. Lab Interpretation (test Normal code = 77615-5) [facility]CB WITH [id number] 21:21:00 Test Item Value Reference Range Interpretation Comments WBC (test code = See_Comment [Automated 4490-2) message] The sy stem which generated this result transmitted reference range : 4.30 - 11.10 10*3/?L. The reference range was not used to interpret this result as normal/abnormal . RBC (test code = See_Comment [Automated 559-8) message] The sy stem which generated this [...] RDW-SD (test code = 43.1 fL 39.0-49.9 18203-8) RDW-CV (test code = 12.2 % 12.0-15.5 788-0) PLT (test code = See_Comment [Automated 777-3) message] The sy stem which generated this result transmitted reference range : 166 - 358 10*3/ ?L. The reference r shakira was not used to interpret this result as normal/abnormal . MPV (test code = 10.3 fL 9.5-12.9 71742-4) NRBC/100 WBC (test See_Comment [Automat ed code = 6161368133) message] The system which generated this result transmitted reference range : 0.0 - 10.0 /100 WBCs. The refer ence range was not u sed to interpret th is result as normal/abnormal . NRBC x10^3 (test code <0.01 See_Comment [Auto mated = 0886981433) message] The s ystem which generated this result transmitted reference range : 10*3/?L. The reference range was not used to interpret this result as normal/abnormal . GRAN MAT (NEUT) % 71.1 % (test code = 770-8) IMM GRAN % (test code 0.30 % = 8528047780) LYMPH % (test code = 14.8 % 736-9) MONO % (test code = 5.9 % 5905-5) EOS % (test code = 6.8 % 713-8) BASO % (test code = 1.1 % 706-2) GRAN MAT x10^3(ANC) 6.82 10*3/uL 1.88-7.09 (test code = 5945471244) IMM GRAN x10^3 (test 0.03 10*3/uL 0.00-0.06 code = 0768021216) LYMPH x10^3 (test code 1.42 10*3/uL 1.32-3.29 = 731-0) MONO x10^3 (test code 0.57 10*3/uL 0.33-0.92 = 742-7) EOS x10^3 (test code = 0.65 10*3/uL 0.03-0.39 H 711-2) BASO x10^3 (test code 0.11 10*3/uL 0.01-0.07 H = 704-7) Lab Interpretation Abnormal (test code = 85742-1) [facility] CenterTROPONIN [id number] 07:10:55 Test Item Value Reference Interpretation Comments Range TROPONIN I (test 0.000 ng/mL See_Comment [Automated code = 2914405586) message] The system which generated this result [...] biotin. Lab Interpretation Normal (test code = 65575-9) [facility] CenterN-TERMINAL [id number] 07:10:55 Test Item Value Reference Range Interpretation Comments NT-proBNP (test code 150 pg/mL See_Comment H [Autom ated = 0796274457) message] The system which generated this result transmitted reference range : <=125. The reference range was not used to interpret this result as normal/abnormal . OMAR (test code = OMAR) Biotin has been reported to cause a negative bias, interpret results relative to patient's use of biotin. Lab Interpretation Abnormal (test code = 36006-2) [facility] CenterCOMP[facility]OL[facility] PANEL (48283)2021-09-10 07:07:38 Test Item Value Reference Range Interpretation Comments NA (test code = 135 mmol/L 135-145 7432716566) K (test code = 3.8 mmol/L 3.5-5.0 1762661991) CL (test code = 98 mmol/L 98-108 5475375883) CO2 TOTAL (test code = 27 mmol/L 23-31 5112886626) AGAP (test code = 2-16 3135421263) BUN (test code = 9 mg/dL 7-23 9478284042) GLUCOSE (test code = 115 mg/dL 70-110 H 2593686623) CREATININE (test code = 0.52 mg/dL 0.50-1.04 3962179587) TOTAL BILI (test code = 0.4 mg/dL 0.1-1.6 1214695069) CALCIUM (test code = 10.5 mg/dL 8.6-10.6 0816341462) T PROTEIN (test code = 8.1 g/dL 6.3-8.2 8358973377) ALBUMIN (test code = 4.4 g/dL 3.5-5.0 1309847963) ALK PHOS (test code = 80 U/L 34-122 5438626805) ALTv (test code = 13 U/L 5-35 2-6) AST(SGOT) (test code = 22 U/L 13-40 6768233346) eGFR (test code = mL/min/1.73m2 4537768467) OMAR (test code = OMAR) Association of [...] tests). Lab Interpretation Abnormal (test code = 28686-0) [facility] CenterD-WWBKJ2265-09-15 06:50:30 Test Item Value Reference Interpretation Comments Range D-DIMER (test code = See_Comment H [Autom ated 8461905411) message] The system which generated this result [...] diagnosis. Lab Interpretation Abnormal (test code = 10292-7) [facility] WITH [id number] 06:40:28 Test Item Value Reference Range Interpretation Comments WBC (test code = See_Comment [Automated 1190-2) message] The sy stem which generated this [...] RDW-SD (test code = 42.8 fL 39.0-49.9 19002-3) RDW-CV (test code = 12.3 % 12.0-15.5 788-0) PLT (test code = See_Comment [Automated 777-3) message] The sy stem which generated this result transmitted reference range : 166 - 358 10*3/ ?L. The reference r shakira was not used to interpret this result as normal/abnormal . MPV (test code = 10.0 fL 9.5-12.9 09957-3) NRBC/100 WBC (test See_Comment [Automat ed code = 0404842493) message] The system which generated this result transmitted reference range : 0.0 - 10.0 /100 WBCs. The refer ence range was not u sed to interpret th is result as normal/abnormal . NRBC x10^3 (test code <0.01 See_Comment [Auto mated = 9267152589) message] The s ystem which generated this result transmitted reference range : 10*3/?L. The reference range was not used to interpret this result as normal/abnormal . GRAN MAT (NEUT) % 68.6 % (test code = 770-8) IMM GRAN % (test code 0.30 % = 8961697654) LYMPH % (test code = 21.9 % 736-9) MONO % (test code = 5.7 % 5905-5) EOS % (test code = 2.3 % 713-8) BASO % (test code = 1.2 % 706-2) GRAN MAT x10^3(ANC) 6.50 10*3/uL 1.88-7.09 (test code = 3685241699) IMM GRAN x10^3 (test 0.03 10*3/uL 0.00-0.06 code = 5913825553) LYMPH x10^3 (test code 2.08 10*3/uL 1.32-3.29 = 731-0) MONO x10^3 (test code 0.54 10*3/uL 0.33-0.92 = 742-7) EOS x10^3 (test code = 0.22 10*3/uL 0.03-0.39 711-2) BASO x10^3 (test code 0.11 10*3/uL 0.01-0.07 H = 704-7) Lab Interpretation Abnormal (test code = 24386-5) [facility] CenterUrinalysis2020-11-10 00:59:00 Test Item Value Reference Range Interpretation Comments APPEARANCE (test code = Clear Clear 3637282547) COLOR (test code = Straw Yellow A 3491122526) PH (test code = 4.8-8.0 7630323419) SP GRAVITY (test code = 1.003-1.030 3517755481) GLU U QUAL (test code = Normal Normal 3685145962) BLOOD (test code = 1+ Negative A 7921874719) KETONES (test code = Negative Negative 3718522943) PROTEIN (test code = Negative Negative 2887-8) UROBILIN (test code = Normal Normal 2371407811) BILIRUBIN (test code = Negative Negative 2014416644) NITRITE (test code = Negative Negative 3308405675) LEUK VICTOR MANUEL (test code = Negative Negative 1141101333) RBC/HPF (test code = See_Comment [Autom ated message] 5804281420) The system [employer] generated this result transmitted ref erence range: 0 - 3 HP F. The reference range was not used to int erpret this result as normal/abnormal . WBC/HPF (test code = See_Comment [Autom ated message] 8108986079) The system [employer] generated this result transmitted ref erence range: 0 - 5 HP F. The reference range was not used to int erpret this result as normal/abnormal . BACTERIA (test code = Negative Negative 2676878663) SQ EPITH (test code = See_Comment [Auto mated message] 9710999589) The system [employer] generated this result transmitted ref erence range: <=2 HPF. The reference range was not used to int erpret this result as normal/abnormal . Lab Interpretation (test Abnormal code = 10316-7) [facility] CenterUS Abdomen [id number] 23:26:24 Cholelithiasis without sonographic evidence of acute [...] portal vein was evaluated with colorDoppler imaging. Criminal Justice Teacher images were obtained for the record. COMPARISON: None FINDINGS: PANCREAS: The pancreatic head and body display normal echogenicity to the extentvisualized. AORTA:The proximal abdominal aorta is normal in caliber where visualized, andmeasures approximately 1.5 cm in diameter. LIVER:Length: The liver is at the upper limits of normal in size, and jvponayg65.0 cm in the craniocaudal dimension.Parenchyma: Theliver parenchyma [...] portal vein was evaluated with colorDoppler imaging. Criminal Justice Teacher images were obtained for the record.COMPARISON: NoneFINDINGS: PANCREAS: The pancreatic head and body display normal echogenicity to the extentvisualized.AORTA:The proximal abdominal aorta is normal in caliber where visualized, andmeasures approximately 1.5 cm in diameter. LIVER:Length: The liveris at the upper limits of normal in size, and lzfabkip93.0 cm in the craniocaudal dimension.Parenchyma: The liver [...] reviewed this study and agree with the abovereport.[facility] 2020-08-03 22:02:17 Chronic emphysematous changes of the lungs with increased bilateralreticular opacities more prominent on the left likely pharmacy services representative ofinterstitial lung disease. No acute intra-abdominal [...] opacities more prominent on the left likely pharmacy services representative ofinterstitial lung disease.No acute intra-abdominal abnormality. The bowel gas pattern isnonobstructive.Age-indeterminate mid thoracic compression deformity with approximately 30%height loss. Preliminary Report Dictated by Resident: Cory Greenfield, Jurgen Ford MD., have reviewed this study and agree withthe above report.[facility] CenterTrop[facility] I 2020-08-03 21:35:00 Test Item Value Reference Range Interpretation Comments TROPONIN I (test 0.001 ng/mL See_Comment [Automated code = 4783246500) message] The system which generated this result [...] ? Lab Interpretation Normal (test code = 62473-1) [facility] Panel (NA, K, CL, CO2, GLUCOSE, BUN, CREATININE, CA)2020-08-03 21:25:00 Test Item Value Reference Range Interpretation Comments NA (test code = 138 mmol/L 135-145 0310908543) K (test code = 4.6 mmol/L 3.5-5 4040359073) CL (test code = 102 mmol/L 98-108 5215284994) CO2 TOTAL (test code = 29 mmol/L 23-31 2001573975) AGAP (test code = 2-16 0904987302) BUN (test code = 8 mg/dL 7-23 0185874984) GLUCOSE (test code = 84 mg/dL 70-110 3807952890) CREATININE (test code 0.56 mg/dL 0.5-1.04 = 1108999754) CALCIUM (test code = 9.6 mg/dL 8.6-10.6 2728483159) eGFR Calculation mL/min/1.73m2 (Non-) (test code = 9235352825) eGFR Calculation mL/min/1.73m2 () (test code = 0802725005) OMAR (test code = OMAR) Association of [...] or urine or abnormalities in imaging tests). [facility] Function Panel (ALB, T.PRO, BILI T, BU/BC, ALT, AST, ALK PHOS)2020-08-03 21:25:00 Test Item Value Reference Range Interpretation Comments TOTAL BILI (test code = 2185087651) 0.3 mg/dL 0.1-1.1 BILI UNCON (test code = 6539488795) 0.1 mg/dL 0.1-1.1 BILI CONJ (test code = 7061728548) 0.0 mg/dL 0-0.3 T PROTEIN (test code = 7001194162) 8.1 g/dL 6.3-8.2 ALBUMIN (test code = 8981500760) 4.1 g/dL 3.5-5 ALK PHOS (test code = 2124419435) 86 U/L 34-122 ALTv (test code = 1742-6) 10 U/L 5-35 AST(SGOT) (test code = 8920728159) 21 U/L 13-40 Lab Interpretation (test code = Normal 70009-4) [facility] CenterLipase [id number] 21:25:00 Test Item Value Reference Range Interpretation Comments LIPASE (test code = 2691169550) 83 U/L 0-220 Lab Interpretation (test code = Normal 78252-0) [facility] CenterCBC with [id number] 21:17:00 Test Item Value Reference Range Interpretation Comments WBC (test code = See_Comment [Automated 6990-2) message] The sy stem which generated this [...] RDW-SD (test code = 46.5 fL 39-49.9 20604-0) RDW-CV (test code = 13.3 % 12-15.5 788-0) PLT (test code = See_Comment [Automated 777-3) message] The sy stem which generated this result transmitted reference range : 166 - 358 10*3/ ?L. The reference r shakira was not used to interpret this result as normal/abnormal . MPV (test code = 9.4 fL 9.5-12.9 L 96524-6) NRBC/100 WBC (test See_Comment [Automat ed code = 8172700892) message] The system which generated this result transmitted reference range : 0.0 - 10.0 /100 WBCs. The refer ence range was not u sed to interpret th is result as normal/abnormal . NRBC x10^3 (test code <0.01 See_Comment [Auto mated = 7563856063) message] The s ystem which generated this result transmitted reference range : 10*3/?L. The reference range was not used to interpret this result as normal/abnormal . GRAN MAT (NEUT) % 68.2 % (test code = 770-8) IMM GRAN % (test code 0.40 % = 2545766592) LYMPH % (test code = 22.7 % 736-9) MONO % (test code = 5.3 % 5905-5) EOS % (test code = 2.5 % 713-8) BASO % (test code = 0.9 % 706-2) GRAN MAT x10^3(ANC) 5.29 10*3/uL 1.88-7.09 (test code = 5222636519) IMM GRAN x10^3 (test 0.03 10*3/uL 0-0.06 code = 3985961984) LYMPH x10^3 (test code 1.76 10*3/uL 1.32-3.29 = 731-0) MONO x10^3 (test code 0.41 10*3/uL 0.33-0.92 = 742-7) EOS x10^3 (test code = 0.19 10*3/uL 0.03-0.39 711-2) BASO x10^3 (test code 0.07 10*3/uL 0.01-0.07 = 704-7) Lab Interpretation Abnormal (test code = 35258-5) [facility] CenterCOMPREHENSIVE METABOLIC [id number] 19:56:00 Test Item Value Reference Range Interpretation [...] 50.0-136.0 N code = ALKP) CARDIAC ENZYMES [id number] 19:56:00 Test Item Value Reference Range Interpretation Comments CREATINE KINASE (CK) 51 Units/L 26-192 N (test code = CK) TROPONIN-I (test code <0.02 NG/ML 0.00-0.06 N REFERE NCE RANGE = TROPI) TROPONIN I HEAL THY INDIVIDUALS: <0 .06 ng/mL R/O ISCHE TAVARES: 0.07 - 0.60 ng/ mL CUT-OFF RANGE F OR AMI: 0.60 - 1.5 ng/mL COMPREHENSIVE METABOLIC [id number] 19:48:00 Test Item Value Reference Range Interpretation [...] Units/L 50.0-136.0 code = ALKP) CARDIAC ENZYMES [id number] 19:48:00 Test Item Value Reference Range Interpretation Comments CREATINE KINASE (CK) (test code = Units/L 26-192 CK) TROPONIN-I (test code = TROPI) NG/ML 0.00-0.06 PROTHROMBIN [id number] 19:45:00 Test Item Value Reference Range Interpretation Comments PROTHROMBIN TIME 12.6 SECONDS 9.9-12.8 N PATIENT (test code = PTP) INTERNATIONAL NORMAL 1.1 0.89-1.14 N THE INR IS TO BE USED RATIO (test code = ONLY FOR MONITORING INR) ORAL ANTICOAGULANTTH ERAPY. THE FOLLOWING A RE SUGGESTED RANGE S [facility]:CAN CATION INR [...] D ANTIBODIES 2.5 - 3.5 CBC W/AUTO [id number] 19:43:00 Test Item Value Reference Range Interpretation [...] N - XR SHOULDER 2 + V [id number] 19:08:00 FAX: Cathleen Lucio [phone] [place]: St: PRE Name: KEYSHAWN POTTER [facility] : 1960 Age/S: 59/F [address] [facility] Unit #: [id number] Loc: E.EXP [place], [place] Phys: Cathleen Lucio [address] Acct: [id number] Dis Date: Status: PRE ER PHONE #: [phone] Exam Date: 10/28/20191904 FAX #: [phone] Reason: LEFT SHOULDER AND BACK PAIN EXAMS: CPT CODE: [id number] XR SHOULDER 2 + [place] [address] Exam: Left shoulder 3 views internal, external rotation and transscapular. Location: H 12 History: LEFT SHOULDER AND BACK PAIN Findings: No bone or joint abnormality is seen. The bony cortices are intact. The joint spaces are well preserved. The soft tissues are normal. Impression: Unremarkable exam. at 1908 Reported and signed by: José Miguel Matias M.D. CC: Cathleen KIMBALL Technologist: KACEY ANDERSON Trntnrd Date/Time/By: 10/28/2019 (1907) : By: MilenaFC PAGE 1 Signed Report FAX: Cathleen Lucio [phone] [place]: St: PRE -- Name: ELIS POTTERLMA [facility] : 1960 Age/S: 59/F [address] [employer] Unit #: [id number] Loc: EWooEXP [place], [place] Phys: Cathleen Lucio [address] Acct: [id number] Dis Date: Status: PRE ER PHONE #: [phone] Exam Date: 10/28/20191904 FAX #: [phone] Reason: LEFT SHOULDER AND BACK PAIN EXAMS: CPT CODE: [id number] XR SHOULDER 2 + [place] [address] (Continued) Orig Print D/T: S:10/28/2019 (1910) PAGE 2 Signed Report- XR CHEST 1 [id number] 19:07:00 FAX: Cathleen Lucio [phone] [place]: St: PRE Name: ELIS POTTERLMA [facility] : 1960 Age/S: 59/F [address] [employer] Unit #: [id number] Loc: AmandaWooERS [place], [place] Phys: Cathleen Lucio [address] Acct: [id number] Dis Date: Status: PRE ER PHONE #: [phone] Exam Date: 10/28/20191904 FAX #: [phone] Reason: LEFT SHOULDER AND BACK PAIN EXAMS: CPT CODE: [id number] XR CHEST 1 V 09569 Exam: Chest portable erect Location: H 12 [...] M.D. CC: Cathleen KIMBALL Technologist: KACEY ANDERSON [facility] Date/Time/By: 10/28/2019 (1906) : By: MilenaFC PAGE 1 Signed Report FAX: Cathleen Lucio [phone] [place]: St: PRE ----- Name: KEYSHAWN POTTER [facility] : 1960 Age/S: 59/F [address] [facility] Unit #: [id number] [place]: [place], [place] Phys: Cathleen Lucio [address] Acct: [id number] Dis Date: Status: PRE ER PHONE #: [phone] Exam Date: 10/28/20191904 FAX #: [phone] Reason: LEFTSHOULDER AND BACK PAIN EXAMS: CPT CODE: [id number] XR CHEST 1 V 32573 (Continued) Orig Print D/T: S:10/28/2019 (1910) PAGE 2 Signed ReportCOMPREHENSIVE METABOLIC [id number] 14:06:00 Test Item Value Reference Range Interpretation [...] 74 Units/L 50.0-136.0 N code = ALKP) [id number] 14:06:00 Test Item Value Reference Range Interpretation Comments LIPASE (test code = LIP) 143 Units/L 65.0-230.0 N [id number] 14:06:00 Test Item Value Reference Range Interpretation Comments TROPONIN-I (test <0.02 NG/ML 0.00-0.06 N REFERENCE R SHAKIRA code = TROPI) TROPONIN I HEA LTHY INDIVIDUALS: <0 .06 ng/mL R/O ISCHE TAVARES: 0.07 - 0.60 ng/ mL CUT-OFF RANGE F OR AMI: 0.60 - 1.5 ng/m L - XR CHEST 2 [id number] 14:03:00 FAX: Juan Calderon MD [phone] [place]: St: PRE Name: KEYSHAWN POTTER [facility] : 1960 Age/S: 58/F [address] [employer] Unit #: [id number] Loc: E.ERS2 [place], [place]: [place] [address] Acct: [id number] Dis Date: Status: PRE ER PHONE #: [phone] Exam Date: 04/26/2019 1350 FAX #: Reason: chest pain EXAMS: CPT CODE: [id number] XR CHEST 2 V 35921 REASON FOR EXAM: Chest pain, difficulty breathing. COMPARISON: March 01, 2016. Chest, 2 views, frontal and lateral projection. The lungs are hyperinflated with interstitial fibrosis changes diffusely and progressive over 2016.. Heart size is normal. No effusion or pneumothorax can be seen. Osseous structures appear to be intact. . IMPRESSION: No acute cardiopulmonary disease. Interstitial fibrosis with COPD changes. Location: [facility] at 1403 Reported and signed by: Maxx Cuenca M.D. CC: Juan Calderon MD Technologist: ALEX ARVIZU Trntnrd Date/Time/By:04/26/2019 (1403) : By: [facility] PAGE 1 Signed Report FAX: Juan Calderon MD [phone] [place]: St: PRE -- Name: KEYSHAWN POTTER [facility] : 1960 Age/S: 58/F [address] [facility] Unit #: [id number] Loc: E.ERS2 [place], [place]: [place] [address] Acct: [id number] Dis Date: Status: PRE ER PHONE #: [phone] Exam Date: 04/26/2019 1350 FAX #: [phone] Reason: chest pain EXAMS: CPT CODE: [id number] XR CHEST 2 V 07187 (Continued) Orig Print D/T: S: 04/26/2019 (1406) PAGE 2 Signed ReportPROTHROMBIN [id number] 14:00:00 Test Item Value Reference Range Interpretation Comments PROTHROMBIN TIME 12.6 SECONDS 9.9-12.8 N PATIENT (test code = PTP) INTERNATIONAL NORMAL 1.1 0.89-1.14 N THE INR IS TO BE USED RATIO (test code = ONLY FOR MONITORING INR) ORAL ANTICOAGULANTTH ERAPY. THE FOLLOWING A RE SUGGESTED RANGE S FROM [facility]:CAN CATION INR [...] D ANTIBODIES 2.5 - 3.5 COMPREHENSIVE METABOLIC [id number] 13:56:00 Test Item Value Reference Range Interpretation [...] TOTAL (test Units/L 50.0-136.0 code = ALKP) [id number] 13:56:00 Test Item Value Reference Range Interpretation Comments LIPASE (test code = LIP) Units/L 65.0-230.0 [id number] 13:56:00 Test Item Value Reference Range Interpretation Comments TROPONIN-I (test code = TROPI) NG/ML 0.00-0.06 CBC W/AUTO [id number] 13:54:00 Test Item Value Reference Range Interpretation [...]
[2022-09-30] MEDS ORDERED: LORazepam 2 MG/ML VIAL ONE (10:19)
--- NOTE | 2022-09-30 14:11 | EDPHYS ---
Physician Documentation [facility] Name: Leonarda Zabala Age: 61 yrs Sex: Female : 1960 Arrival Date: 09/30/2022 Time: 10:09 Bed 17 Private MD: ED Physician Kunal Lee HPI: 09/30 10:35 This 61 yrs old Female presents to ER via EMS with complaints of unresponsive. snw 10:35 The patient presents with seizure activity. Onset: The symptoms/episode began/occurred snw suddenly. Possible causes: hypoxia. Associated signs and symptoms: Pertinent positives: weakness. Current symptoms: In the emergency department the patient's symptoms are unchanged from the initial presentation. Patient's baseline: DNR for COPD. The patient has experienced similar episodes in the past, chronically. The patient has been recently seen by a physician: The patient has been recently seen at the [facility] Emergency Department, yesterday, by me. Historical: - Allergies: 10:32 Myeclin; db - PMHx: 10:32 COPD; Emphysema; Left pneumothorax; db - Immunization history:: Adult Immunizations unknown, Client reports receiving the 2nd dose of the Covid vaccine. - Social history:: Smoking status: Patient/guardian denies using tobacco, Stopped _ months ago 1. - History obtained from: EMS, caregiver, POA for healthcare. ROS: 10:34 Respiratory: Negative for cough, wheezing, and pleuritic chest pain, +SOB snw 10:34 All other systems are negative. Exam: 10:25 Head/Face: Normocephalic, atraumatic. Eyes: Pupils equal round and reactive to light, snw extra-ocular motions intact. Lids and lashes normal. Conjunctiva and sclera are non-icteric and not injected. Cornea within normal limits. Periorbital areas with no swelling, redness, or edema. ENT: Nares patent. No nasal discharge, no septal abnormalities noted. Tympanic membranes are normal and external auditory canals are clear. Oropharynx with no redness, swelling, or masses, exudates, or evidence of obstruction, uvula midline. Mucous membranes moist. Neck: Trachea midline, no thyromegaly or masses palpated, and no cervical lymphadenopathy. Supple, full range of motion without nuchal rigidity, or vertebral point tenderness. No Meningismus. Chest/axilla: Normal chest wall appearance and motion. Nontender with no deformity. No lesions are appreciated. 10:25 Abdomen/GI: Soft, non-tender, with normal bowel sounds. No distension or tympany. No guarding or rebound. No evidence of tenderness throughout. Back: No spinal tenderness. No costovertebral tenderness. Full range of motion. 10:25 Constitutional: The patient appears unresponsive 10:25 Cardiovascular: Rate: bradycardic. 10:25 Respiratory: the patient does not display signs of respiratory distress, Respirations: prolonged exhalation, Breath sounds: are clear throughout. 10:25 Skin: Appearance: Color: dusky, Temperature: normal temperature. 10:25 Neuro: Orientation: unable to test, seizure activity, pt had grand mal seizure while I was in the room. +Cyanosis. Family at bedside. Vital Signs: 10:04 BP 102 / 42; Pulse 68; Resp 38; Temp 98.3(A); Pulse Ox 96% ; Weight 43.09 kg; Height 5 db ft. 2 in. (157.48 cm); 10:15 BP 118 / 61; Pulse 67; Resp 18; Pulse Ox 96% on 4 lpm NC; db 11:01 BP 110 / 42; Pulse 73; Resp 28; Pulse Ox 95% on 4 lpm NC; db 11:30 BP 101 / 54; Pulse 64; Resp 28; Pulse Ox 100% on 4 lpm NC; db 12:00 BP 95 / 68; Pulse 70; Resp 28; Pulse Ox 100% on 4 lpm NC; db 15:00 BP 106 / 61; Pulse 69; Resp 32; Temp 100.6; Pulse Ox 100% on 4 lpm NC; db 16:00 BP 113 / 72; Pulse 107; Resp 28; Pulse Ox 100% on 4 lpm NC; db 10:04 Body Mass Index 17.38 (43.09 kg, 157.48 cm) db MDM: 10:13 Patient medically screened. snw 10:27 Differential Diagnosis: seizure, sepsis, hypercapnia. Data reviewed: vital signs, snw nurses notes, old medical records. Data interpreted: Pulse oximetry: on 4L(s) per nasal canula, is 94 %. Interpretation: hypoxia. Counseling: I had a detailed discussion with the patient and/or guardian regarding: the historical points, exam findings, and any diagnostic results supporting the discharge/admit diagnosis. Special discussion: Based on the history and exam findings, there is no indication for further emergent testing or inpatient evaluation. ED course: Pt seen in ED yesterday, A\T\O, responsive, work up negative except COPD exacerbation. Pt was discharged on Zithromax. Pt told family last pm that she thought she was having seizures. This am POA for healthcare went to her room and she was cyanotic, not breathing, and 2 chest compressions were performed and pt was more responsive and EMS was called. Pt family here today and DNR status re-confirmed with two nieces and MD present. Family wishes in-patient hospice so her Son may visit. Post seizure, pt is post ictal but breathing on her own, O2 at 4L via NC continues.. 14:14 Transition of care: After a detail discussion of the patient's case, care is snw transferred to [facility]. 19:07 ED course: Pt's hospice company revoked her contract and refused to see pt. Inpatient snw hospice services available at [facility] are not on pt's insurance. Offered pain medications for home. Family would like pt admitted. Dr. Ugalde agreed to admit to his service.. 09/30 16:48 Order name: Urinalysis EDNH 09/30 17:09 Order name: SARS RAPID eb 09/30 10:24 Order name: Misc. Order: Comfort care; Complete Time: 10:34 w 09/30 10:37 Order name: consult Order-[facility] [place] Technical Specialist[facility] 09/30 10:46 Order name: Social Service Consult [facility] 09/30 14:15 Order name: Social Service Consult [facility] Administered Medications: 10:15 Drug: Ativan (LORazepam) 2 mg Route: IM; Site: right vastus lateralis; db 13:06 Follow up: Response: No adverse reaction db 15:05 Drug: morphine 4 mg Route: IVP; Infused Over: 4 mins; Site: right antecubital; db 15:05 Drug: Atropine 0.5 mg Route: IVP; Site: right antecubital; db 15:05 Drug: morphine 4 mg Route: Sub-Q; Site: left thigh; db Disposition: 14:01 PA/MATERIAL LOADER's history reviewed, patient interviewed, and examined. HPI: 61-year-old female ms3 currently on hospice with past medical history of COPD, emphysema, pneumothorax presents via clued EMS for hypoxia and decreased alertness. EMS states patient pulled her oxygen off during the night and was found in her room cyanotic appearing. My personal exam of patient reveals: Patient is frail, cachectic. Skin is dry without rashes or diaphoresis. Heart rate is regular without murmurs rubs or gallops. Lungs clear to auscultation bilaterally. Abdomen nontender to palpation, nondistended. I agree with assessment and care plan and confirm the diagnosis (es) above. 15:08 Chart complete. snw Disposition Summary: 09/30/22 19:06 Hospitalization Ordered Hospitalization Status: Inpatient Admission snw Provider: Ori Ugalde Location: Telemetry/MedSurg (Inpatient)(09/30/22 19:06) snw Condition: Critical(09/30/22 19:06) snw Problem: an ongoing problem snw Symptoms: are unchanged snw Bed/Room Type: Standard snw Room Assignment: 204(09/30/22 19:08) cg Diagnosis - Hospice comfort care for severe COPD snw - Unspecified protein-calorie malnutrition snw Forms: - Medication Reconciliation Form snw - SBAR form snw Signatures: Dispatcher [employer] Romelia Joya FNP-Andres CNC CUTTING OPERATOR-Csnw Modesta Sellers, RN RN Kunal Marie DO DO ms3 Heena Granger, RN RN db Corrections: (The following items were deleted from the chart) 19:04 14:10 Other ms3 snw 19:04 14:10 Critical ms3 snw 19:04 14:10 COPD/ Chronic obstructive pulmonary disease, unspecified ms3 snw 19:04 14:10 Severe Calorie malnutrition ms3 snw 19:04 14:11 Hospice care ms3 snw 19:08 19:06 snw cg
--- NOTE | 2022-09-30 14:11 | ER ---
Nurse's Notes [facility] Name: Leonarda Zabala Age: 61 yrs Sex: Female : 1960 Arrival Date: 09/30/2022 Time: 10:09 Bed 17 Private MD: Diagnosis: Hospice comfort care for severe COPD;Unspecified protein-calorie malnutrition Presentation: 09/30 10:04 Chief complaint: EMS states: EMS CALLED FOR UNRESPONSIVE BLUE PATIENT. On scene patient db was unresponsive and confused removing oxygen family states patient has a history of seizures. Family states patient was blue around the lips and started CPR. Upon EMS arrival patient was breathing and O2 saturation was in the 70's on RA. Placed patient on Non rebreather. Per EMS unable to obtain IV access. Coronavirus screen: Vaccine status: Patient reports receiving the 2nd dose of the covid vaccine. Client denies travel out of the [place] in the last 14 days. At this time, the client does not indicate any symptoms associated with coronavirus-19. Ebola Screen: Patient negative for fever greater than or equal to 101.5 degrees Fahrenheit, and additional compatible Ebola Virus Disease symptoms Patient denies exposure to infectious person. Patient denies travel to an Ebola-affected area in the 21 days before illness onset. No symptoms or risks identified at this time. Initial Sepsis Screen: Does the patient meet any 2 criteria? RR > 20 per min. Altered Mental Status. Yes Does the patient have a suspected source of infection? No. Patient's initial sepsis screen is negative. Risk Assessment: Do you want to hurt yourself or someone else? Unable to obtain. Onset of symptoms was September 30, 2022. Care prior to arrival:. 10:04 Method Of Arrival: EMS: Start EMS db 10:04 Acuity: JARRETT 2 db Triage Assessment: 10:32 General: Appears distressed, emaciated, malnourished, Behavior is unresponsive. Pain: db Unable to use pain scale. Patient is disoriented. EENT: No deficits noted. No signs and/or symptoms were reported regarding the EENT system. Neuro: Level of Consciousness is confused, lethargic, unresponsive, Oriented to none Speech none. Cardiovascular: Rhythm is sinus bradycardia. Respiratory: Airway is patent Respiratory effort is even, labored, Respiratory pattern is regular, symmetrical. GI: No deficits noted. No signs and/or symptoms were reported involving the gastrointestinal system. Abdomen is flat. : No deficits noted. No signs and/or symptoms were reported regarding the genitourinary system. : uses brief. Historical: - Allergies: 10:32 Myeclin; db - PMHx: 10:32 COPD; Emphysema; Left pneumothorax; db - Immunization history:: Adult Immunizations unknown, Client reports receiving the 2nd dose of the Covid vaccine. - Social history:: Smoking status: Patient/guardian denies using tobacco, Stopped _ months ago 1. - History obtained from: EMS, caregiver, POA for healthcare. Screenin:[facility] ED Fall Risk Assessment (Adult) History of falling in the last 3 months, db including since admission No falls in past 3 months (0 pts) Confusion or Disorientation Yes (5 pts) Intoxicated or Sedated No (0 pts) Impaired Gait Yes (1 pt) Mobility Assist Device Used Yes (1 pt) Altered Elimination No (0 pt) Score/Fall Risk Level 3 or more points = High Risk Oriented to surroundings, Maintained a safe environment. Abuse screen: Denies threats or abuse. Denies injuries from another. Nutritional screening: PATIENT IS UNDER WEIGHT. 16:04 Tuberculosis screening: Never had TB. ss Assessment: 10:15 Reassessment: patient appears to be having a seizure. Patient given 2mg IM Ativan per db Practicioner Kassi Cervantes. Patient family at bedside. Patient airway suctioned due to drooling. Reassessment: SEE TRIAGE FOR INITIAL ASSESSMENT. 12:29 Reassessment: Patient appears in no apparent distress at this time. Patient and/or db family updated on plan of care and expected duration. Pain level reassessed. HOSE WRAPPER IS AT PATIENT BEDSIDE. PATIENT SITTING UP NOT RESPONDING BUT MOVING HEAD AND ARMS. 12:46 Reassessment: Any Muñiz manager social spoke with family at bedside who all ss insists they still want hospice. Any states that a nurse with [facility] should be en route to ED to reinstate hospice. 15:00 Reassessment: Patient and/or family updated on plan of care and expected duration. Pain db level reassessed. FAMILY AT BEDSIDE. PATIENT RESTING. 16:04 Reassessment: Family member reports that [facility] is out of network and will not be ss able to admit her to their services. Nay, edge worker states that Beth, case checker has everything arranged and Dr. Ugalde, hospitalist will be admitting patient. Dr. Ugalde at bedside discussing plan of care with patient and family. 16:10 Reassessment: DR. UGALDE AT PATIENT BEDSIDE. db 17:00 Reassessment: Patient appears in no apparent distress at this time. No changes from db previously documented assessment. Patient and/or family updated on plan of care and expected duration. Pain level reassessed. Resting quietly with family around. 17:30 Reassessment: SEE [facility] FOR CONTINUED CHARTING. db Vital Signs: 10:04 BP 102 / 42; Pulse 68; Resp 38; Temp 98.3(A); Pulse Ox 96% ; Weight 43.09 kg; Height 5 db ft. 2 in. (157.48 cm); 10:15 BP 118 / 61; Pulse 67; Resp 18; Pulse Ox 96% on 4 lpm NC; db 11:01 BP 110 / 42; Pulse 73; Resp 28; Pulse Ox 95% on 4 lpm NC; db 11:30 BP 101 / 54; Pulse 64; Resp 28; Pulse Ox 100% on 4 lpm NC; db 12:00 BP 95 / 68; Pulse 70; Resp 28; Pulse Ox 100% on 4 lpm NC; db 15:00 BP 106 / 61; Pulse 69; Resp 32; Temp 100.6; Pulse Ox 100% on 4 lpm NC; db 16:00 BP 113 / 72; Pulse 107; Resp 28; Pulse Ox 100% on 4 lpm NC; db 10:04 Body Mass Index 17.38 (43.09 kg, 157.48 cm) db ED Course: 10:09 Patient arrived in ED. eb 10:12 Romelia Cervantes FNP-C is PHCP. snw 10:12 Kunal Lee DO is Attending Physician. snw 10:23 Heena Granger, RN is Primary Nurse. db 10:32 Triage completed. db 10:32 Arm band placed on left wrist. Patient placed in an exam room, on a stretcher, on db oxygen, on nuclear monitoring technician, on pulse oximetry. 10:36 Patient has correct armband on for positive identification. Bed in low position. Call db light in reach. Side rails up X2. Client placed on continuous cardiac and pulse oximetry monitoring. NIBP monitoring applied. Warm blanket given. 14:07 Inserted saline lock: 22 gauge in left antecubital area, using aseptic technique. tm3 18:00 Resting quietly. db 18:00 No provider procedures requiring assistance completed. Patient admitted, IV remains in db place. 19:04 Ori Ugalde MD is Hospitalizing Provider. snw Administered Medications: 10:15 Drug: Ativan (LORazepam) 2 mg Route: IM; Site: right vastus lateralis; db 13:06 Follow up: Response: No adverse reaction db 15:05 Drug: morphine 4 mg Route: IVP; Infused Over: 4 mins; Site: right antecubital; db 15:05 Drug: Atropine 0.5 mg Route: IVP; Site: right antecubital; db 15:05 Drug: morphine 4 mg Route: Sub-Q; Site: left thigh; db Medication: 16:04 VIS not applicable for this client. Outcome: 14:10 Discharge ordered by . ms3 18:00 Admitted to Tele db 18:00 Condition: stable 18:00 Instructed on the need for admit. 19:06 Decision to Hospitalize by Provider. snw 22:35 Patient left the ED. fu Signatures: Thomascandace Americo tm3 Romelia Cervantes, MANAGER MANUFACTURING-C MANAGER MANUFACTURING-Csnw Sophia Thomson, PAUL RN Jose Hope, PAUL MILLER Agustina Parrish Marcus, DO DO ms3 Heena Granger, PAUL RN db Corrections: (The following items were deleted from the chart) 15:18 11:01 BP 110 / 42; Pulse 73bpm; Resp 16bpm; Pulse Ox 95% 4 lpm Nasal Cannula; db db 15:18 11:30 BP 101 / 54; Pulse 64bpm; Resp 18bpm; Pulse Ox 100% 4 lpm Nasal Cannula; db db 15:18 12:00 BP 95 / 68; Pulse 70bpm; Resp 18bpm; Pulse Ox 100% 4 lpm Nasal Cannula; db db
[2022-09-30] MEDS ORDERED: ATROPINE SULF 1 MG/10 ML SYR IV ONE (14:45)
[2022-09-30] MEDS ORDERED: MORPHINE 4 MG/ML SYR ONE ×3 (14:45→19:52)
[2022-09-30] MEDS ORDERED: MORPHINE 4 MG/ML SYR IV PRN (16:44)
[2022-09-30 17:26] VITALS: BMI 17.4
[2022-09-30] MEDS: MORPHINE 4 MG/ML SYR IV PRN ×3 (18:00→23:50)
--- NOTE | 2022-09-30 18:32 | P.HP ---
Certification for Inpatient With expected LOS: >2 Midnights Patient will require the following post-hospital care: Hospice Practitioner: I am a practitioner with admitting privileges, knowledge of patient current condition, hospital course, and medical plan of care. 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 Patient was previously on hospice with [facility] and is a total care. Patient was brought into the emergency room for seizure-like activities. No seizures activities observed during admission. Unable to obtain history due to patient's underlying cognitive deficiencies. Patient will be admitted under the care of Dr. Ugalde. We will proceed with comfort measures. Allergies myeclin Allergy (Uncoded 09/30/22 10:42) Shortness of breath - Past Medical/Surgical History -: End-stage COPD Past Surgical History: Unable to obtain - Family History Family History: Reviewed- Non-Contributory - Social History Smoking Status: Unknown if ever smoked Place of Residence: Home Review of Systems is unable to be obtained Physical Examination - Vital Signs Temperature: 100.1 F Blood Pressure: 101/59 Pulse: 81 Respirations: 28 Pulse Ox (%): 88 - Physical Exam HEENT: Atraumatic, Normocephalic Neck: Supple Respiratory: Diminished Capillary refill: >2 Seconds Gastrointestinal: Hypoactive Musculoskeletal: No swelling Integumentary: No warmth Neurological: Dementia Lymphatics: No axilla or inguinal lymphadenopathy Assessment and Plan - Plan Assessment End-stage COPD oxygen dependent Seizures Dementia Plan End-stage COPD oxygen dependent Comfort measures Morphine for pain, Ativan for anxiety Continue supportive measures Seizures Continue supportive measures Dementia Continue supportive measures CODE STATUS-DNR Discharge Plan: Home Plan to discharge in: 48 Hours - Advance Directives Does patient have a Living Will: No Does patient have a Durable POA for Healthcare: No - Code Status/Comfort Care Code Status Assessed: Yes (DNR) Comfort Measures: Hospice Care Critical Care: No Time Spent Managing Pts Care (In Minutes): 50
[2022-09-30 20:54] LABS: SARS-CoV-2 Antigen Rapid Res Negative (Negative)
[2022-10-01] MEDS: SCOPOLAMINE HYDROBROMIDE PATCH TD SCH ×2 (01:19→08:24)
[2022-10-01] MEDS: LORazepam 2 MG/ML VIAL IV PRN ×3 (01:20→19:31)
[2022-10-01] MEDS: MORPHINE 4 MG/ML SYR IV PRN ×3 (03:26→14:09)
[2022-10-01] MEDS: HYDROMORPHONE HCL 1 MG/ML INJ IV PRN ×4 (15:51→23:45)
--- NOTE | 2022-10-01 17:11 | P.PN ---
Date of Service: 10/01/22 Subjective: awake this morning, hungry episodes of hypotension and hypoxia yesterday L hip pain ROS: limited secondary to mentation Physical exam GEN: cachectic CV: Regular rate and rhythm, no edema Pulm: Nonlabored respirations on room air ABD: Soft, nontender, nondistended MSK: L hip pain Neuro: awake, oriented to self, +Dementia Problem List End stage COPD on home O2 - on hospice Advanced alzheimer dementia Seizure disorder severe protein calorie malnutrition continue comfort measures patient awake this morning, talking, hungry diet as tolerated continue pain medication, restart home methadone continue ativan PRN Code: DNR Dispo: comfort measures only now that she is awake, family interested in home hospice patient was abandoned by her hospice company of >1 year Family state they were advised and hospice nurse was present for the first EMS call/poultry picker. They were told if anything not related to COPD, that they don't address, so family called EMS for the seizure activity and brought to hospital. They did not know this would lead to revoking hospice.
[2022-10-01] MEDS: METHADONE HCL 10 MG TAB PO SCH (22:05)
[2022-10-02] MEDS: HYDROMORPHONE HCL 1 MG/ML INJ IV PRN ×3 (05:13→16:31)
[2022-10-02] MEDS: LORazepam 2 MG/ML VIAL IV PRN ×2 (05:14→11:02)
[2022-10-02] MEDS: METHADONE HCL 10 MG TAB PO SCH ×2 (08:58→20:26)
--- NOTE | 2022-10-02 14:24 | P.PN ---
Date of Service: 10/02/22 Subjective: awake, family report shes back to her baseline, bossy, confused, hungry ROS: limited secondary to mentation Physical exam GEN: cachectic CV: Regular rate and rhythm, no edema Pulm: Nonlabored respirations on room air ABD: Soft, nontender, nondistended Neuro: awake, oriented to self, +Dementia Problem List End stage COPD on home O2 - on hospice Advanced alzheimer dementia Seizure disorder severe protein calorie malnutrition continue comfort measures diet as tolerated continue pain medication, restarted home methadone continue ativan PRN , continue ativan scheduled - takes q4h at home Code: DNR Dispo: comfort measures only now that she is awake, family interested in continuing home hospice if option still patient was abandoned by her hospice company prior to this admission for pre senting to hospital, was with them for >1 year Family state they were advised and hospice nurse was present for the first EMS call/hot die picker. They were told if anything not related to COPD, that they don't address, so family called EMS for the seizure activity and brought to hospital. They did not know this would lead to revoking hospice.
[2022-10-02] MEDS: LORazepam 2 MG/ML VIAL IV SCH ×2 (16:32→22:08)
[2022-10-03] MEDS: LORazepam 2 MG/ML VIAL IV SCH ×7 (00:38→20:22)
[2022-10-03] MEDS: HYDROMORPHONE HCL 1 MG/ML INJ IV PRN (04:48)
[2022-10-03] MEDS: METHADONE HCL 10 MG TAB PO SCH ×2 (08:02→20:21)
[2022-10-03] MEDS ORDERED: SCOPOLAMINE HYDROBROMIDE PATCH TD SCH (09:00)
[2022-10-03] MEDS ORDERED: ACETAMINOPHEN 325 MG TABLET PO PRN (16:10)
--- NOTE | 2022-10-03 16:54 | P.PN ---
Date of Service: 10/03/22 Subjective: awake, family report shes back to her baseline, bossy, confused, hungryj +headache ROS: limited secondary to mentation Physical exam GEN: cachectic CV: Regular rate and rhythm, no edema Pulm: Nonlabored respirations on room air ABD: Soft, nontender, nondistended Neuro: awake, oriented to self, +Dementia Problem List End stage COPD on home O2 - on hospice Advanced alzheimer dementia Seizure disorder severe protein calorie malnutrition continue comfort measures diet as tolerated continue pain medication, restarted home methadone 10/02 continue ativan PRN , continue ativan scheduled - takes q4h at home Code: DNR Dispo: comfort measures only; working on getting her back home on hospice now that she is awake, family interested in continuing home hospice if option still patient was abandoned by her hospice company prior to this admission for presenting to hospital, was with them for >1 year Family state they were advised and hospice nurse was present for the first EMS call/warehouse picker. They were told if anything not related to COPD, that they don't address, so family called EMS for the seizure activity and brought to hospital. They did not know this would lead to revoking hospice.
[2022-10-03] MEDS ORDERED: NA CHLORIDE 0.9% 250 ML ONE (18:21)
[2022-10-04] MEDS: LORazepam 2 MG/ML VIAL IV SCH ×7 (00:30→21:36)
[2022-10-04] MEDS: ACETAMINOPHEN 325 MG TABLET PO PRN (00:31)
[2022-10-04] MEDS: METHADONE HCL 10 MG TAB PO SCH ×2 (08:53→20:04)
[2022-10-04] MEDS: SCOPOLAMINE HYDROBROMIDE PATCH TD SCH (08:54)
--- NOTE | 2022-10-04 12:32 | P.PN ---
Subjective Date of Service: 10/04/22 Chief Complaint: End-stage COPD Patient is a more awake and interactive. She is tolerating 2 L oxygen by nasal cannula. Nurse report patient has good oral intake. Physical Examination - Vital Signs Temperature: 98.8 F Blood Pressure: 103/50 Pulse: 89 Respirations: 20 Pulse Ox (%): 97 Assessment And Plan - Plan Physical exam GEN: cachectic CV: Regular rate and rhythm, no edema Pulm: Nonlabored breathing, mild bibasilar crackles, diminished breath sounds bilaterally. ABD: Soft, nontender, nondistended Neuro: awake, oriented to self, +Dementia Problem List End stage COPD on home O2 - on hospice Advanced alzheimer dementia Seizure disorder severe protein calorie malnutrition Plan: diet as tolerated continue pain medication, restarted home methadone 1/8 Bronchodilators as needed continue ativan PRN , continue ativan scheduled - takes q4h at home. Hospice consult.
[2022-10-05] MEDS: LORazepam 2 MG/ML VIAL IV SCH ×6 (00:55→20:31)
[2022-10-05] MEDS: METHADONE HCL 10 MG TAB PO SCH ×2 (08:12→20:31)
--- NOTE | 2022-10-05 12:58 | P.PN ---
Subjective Date of Service: 10/05/22 Chief Complaint: End-stage COPD Patient is doing better. She is tolerating 1 L oxygen by nasal cannula with good oxygen saturation and denies shortness of breath. She is also eating better. Physical Examination - Vital Signs Temperature: 97.3 F Blood Pressure: 88/43 Pulse: 76 Respirations: 16 Pulse Ox (%): 90 Assessment And Plan - Plan Physical exam GEN: cachectic CV: Regular rate and rhythm, no edema Pulm: Nonlabored breathing, mild bibasilar crackles, diminished breath sounds bilaterally. ABD: Soft, nontender, nondistended Neuro: awake, oriented to self, +Dementia Problem List End stage COPD on home O2 - on hospice Advanced alzheimer dementia Seizure disorder severe protein calorie malnutrition Plan: diet as tolerated continue pain medication, restarted home methadone 1/8 Bronchodilators as needed continue ativan PRN , continue ativan scheduled - takes q4h at home. Hospice seen patient and patient has been accepted to hospitalist. The hospice agency is planning admission to the facility for hospice.
[2022-10-05] MEDS: IPRATROPIUM BROM 0.5MG/2.5ML NEB SCH ×2 (13:48→21:15)
[2022-10-05] MEDS: ALBUTEROL 2.5 MG/3 ML NEB SOL NEB SCH ×2 (13:48→21:15)
[2022-10-05] MEDS: ACETAMINOPHEN 325 MG TABLET PO PRN (16:42)
[2022-10-06] MEDS: LORazepam 2 MG/ML VIAL IV SCH ×6 (01:45→20:38)
[2022-10-06] MEDS: ALBUTEROL 2.5 MG/3 ML NEB SOL NEB SCH ×4 (02:00→19:25)
[2022-10-06] MEDS: IPRATROPIUM BROM 0.5MG/2.5ML NEB SCH ×4 (02:00→19:25)
[2022-10-06 05:57] LABS: Absolute Lymphocytes (CBC) 2.2 K/uL (0.7-4.9); Lymphocytes % 28.1 % (15.3-44.8); RBC Red Blood Cell Count 3.27 M/uL (3.86-4.86)
[2022-10-06 06:06] LABS: Potassium 3.9 mmol/L (3.5-5.1)
[2022-10-06] MEDS: METHADONE HCL 10 MG TAB PO SCH ×2 (09:00→20:38)
--- NOTE | 2022-10-06 13:38 | P.DS ---
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 Patient was previously on hospice with [facility] and is a total care. Patient was brought into the emergency room for seizure-like activities. No seizures activities observed during admission. Patient was unresponsive on presentation and unable to obtain history. She was noted to be hypoxic and requiring oxygen. She was admitted for further management. Hospital Course: Patient admitted to the medical floor put on comfort measures. She clinically improved, oxygen weaned down to 1 L. Patient was initially unresponsive but her mental status improved. She became awake enough to eat by herself. Her bronchodilators were resumed. Family want to proceed with hospice. Patient seen and evaluated by hospice and accepted to home with hospice. I am told she is gone live with her son in [place]. Vital Signs/Physical Exam: Temp Pulse Resp BP Pulse Ox 97.5 F 82 16 97/54 L 100 10/06/22 08:00 10/06/22 08:00 10/06/22 08:00 10/06/22 08:00 10/06/22 08:00 General: In no apparent distress, Cachectic HEENT: Mucous membr. moist/pink Neck: JVD not distended Respiratory: Diminished (Bilateral) Cardiovascular: No edema Gastrointestinal: Soft and benign, Non-distended Integumentary: No cyanosis Laboratory Data at Discharge: WBC 7.70 K/uL (4.3-10.9) 10/06/22 05:07 Hgb 10.2 g/dL (12.0-15.0) L 10/06/22 05:07 Hct 31.0 % (36.0-45.0) L 10/06/22 05:07 Plt Count 262 K/uL (152-406) 10/06/22 05:07 Sodium 139 mmol/L (136-145) 10/06/22 05:07 Potassium 3.9 mmol/L (3.5-5.1) 10/06/22 05:07 BUN 7 mg/dL (7-18) 10/06/22 05:07 Creatinine 0.37 mg/dL (0.55-1.02) L 10/06/22 05:07 Glucose 90 mg/dL (74-106) 10/06/22 05:07 Home Medications: Methadone HCl [Methadone HCl*] 10 mg PO BID 10/01/22 Albuterol Neb [Proventil 0.083% Neb Soln] 2.5 mg NEB [id number] #120 amp 10/06/22 Ipratropium Neb [Atrovent*] 0.5 mg NEB [id number] #120 amp 10/06/22 New Medications: Ipratropium Neb [Atrovent*] 0.5 mg NEB [id number] #120 amp Albuterol Neb [Proventil 0.083% Neb Soln] 2.5 mg NEB [id number] #120 amp Diet: AHA Activity: Fall precautions Time spent managing pt's care (in minutes): 32
[2022-10-06] MEDS: HYDROMORPHONE HCL 1 MG/ML INJ IV PRN (18:40)
[2022-10-07] MEDS: LORazepam 2 MG/ML VIAL IV SCH ×4 (00:51→12:29)
[2022-10-07] MEDS: IPRATROPIUM BROM 0.5MG/2.5ML NEB SCH ×2 (01:10→08:07)
[2022-10-07] MEDS: ALBUTEROL 2.5 MG/3 ML NEB SOL NEB SCH ×2 (01:10→08:07)
[2022-10-07] MEDS: ACETAMINOPHEN 325 MG TABLET PO PRN (06:48)
[2022-10-07 08:27] VITALS: TEMP 97.8
[2022-10-07] MEDS: METHADONE HCL 10 MG TAB PO SCH (08:31)
[2022-10-07 10:30] VITALS: O2SAT 92
[2022-10-07] MEDS: SCOPOLAMINE HYDROBROMIDE PATCH TD SCH (11:02)
[2022-10-07 12:12] VITALS: BP 90/51
--- NOTE | 2022-10-08 17:31 | P.PN ---
Subjective Date of Service: 10/06/22 Chief Complaint: End-stage COPD Patient has no complaint. She is stable on 1 L oxygen by nasal cannula She is eating well. She is also alert and oriented. Physical Examination - Vital Signs Temperature: 97.8 F Blood Pressure: 90/51 Pulse: 106 Respirations: 16 Pulse Ox (%): 100 Assessment And Plan - Current Problems (Diagnosis) (1) Advanced COPD Status: Acute (2) Chronic respiratory failure with hypoxia Status: Acute (3) Severe protein-calorie malnutrition Status: Acute - Plan Physical exam GEN: cachectic CV: Regular rate and rhythm, no edema Pulm: Nonlabored breathing, mild bibasilar crackles, diminished breath sounds bilaterally. ABD: Soft, nontender, nondistended Neuro: awake, oriented to self, +Dementia Problem List End stage COPD on home O2 - on hospice Advanced alzheimer dementia Seizure disorder severe protein calorie malnutrition Plan: Patient is eating well Continue home dose methadone. Bronchodilators as needed Hospice seen patient and patient has been accepted to hospice. The hospice agency is planning admission to the facility for hospice. Patient's son requested for patient to live him with home hospice. library services assistant assisting with the arrangement.
== END 2022-10-07 12:57 | disposition hospice, home (50) | DRG 190 ==
LOC: ER 10:06 → ERHOLD 16:42 → 2ND 21:35
PROVIDERS: ADMIT Hospitalist; ATTEND Internal Medicine
DX: J44.9 Chronic obstructive pulmonary disease, unspecified (principal); E43 Unspecified severe protein-calorie malnutrition; R64 Cachexia; Z68.1 Body mass index [BMI] 19.9 or less, adult; J96.11 Chronic respiratory failure with hypoxia; G30.9 Alzheimer's disease, unspecified; F02.80 Dementia in other diseases classified elsewhere, unspecified severity, without behavioral disturbance, psychotic disturbance, mood disturbance, and anxiety; G40.909 Epilepsy, unspecified, not intractable, without status epilepticus; F41.9 Anxiety disorder, unspecified; Z66 Do not resuscitate; Z88.8 Allergy status to other drugs, medicaments and biological substances; Z99.81 Dependence on supplemental oxygen; Z20.822 Contact with and (suspected) exposure to COVID-19
CPT/HCPCS: 36415; 80048; 85025; 87811; 94640; 96372; 96374; 96375; 99285; J0461; J1170; J7050; J7613; J7644